=== PATIENT | female | born 1950 | race Caucasian/White ===

== ENCOUNTER → 2024-09-19 | Outpatient (CLI) | payer MEDICARE, SELFPAY ==
[2024-09-19 11:18] LABS: Basophils % (Auto) 0 % (0-2.5); Eosinophils # (Auto) 0.2 Thou/mm3 (0.0-0.5); Eosinophils % (Auto) 3 % (0-10); Hematocrit 37.4 % (36.0-46.0); Hemoglobin 12.4 g/dL (12.0-16.0); Immature Granulocytes % (Auto) 0 % (0-0); Immature Granulocytes Auto 0.03 Thou/mm3 (0.00-0.00); Lymphocytes # (Auto) 1.8 Thou/mm3 (1.0-4.8); Lymphocytes % (Auto) 19 % (10-50); Mean Corpuscular HGB Conc 33.2 g/dl (31.0-37.0); Mean Corpuscular Volume 90 fL (80-100); Monocytes # (Auto) 0.6 Thou/mm3 (0.0-0.8); Monocytes % (Auto) 6 % (0-12); Neutrophils % (Auto) 72 % (37-80); Nucleated Red Blood Cell % 0 /100 WBC (0); Platelet Count 280 Thou/mm3 (140-440); RDW Standard Deviation 46.7 fL (36.4-46.3); Red Blood Count 4.14 Miln/mm3 (4.00-5.20); White Blood Count 9.7 Thou/mm3 (3.6-11.0)
[2024-09-19 11:30] LABS: Glucose Estimated Average 223 mg/dL (80-131); Hemoglobin A1C 9.4 % Hgb (4.8-6.0)
[2024-09-19 11:43] LABS: Vitamin B12 139 pg/mL (211-911); Vitamin D 25 Hydroxy Total 21.3 ng/mL (7.3-40.2)
[2024-09-19 11:56] LABS: Creatinine MALB Rnd Ur 35 mg/dL (30-125); Microalbumin Creat Ratio 20 mg/gCrea (<30); Microalbumin, Random Urine 7 mg/L (0-300)
[2024-09-19 11:57] LABS: Alanine Aminotransferase 10 U/L (10-49); Albumin, Serum 3.8 gm/dL (3.4-4.8); Albumin/Globulin Ratio 1.4 (1.2-2.2); Alkaline Phosphatase 64 U/L (46-116); Anion Gap 7 (7-16); Aspartate Amino Transferase 13 U/L (0-34); BUN/Creatinine Ratio 12 Ratio (12-20); Bilirubin,Total 0.3 mg/dL (0.3-1.2); Blood Urea Nitrogen 11 mg/dL (9-23); Calcium 9.4 mg/dL (8.3-10.6); Calcium (Corrected) 9.6 mg/dL (8.5-10.1); Carbon Dioxide 29.4 mMol/L (20.0-31.0); Chloride 102 mMol/L (98-107); Cholesterol 161 mg/dL (132-200); Creatinine (Component) 0.9 mg/dL (0.6-1.3); Free T4 (Free Thyroxine) 1.11 ng/dL (0.89-1.76); Globulin 2.7 gm/dL (2.3-3.5); Glucose 280 mg/dL (74-106); HDL Cholesterol 40 mg/dL (40-60); LDL Cholesterol,Calculated 100 mg/dL (0-130); Osmolality,Calculated 285 (275-295); Potassium 4.6 mMol/L (3.4-5.1); Sodium 138 mMol/L (136-145); Thyroid Stimulating Hormone 3.67 uIU/mL (0.55-4.78); Total Protein 6.5 gm/dL (5.7-8.2); Triglycerides 105 mg/dL (30-150); eGFR > 60 See Note
== END | disposition home or self-care (01) ==
LOC: COPL 10:01
PROVIDERS: PCP Internal Medicine; Referring Provider Internal Medicine; Visit Provider Internal Medicine
DX: I11.0 Hypertensive heart disease with heart failure (principal); E11.9 Type 2 diabetes mellitus without complications; E55.9 Vitamin D deficiency, unspecified; E78.2 Mixed hyperlipidemia; E03.9 Hypothyroidism, unspecified
CPT/HCPCS: 36415; 80053; 80061; 82043; 82306; 82570; 82607; 83036; 84439; 84443; 85025

== ENCOUNTER 2024-12-23 05:09 | Inpatient (IN) | payer MEDICARE, SELFPAY ==
[2024-12-23] VITALS (10 sets, daily range): BP systolic 127–152; BP diastolic 66–79; PULSE 96–112; RESP 17–22; TEMP 36.4–36.8; O2SAT 92–98; BMI 39.8; BMI 36.1
--- NOTE | 2024-12-23 05:19 | EKG_ITS ---
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
--- NOTE | 2024-12-23 05:36 | XR_ITS ---
Examination: AP chest single view Technique one AP portable semiupright chest single view Date and time: December 23, 2024, 0555 hrs., Comparison April 08, 2021 Indications: Nausea vomiting dizziness beginning 16 hours ago. Findings: Minimal prominence left ventricle Mild vascular congestion. No lobar pneumonia or pulmonary edema Significant osteopenia Impression: Mild vascular congestion
--- NOTE | 2024-12-23 05:38 | EDNOTE_ITS ---
Nausea/Vomit./Diarrhea-RME/HPI General Chief complaint: Nausea/Vomiting/Diarrhea Stated complaint: WEAKNESS, N/V Time Seen by Provider: 12/23/24 05:20 Source: patient, family and EMS Arrival date/time: 12/23/24 05:09 Mode of arrival: EMS RME / HPI RME / HPI Narrative: Ms. French is a 74-year-old female with past medical history of hypertension, dementia and insulin-dependent diabetes mellitus type 2 who presented to [facility] emergency department on 12/23/2024 with a chief complaint of nausea and vomiting. Patient's family at bedside assisted in providing history, patient alert and oriented x 3, per family patient had significant nausea vomiting yesterday unable to keep any food and medications, was given Zofran yesterday and her symptoms mildly improved, did report taking her insulin dose of Lantus 40 units yesterday. At night when she was coming back from the restroom fell on the floor, unwitnessed, denies hitting head not on any anticoagulation however complains of some right sided abdominal pain. On physical exam patient has moderate tenderness right sided abdomen, patient denies any fever myalgia chills shortness of breath chest pain and headache. Related Data Previous Rx's ?Medication ?Instructions ?Recorded benzonatate 200 mg capsule 200 mg PO BID PRN cough #30 caps 04/18/19 ipratropium bromide 21 mcg (0.03 2 spray intranasal BI D #30 mL 04/18/19 %) nasal spray loratadine 10 mg tablet (Allergy 10 mg PO QDAY allergy symptoms #30 04/18/19 Relief (loratadine)) tabs azithromycin 250 mg tablet See Rx Instructions PO .COM PLEX #6 04/21/19 (Zithromax) tabs Allergies Allergy/AdvReac Type Severity Reaction Status Date / Time Penicillins Allergy Verified 12/23/24 05:26 rofecoxib Allergy Verified 12/23/24 05:26 Review of Systems Review of Systems Systems Reviewed: All systems reviewed, normal except as documented Past Medical History Past Medical History Comments PMH COMMENT: PMH: Positive for , No significant past medical history PSHx: Hysterectomy Allergies: Penicillin, rofecoxib Social history: -Smoking: Denies -Alcohol Use: Denies -Illicit Drug Use: Denies Family History: Noncontributory ED Exam Narrative Physical exam: Physical Exam General: Awake and in no acute distress. Conversational and non-toxic appearing. HEENT: Normocephalic, atraumatic, mucous membranes moist. Heart: Sinus tachycardia, no murmurs. Lungs: Clear to auscultation with no wheezing or crackles. Abdomen: Firm, tender, significant tenderness noted right sided abdomen, voluntary guarding noted right side,?no guarding or rebound tenderness. Neurologic: Alert and oriented x3, no gross neurological deficit, and patient able to move all 4 extremities. Extremities: No edema. Wrinkled skin bilateral lower extremity. Skin: No rash or ecchymoses. Varicose veins noted. Course Quality Measures Current suspected stage: severe sepsis Possible source: GI tract/intra-abdominal Blood cultures ordered: yes Antibiotic ordered: Yes Pertinent labs: 12/23/24 12/23/24 05:32 09:32 Lactic Acid 6.4 H* mMol/L 3.7 H mMol/L (0.4-2.0) (0.4-2.0) sepsis Orders Category Date Time Status Bedside Blood Glucose Q6H Care 12/23/24 15:[address] Screening NOW Care 12/23/24 05:43 Active Medical Assistant Supervisor Q4H START 00 Care 12/23/24 05:18 Active Continuous Pulse Oximetry NOW Care 12/23/24 05:18 Completed EKG (ED ONLY) *Do not use* NOW Care 12/23/24 05:19 Completed EKG (ED ONLY) *Do not use* NOW Care 12/23/24 10:53 Completed Fingerstick [Bedside Blood Glucose] NOW Care 12/23/24 05:18 Active In and Out Catheter X1 Care 12/23/24 05:45 Completed Insert IV NOW Care 12/23/24 05:26 Active Insert NG / OG tube NOW Care 12/23/24 11:57 Active NPO NOW Care 12/23/24 11:57 Active Diet NPO (NOW) Diet 12/23/24 11:[address] abdomen pelvis w con Stat Exams 12/23/24 05:[address] cervical spine wo con Stat Exams 12/23/24 05:[address] head/brain wo con Stat Exams 12/23/24 05:42 Completed CXRP [XR chest 1V portable] Stat Exams 12/23/24 05:36 Completed EKG (ED Only) Stat Exams 12/23/24 05:19 Draft EKG (ED Only) Stat Exams 12/23/24 10:53 Draft XR chest 1V post procedure Stat Exams 12/23/24 13:10 Completed XR small bowel single contrast Stat Exams 12/23/24 16:44 Completed A1C [Glycohemoglobin w (eAG)] AM DRAW Lab 12/24/24 05:00 Ordered Beta Hydroxybutyrate Stat Lab 12/23/24 06:05 Completed Blood Culture (Lab) Stat Lab 12/23/24 06:04 Received CBC Stat Lab 12/23/24 05:32 Completed CMP [Comprehensive Metabolic Panel] Stat Lab 12/23/24 06:05 Completed Creatine Kinase Stat Lab 12/23/24 06:05 Completed INR [Prothrombin Time with INR] Stat Lab 12/23/24 06:05 Completed Lactate (Lactic Acid) Stat Lab 12/23/24 05:32 Completed Lactic Acid, 3 HR Stat Lab 12/23/24 09:32 Completed Magnesium Stat Lab 12/23/24 06:05 Completed PTT [Partial Thromboplastin Time] Stat Lab 12/23/24 06:05 Completed Phosphorous Stat Lab 12/23/24 06:05 Completed Troponin I Stat Lab 12/23/24 06:05 Completed Troponin I Stat Lab 12/23/24 11:32 Completed Urinalysis, C/S if Indicated Stat Lab 12/23/24 05:53 Completed Urine Culture Stat Lab 12/23/24 05:53 Received VBG [Venous Blood Gas] Stat Lab 12/23/24 05:32 Completed Dextrose 50% Syr [D50w Syringe Abboject] Med 12/23/24 15:23 Active 25 ml IV Q15MIN PRN Dextrose 50% Syr [D50w Syringe Abboject] Med 12/23/24 15:23 Active 50 ml IV Q15MIN PRN Glucagon Inj Med 12/23/24 15:23 Active 1 mg IM Q15MIN PRN INSULIN LISPRO (AdmeLOG) [HumaLOG] Med 12/23/24 17:00 Active See Protocol SC ACHS Insulin Degludec Inj Med 12/23/24 21:00 Active 30 unit SC HS Insulin Regular Med 12/23/24 11:08 Discontinued 5 unit IV X1 ONE Magnesium Sulfate 1 gm Ivpb [Magnesium Sulfate Ivpb] Med 12/23/24 11:08 Disc ontinued 1 gm in 100 ml IV X1 Meropenem Inj [Merrem Inj] 1,000 mg Med 12/23/24 11:07 Discontinued SODIUM CHLORIDE 0.9% (Popper) [Ns 0.9% (P)] 50 ml IV X1 Morphine* Inj Med 12/23/24 12:23 Discontinued 2 mg IVP X1 ONE Ringers Lactated 1000 ml [Lactated Ringers] 1,000 ml Med 12/23/24 15:22 Active IV 100 mls/hr Sodium Chloride 0.9% 1000 ml [Ns] 1,000 ml Med 12/23/24 05:36 Discontinued IV 999 mls/hr Sodium Chloride 0.9% 1000 ml [Ns] 1,000 ml Med 12/23/24 05:37 Discontinued IV 999 mls/hr Vancomycin Pharmacy to Dose Med 12/23/24 11:07 Discontinued 1 each IV QDAY PRN Vancomycin/Ns 1 gm Ivpb 200 ml Med 12/23/24 11:15 Discontinued IV X1 cefTRIAXone [Rocephin] 2 gm Med 12/23/24 16:47 Active SODIUM CHLORIDE 0.9% (Popper) [Ns 0.9% (P)] 50 ml IV QDAY Vital Signs Vital signs: Vital Signs Temperature 97.5 F 12/23/24 05:27 Pulse Rate 100 12/23/24 05:27 Respiratory Rate 18 12/23/24 05:27 Blood Pressure 129/69 12/23/24 05:27 Pulse Oximetry (%) 95 12/23/24 05:27 Oxygen Delivery Method Room Air 12/23/24 05:27 Oxygen Flow Rate 4 12/23/24 05:27 Nausea/Vomiting/Diarrhea MDM Narrative MDM Narrative:: # Nausea vomiting dehydration #Abdominal pain 1 L NS bolus, beta hydroxybutyrate, CBC, INR PT, lactate, VBG, magnesium, troponin I, blood culture, urine culture, lactic acid, CMP, PTT, urinalysis, phosphorus, CK CT head/brain without contrast, CT cervical spine without contrast and CT abdomen pelvis with contrast, chest x-ray and EKG Patient will be signed off to ER physician Dr. Mendez for further workup. Sepsis alert initiated Case discussed with Attending Physician Dr. Flores and signed off to oncoming ER physician Dr. Mendez. Zak Ha MD Internal Medicine PGY-2 Disclaimer: This note was dictated by speech recognition. Minor errors in emergency services director may be present due to voice recognition software. Patient is a 74-year-old female to the [facility] from with concerns for abdominal pain. Vital signs and exam as listed. Concern for bowel obstruction, perforation, ACS, arrhythmia, electrolyte abnormality among others. Also concern for pancreatitis, urinary tract infection. Ordered labs, CT abdomen pelvis as well as offered medications for symptom relief. Workup ordered: Patient data External records reviewed:: [facility] previous records Clinical information provided by:: patient and family Social determinants that could affect healthcare access:: none Patient has the following chronic illnesses:: As Above How is presenting disease/condition affected by chronic disease/condition?: exacerbated by Evaluation data The following diagnostics were reviewed and interpreted by me:: other (specify) (Workup was ordered, pending results) Lab and/or radiology exams considered but not ordered:: None Interpretation Summary: Workup ordered, pending result Medications / Prescriptions Medications / Prescriptions considered but not ordered:: None Medication administrations:: Medication Administration History Acetaminophen (Acetaminophen 325 Mg Tablet) 650 mg PO Q6H PRN PRN Reason: Fever >101.5 and pain 1-3 Stop: 01/22/25 16:59 Dextrose (Dextrose 50%-Water Inj 50 Ml Syringe) 25 ml IV Q15MIN PRN PRN Reason: BG 50-70 responsive npo pt Stop: 01/22/25 15:22 Dextrose (Dextrose 50%-Water Inj 50 Ml Syringe) 50 ml IV Q15MIN PRN PRN Reason: BG <50 OR BG <70 & pt unresponsive Stop: 01/22/25 15:22 Glucagon (Glucagon Inj 1 Mg Vial) 1 mg IM Q15MIN PRN PRN Reason: BG <70, and no IV access Heparin Sodium (Porcine) (Heparin Sod Inj 5000 Unit/Ml Vial) 5,000 unit SC Q8HR SAMAN Stop: 01/06/25 21:59 Lactated Ringer's (Lactated Ringers) 1,000 mls @ 100 mls/hr IV .Q10H SAMAN Stop: 01/22/25 15:21 Last Admin: 12/23/24 16:09 Dose: 100 mls/hr Documented By: CLARA Ceftriaxone Sodium 2 gm/ (Sodium Chloride) 50 mls @ 100 mls/hr IV QDAY SAMAN Stop: 12/30/24 16:46 Last Infusion: 12/23/24 18:14 Dose: Infused Documented By: Admin: 12/23/24 17:16 Dose: 100 mls/hr Documented By: CLARA Insulin Degludec (Insulin Degludec 5 Unit/0.05 Ml (Per 5 Units)) 30 unit SC HS [facility] Stop: 01/22/25 20:59 Insulin Human Lispro (Insulin Lispro (Admelog) 1 Unit/0.01 Ml Unit) 0 unit SC [facility]; Protocol Stop: 01/22/25 16:59 Last Admin: 12/23/24 17:14 Dose: 4 unit Documented By: CLARA Co-signed By: FRED Morphine Sulfate (Morphine Sulf Inj 4 Mg/Ml Vial) 1 mg IVP Q4HR PRN PRN Reason: pain 4-6 Stop: 12/28/24 18:13 Morphine Sulfate (Morphine Sulf Inj 4 Mg/Ml Vial) 4 mg IVP Q4HR PRN PRN Reason: pain 7-10 Stop: 12/28/24 18:15 Pantoprazole Sodium (Pantoprazole Inj 40 Mg Vial) 40 mg IVP QDAY [facility] Stop: 01/23/25 08:59 Discontinued Medications Sodium Chloride (Ns) 1,000 mls @ 999 mls/hr IV .Q1H1M ONE Stop: 12/23/24 06:36 Last Infusion: 12/23/24 06:53 Dose: Infused Documented By: Admin: 12/23/24 05:48 Dose: 999 mls/hr Documented By: SYLVIA Sodium Chloride (Ns) 1,000 mls @ 999 mls/hr IV .Q1H1M ONE Stop: 12/23/24 06:37 Last Admin: 12/23/24 05:37 Dose: Not Given Documented By: SYLVIA Non-Admin Reason: Cancelled by Provider Meropenem 1,000 mg/ Sodium (Chloride) 50 mls @ 100 mls/hr IV X1 ONE Stop: 12/23/24 11:36 Last Infusion: 12/23/24 12:00 Dose: Infused Documented By: Admin: 12/23/24 11:28 Dose: 100 mls/hr Documented By: CLARA Magnesium Sulfate/Dextrose (Magnesium Sulfate Ivpb) 1 gm in 100 mls @ 100 mls/hr IV X1 ONE Stop: 12/23/24 12:07 Last Infusion: 12/23/24 12:30 Dose: Infused Documented By: Admin: 12/23/24 11:28 Dose: 100 mls/hr Documented By: CLARA Vancomycin/Sodium Chloride (Vancomycin/Ns 1 Gm Ivpb) 200 mls @ 120 mls/hr IV X1 ONE Stop: 12/23/24 12:54 Last Infusion: 12/23/24 13:20 Dose: Infused Documented By: Admin: 12/23/24 11:29 Dose: 120 mls/hr Documented By: CLARA Insulin Human Regular (Insulin Hum Regular 1 Unit/0.01 Ml (Per Unit)) 5 unit IV X1 ONE Stop: 12/23/24 11:09 Last Admin: 12/23/24 11:29 Dose: 5 unit Documented By: CLARA Co-signed By: FRED Morphine Sulfate (Morphine Sulf Inj 4 Mg/Ml Vial) 2 mg IVP X1 ONE Stop: 12/23/24 12:24 Last Admin: 12/23/24 12:45 Dose: Not Given Documented By: CLARA Non-Admin Reason: Patient Refused Morphine Sulfate (Morphine Sulf Inj 4 Mg/Ml Vial) 2 mg IVP X1 ONE Stop: 12/23/24 18:15 Last Admin: 12/23/24 18:25 Dose: 2 mg Documented By: SONJA Pharmacy Consult (Vancomycin Pharmacy To Dose 1 Each Each) 1 each IV QDAY PRN PRN Reason: PROTOCOL Stop: 01/22/25 11:06 1 L NS bolus Consultations Consultation(s) initiated? (list below): No Diagnosis Nausea Differential Diagnosis: food poisoning, gastroenteritis and dehydration Most likely diagnosis given after review of the tests above:: Pending workup Admission Indicated Admission indicated?: not indicated (Pending workup) Admission Request Was there a request for admission?: No Disposition Plan Disposition Plan: other (specify) (Patient will be signed off to oncoming ER physician Dr. Mendez) Discharge Plan Plan Patient Disposition: Admit Acute Care w/in Hospital Problem List Clinical Impression: SBO (small bowel obstruction)
--- NOTE | 2024-12-23 05:42 | XR_ITS ---
Examination: CT brain head without contrast. 2-D sagittal coronal reconstructions Date and time of exam:December 23, 2024, 0751 hrs. Indications: Ground-level fall today with into the head, head pain CTDI: vol (mGy):51.7 DLP: (mGycm):1550 Technique: Multiple CT axial sections of the brain have been obtained, 5 mm slice thickness. Contrast has not been administered. 2-D sagittal, coronal reconstructions have been obtained Low dose protocols were performed. One or more of the following dose reduction techniques were used; automated exposure control, adjustment of the mA and/or KV according to patient size, use of iterative reconstruction technique. Findings: Severe artifacts in the posterior fossa Ventricles are not enlarged No gross hemorrhage or mass effect Impression: Limited study, severe artifacts in the posterior fossa No gross hemorrhage or mass effect
--- NOTE | 2024-12-23 05:42 | XR_ITS ---
Examination: CT cervical spine without contrast 2-D sagittal reconstructions 2-D coronal reconstructions 3-D reconstructions. Exam date and time:December 23, 2024, 0751 hrs. Indications: Ground-level fall today with injury to the neck, neck pain CTDI:vol (mGy) 20 DLP: (mGycm) 450 Technique: Multiple 2 mm axial sections of the cervical spine have been obtained. The coronal and sagittal reconstructions have been obtained. 3-D reconstructions have been obtained. Low dose protocols were performed. One or more of the following dose reduction techniques were used; automated exposure control, adjustment of the mA and/or KV according to patient size, use of iterative reconstruction technique. Findings: The images are degraded by patient motion No gross fracture The odontoid appears intact Impression: All of the images are degraded by significant patient motion No gross fracture Repeat this study as clinically warranted
--- NOTE | 2024-12-23 05:42 | XR_ITS ---
Examination: CT abdomen with intravenous contrast CT pelvis with intravenous contrast 2-D coronal reconstructions 2-D sagittal reconstructions Date and time of exam:December 23, 2024, 0757 hrs. Indications: Patient fell today with injury to the abdomen, abdomen pain. CTDI: vol (mGy) 51.7 DLP: (mGycm) 932 Technique: Multiple axial sections of the abdomen and pelvis have been obtained. 64 slice high-resolution scanner used. 3 mm axial sections have been obtained, post intravenous injection 30 cc [id number] 2-D sagittal, coronal reconstructions obtained. Low dose protocols were performed. One or more of the following dose reduction techniques were used; automated exposure control, adjustment of the mA and/or KV according to patient size, use of iterative reconstruction technique. Findings: Extensive mitral valvular calcification There is trace free fluid subcapsular to the liver There is mild ascites The liver is irregular in contour No liver splenic or renal laceration Aorta is normal in size There are abnormal fluid distended small bowel loops with wall thickening Urinary bladder is intact Colonic diverticulosis Prominent osteopenia with grade 1 anterolisthesis L4 on L5, advanced degenerative disc disease L2-L3 Hips bones of the pelvis intact Impression: Cirrhosis Mild ascites No liver splenic or renal laceration. Abnormal small bowel loops, fluid distended, differential would include ileus, enteritis, early small bowel obstruction, clinical correlation advised
[2024-12-23] MEDS: SODIUM CHLORIDE 0.9% 1000 ML 1,000 ML 999 ML IV (05:48)
[2024-12-23 05:49] LABS: Base Excess, Venous 0 (-3-3); O2 Saturation, Venous 89 % (96-97); PCO2, Venous 47 mmHg (36-56); PO2, Venous 58 mmHg (15-58); pH, Venous 7.36 (7.33-7.66)
[2024-12-23 05:53] LABS: Basophils # (Auto) 0.1 Thou/mm3 (0.0-0.2); Basophils % (Auto) 0 % (0-2.5); Eosinophils # (Auto) 0.0 Thou/mm3 (0.0-0.5); Eosinophils % (Auto) 0 % (0-10); Hematocrit 45.6 % (36.0-46.0); Hemoglobin 15.1 g/dL (12.0-16.0); Immature Granulocytes Auto 0.15 Thou/mm3 (0.00-0.00); Lymphocytes # (Auto) 1.7 Thou/mm3 (1.0-4.8); Lymphocytes % (Auto) 6 % (10-50); Mean Corpuscular HGB Conc 33.1 g/dl (31.0-37.0); Mean Corpuscular Hemoglobin 30.2 pg (25.0-35.0); Mean Corpuscular Volume 91 fL (80-100); Monocytes # (Auto) 1.7 Thou/mm3 (0.0-0.8); Monocytes % (Auto) 7 % (0-12); Neutrophils # (Auto) 23.2 Thou/mm3 (1.8-7.7); Neutrophils % (Auto) 87 % (37-80); Nucleated Red Blood Cell # 0.00 Thou/mm3 (0.00-0.00); Nucleated Red Blood Cell % 0 /100 WBC (0); Platelet Count 386 Thou/mm3 (140-440); RDW Standard Deviation 45.4 fL (36.4-46.3); Red Blood Count 5.00 Miln/mm3 (4.00-5.20); White Blood Count 26.8 Thou/mm3 (3.6-11.0)
[2024-12-23 05:56] LABS: Collection Type, Urine Clean Catch; Squamous Epithelial Cell,Urine 0 /hpf (0-5)
--- NOTE | 2024-12-23 05:56 | PC.NURSE ---
PT BIBA FROM HOME FOR N/V, WEAKNESS, AND ELEVATED BLOOD SUGAR. PTS GRANDDAUGHTER AT BEDSIDES CONFIRMS THAT PT HAS NOT BEEN FEELING WELL SINCE YESTERDAY. GRANDDAUGHTER ALSO MENTIONS A NEW SCRAPE ON PTS FORHEAD AND STATES THAT WAS THERE YESTERDAY. PT DENIES FALLING ON THE FLOOR. PROVIDER WAS NOTIFIED ABOUT STATEMENT. AT THE MOMENT PT DENIES NAUSEA
[2024-12-23 06:03] LABS: Lactate (Lactic Acid) 6.4 mMol/L (0.4-2.0)
[2024-12-23 06:15] LABS: Beta Hydroxybutyrate 0.2 mmol/L (<0.6)
[2024-12-23 06:30] LABS: Bilirubin,Urine Negative (Negative); Blood,Urine 1+ (Negative); Clarity,Urine Clear (Clear/Hazy); Color,Urine Yellow (Lt Yel-Yel); Culture Indicated,Urine Not Indicated; Glucose, Urine 4+ (Negative); Hyaline Casts,Urine < 1 /hpf (0-1); Ketones,Urine 1+ (Negative); Leukocyte Esterase,Urine Negative (Negative); Nitrite,Urine Negative (Negative); PH,Urine 6.0 (5.0-7.0); Protein,Urine 2+ (Neg - Trace); RBC,Urine 3 /hpf (0-3); Specific Gravity,Urine 1.014 (1.001-1.035); Urobilinogen,Urine Negative mg/dL (0.0-1.0); WBC,Urine 3 /hpf (0-5)
[2024-12-23 06:32] LABS: INR 1.1 (0.9-1.3); Partial Thromboplastin Time 24.0 Seconds (22.0-36.0); Prothrombin Time 11.9 Seconds (9.0-12.2)
[2024-12-23 06:44] LABS: Alanine Aminotransferase 11 U/L (10-49); Albumin, Serum 4.2 gm/dL (3.4-4.8); Albumin/Globulin Ratio 1.4 (1.2-2.2); Alkaline Phosphatase 64 U/L (46-116); Anion Gap 13 (7-16); Aspartate Amino Transferase 16 U/L (0-34); BUN/Creatinine Ratio 15 Ratio (12-20); Bilirubin,Total 0.8 mg/dL (0.3-1.2); Blood Urea Nitrogen 22 mg/dL (9-23); Calcium 9.6 mg/dL (8.3-10.6); Calcium (Corrected) 9.6 mg/dL (8.5-10.1); Carbon Dioxide 28.3 mMol/L (20.0-31.0); Chloride 97 mMol/L (98-107); Creatine Kinase 61 U/L (34-171); Creatinine (Component) 1.5 mg/dL (0.6-1.3); Estimated Creatinine Clearance 36.4 mL/min (>60); Globulin 3.1 gm/dL (2.3-3.5); Magnesium 1.5 mg/dL (1.6-2.6); Osmolality,Calculated 296 (275-295); Phosphorous 5.3 mg/dL (2.4-5.1); Potassium 4.2 mMol/L (3.4-5.1); Sodium 138 mMol/L (136-145); Total Protein 7.3 gm/dL (5.7-8.2); Troponin I 0.031 ng/mL (0.0-0.045); eGFR 36 See Note
[2024-12-23 06:46] LABS: Glucose 420 mg/dL (74-106)
[2024-12-23 08:47] LABS: Reflex Lactate? Y
[2024-12-23 09:43] LABS: Lactic Acid, 3 HR 3.7 mMol/L (0.4-2.0)
--- NOTE | 2024-12-23 10:47 | EDNOTE_ITS ---
Emergency Room Addendum <Cristina Mendez MD - Last Filed: 12/23/24 18:14> Addendum Narrative: Patient is a 74-year-old female is in the emergency department with concern for nausea vomiting. Patient has a history of hypertension, dementia. Nausea vomiting for 1 day. Lives with her . Patient also had a fall yesterday. Also complaining of right lower quadrant abdominal pain. Prior provider evaluated patient. Ordered labs head CT cervical spine CT CT abdomen pelvis contrast chest x-ray and EKG. EKG performed today at 539 in the morning notable for sinus rhythm heart rate 98, normal intervals, patient has ST elevations in lead aVR, V1 patient also with ST depressions in lead I to and aVL. Troponin 0.031. Patient without any chest pain. Labs with evidence of leukocytosis, 26.8, hemoglobin 15.1. Left shift of 87%. Normal platelets. Normal PT/INR. VBG pH normal. No significant acute electrolyte abnormality. Patient creatinine is 1.5. Previously normal. Patient glucose is 420. Patient does not have an anion gap acidosis. Lactic acid is 3.7 following fluid resuscitation. Patient presented with a lactic acid of 6. Patient also with hypomagnesemia. Will replete in the emergency department. No other acute metabolic abnormalities. Urinalysis without evidence of infection. CT brain and cervical spine did not identify any abnormalities however there was motion artifact. Chest x-ray with mild vascular congestion. CT abdomen pelvis with extensive mitral valvular calcification, there is trace free fluid subcapsular to the liver there is mild ascites. The liver is irregular. There are abnormal fluid distended small bowel loops with wall thickening. Patient also with diverticulosis. Patient is having bowel movements and passing gas. Given findings on workup, will consult hospitalist service for admission. Provided patient with antibiotics. Also fluids and medication for symptom relief. 11:10h I spoke with surgeon Dr. Diallo, states he will come evaluate the patient in the ED. 11:50h Surgeon Dr. Diallo is at bedside. Advised placing an NG tube and admission for further evaluation. He agrees to consult. 11:52h I spoke with hospitalist team B regarding admission. Kindly excepted patient for admission ?I spent 45 minutes of critical care time with this patient not including reportable procedures. There was an acute impairment of an organ system with a high probability of imminent or life threatening deterioration in the patient's condition. Interventions and changes required in the course of therapy are located in the chart. Time involved was spent in direct patient care, reviewing ancillary data, old records, consulting with decision makers, EMS, other doctors, giving orders and documenting. <Angy Alvares - Last Filed: 12/23/24 11:57> Addendum Narrative: Patient is a 74-year-old female is in the emergency department with concern for nausea vomiting. Patient has a history of hypertension, dementia. Nausea vomiting for 1 day. Lives with her . Patient also had a fall yesterday. Also complaining of right lower quadrant abdominal pain. Prior provider evaluated patient. Ordered labs head CT cervical spine CT CT abdomen pelvis contrast chest x-ray and EKG. EKG performed today at 539 in the morning notable for sinus rhythm heart rate 98, normal intervals, patient has ST elevations in lead aVR, V1 patient also with ST depressions in lead I to and aVL. Troponin 0.031. Patient without any chest pain. Labs with evidence of leukocytosis, 26.8, hemoglobin 15.1. Left shift of 87%. Normal platelets. Normal PT/INR. VBG pH normal. No significant acute electrolyte abnormality. Patient creatinine is 1.5. Previously normal. Patient glucose is 420. Patient does not have an anion gap acidosis. Lactic acid is 3.7 following fluid resuscitation. Patient presented with a lactic acid of 6. Patient also with hypomagnesemia. Will replete in the emergency department. No other acute metabolic abnormalities. Urinalysis without evidence of infection. CT brain and cervical spine did not identify any abnormalities however there was motion artifact. Chest x-ray with mild vascular congestion. CT abdomen pelvis with extensive mitral valvular calcification, there is trace free fluid subcapsular to the liver there is mild ascites. The liver is irregular. There are abnormal fluid distended small bowel loops with wall thickening. Patient also with diverticulosis. Patient is having bowel movements and passing gas. Given findings on workup, will consult hospitalist service for admission. 11:10h I spoke with surgeon Dr. Diallo, states he will come evaluate the patient in the ED. 11:50h Surgeon Dr. Diallo is at bedside. Advised placing an NG tube and admis gaye for further evaluation. He agrees to consult. 11:52h I spoke with hospitalist team B regarding admission.
--- NOTE | 2024-12-23 10:53 | EKG_ITS ---
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1950 Requested By: Cristina Hyde Order Number: [id number] Reading MD: Cristina Hyde Measurements Intervals [place] Rate: 101 P: 43 SC: 156 QRS: -5 QRSD: 104 T: 134 QT: 328 QTc: 426 Interpretive Statements SINUS TACHYCARDIA LOW QRS VOLTAGE IN PRECORDIAL LEADS [QRS DEFLECTION < 1.0 mV IN CHEST LEADS] LEFT VENTRICULAR HYPERTROPHY AND ST-T CHANGE [VOLTAGE CRITERIA PLUS ST/T ABNORMALITY] POSSIBLE ANTERIOR MYOCARDIAL INFARCTION , OF INDETERMINATE AGE [30 ms Q WAVE IN V3/V4, OR R < 0.2 mV IN V4] Compared to ECG 12/23/2024 05:35:14 Low QRS voltage now present Myocardial infarct finding now present Sinus rhythm no longer present ST (T wave) deviation still present /store/S0/[id number]
[2024-12-23] MEDS: MEROPENEM INJ 1,000 MG in SODIUM CHLORIDE 0.9% (Popper) 50 ML 100 MG IV (11:28)
[2024-12-23] MEDS: INSULIN HUM REGULAR 1 UNIT/0.01 ML (PER UNIT) 5 UNIT IV (11:29)
[2024-12-23] MEDS: VANCOMYCIN/NS 1 GM IVPB 200 ML IV (11:29)
--- NOTE | 2024-12-23 12:00 | PD.SURCONS ---
HPI Consult details Consult date: 12/23/24 Reason for consultation narrative: Abdominal pain with nausea and vomiting History of present illness: 74-year-old obese female with a history of diabetes and hypertension was brought into the emergency department for recent fall with nausea and vomiting. According to the patient and her family she has had multiple episodes of nausea and vomiting yesterday after which she sustained a fall. She denies having similar symptoms in the past. She also denies weight loss, changes in bowel habits or history of blood per rectum. A CT scan revealed dilated loops of small bowel suspicious for ileus versus small bowel obstruction. Review of Systems Constitutional Constitutional: Denies chills, Denies fever(s) and Denies weight loss Cardiovascular Cardiovascular: Denies chest pain Respiratory Respiratory: Denies cough Gastrointestinal Gastrointestinal: Reports abdominal pain, Reports nausea and Reports vomiting Genitourinary Genitourinary: Denies difficulty voiding Hematologic/Lymphatic Hematologic/Lymphatic: Denies easy bleeding and Denies easy bruising Past Medical History Surgical History OTHER SURGICAL HX: Hysterectomy Social History SMOKING STATUS: Never smoker SUBSTANCE USE: does not use ALCOHOL: Never Meds Home Medications and Allergies Allergies Allergy/AdvReac Type Severity Reaction Status Date / Time Penicillins Allergy Verified 12/23/24 05:26 rofecoxib Allergy Verified 12/23/24 05:26 Exam Vital Signs Temp Pulse Resp BP Pulse Ox O2 Del Method O2 Flow Rate 97.5 F 96 17 129/69 98 Nasal Cannula 1 12/23/24 05:27 12/23/24 06:01 12/23/24 06:01 12/23/24 05:27 12/23/24 06:01 12/23/24 06:01 12/23/24 06:01 Constitutional Constitutional: mild distress and obese Routine Abdominal Exam Comments: Abdomen is soft and not distended. She has significant tenderness to palpation of her right mid abdomen, no evidence of diffuse peritonitis at this time Results Results: Laboratory Laboratory results: results reviewed Results: Imaging CT scan - abdomen: report reviewed and image reviewed CT scan - pelvis: report reviewed and image reviewed Assessment & Plan Additional Assessment Additional comments: Right-sided abdominal pain with nausea and vomiting, with CT scan findings suspicious for small bowel obstruction Plan Will keep n.p.o. with IV fluids. An NG tube will be placed. Will obtain small bowel series. I had discussion with the patient and her family and explained to them that if her symptoms improve we will continue conservative management. If her symptoms worsen and or clinical course deteriorates she will require an exploratory laparotomy. Will follow
[2024-12-23 12:22] LABS: Troponin I 0.031 ng/mL (0.0-0.045)
--- NOTE | 2024-12-23 13:10 | XR_ITS ---
Examination: AP chest single view Technique one AP portable upright chest single view Date and time: December 23, 2024 1643 hours INDICATIONS: Post orogastric tube placement FINDINGS: Orogastric tube in stomach satisfactory position Mild enlargement cardiac contour with prominent vascular congestion Prominent osteopenia IMPRESSION: Orogastric tube in the stomach satisfactory position
[2024-12-23] MEDS: RINGERS LACTATED 1000 ML 1,000 ML 100 ML IV (16:09)
--- NOTE | 2024-12-23 16:11 | PD.RESHP ---
Documentation for date of: 12/23/24 [facility] History of Present Illness Chief complaint: Presyncopal episode History of present illness: and daughter at the bedside who also gives some history as patient has some memory issues. 74-year-old female with significant past medical history of hypertension, diabetes mellitus, insulin-dependent, possible dementia [not officially diagnosed], fatty liver, bowel and bladder incontinence, chronic constipation was brought to the hospital with chief complaints of nausea, vomitings and presyncopal like episode. Patient was absolutely normal till yesterday morning, later in the day noted to have 10 episodes of vomiting, nonbilious without any associated hematemesis. This morning, per patient woke up and tried to get out of the bed but she is not able to do that for which tried to help her but could not hold her for a long time and slowly she was dropped down to the floor and she was noted to have severe sweating but without any loss of consciousness. At baseline, patient is able to walk with the help of support around the home but it is getting difficult in the recent times. Also reported that she has severe constipation and had bowel movement once and every 4 days. Had bowel and bladder incontinence since many years from now. Patient was mainly brought to the hospital in view of sweating and presyncopal episode and later found to have small bowel obstruction in the ED. General surgeon, Dr. Diallo was consulted and he recommended n.p.o., IV fluids, small bowel series and conservative management as of now. ED course: - Vitals are stable at the time of admission - Labs at the time of admission were significant for WBC 26.8, chloride 97, creatinine 1.5, glucose 420, lactic 3.7, phosphorus 5.3, magnesium 1.5. - EKG done at the time of admission showed normal sinus rhythm with no acute ST and T wave changes - Chest x-ray did show mild vascular congestion - Abdomen/pelvis CT showed extensive mitral valvular calcification, irregular liver contour, mild ascites, colonic diverticulosis, abnormal fluid distended small bowel loops with wall thickening suggestive of early small bowel obstruction. Basal areas of lungs visualized on CT chest showed bilateral patchy opacities. - Cervical spine CT and head CT did not show any acute fracture. - Patient was admitted in view of suspected small bowel obstruction and presyncopal like episode. Past medical history: Hypertension, diabetes mellitus, possible dementia, fatty liver, bowel and bladder incontinence, chronic constipation Past surgical history: Tubal ligation, denies major abdominal surgeries Social history: Lives with , able to do routine daily activities with the help of support, denies smoking, alcohol, other illicit drug abuse Allergies: Penicillins Review of Systems Review of Systems Systems Reviewed: All systems reviewed, normal except as documented Exam Vital Signs Temp Pulse Resp BP Pulse Ox O2 Del Method O2 Flow Rate 98.2 F 100 18 150/75 H 92 L Room Air 1 12/23/24 15:00 12/23/24 15:00 12/23/24 15:00 12/23/24 15:00 12/23/24 15:12/23/24 15:00 12/23/24 06:01 Narrative Exam General: Awake. HEENT: Normocephalic, atraumatic, mucous membranes moist. Heart: Regular rate and rhythm, Ejection systolic murmur at aortic area. Lungs: Clear to auscultation with no wheezing or crackles. Abdomen: Soft, mildly distended, mild tenderness in RUQ, Decreased bowel sounds. ?No guarding or rebound tenderness. Neurologic: Alert and oriented x3, no gross neurological deficit, and patient able to move all 4 extremities. Extremities: No edema. Skin: No rash or ecchymoses. Results: Labs 12/24/24 04:27 12/24/24 04:27 Labs: Short CBC 12/23/24 Range/Units 05:32 WBC 26.8 H (3.6-11.0) Thou/mm3 Hgb 15.1 (12.0-16.0) g/dL Hct 45.6 (36.0-46.0) % Plt Count 386 (140-440) Thou/mm3 BMP 12/23/24 06:05 Sodium 138 Potassium 4.2 Chloride 97 L Carbon Dioxide 28.3 BUN 22 Creatinine 1.5 H Glucose 420 H* Calcium 9.6 Cardiac Enzymes 12/23/24 12/23/24 Range/Units 06:05 11:32 Total Creatine Kinase 61 (34-171) U/L Troponin I 0.031 0.031 (0.0-0.045) ng/mL Liver Function 12/23/24 Range/Units 06:05 Total Bilirubin 0.8 (0.3-1.2) mg/dL AST 16 (0-34) U/L ALT 11 (10-49) U/L Alkaline Phosphatase 64 (46-116) U/L Albumin 4.2 (3.4-4.8) gm/dL Urine 12/23/24 Range/Units 05:53 Urine Color Yellow (Lt Yel-Yel) Urine Clarity Clear (Clear/Hazy) Urine pH 6.0 (5.0-7.0) Ur Specific [place] 1.014 (1.001-1.035) Urine Protein 2+ A (Neg - Trace) Urine Glucose (UA) 4+ A (Negative) ABG Interpretation ABG results: 12/23/24 05:32 VBG pH 7.36 VBG pCO2 47 VBG pO2 58 VBG Base Excess 0 Quality Measures Quality Measures VTE prophylaxis Advance care planning discussed with:: patient, spouse and child Medications Home Medications and Allergies Home Medications ?Medication ?Instructions ?Recorded ?Confirmed ?Type atorvastatin 20 mg tablet 20 mg PO DAILY 12/24/24 12/24/24 History blood-glucose sensor (DexPhiltro G7 12/24/24 12/24/24 History Sensor device) cholecalciferol (vitamin D3) 50 2,000 unit PO BID 12/24/24 12/24/24 History mcg (2,000 unit) tablet (Vitamin D3) insulin glargine 100 unit/mL (3 42 unit subcut DAILY 12/24/24 12/24/24 History mL) subcutaneous pen (Lantus Solostar U-100 Insulin) losartan 50 mg-hydrochlorothiazide 1 tab PO DAILY 12/24/24 12/24/24 History 12.5 mg tablet metformin 1,000 mg tablet 1,000 mg PO BID 12/24/24 12/24/24 History Allergies Allergy/AdvReac Type Severity Reaction Status Date / Time Penicillins Allergy Verified 12/23/24 05:26 rofecoxib Allergy Verified 12/23/24 05:26 Visit Medications Dextrose (Dextrose 50%-Water Inj 50 Ml Syringe) 25 ml IV Q15MIN PRN PRN Reason: BG 50-70 responsive npo pt Stop: 01/22/25 15:22 Dextrose (Dextrose 50%-Water Inj 50 Ml Syringe) 50 ml IV Q15MIN PRN PRN Reason: BG <50 OR BG <70 & pt unresponsive Stop: 01/22/25 15:22 Glucagon (Glucagon Inj 1 Mg Vial) 1 mg IM Q15MIN PRN PRN Reason: BG <70, and no IV access Lactated Ringer's (Lactated Ringers) 1,000 mls @ 100 mls/hr IV .Q10H REPLACED BY [facility] Stop: 01/22/25 15:21 Last Admin: 12/23/24 16:09 Dose: 100 mls/hr Insulin Degludec (Insulin Degludec 5 Unit/0.05 Ml (Per 5 Units)) 30 unit SC HS REPLACED BY [facility] Stop: 01/22/25 20:59 Insulin Human Lispro (Insulin Lispro (Admelog) 1 Unit/0.01 Ml Unit) 0 unit SC ACHS REPLACED BY [facility]; Protocol Stop: 01/22/25 16:59 Pharmacy Consult (Vancomycin Pharmacy To Dose 1 Each Each) 1 each IV QDAY PRN PRN Reason: PROTOCOL Stop: 01/22/25 11:06 Discontinued Medications Sodium Chloride (Ns) 1,000 mls @ 999 mls/hr IV .Q1H1M ONE Stop: 12/23/24 06:36 Last Infusion: 12/23/24 06:53 Dose: Infused Sodium Chloride (Ns) 1,000 mls @ 999 mls/hr IV .Q1H1M ONE Stop: 12/23/24 06:37 Last Admin: 12/23/24 05:37 Dose: Not Given Meropenem 1,000 mg/ Sodium (Chloride) 50 mls @ 100 mls/hr IV X1 ONE Stop: 12/23/24 11:36 Last Admin: 12/23/24 11:28 Dose: 100 mls/hr Magnesium Sulfate/Dextrose (Magnesium Sulfate Ivpb) 1 gm in 100 mls @ 100 mls/hr IV X1 ONE Stop: 12/23/24 12:07 Last Admin: 12/23/24 11:28 Dose: 100 mls/hr Vancomycin/Sodium Chloride (Vancomycin/Ns 1 Gm Ivpb) 200 mls @ 120 mls/hr IV X1 ONE Stop: 12/23/24 12:54 Last Admin: 12/23/24 11:29 Dose: 120 mls/hr Insulin Human Regular (Insulin Hum Regular 1 Unit/0.01 Ml (Per Unit)) 5 unit IV X1 ONE Stop: 12/23/24 11:09 Last Admin: 12/23/24 11:29 Dose: 5 unit Morphine Sulfate (Morphine Sulf Inj 4 Mg/Ml Vial) 2 mg IVP X1 ONE Stop: 12/23/24 12:24 Assessment & Plan Plan and daughter at the bedside who also gives some history as patient has some memory issues. 74-year-old female with significant past medical history of hypertension, diabetes mellitus, insulin-dependent, possible dementia [not officially diagnosed], fatty liver, bowel and bladder incontinence, chronic constipation was brought to the hospital with chief complaints of nausea, vomitings and presyncopal like episode. #? SBO - Patient reported that she had chronic constipation and occasionally had diarrheal episodes - Also reported that she had bowel incontinence and has accidents all the time - Reported that she has bowel movements once in 4 or 5 days which is normal for her since last couple of years. Patient does not remember the exact last bowel movement - Noted to have vomitings on the day before admission, 10 episodes - Abdomen/pelvis CT imaging showed early small bowel obstruction Plan - General Surgeon, Dr. Diallo is consulted and he recommended to continue with n.p.o., IV fluids, small bowel series, NG tube placement - NG tube was placed - Started on IV fluids, LR at 100 mL/h - Small bowel series were ordered, will follow-up with that # Presyncopal episode #? Fall - At baseline, patient is able to walk with the help of support - On the day before admission, patient noted to have multiple episodes of vomitings almost 10 associated with nausea, nonbilious and denies any hematemesis - On the day of admission, per , patient is trying to get out of the bed and asked help from the hospital and and when he is trying to help her walk from the bedroom to the living room he noted severe sweating on the patient and not able to support herself. Later the dropped her slowly down to the floor and later brought to the hospital - Denies palpitations, loss of consciousness, bowel or bladder incontinence at the time of episode, fever also denies hitting head or back - Denies any previous history of cardiac disease - EKG at the time of admission showed normal sinus rhythm with no acute ST and T wave changes and troponin is 0.031 - Imaging including head CT and C-spine CT did not show any fracture - Labs at the time of admission are significant for SHERIE Plan - Orthostatic vitals are ordered - Echocardiogram is ordered, will follow-up with the results - Will continue to monitor vitals # SHERIE, likely prerenal - Patient had multiple episodes of vomiting at the time of admission - Baseline creatinine is 0.9 as of 08/2024, creatinine at the time of admission is 1.5 Plan - Started on IV fluids - Will continue to monitor renal functions - Will renally dose medications # Diabetes mellitus, insulin-dependent - Glucose at the time of admission is 420 - Patient is using Lantus 42 units every day. Not on any sliding scale Plan - Started on insulin sliding scale - Started on degludec 30 units subcutaneous at bedtime, will adjust dose based on morning blood sugars # Lactic acidosis - Lactate at the time of admission is 3.7 - Patient received 2 L of fluid in the ED Plan - Will trend the lactate level - Started on IV fluids, LR at 100 mL/h # Hypomagnesemia - Magnesium at the time of presentation is 1.5 - Received IV magnesium in the ED Plan - Will continue to monitor magnesium and replete as needed # Leukocytosis, likely reactive In the setting of dehydration and SHERIE -WBC at the time of admission is 26.8 - Patient does not have any features suggestive of active infection as of now Plan - Patient is started on ceftriaxone 2 g IV daily in view of SBP prophylaxis as the patient is noted to have ascites - Will continue to monitor CBC # Severe mitral annulus valvular calcification, incidental finding - Patient is noted to have a severe mitral annular valvular calcification on CT abdomen/pelvis which is an incidental finding - Patient denies any cardiac history Plan - Echocardiogram is ordered, will follow-up with results # Bilateral opacities in the basal areas of the lung, incidental finding - Patient is noted to have bilateral opacities in the basal areas of the lung which was found incidentally on abdomen/pelvis CT - Patient denies any symptoms of shortness of breath, cough Plan - Will recommend to follow-up on outpatient basis for further evaluation # Cirrhosis with mild ascites - Patient reported that she had history of fatty liver - Likely due to metabolic component in the setting of obesity Hospital Maintenance: Dispo: Medsurg DVT ppx: Heparin GI ppx: Protonix Diet: NPO IV lines: Peripheral Code status: Full Patient plan of care was discussed with the attending physician, Dr. Shaji Joseph, PGY2 Attending Provider Attestation/Addendum I have discussed and was present for the essential components of the history, physical examination, diagnosis, and treatment plan with the resident. I agree with the patient's care as documented by the resident and amended herein by me. Bennie Girard DO. Although this document has been carefully reviewed, there may still be some phonetic and other typographical errors. These errors are purely grammatical due to imperfections in the software program and should not be construed in any way to compromise the substance of the patient's medical care during this visit.
--- NOTE | 2024-12-23 16:44 | XR_ITS ---
Examination: Small bowel series AP abdomen 3 views Date and time: December 23, 2024 1655 hrs. Indications: Abdominal pain and distention this week, small bowel obstruction pattern on CT abdomen pelvis 0757 hrs. This morning Technique And Findings: Patient received 120 cc Gastrografin through the orogastric tube AP abdomen portable supine films obtained, immediate, 30 minutes, 1 hour Contrast remains in the stomach Air distended small bowel loops Impression: Preliminary small bowel series Recommend follow-up abdomen films 7:00 PM, 9:00 PM, 11:00 PM
[2024-12-23] MEDS: INSULIN LISPRO (AdmeLOG) 1 UNIT/0.01 ML UNIT SC ×2 (17:14→22:21)
[2024-12-23] MEDS: cefTRIAXone 2 GM in SODIUM CHLORIDE 0.9% (Popper) 50 ML IV (17:16)
--- NOTE | 2024-12-23 17:30 | PC.NURSE ---
Per Dr. Blackwood, OK to give 4units Lispro SQ for FSBG 325. MD nelson pt is NPO
[2024-12-23 17:39] LABS: Lactate (Lactic Acid) 1.7 mMol/L (0.4-2.0)
--- NOTE | 2024-12-23 18:20 | PC.NURSE ---
@[id number] Report received from ER nurse Roland.
[2024-12-23] MEDS: MORPHINE SULF INJ 4 MG/ML VIAL 2 MG IVP (18:25)
--- NOTE | 2024-12-23 18:40 | PC.NURSE ---
Patient to room from ER via [facility]an, family at bedside. NG tube in place. Patient A&O with no distress.
--- NOTE | 2024-12-23 19:00 | XR_ITS ---
Examination: Abdomen AP single view Technique: AP portable supine abdomen, single view Exam date and time: December 23, 2024, 1903 hrs. Indications: Abdominal pain and distention this week 2 hour delayed film post small bowel series Findings: Contrast in mildly distended small bowel loops Impression: Mildly distended small bowel loops Recommend follow-up films 9:00 PM, 11:00 PM, 3:00 AM, 7:00 AM
[2024-12-23] MEDS: INSULIN DEGLUDEC 5 UNIT/0.05 ML (PER 5 UNITS) 30 UNIT SC (22:20)
[2024-12-23] MEDS: HEPARIN SOD INJ 5000 UNIT/ML VIAL SC (22:22)
--- NOTE | 2024-12-23 22:36 | XR_ITS ---
Examination: AP chest single view Technique one AP portable upright chest single view Date and time: December 23, 2024 1036., Comparison 12/23/2024 Indications: Post orogastric tube placement Findings: Orogastric tube proximal stomach Mild prominence cardiac contour The film is overpenetrated Pneumonia versus atelectasis at the left lung base Impression: Advance the orogastric tube 3 cm
--- NOTE | 2024-12-23 23:00 | XR_ITS ---
Examination: Abdomen AP single view Technique: AP portable supine abdomen, single view Exam date and time: December 23, 2024 10:37 PM Indications: Abdominal pain and distention this week, 6 delayed film post small bowel series Findings: Contrast in distended small bowel loops Possible contrast also in the colon Impression: Small bowel obstruction pattern, recommend follow-up films 3:00 AM 7:00 AM
[2024-12-24] VITALS (9 sets, daily range): BP systolic 118–179; BP diastolic 65–90; PULSE 95–117; RESP 16–88; TEMP 36.2–36.5; O2SAT 91–99; BMI 12.0
--- NOTE | 2024-12-24 00:55 | XR_ITS ---
Examination: AP chest single view Technique: AP portable upright chest single view Date and time: December 24, 2024, 0254 hrs. Indications: Adjustment orogastric tube Findings: Orogastric tube in the stomach satisfactory position Mitral valvular calcification. Mild enlargement left ventricle Atelectasis versus pneumonia left base Impression: Orogastric tube in the stomach, tip is below the level of the film
--- NOTE | 2024-12-24 03:00 | XR_ITS ---
Examination: Abdomen AP single view Technique: AP portable supine abdomen, single view Exam date and time: December 24, 2024, 0248 hrs. Indications: Abdominal pain and distention this week, 10 hour delayed film post small bowel series. Findings: Most of the contrast is in the stomach, some contrast present in mildly distended small bowel loops Impression: Most of the contrast is in the stomach, follow-up films will be obtained
[2024-12-24] MEDS: HEPARIN SOD INJ 5000 UNIT/ML VIAL SC ×3 (05:21→21:53)
[2024-12-24 05:43] LABS: Basophils # (Auto) 0.0 Thou/mm3 (0.0-0.2); Basophils % (Auto) 0 % (0-2.5); Eosinophils # (Auto) 0.0 Thou/mm3 (0.0-0.5); Eosinophils % (Auto) 0 % (0-10); Hematocrit 40.5 % (36.0-46.0); Hemoglobin 13.3 g/dL (12.0-16.0); Immature Granulocytes Auto 0.15 Thou/mm3 (0.00-0.00); Lymphocytes # (Auto) 1.3 Thou/mm3 (1.0-4.8); Lymphocytes % (Auto) 5 % (10-50); Mean Corpuscular HGB Conc 32.8 g/dl (31.0-37.0); Mean Corpuscular Hemoglobin 30.1 pg (25.0-35.0); Mean Corpuscular Volume 92 fL (80-100); Monocytes # (Auto) 2.3 Thou/mm3 (0.0-0.8); Monocytes % (Auto) 8 % (0-12); Neutrophils # (Auto) 24.4 Thou/mm3 (1.8-7.7); Neutrophils % (Auto) 87 % (37-80); Nucleated Red Blood Cell # 0.00 Thou/mm3 (0.00-0.00); Nucleated Red Blood Cell % 0 /100 WBC (0); Platelet Count 344 Thou/mm3 (140-440); RDW Standard Deviation 45.0 fL (36.4-46.3); Red Blood Count 4.42 Miln/mm3 (4.00-5.20); White Blood Count 28.2 Thou/mm3 (3.6-11.0)
[2024-12-24 06:22] LABS: Glucose Estimated Average 194 mg/dL (80-131); Hemoglobin A1C 8.4 % Hgb (4.8-6.0)
[2024-12-24 06:26] LABS: Alanine Aminotransferase 10 U/L (10-49); Albumin, Serum 4.1 gm/dL (3.4-4.8); Albumin/Globulin Ratio 1.4 (1.2-2.2); Alkaline Phosphatase 59 U/L (46-116); Anion Gap 13 (7-16); Aspartate Amino Transferase 15 U/L (0-34); BUN/Creatinine Ratio 30 Ratio (12-20); Bilirubin,Total 0.7 mg/dL (0.3-1.2); Blood Urea Nitrogen 36 mg/dL (9-23); Calcium 9.7 mg/dL (8.3-10.6); Calcium (Corrected) 9.7 mg/dL (8.5-10.1); Carbon Dioxide 29.9 mMol/L (20.0-31.0); Chloride 97 mMol/L (98-107); Creatinine (Component) 1.2 mg/dL (0.6-1.3); Estimated Creatinine Clearance 46.4 mL/min (>60); Globulin 3.0 gm/dL (2.3-3.5); Glucose 300 mg/dL (74-106); Magnesium 1.8 mg/dL (1.6-2.6); Osmolality,Calculated 298 (275-295); Phosphorous 4.2 mg/dL (2.4-5.1); Potassium 3.8 mMol/L (3.4-5.1); Sodium 140 mMol/L (136-145); Total Protein 7.1 gm/dL (5.7-8.2); eGFR 47 See Note
[2024-12-24] MEDS: INSULIN LISPRO (AdmeLOG) 1 UNIT/0.01 ML UNIT SC ×3 (06:26→17:33)
[2024-12-24] MEDS: RINGERS LACTATED 1000 ML 1,000 ML 100 ML IV ×2 (06:27→08:48)
--- NOTE | 2024-12-24 07:00 | XR_ITS ---
Examination: Abdomen AP single view Technique: AP portable supine abdomen, single view Exam date and time: December 24, 2024, 0735 hrs., Indications: Abdominal distention this week, 14 hour delayed film post small bowel series Findings: Contrast is in distended small bowel loops especially in the pelvis There appears to be minimal contrast in the colon Impression: Small bowel obstruction pattern, recommend follow-up films 10:00 AM
[2024-12-24] MEDS: Magnesium Sulfate 4 GM Ivpb 4 GM/50 ML BAG IV (08:48)
[2024-12-24] MEDS: cefTRIAXone 2 GM in SODIUM CHLORIDE 0.9% (Popper) 50 ML IV (08:49)
--- NOTE | 2024-12-24 10:00 | XR_ITS ---
Examination: Abdomen AP single view Technique: AP portable supine abdomen, single view Exam date and time: December 24, 2024, 0952 hours INDICATIONS: Abdominal pain and distention since yesterday, 17 hour delayed film post small bowel series. FINDINGS: Contrast remains in distended small bowel loops in the pelvis IMPRESSION: Small bowel obstruction pattern, recommend follow-up films 1:00 PM today
--- NOTE | 2024-12-24 10:28 | PC.SS ---
Follow up note: Pt pulled out NG Tube. If SBO does not resolve pt will require surgery.
--- NOTE | 2024-12-24 10:42 | PC.SS ---
SS met with patient and at bedside. Patient is alert/oriented. Patient was able to verify demographics. Patient states she's independent with ADL's. No DME at home. Patient was admitted for sbo. Patient has an ng tube in. Notes indicate she pulled tube. Patient will d/c back home once medically stable. PCP: Dr. Vanegas Last appt. a few weeks ago. Pharmacy: [facility]. Transportation: family provides transport to appointments. Alt medical decision maker: , Manolo Cardoza,
--- NOTE | 2024-12-24 10:42 | CHAP ---
Rapid Response call out. Could not get to family members without disturbing the conversations they were having with the medical staff. I prayed outside the doorway.
--- NOTE | 2024-12-24 11:39 | PD.SURPROG ---
Documentation for date of: 12/24/24 Subjective Subjective Narrative: Patient is seen and examined. She still have abdominal pain, however she states it is slightly better than yesterday. She states that she is passing flatus but no bowel movement Exam Vital Signs Temp Pulse Resp BP Pulse Ox O2 Del Method O2 Flow Rate 97.3 F 109 H 23 H 148/75 H 92 L Nasal Cannula 2 12/24/24 10:53 12/24/24 10:53 12/24/24 10:53 12/24/24 10:53 12/24/24 10:53 12/24/24 08:00 12/24/24 10:53 Constitutional Constitutional: no acute distress Routine Abdominal Exam Comments: Abdomen is soft and nondistended. She has tenderness to palpation over right lower quadrant with guarding, no rebound tenderness or peritonitis at this Assessment & Plan Assessment Additional comments: Abdominal pain with possible small bowel obstruction. Small bowel series shows some contrast in the colon, however still dilated loops of small bowel Plan Continue n.p.o. keep NG tube clamped, additional abdominal x-rays to be obtained
--- NOTE | 2024-12-24 11:48 | PC.SS ---
Per bedside nurse, Emily, pt is not any psych, anxiety, or depression medication. PASRR assessment has been completed.
--- NOTE | 2024-12-24 12:57 | ECHO_ITS ---
Transthoracic Echo Report Ht (in): 63 Wt (lb): 225 Exam Location: Echo Lab Status: Inpatient [employer] Operator: Mary Alice Mcgee Indications: Procedure Performed: BP: 147 / 72 HR: 95 Technical Quality: Technically difficult study MEASUREMENTS (Male / Female) Normal Values 2D ECHO LV Diastolic Diameter PLAX 4.7 cm 4.2 - 5.9 / 3.9 - 5.3 cm LV Systolic Diameter PLAX 4.0 cm IVS Diastolic Thickness 0.8 cm 0.6 - 1.0 / 0.6 - 0.9 cm LVPW Diastolic Thickness 0.6 cm 0.6 - 1.0 / 0.6 - 0.9 cm LV Relative Wall Thickness 0.3 LVOT Diameter 1.4 cm Aortic Root Diameter 2.7 cm LV Ejection Fraction MOD BP 35.5 % >= 55 % LV Cardiac Index MOD BP 1605.8 cm?/min?m? LV Ejection Fraction MOD 4C 37.1 % LV Cardiac Index MOD 4C 1501.3 cm?/min?m? LV Ejection Fraction 4C AL 39.3 % LV Cardiac Index 4C AL 1662.4 cm?/min?m? LV Ejection Fraction MOD 2C 40.8 % LV Cardiac Index MOD 2C 2058.3 cm?/min?m? LV Ejection Fraction 2C AL 43.0 % LV Cardiac Index 2C AL 2254.9 cm?/min?m? LA Volume Index 31.9 cm?/m? 16 - 28 cm?/m? DOPPLER AV Peak Velocity 257.5 cm/s AV Peak Gradient 26.5 mmHg AV Mean Gradient 14.5 mmHg AV Velocity Time Integral 42.8 cm AI Peak Velocity 164.0 cm/s AI Peak Gradient 10.8 mmHg AI Pressure Half Time 957.0 ms LVOT Peak Velocity 96.9 cm/s LVOT Peak Gradient 3.8 mmHg LVOT Velocity Time Integral 18.3 cm LVOT Cardiac Index 1225.9 cm?/min?m? AV Area Cont Eq vti 0.7 cm? AV Area Cont Eq pk 0.6 cm? MV Peak Velocity 175.7 cm/s MV Peak Gradient 12.3 mmHg MV Mean Velocity 117.7 cm/s MV Mean Gradient 6.7 mmHg MV Area PHT 2.6 cm? MR Peak Velocity 458.0 cm/s MR Peak Gradient 83.9 mmHg Mitral E Point Velocity 143.0 cm/s Mitral A Point Velocity 167.0 cm/s Mitral E to A Ratio 0.9 LV E' Lateral Velocity 3.1 cm/s Mitral E to LV E' Lateral Ratio 45.4 LV E' Septal Velocity 4.5 cm/s Mitral E to LV E' Septal Ratio 32.1 PV Peak Velocity 214.0 cm/s PV Peak Gradient 18.3 mmHg FINDINGS Left Ventricle Normal left ventricular size. Mild LVH. Global left ventricular systolic function is moderately decreased. The ejection fraction is visually estimated at 35-40 %. Right Ventricle The right ventricle is normal in size and systolic function. Left Atrium The left atrium is normal by two-dimensional, color flow and Doppler imaging with no structural abnormalities, no thrombus formation present. Right Atrium The right atrium is normal by two-dimensional imaging, color flow and Doppler imaging with no structural abnormalities, no thrombus formation present. Atrial Septum The interatrial septum appears normal with no evidence of a shunt. Aorta The aorta is normal by two-dimensional, color flow and Doppler interrogation. Mitral Valve Severe mitral valve stenosis. Mild mitral regurgitation. Aortic Valve Moderate aortic valve stenosis. Mild aortic valve regurgitation. Tricuspid Valve The tricuspid valve is normal by two-dimensional, color flow and Doppler interrogation. There is trace tricuspid valve regurgitation. Pulmonic Valve The pulmonic valve is not well visualized. There is no significant pulmonic valve regurgitation. Vessels Inferior vena cava not well visualized. Pericardium The pericardium is normal by two-dimensional imaging. There is no significant pericardial effusion. CONCLUSIONS Indication: Presyncope and Mitral valve calcification Normal LV size. Mild LVH. Global LV systolic function is moderately decreased. Estimated EF at 35-40 %. Diastolic function could not be assesed due to severe MAC. Normal RV size and systolic function. Severe MAC with severe calcification of mitral valve ( posterrior > anterior) and aortic valve. Mild to moderate mitral stenosis - Mean PG 5 to 8 mm hg. but area with PHT 2.5 sq cm. Moderate to severe with V max 3.3 m/s, mean PG 23 mm hg But RILEY is 0.5 sq cm. Trace to mild AI. Mostly low flow low gradient severe aortic stenosis given the low EF. Mild MR and mild TR. IVC not well visualized. Garrett Saenz (Electronically Signed) Final Date: 25 December 2024 04:49
--- NOTE | 2024-12-24 13:00 | XR_ITS ---
Examination: Abdomen AP single view Technique: AP portable supine abdomen, single view Exam date and time: December 24, 2024 1306 hours INDICATIONS: Abdominal distention this week, 20 are delayed film post small bowel series FINDINGS: Contrast in distended small bowel loops IMPRESSION: Small bowel obstruction pattern Recommend follow-up films 4:00 PM 8:00 PM
--- NOTE | 2024-12-24 14:15 | ESPR_ITS ---
Documentation for date of: 12/24/24 Subjective Subjective Interval history: Patient is seen and examined at the bedside. No acute overnight events. Accidentally dislodged the NG tube which was placed again. Small bowel series was started but did not show any resolution of SBO as of now. Vitals are stable. Labs done this morning are significant for uptrending WBC, 28.2. Renal functions improved and creatinine down trended to 1.2, A1c is 8.4. Rapid response was called around 11 AM, as patient felt dizzy while doing PT. Vitals done at the time are stable and blood sugar is 278. No active interventions done at that time. Will continue small bowel series. If the obstruction is not resolved, we will consult general surgeon, Dr. Diallo who already saw the patient Exam Vital Signs Temp Pulse Resp BP Pulse Ox O2 Del Method O2 Flow Rate 97.2 F 105 H 23 H 156/83 H 92 L Nasal Cannula 2 12/24/24 12:00 12/24/24 12:00 12/24/24 12:12/24/24 12:00 12/24/24 12:12/24/24 12:12/24/24 12:00 Narrative Exam General: Awake. HEENT: Normocephalic, atraumatic, mucous membranes moist. Heart: Regular rate and rhythm, Ejection systolic murmur at aortic area. Lungs: Clear to auscultation with no wheezing or crackles. Abdomen: Soft, mildly distended, mild tenderness in RUQ, Decreased bowel sounds. ?No guarding or rebound tenderness. Neurologic: Alert and oriented x3, no gross neurological deficit, and patient able to move all 4 extremities. Extremities: No edema. Skin: No rash or ecchymoses. Objective Labs 12/25/24 05:27 12/25/24 05:27 Labs: Laboratory Results - last 24 hr 12/23/24 12/24/24 17:30 04:27 WBC 28.2 H RBC 4.42 Hgb 13.3 Hct 40.5 MCV 92 MCH 30.1 MCHC 32.8 RDW Std Deviation 45.0 Plt Count 344 D Neut % (Auto) 87 H Lymph % (Auto) 5 L [place] % (Auto) 8 Eos % (Auto) 0 Baso % (Auto) 0 Neut # (Auto) 24.4 H Lymph # (Auto) 1.3 [place] # (Auto) 2.3 H Eos # (Auto) 0.0 Baso # (Auto) 0.0 Immature Gran # (Auto) 0.15 H Absolute Nucleated RBC 0.00 Immature Gran % 1 H Nucleated RBC % 0 Sodium 140 Potassium 3.8 Chloride 97 L Carbon Dioxide 29.9 Anion Gap 13 BUN 36 H Creatinine 1.2 Estim Creat Clear Calc 46.4 L eGFR 47 L BUN/Creatinine Ratio 30 H Glucose [address] Glu mg/dL 194 H Hemoglobin A1c 8.4 H Calculated Osmolality 298 H Lactic Acid 1.7 Calcium 9.7 Corrected Calcium 9.7 Phosphorus 4.2 Magnesium 1.8 Total Bilirubin 0.7 AST 15 ALT 10 Alkaline Phosphatase 59 Total Protein 7.1 Albumin 4.1 Globulin 3.0 Albumin/Globulin Ratio 1.4 ABG Interpretation ABG results: 12/23/24 05:32 VBG pH 7.36 VBG pCO2 47 VBG pO2 58 VBG Base Excess 0 Quality Measures Quality Measures sepsis Current suspected stage: ruled out Possible source: GI tract/intra- abdominal Blood cultures ordered: yes Antibiotic ordered: Yes Advance care planning discussed with:: patient Assessment & Plan Assessment Current Active Medications: Generic Name Dose Route Start Last Admin Trade Name Freq PRN Reason Stop Dose Admin Acetaminophen 650 mg 12/23/24 17:00 Acetaminophen 325 Mg Tablet PO 01/22/25 16:59 Q6H PRN Fever >101.5 and pain 1-3 Dextrose 25 ml 12/23/24 15:23 Dextrose 50%-Water Inj 50 Ml Syringe IV 01/22/25 15:22 Q15MIN PRN BG 50-70 responsive npo pt Dextrose 50 ml 12/23/24 15:23 Dextrose 50%-Water Inj 50 Ml Syringe IV 01/22/25 15:22 Q15MIN PRN BG <50 OR BG <70 & pt unresponsive Glucagon 1 mg 12/23/24 15:23 Glucagon Inj 1 Mg Vial IM Q15MIN PRN BG <70, and no IV access Heparin Sodium (Porcine) 5,000 unit 12/23/24 22:00 12/24/24 05:21 Heparin Sod Inj 5000 Unit/Ml Vial SC 01/06/25 21:59 5,000 unit Q8HR SAMAN Administration Ceftriaxone Sodium 2 gm/ 50 mls @ 100 mls/hr 12/23/24 16:47 12/24/24 08:49 Sodium Chloride IV 12/30/24 16:46 100 mls/hr QDAY SAMAN Administration Lactated Ringer's 1,000 mls @ 100 mls/hr 12/24/24 08:34 12/24/24 08:48 Lactated Ringers IV 12/24/24 18:33 100 mls/hr .Q10H ONE Administration Insulin Degludec 40 unit 12/24/24 21:00 Insulin Degludec 5 Unit/0.05 Ml (Per 5 Units) SC 01/23/25 20:59 HS SAMAN Insulin Human Lispro 0 unit 12/24/24 06:00 12/24/24 11:51 Insulin Lispro (Admelog) 1 Unit/0.01 Ml Unit SC 01/23/25 05:59 4 unit Q6HR SAMAN Administration Protocol Morphine Sulfate 1 mg 12/23/24 18:14 Morphine Sulf Inj 4 Mg/Ml Vial IVP 12/28/24 18:13 Q4HR PRN pain 4-6 Morphine Sulfate 4 mg 12/23/24 18:16 Morphine Sulf Inj 4 Mg/Ml Vial IVP 12/28/24 18:15 Q4HR PRN pain 7-10 Pantoprazole Sodium 40 mg 12/24/24 09:00 12/24/24 08:50 Pantoprazole Inj 40 Mg Vial IVP 01/23/25 08:59 40 mg QDAY SAMAN Administration Plan and daughter at the bedside who also gives some history as patient has some memory issues. 74-year-old female with significant past medical history of hypertension, diabetes mellitus, insulin-dependent, possible dementia [not officially diagnosed], fatty liver, bowel and bladder incontinence, chronic constipation was brought to the hospital with chief complaints of nausea, vomitings and presyncopal like episode. # SBO - Patient reported that she had chronic constipation and occasionally had diarrheal episodes - Also reported that she had bowel incontinence and has accidents all the time - Reported that she has bowel movements once in 4 or 5 days which is normal for her since last couple of years. Patient does not remember the exact last bowel movement - Noted to have vomitings on the day before admission, 10 episodes - Abdomen/pelvis CT imaging showed early small bowel obstruction Plan - General Surgeon, Dr. Diallo is consulted and he recommended to continue with n.p.o., IV fluids, small bowel series, NG tube placement - NG tube was placed - Started on IV fluids, LR at 100 mL/h - Small bowel series were ordered, will follow-up with that # Presyncopal episode #? Fall - At baseline, patient is able to walk with the help of support - On the day before admission, patient noted to have multiple episodes of vomitings almost 10 associated with nausea, nonbilious and denies any hematemesis - On the day of admission, per , patient is trying to get out of the bed and asked help from the hospital and and when he is trying to help her walk from the bedroom to the living room he noted severe sweating on the patient and not able to support herself. Later the dropped her slowly down to the floor and later brought to the hospital - Denies palpitations, loss of consciousness, bowel or bladder incontinence at the time of episode, fever also denies hitting head or back - Denies any previous history of cardiac disease - EKG at the time of admission showed normal sinus rhythm with no acute ST and T wave changes and troponin is 0.031 - Imaging including head CT and C-spine CT did not show any fracture - Labs at the time of admission are significant for SHERIE Plan - Orthostatic vitals are ordered - Echocardiogram is ordered, will follow-up with the results - Will continue to monitor vitals # SHERIE, likely prerenal, resolving - Patient had multiple episodes of vomiting at the time of admission - Baseline creatinine is 0.9 as of 08/2024, creatinine at the time of admission is 1.5 --> 12/24, 1.2 Plan - Started on IV fluids - Will continue to monitor renal functions - Will renally dose medications # Diabetes mellitus, insulin-dependent - Glucose at the time of admission is 420 - Patient is using Lantus 42 units every day. Not on any sliding scale Plan - Started on insulin sliding scale - Started on degludec 30 units subcutaneous at bedtime, increased to 35 units as of 12/24 # Lactic acidosis, resolved - Lactate at the time of admission is 3.7, improved to 1.7 - Patient received 2 L of fluid in the ED - Started on IV fluids, LR at 100 mL/h # Hypomagnesemia, resolved - Magnesium at the time of presentation is 1.5 -->1.8, 12/24 - Received IV magnesium in the ED Plan - Will continue to monitor magnesium and replete as needed # Leukocytosis, likely reactive In the setting of dehydration and SHERIE -WBC at the time of admission is 26.8 - Patient does not have any features suggestive of active infection as of now Plan - Patient is started on ceftriaxone 2 g IV daily in view of SBP prophylaxis as the patient is noted to have ascites - Will continue to monitor CBC # Severe mitral annulus valvular calcification, incidental finding - Patient is noted to have a severe mitral annular valvular calcification on CT abdomen/pelvis which is an incidental finding - Patient denies any cardiac history - Also noted to have ESM in aortic and pulmonary area Plan - Echocardiogram is ordered, will follow-up with results # Bilateral opacities in the basal areas of the lung, incidental finding - Patient is noted to have bilateral opacities in the basal areas of the lung which was found incidentally on abdomen/pelvis CT - Patient denies any symptoms of shortness of breath, cough Plan - Will recommend to follow-up on outpatient basis for further evaluation # Cirrhosis with mild ascites - Patient reported that she had history of fatty liver - Likely due to metabolic component in the setting of obesity Hospital Maintenance: Dispo: Medsurg DVT ppx: Heparin GI ppx: Protonix Diet: NPO IV lines: Peripheral Code status: Full Patient plan of care was discussed with the attending physician, Dr. Shaji Joseph, PGY2 Attending Provider Attestation/Addendum I have discussed and was present for the essential components of the history, physical examination, diagnosis, and treatment plan with the resident. I agree with the patient's care as documented by the resident and amended herein by me. Bennie Girard DO. Although this document has been carefully reviewed, there may still be some phonetic and other typographical errors. These errors are purely grammatical due to imperfections in the software program and should not be construed in any way to compromise the substance of the patient's medical care during this visit.
--- NOTE | 2024-12-24 15:56 | PC.SS ---
Follow up note: Patient and family prefer [facility]. Pending auth
--- NOTE | 2024-12-24 16:00 | XR_ITS ---
Examination: Abdomen AP single view Technique: AP portable supine abdomen, single view Exam date and time: December 24, 2024, 1640 hrs. Indications: Abdominal distention this week, 23 hour delayed film post small bowel series Findings: Contrast in stomach and distended small bowel loops Impression: Small bowel obstruction pattern, recommend follow-up films 10:00 PM
--- NOTE | 2024-12-24 22:00 | XR_ITS ---
Examination: Abdomen AP single view Technique: AP portable supine abdomen, single view Exam date and time: December 24 currently thousand 25, 10 0 1:00 PM Indications: 29 hours delayed film post small bowel series abdominal distention this week Findings: Contrast is present in distended small bowel loops although some contrast in the colon Impression: Findings most consistent with incomplete small bowel obstruction, recommend follow-up films 6:00 AM
[2024-12-24] MEDS: INSULIN DEGLUDEC 5 UNIT/0.05 ML (PER 5 UNITS) 35 UNIT SC (22:04)
[2024-12-25] VITALS (18 sets, daily range): BP systolic 100–151; BP diastolic 55–87; PULSE 83–99; RESP 14–25; TEMP 36.1–36.4; O2SAT 93–99; BMI 36.2; BMI 12.0
[2024-12-25] MEDS: INSULIN LISPRO (AdmeLOG) 1 UNIT/0.01 ML UNIT SC ×3 (00:41→17:41)
[2024-12-25] MEDS: HEPARIN SOD INJ 5000 UNIT/ML VIAL SC ×2 (05:36→21:25)
[2024-12-25 05:57] LABS: Basophils # (Auto) 0.1 Thou/mm3 (0.0-0.2); Basophils % (Auto) 0 % (0-2.5); Eosinophils # (Auto) 0.0 Thou/mm3 (0.0-0.5); Eosinophils % (Auto) 0 % (0-10); Hematocrit 37.7 % (36.0-46.0); Hemoglobin 12.2 g/dL (12.0-16.0); Immature Granulocytes Auto 0.29 Thou/mm3 (0.00-0.00); Lymphocytes # (Auto) 1.7 Thou/mm3 (1.0-4.8); Lymphocytes % (Auto) 5 % (10-50); Mean Corpuscular HGB Conc 32.4 g/dl (31.0-37.0); Mean Corpuscular Hemoglobin 30.4 pg (25.0-35.0); Mean Corpuscular Volume 94 fL (80-100); Monocytes # (Auto) 1.6 Thou/mm3 (0.0-0.8); Monocytes % (Auto) 5 % (0-12); Neutrophils # (Auto) 27.6 Thou/mm3 (1.8-7.7); Neutrophils % (Auto) 89 % (37-80); Nucleated Red Blood Cell # 0.00 Thou/mm3 (0.00-0.00); Nucleated Red Blood Cell % 0 /100 WBC (0); Platelet Count 307 Thou/mm3 (140-440); RDW Standard Deviation 46.5 fL (36.4-46.3); Red Blood Count 4.01 Miln/mm3 (4.00-5.20); White Blood Count 31.2 Thou/mm3 (3.6-11.0)
--- NOTE | 2024-12-25 06:00 | XR_ITS ---
Examination: Abdomen AP single view Technique: AP portable supine abdomen, single view Exam date and time: December 25, 2024, 0555 hrs. Indications: Abdominal distention this week, 37 hours delayed film post small bowel series Findings: Contrast in the stomach and dilated small bowel loops There is some contrast in the colon Impression: There remains abundant contrast in dilated small bowel loops consistent with significant obstruction
[2024-12-25 06:28] LABS: Alanine Aminotransferase 9 U/L (10-49); Albumin, Serum 3.9 gm/dL (3.4-4.8); Albumin/Globulin Ratio 1.3 (1.2-2.2); Alkaline Phosphatase 61 U/L (46-116); Anion Gap 10 (7-16); Aspartate Amino Transferase 15 U/L (0-34); BUN/Creatinine Ratio 41 Ratio (12-20); Bilirubin,Total 0.6 mg/dL (0.3-1.2); Blood Urea Nitrogen 49 mg/dL (9-23); Calcium 9.4 mg/dL (8.3-10.6); Calcium (Corrected) 9.5 mg/dL (8.5-10.1); Carbon Dioxide 32.9 mMol/L (20.0-31.0); Chloride 97 mMol/L (98-107); Creatinine (Component) 1.2 mg/dL (0.6-1.3); Estimated Creatinine Clearance 46.4 mL/min (>60); Globulin 3.0 gm/dL (2.3-3.5); Glucose 219 mg/dL (74-106); Osmolality,Calculated 299 (275-295); Potassium 3.6 mMol/L (3.4-5.1); Sodium 140 mMol/L (136-145); Total Protein 6.9 gm/dL (5.7-8.2); eGFR 47 See Note
[2024-12-25] MEDS: cefTRIAXone 2 GM in SODIUM CHLORIDE 0.9% (Popper) 50 ML IV (09:37)
[2024-12-25] MEDS: RINGERS LACTATED 1000 ML 1,000 ML 100 ML IV (09:37)
[2024-12-25] MEDS: POTASSIUM CHL 10 mEq IVPB 10 MEQ/100 ML BAG 70 MEQ IV ×2 (09:38→11:38)
[2024-12-25 10:10] LABS: Lactate (Lactic Acid) 2.0 mMol/L (0.4-2.0)
[2024-12-25] MEDS: metroNIDAZOLE/NS 500 MG IVPB 500 MG/100 ML BAG 200 MG IV ×2 (10:56→21:27)
--- NOTE | 2024-12-25 11:39 | ESPR_ITS ---
Documentation for date of: 12/25/24 Subjective Subjective Narrative: Patient is seen and examined. She continues to have abdominal pain. She has had nausea but no vomiting. She has not passed flatus or bowel movement. Small bowel series shows persistent small bowel obstruction Exam Vital Signs Temp Pulse Resp BP Pulse Ox O2 Del Method O2 Flow Rate 97.1 F 92 22 H 120/76 96 Room Air 3 12/25/24 08:00 12/25/24 08:00 12/25/24 08:00 12/25/24 08:00 12/25/24 08:00 12/25/24 08:00 12/25/24 07:03 Constitutional Constitutional: no acute distress Routine Abdominal Exam Comments: Abdomen is soft and mildly distended. She has worsening tenderness to palpation on the right side with guarding and localized peritonitis Assessment & Plan Assessment Additional comments: Persistent small bowel obstruction, failed conservative management Plan Will take patient to operating room for exploratory laparotomy, possible bowel resection, possible ostomy. Risks include but not limited to infection, bleeding, injury to surrounding vascular structures, abdominal sepsis and or ab dominal abscess, need for further procedure and or operation, pneumonia, blood clot, heart attack, stroke and discussed with the patient and her family. Benefits alternatives explained to them, all their questions answered, they agreed and consented to proceed with the operation.
--- NOTE | 2024-12-25 11:51 | ESPR_ITS ---
<Statement entered by Bobo Joseph MD - 12/26/24 07:35> Patient is seen and examined at bedside. No acute overnight events. Still complaining of abdominal pain. Vitals are stable. On physical examination, noted to have severe tenderness on the right half of the abdomen. Echocardiogram done on 12/24/2024 showed moderate to severe aortic stenosis with ejection fraction of 35 to 40% with severe calcification of mitral and aortic valve. Patient is currently getting small bowel series but still noted to have small bowel obstruction. General surgeon, Dr. Diallo is following the patient and decided to take the patient for exploratory laparotomy in view of his unresolved small bowel obstruction despite small bowel series. Patient was started on continues on 400 mg IV every 8 hourly. Will appreciate general surgeon, Dr. Crump's recommendations I have personally seen and examined the patient, agree with residents assessment and plan Patient plan of care was discussed with the attending physician, Dr. Shaji Joseph, PGY2 Documentation for date of: 12/25/24 Subjective Subjective Interval history: Overnight events: No acute events overnight. Patient was seen and examined at bedside. AM vitals and labs reviewed. Patient appears to be doing well today. No new acute complaints. NG tube in place, clamped. WBC 31.2, blood glucose 219, A1c 8.4% Blood cultures negative after 48 hours. X-ray of abdomen continues to show significant small bowel obstruction. Echocardiogram taken 12/24 shows ejection fraction of 35 to 40% with global LV systolic function moderately decreased, unable to assess diastolic function given severe MAC, severe calcification of mitral valve and aortic valve, with mild to moderate mitral stenosis and moderate to severe atrial stenosis. Surgery plans for exploratory laparotomy with possible bowel resection and/or ostomy. Cardiology consulted given echocardiogram findings suggestive of newly diagnosed HFrEF. Started metronidazole 500 mg every 8 hours in addition to the Rocephin 2 g daily. Review of systems otherwise negative except for what is mentioned above. Exam Vital Signs Temp Pulse Resp BP Pulse Ox O2 Del Method O2 Flow Rate 97.1 F 92 22 H 120/76 96 Room Air 3 12/25/24 08:00 12/25/24 08:00 12/25/24 08:00 12/25/24 08:00 12/25/24 08:00 12/25/24 08:00 12/25/24 07:03 Narrative Exam General: Awake. HEENT: Normocephalic, atraumatic, mucous membranes moist. Heart: Regular rate and rhythm, Ejection systolic murmur at aortic area. Lungs: Clear to auscultation with no wheezing or crackles. Abdomen: Soft, mildly distended, mild tenderness in RUQ, Decreased bowel sounds. ?No guarding or rebound tenderness. Neurologic: Alert and oriented x3, no gross neurological deficit, and patient able to move all 4 extremities. Extremities: No edema. Skin: No rash or ecchymoses. Objective Labs 12/26/24 05:30 12/26/24 05:30 Labs: Laboratory Results - last 24 hr 12/25/24 12/25/24 05:27 09:36 WBC 31.2 H RBC 4.01 Hgb 12.2 Hct 37.7 MCV 94 MCH 30.4 MCHC 32.4 RDW Std Deviation 46.5 H Plt Count 307 D Neut % (Auto) 89 H Lymph % (Auto) 5 L [place] % (Auto) 5 Eos % (Auto) 0 Baso % (Auto) 0 Neut # (Auto) 27.6 H Lymph # (Auto) 1.7 [place] # (Auto) 1.6 H Eos # (Auto) 0.0 Baso # (Auto) 0.1 Immature Gran # (Auto) 0.29 H Absolute Nucleated RBC 0.00 Immature Gran % 1 H Nucleated RBC % 0 Sodium 140 Potassium 3.6 Chloride 97 L Carbon Dioxide 32.9 H Anion Gap 10 BUN 49 H Creatinine 1.2 Estim Creat Clear Calc 46.4 L eGFR 47 L BUN/Creatinine Ratio 41 H Glucose 219 H D Calculated Osmolality 299 H Lactic Acid 2.0 Calcium 9.4 Corrected Calcium 9.5 Total Bilirubin 0.6 AST 15 ALT 9 L Alkaline Phosphatase 61 Total Protein 6.9 Albumin 3.9 Globulin 3.0 Albumin/Globulin Ratio 1.3 ABG Interpretation ABG results: 12/23/24 05:32 VBG pH 7.36 VBG pCO2 47 VBG pO2 58 VBG Base Excess 0 Quality Measures Quality Measures sepsis Current suspected stage: ruled out Possible source: GI tract/intra- abdominal Blood cultures ordered: yes Antibiotic ordered: Yes Advance care planning discussed with:: patient Assessment & Plan Assessment Current Active Medications: Generic Name Dose Route Start Last Admin Trade Name Freq PRN Reason Stop Dose Admin Acetaminophen 650 mg 12/23/24 17:00 Acetaminophen 325 Mg Tablet PO 01/22/25 16:59 Q6H PRN Fever >101.5 and pain 1-3 Dextrose 25 ml 12/23/24 15:23 Dextrose 50%-Water Inj 50 Ml Syringe IV 01/22/25 15:22 Q15MIN PRN BG 50-70 responsive npo pt Dextrose 50 ml 12/23/24 15:23 Dextrose 50%-Water Inj 50 Ml Syringe IV 01/22/25 15:22 Q15MIN PRN BG <50 OR BG <70 & pt unresponsive Glucagon 1 mg 12/23/24 15:23 Glucagon Inj 1 Mg Vial IM Q15MIN PRN BG <70, and no IV access Heparin Sodium (Porcine) 5,000 unit 12/23/24 22:00 12/25/24 05:36 Heparin Sod Inj 5000 Unit/Ml Vial SC 01/06/25 21:59 5,000 unit Q8HR SAMAN Administration Ceftriaxone Sodium 2 gm/ 50 mls @ 100 mls/hr 12/23/24 16:47 12/25/24 09:37 Sodium Chloride IV 12/30/24 16:46 100 mls/hr QDAY SAMAN Administration Lactated Ringer's 1,000 mls @ 100 mls/hr 12/25/24 08:35 12/25/24 09:37 Lactated Ringers IV 12/25/24 18:34 100 mls/hr .Q10H ONE Administration Potassium Chloride 10 meq in 100 mls @ 100 mls/hr 12/25/24 08:36 12/25/24 11:38 Kcl Ivpb IV 12/25/24 12:35 70 mls/hr Q1H SAMAN Administration Metronidazole 500 mg in 100 mls @ 200 mls/hr 12/25/24 10:38 12/25/24 10:56 Flagyl 500 Mg Iv IV 01/01/25 10:37 200 mls/hr Q8HR SAMAN Administration Insulin Degludec 35 unit 12/24/24 21:00 12/24/24 22:04 Insulin Degludec 5 Unit/0.05 Ml (Per 5 Units) SC 01/23/25 20:59 35 unit HS SAMAN Administration Insulin Human Lispro 0 unit 12/24/24 06:00 12/25/24 05:36 Insulin Lispro (Admelog) 1 Unit/0.01 Ml Unit SC 01/23/25 05:59 2 unit Q6HR SAMAN Administration Protocol Morphine Sulfate 1 mg 12/23/24 18:14 Morphine Sulf Inj 4 Mg/Ml Vial IVP 12/28/24 18:13 Q4HR PRN pain 4-6 Morphine Sulfate 4 mg 12/23/24 18:16 Morphine Sulf Inj 4 Mg/Ml Vial IVP 12/28/24 18:15 Q4HR PRN pain 7-10 Pantoprazole Sodium 40 mg 12/24/24 09:00 12/25/24 09:37 Pantoprazole Inj 40 Mg Vial IVP 01/23/25 08:59 40 mg QDAY SAMAN Administration Plan and daughter at the bedside who also gives some history as patient has some memory issues. 74-year-old female with significant past medical history of hypertension, diabetes mellitus, insulin-dependent, possible dementia [not officially diagnosed], fatty liver, bowel and bladder incontinence, chronic constipation was brought to the hospital with chief complaints of nausea, vomitings and presyncopal like episode. # SBO - Patient reported that she had chronic constipation and occasionally had diarrheal episodes - Also reported that she had bowel incontinence and has accidents all the time - Reported that she has bowel movements once in 4 or 5 days which is normal for her since last couple of years. Patient does not remember the exact last bowel movement - Noted to have vomitings on the day before admission, 10 episodes - Abdomen/pelvis CT imaging showed early small bowel obstruction - Small bowel series were ordered, shows continued small bowel obstruction with conservative management Plan - General Surgeon, Dr. Diallo is consulted and he plans for exploratory laparotomy with possible bowel resection and/or ostomy. - NG tube was placed - Started on IV fluids, LR at 100 mL/h - Ceftriaxone 2 gm daily (12/23--) - Metronidazole 500 mg every 8 hours (12/25--) # New onset HFrEF, EF 35-40% # Severe mitral annulus valvular calcification, incidental finding - Patient is noted to have a severe mitral annular valvular calcification on CT abdomen/pelvis which is an incidental finding - Patient denies any cardiac history - Also noted to have ESM in aortic and pulmonary area - Echocardiogram is ordered, taken 12/24, shows ejection fraction of 35 to 40% with global LV systolic function moderately decreased, unable to assess diastolic function given severe MAC, severe calcification of mitral valve and aortic valve, with mild to moderate mitral stenosis and moderate to severe atrial stenosis. Plan - Cardiology consulted, appreciate recommendations - Possible GDMT after patient is cleared from being n.p.o. # SHERIE, likely prerenal, resolving - Patient had multiple episodes of vomiting at the time of admission - Baseline creatinine is 0.9 as of 08/2024, creatinine at the time of admission is 1.5 --> 12/24, 1.2 Plan - Started on IV fluids - Will continue to monitor renal functions - Will renally dose medications # Presyncopal episode #? Fall - At baseline, patient is able to walk with the help of support - On the day before admission, patient noted to have multiple episodes of vomitings almost 10 associated with nausea, nonbilious and denies any hematemesis - On the day of admission, per , patient is trying to get out of the bed and asked help from the hospital and and when he is trying to help her walk from the bedroom to the living room he noted severe sweating on the patient and not able to support herself. Later the dropped her slowly down to the floor and later brought to the hospital - Denies palpitations, loss of consciousness, bowel or bladder incontinence at the time of episode, fever also denies hitting head or back - Denies any previous history of cardiac disease - EKG at the time of admission showed normal sinus rhythm with no acute ST and T wave changes and troponin is 0.031 - Imaging including head CT and C-spine CT did not show any fracture - Labs at the time of admission are significant for SHERIE Plan - Orthostatic vitals are ordered - Will continue to monitor vitals # Diabetes mellitus, insulin-dependent - Glucose at the time of admission is 420 - Patient is using Lantus 42 units every day. Not on any sliding scale Plan - Started on insulin sliding scale - Started on degludec 30 units subcutaneous at bedtime, increased to 35 units as of 12/24 # Lactic acidosis, resolved - Lactate at the time of admission is 3.7, improved to 1.7 - Patient received 2 L of fluid in the ED - Started on IV fluids, LR at 100 mL/h # Hypomagnesemia, resolved - Magnesium at the time of presentation is 1.5 -->1.8, 12/24 - Received IV magnesium in the ED Plan - Will continue to monitor magnesium and replete as needed # Leukocytosis, likely reactive In the setting of dehydration and SHERIE -WBC at the time of admission is 26.8 - Patient does not have any features suggestive of active infection as of now - Blood cultures no growth after 48 hours in 2/2 cultures - Urine culture negative for growth Plan - Patient is started on ceftriaxone 2 g IV daily in view of SBP prophylaxis as the patient is noted to have ascites - Will continue to monitor CBC - Started metronidazole 500 mg every 8 hours due to surgery for SBO # Bilateral opacities in the basal areas of the lung, incidental finding - Patient is noted to have bilateral opacities in the basal areas of the lung which was found incidentally on abdomen/pelvis CT - Patient denies any symptoms of shortness of breath, cough Plan - Will recommend to follow-up on outpatient basis for further evaluation # Cirrhosis with mild ascites - Patient reported that she had history of fatty liver - Likely due to metabolic component in the setting of obesity Hospital Maintenance: Dispo: Medsurg DVT ppx: Heparin GI ppx: Protonix Diet: NPO IV lines: Peripheral Code status: Full Patient plan of care was discussed with the attending physician, Dr. Girard and senior resident Dr. Joseph (PGY-2) Evan Llaons, PGY-1 Attending Provider Attestation/Addendum I have discussed and was present for the essential components of the history, physical examination, diagnosis, and treatment plan with the resident. I agree with the patient's care as documented by the resident and amended herein by me. Bennie Girard DO. Although this document has been carefully reviewed, there may still be some phonetic and other typographical errors. These errors are purely grammatical due to imperfections in the software program and should not be construed in any way to compromise the substance of the patient's medical care during this visit.
--- NOTE | 2024-12-25 14:13 | SUR.PHASEI ---
1413 patient arrived to recovery resting comfortably in bed, on oxygen 6L via oxy mask, breathing unlabored, drowsy and responding to staff, breathing unlaborede, vital signs stable, denies pain and nausea, NG tube in place 68 at right nares; intermitted suction per MD order, green fluid in tubing, urinary catheter 16F in place with leg secure draining to gravity with dark yellow in king bag, dressing intact to abdomen; baljit, gauze, medipore tape, no bleeding noted, report received from Ankita BRUSH and Dr. Munoz
--- NOTE | 2024-12-25 14:15 | ESOP_ITS ---
Date of Procedure 12/25/24 Pre Op Diagnosis Small bowel obstruction Post Op Diagnosis Ischemic and necrotic small bowel Cholecystitis Procedure Exploratory laparotomy, partial small bowel resection Cholecystectomy Findings Ischemic and necrotic changes of proximal ileum. Distended gallbladder with significant pericholecystic edema Procedure Description Patient brought into the operating room in supine position. After administration of general tracheal anesthesia, patient's abdomen prepped and draped in standard surgical manner. A laparotomy incision was made from mid epigastrium, to the right around the umbilicus and extended to just below the umbilicus. Anterior abdominal fascia was divided and abdominal cavity was entered. Upon entering the abdominal cavity, patient was noted to have necrotic and gangrenous appearing small bowel. The small bowel was eviscerated. Near proximal ileum patient was noted to have a closed-loop small bowel obstruction with an adhesive band encircling the loops of small bowel. The adhesive band was divided. Distal to the area of obstruction the small bowel was completely decompressed and proximally the small bowel was dilated. Proximal to the area of obstruction the small bowel was divided with ALIREZA stapling device, and distal to the area of obstruction the small bowel was also divided with ALIREZA stapling device. The mesentery was divided with Enseal harmonic device and the necrotic and ischemic bowel was removed, was approximately 25-30 centimeter of ischemic and necrotic proximal ileum. A [id number], functional end-to-end anastomosis was then created between the 2 ends of small bowel with ALIREZA stapling device. The enterotomy sites were closed with running 2-0 Vicryl and reinforced with 3-0 silk suture in Lembert fashion. The mesenteric defect was closed with interrupted [id number] sutures using 0 Vicryl. Abdomen and pelvis copiously and thoroughly washed and irrigated, all the fluids were suctioned and the suction fluid returned clear. There was no evidence of mass or any tumors noted in the large bowel. Anterior surface of the liver was smooth. The gallb ladder was very distended, thick-walled with significant edema. I elected to perform a cholecystectomy. The gallbladder was from the liver in antegrade fashion starting at the body of the gallbladder. Upon reaching the infundibulum cystic duct and gallbladder junction clearly identified. The cystic duct was divided with 2-0 silk tie. The cystic artery was also divided and ligated with 2-0 silk tie. The gallbladder was removed. The liver bed was cauterized and hemostasis was adequate and satisfactory. Abdomen and pelvis once again copiously and thoroughly washed and irrigated, all the fluids were suctioned and the suction for return clear. Hemostasis was adequate and satisfactory. Anterior abdominal fascia was closed with running 0 PDS as well as interrupted sutures with #1 Vicryl. Incision was washed and closed with baljit. Sterile dressings and abdominal binder applied. Patient tolerated the procedure well. She was extubated, breathing spontaneously and without difficulty and was transferred to postanesthesia care in stable condition. Instruments, needles and sponge counts were reported to be correct x 2. Anesthesia GETA Pathology / specimen Other (Partial proximal ileum, gallbladder and contents) Estimated Blood Loss 50 Condition Stable Disposition PACU Surgeon Judah Diallo MD Surgical Staff Operation Date: 12/25/24 15:45 Case Staff Anesthesiologist: Perry Munoz RN First Assistant: Dayana Holden
--- NOTE | 2024-12-25 15:21 | SUR.PHASEI ---
1517 report given to Emily BRUSH, patient meets discharge criteria from recovery, on oxygen 4L via oxy mask, awake and talking with staff, breathing unlabored, vital signs stable, denies pain and nausea, NG tube in place to right nares; secured with tape, urinary catheter 16F in place with leg secure draining to gravity, dressing intact; no bleeding noted; abdominal binder placed on patient per MD order. 1521 Patient transported via bed to room 361 without incident, Emily BRUSH promptly in patient room, patient arrived, patient resting comfortably in bed with call light in reach when this residential mortgage underwriter left patients room
[2024-12-25] MEDS: HYDROmorphone 1 MG/ML PCA SYRINGE 30ML PCA (16:11)
[2024-12-25] MEDS: KCL 20 mEq/L in 1/2NS 20 MEQ/1,000 ML BAG 75 MEQ IV (16:14)
[2024-12-25] MEDS: ACETAMINOPHEN IVPB 1,000 MG/100 ML VIAL 250 MG IV (17:41)
--- NOTE | 2024-12-25 19:59 | PD.RESCONSUL ---
HPI Data of Consult Requesting Physician: Logan Girard DO Admitting Provider: Logan Girard DO Attending Provider: Logan Girard DO Primary Care Provider: Rob Vanegas MD Consult Narrative Reason for consult: heart murmur, HF History of present illness: HPI:A 74-year-old female patient with significant past medical history of diabetes mellitus on insulin, fatty liver, hypertension, chronic constipation with bowel and bladder incontinence, heart murmur, was admitted to the hospital after patient was noticed to have multiple episodes of nausea and vomiting that started on 22 December 2024. Reportedly the patient had 2 episodes of vomiting which was nonbilious. Patient has had an episode of presyncope in which she was noticed to have lightheadedness and sweating but without loss of consciousness. At the ED patient was found to have WBC count of 26, creatinine of 1.5, glucose 420, lactic acid 3.7 which improved with IV fluids, phosphate 5.3 and magnesium 1.5. EKG showed sinus tachycardia, chest x-ray showed mild vascular congestion and abdominal CT showed extensive mitral valvular calcification mild ascites, colonic diverticulosis, abnormal fluid within distended small bowel loops which was suggestive of SBO. Patient was admitted for management of possible SBO. An echocardiogram was done for the patient as a part of the presyncopal workup and showed ejection fraction of 40 to 45%, showed moderate to severe aortic stenosis with flow velocity of 3.3 mm/s, for that reason cardiology team was consulted. During the admission her WBC continues to trend up to 32, patient became dizzy during physical therapy evaluation, small bowel series continue to show small bowel obstruction. Dr Diallo the general surgeon recommended to take the patient to OT for laparotomy. Surgery was done successfully today on 25 December 2024, cardiology team went to evaluate the patient however the patient was somehow confused after the surgery. However her at bedside reported that she has been having history of murmur for years before and she was seen by Dr. Iniguez for 1 time however she did not follow-up and he does not remember the recommendations. He reported that the patient has difficulty laying flat and she feels short of breath when she lay flat. He reported also that the patient has lower extremity swelling. He denied any history of heart attack, heart failure, palpitation or dizziness. PMH:As above PFX: No history of sudden cardiac among family members, no history of heart attacks or heart failure among family members Social hx: Alcohol: Denied Tobacco: Denied Illicit drugs: Denied Allergies: Penicillins, rofecoxib cc:: cc: Logan Girard DO Review of Systems Review of Systems Systems Reviewed: All systems reviewed, normal except as documented Exam Vital Signs Temp Pulse Resp BP Pulse Ox O2 Del Method O2 Flow Rate 97.0 F 97 18 100/65 96 Nasal Cannula 4 12/25/24 16:05 12/25/24 16:05 12/25/24 16:05 12/25/24 16:05 12/25/24 16:05 12/25/24 16:05 12/25/24 16:05 Narrative Exam GEN: AOx1, able to speak full sentences HEENT: NC/AC, oral mucosa moist, neck supple CVS: RRR, S1-S2 present, no murmurs appreciated RESP: CTAB GI: Newly dressed, soft,non distended, tender, NBS MSK: able to move all 4 limbs, no lower extremity edema SKIN: warm and dry YOUTH DEVELOPMENT SPECIALIST:limited due to patient mental status. Results Labs 01/01/25 08:02 01/01/25 08:02 Labs: Short CBC 12/25/24 Range/Units 05:27 WBC 31.2 H (3.6-11.0) Thou/mm3 Hgb 12.2 (12.0-16.0) g/dL Hct 37.7 (36.0-46.0) % Plt Count 307 D (140-440) Thou/mm3 BMP 12/25/24 05:27 Sodium 140 Potassium 3.6 Chloride 97 L Carbon Dioxide 32.9 H BUN 49 H Creatinine 1.2 Glucose 219 H D Calcium 9.4 Liver Function 12/25/24 Range/Units 05:27 Total Bilirubin 0.6 (0.3-1.2) mg/dL AST 15 (0-34) U/L ALT 9 L (10-49) U/L Alkaline Phosphatase 61 (46-116) U/L Albumin 3.9 (3.4-4.8) gm/dL ABG Interpretation ABG results: 12/23/24 05:32 VBG pH 7.36 VBG pCO2 47 VBG pO2 58 VBG Base Excess 0 Quality Measures Quality Measures sepsis Current suspected stage: sepsis Possible source: GI tract/intra-abdominal Blood cultures ordered: yes Antibiotic ordered: Yes Advance care planning discussed with:: spouse Medications Home Medications and Allergies Home Medications ?Medication ?Instructions ?Recorded ?Confirmed ?Type atorvastatin 20 mg tablet 20 mg PO DAILY 12/24/24 12/24/24 History blood-glucose sensor (Dexcom G7 12/24/24 12/24/24 History Sensor device) cholecalciferol (vitamin D3) 50 2,000 unit PO BID 12/24/24 12/24/24 History mcg (2,000 unit) tablet (Vitamin D3) insulin glargine 100 unit/mL (3 42 unit subcut DAILY 12/24/24 12/24/24 History mL) subcutaneous pen (Lantus Solostar U-100 Insulin) metformin 1,000 mg tablet 1,000 mg PO BID 12/24/24 12/24/24 History Allergies Allergy/AdvReac Type Severity Reaction Status Date / Time Penicillins Allergy Verified 12/23/24 05:26 rofecoxib Allergy Verified 12/23/24 05:26 Visit Medications Dextrose (Dextrose 50%-Water Inj 50 Ml Syringe) 25 ml IV Q15MIN PRN PRN Reason: BG 50-70 responsive npo pt Stop: 01/22/25 15:22 Dextrose (Dextrose 50%-Water Inj 50 Ml Syringe) 50 ml IV Q15MIN PRN PRN Reason: BG <50 OR BG <70 & pt unresponsive Stop: 01/22/25 15:22 Glucagon (Glucagon Inj 1 Mg Vial) 1 mg IM Q15MIN PRN PRN Reason: BG <70, and no IV access Heparin Sodium (Porcine) (Heparin Sod Inj 5000 Unit/Ml Vial) 5,000 unit SC Q8HR [facility] Stop: 01/06/25 21:59 Last Admin: 12/25/24 15:49 Dose: Not Given Hydromorphone HCl (Hydromorphone 1 Mg/Ml Tube Closing Machine Operator Syringe 30ml) 0 mg FUNERAL HOME MANAGER UD [facility]; Protocol Stop: 12/30/24 15:40 Last Admin: 12/25/24 16:11 Dose: 30 mg Ceftriaxone Sodium 2 gm/ (Sodium Chloride) 50 mls @ 100 mls/hr IV QDAY [facility] Stop: 12/30/24 16:46 Last Admin: 12/25/24 09:37 Dose: 100 mls/hr Metronidazole (Flagyl 500 Mg Iv) 500 mg in 100 mls @ 200 mls/hr IV Q8HR [facility] Stop: 01/01/25 10:37 Last Admin: 12/25/24 15:50 Dose: Not Given Acetaminophen (Ofirmev Inj) 1,000 mg in 100 mls @ 250 mls/hr IV Q6HR [facility] Stop: 12/26/24 06:23 Last Admin: 12/25/24 17:41 Dose: 250 mls/hr Potassium Chloride/Sodium Chloride (Kcl 20 Meq/L In 1/2ns) 20 meq in 1,000 mls @ 75 mls/hr IV .[id number] [facility] Stop: 01/24/25 15:40 Last Admin: 12/25/24 16:14 Dose: 75 mls/hr Insulin Degludec (Insulin Degludec 5 Unit/0.05 Ml (Per 5 Units)) 35 unit SC HS [facility] Stop: 01/23/25 20:59 Last Admin: 12/24/24 22:04 Dose: 35 unit Insulin Human Lispro (Insulin Lispro (Admelog) 1 Unit/0.01 Ml Unit) 0 unit SC Q6HR [facility]; Protocol Stop: 01/23/25 05:59 Last Admin: 12/25/24 17:41 Dose: 2 unit Ondansetron HCl (Ondansetron Inj 2 Mg/Ml Inj 2 Ml) 4 mg IVP Q6HR PRN; Protocol PRN Reason: NAUSEA OR VOMITING Stop: 01/24/25 15:40 Pantoprazole Sodium (Pantoprazole Inj 40 Mg Vial) 40 mg IVP QDAY [facility] Stop: 01/23/25 08:59 Last Admin: 12/25/24 09:37 Dose: 40 mg Discontinued Medications Acetaminophen (Acetaminophen 325 Mg Tablet) 650 mg PO Q6H PRN PRN Reason: Fever >101.5 and pain 1-3 Stop: 01/22/25 16:59 Bisacodyl (Bisacodyl 10 Mg Supp) 10 mg PA X1 ONE; Protocol Stop: 12/24/24 10:12 Last Admin: 12/24/24 11:12 Dose: 10 mg Fentanyl Citrate (Fentanyl Cit Inj 50 Mcg/Ml Amp 2ml) 25 mcg IVP Q5M PRN PRN Reason: PAIN SCALE 1-3 (mild Stop: 12/25/24 15:49 Hydromorphone HCl (Hydromorphone Inj 2 Mg/Ml Vial) 0.4 mg IVP Q5M PRN PRN Reason: PAIN SCALE 7-10 (Severe Stop: 12/25/24 15:50 Sodium Chloride (Ns) 1,000 mls @ 999 mls/hr IV .Q1H1M ONE Stop: 12/23/24 06:36 Last Infusion: 12/23/24 06:53 Dose: Infused Sodium Chloride (Ns) 1,000 mls @ 999 mls/hr IV .Q1H1M ONE Stop: 12/23/24 06:37 Last Admin: 12/23/24 05:37 Dose: Not Given Meropenem 1,000 mg/ Sodium (Chloride) 50 mls @ 100 mls/hr IV X1 ONE Stop: 12/23/24 11:36 Last Infusion: 12/23/24 12:00 Dose: Infused Magnesium Sulfate/Dextrose (Magnesium Sulfate Ivpb) 1 gm in 100 mls @ 100 mls/hr IV X1 ONE Stop: 12/23/24 12:07 Last Infusion: 12/23/24 12:30 Dose: Infused Vancomycin/Sodium Chloride (Vancomycin/Ns 1 Gm Ivpb) 200 mls @ 120 mls/hr IV X1 ONE Stop: 12/23/24 12:54 Last Infusion: 12/23/24 13:20 Dose: Infused Lactated Ringer's (Lactated Ringers) 1,000 mls @ 100 mls/hr IV .Q10H SAMAN Stop: 01/22/25 15:21 Last Admin: 12/24/24 06:27 Dose: 100 mls/hr Magnesium Sulfate (Magnesium Sulfate Ivpb) 4 gm in 50 mls @ 12.5 mls/hr IV X1 ONE Stop: 12/24/24 11:49 Last Admin: 12/24/24 08:48 Dose: 12.5 mls/hr Lactated Ringer's (Lactated Ringers) 1,000 mls @ 100 mls/hr IV .Q10H ONE Stop: 12/24/24 18:33 Last Admin: 12/24/24 08:48 Dose: 100 mls/hr Lactated Ringer's (Lactated Ringers) 1,000 mls @ 100 mls/hr IV .Q10H ONE Stop: 12/25/24 18:34 Last Admin: 12/25/24 09:37 Dose: 100 mls/hr Potassium Chloride (Kcl Ivpb) 10 meq in 100 mls @ 100 mls/hr IV Q1H SAMAN Stop: 12/25/24 12:35 Last Admin: 12/25/24 15:52 Dose: Not Given Insulin Degludec (Insulin Degludec 5 Unit/0.05 Ml (Per 5 Units)) 30 unit SC HS [facility] Stop: 01/22/25 20:59 Last Admin: 12/23/24 22:20 Dose: 30 unit Insulin Degludec (Insulin Degludec 5 Unit/0.05 Ml (Per 5 Units)) 40 unit SC HS [facility] Stop: 01/23/25 20:59 Insulin Human Lispro (Insulin Lispro (Admelog) 1 Unit/0.01 Ml Unit) 0 unit SC [facility]; Protocol Stop: 01/22/25 16:59 Last Admin: 12/23/24 22:21 Dose: 3 unit Insulin Human Regular (Insulin Hum Regular 1 Unit/0.01 Ml (Per Unit)) 5 unit IV X1 ONE Stop: 12/23/24 11:09 Last Admin: 12/23/24 11:29 Dose: 5 unit Morphine Sulfate (Morphine Sulf Inj 4 Mg/Ml Vial) 2 mg IVP X1 ONE Stop: 12/23/24 12:24 Last Admin: 12/23/24 12:45 Dose: Not Given Morphine Sulfate (Morphine Sulf Inj 4 Mg/Ml Vial) 1 mg IVP Q4HR PRN PRN Reason: pain 4-6 Stop: 12/28/24 18:13 Morphine Sulfate (Morphine Sulf Inj 4 Mg/Ml Vial) 2 mg IVP X1 ONE Stop: 12/23/24 18:15 Last Admin: 12/23/24 18:25 Dose: 2 mg Morphine Sulfate (Morphine Sulf Inj 4 Mg/Ml Vial) 4 mg IVP Q4HR PRN PRN Reason: pain 7-10 Stop: 12/28/24 18:15 Morphine Sulfate (Morphine Sulf Inj 4 Mg/Ml Vial) 3 mg IV Q5M PRN PRN Reason: PAIN SCALE 4-6 (Moderate Stop: 12/25/24 15:50 Ondansetron HCl (Ondansetron Inj 2 Mg/Ml Inj 2 Ml) 4 mg IVP X1 ONE Stop: 12/25/24 13:48 Pharmacy Consult (Vancomycin Pharmacy To Dose 1 Each Each) 1 each IV QDAY PRN PRN Reason: PROTOCOL Stop: 01/22/25 11:06 Assessment & Plan Plan Summary:A 74-year-old female patient with significant past medical history of diabetes mellitus on insulin, fatty liver, hypertension, chronic constipation with bowel and bladder incontinence, heart murmur, was admitted to the hospital after patient was noticed to have multiple episodes of nausea and vomiting that started on 22 December 2024. Reportedly the patient had 2 episodes of vomiting which was nonbilious. Patient was admitted for SBO treatment and presyncope workup found to have EF of 35-40, with severe aortic stenosis. #Presyncope most likely multifactorial secondary to dehydration plus aortic stenosis #Moderate to severe aortic stenosis #Mitral stenosis and calcification #New onset HFrEF with ejection fraction of 35-40 % Patient reportedly has a history of murmur for many years in the past, came to the ED due to persistent vomiting which resulted in presyncopal episode. She has history of orthopnea, lower limb swelling. Echocardiogram was done on 24 December 2024 showed Mild LVH. Global LV systolic function is moderately decreased. Estimated EF at 35-40 %. Diastolic function could not be assesed due to severe MAC. Normal RV size and systolic function. Severe MAC with severe calcification of mitral valve ( posterrior > anterior) and aortic valve. Mild to moderate mitral stenosis - Mean PG 5 to 8 mm hg. but area with PHT 2.5 sq cm. Moderate to severe with V max 3.3 m/s, mean PG 23 mm hg But RILEY is 0.5 sq cm. Trace to mild AI. Mostly low flow low gradient severe aortic stenosis given the low EF. Chest x-ray showed mild vascular congestion. BNP and troponin were negative Plan ? Follow-up on the orthostatic vitals ? Replete volume as needed keep the patient on strict balance as the patient is volume sensitive due to the severe aortic stenosis and the dehydration secondary to her vomiting. ? Strict ins and out ? As since the patient tolerate oral feeds we will start the patient on GDMT gradually ? Patient may need catheterization for both evaluation of CHF and also for anticipated TAVR procedure ? Keep patient in semisitting position ? Keep potassium above 4 and magnesium above 2 within normal range #SBO status post laparotomy Patient was found to have SBO, her WBC continued to uptrend to 32, patient went under laparotomy by Dr Diallo Patient currently on NG tube with intermittent suction and pain control, ceftriaxone, and Flagyl. #Diabetes mellitus Insulin sliding scale #SHERIE resolved most likely secondary to dehydration due to persistent vomiting #Leukocytosis #Hypertension Follow primary team recommendations Thank you for the consultation, please do not hesitate to reach out if you have any question or concern. - Patient's plan and care discussed with my attending, Dr. Dany Kennedy MD Internal Medicine PGY-3 Attending Provider Attestation/Addendum I have personally seen and examined the patient separately on the above date of service and discussed the plan of care with the resident. I reviewed the resident Dr. Kennedy consultation progress note and agree with the resident findings and plan in the note above and have also edited the documentation to reflect my findings and plan. aGrrett Saenz M.D. Interventional Cardiology
[2024-12-26] VITALS (13 sets, daily range): BP systolic 74–144; BP diastolic 42–90; PULSE 8–135; RESP 10–95; TEMP 36.1–36.4; O2SAT 90–98; BMI 12.0
[2024-12-26] MEDS: ACETAMINOPHEN IVPB 1,000 MG/100 ML VIAL 250 MG IV ×2 (00:21→05:37)
[2024-12-26] MEDS: INSULIN LISPRO (AdmeLOG) 1 UNIT/0.01 ML UNIT SC ×5 (00:29→23:47)
--- NOTE | 2024-12-26 02:30 | EKG_ITS ---
[facility] Test Date: 2024-12-26 Pat Name: BITA LILLY [facility] Gender[facility] Blast Furnace Blower: TOMASA : 1950 Requested By: Mary Starks Order Number: [id number] Reading MD: Mary Starks Measurements Intervals [place] Rate: 83 P: 36 LA: 128 QRS: 22 QRSD: 103 T: 187 QT: 387 QTc: 457 Interpretive Statements SINUS RHYTHM LEFT VENTRICULAR HYPERTROPHY AND ST-T CHANGE Compared to ECG 12/23/2024 11:53:17 Sinus tachycardia no longer present Myocardial infarct finding no longer present ST (T wave) deviation still present /store/S0/[id number]/ecg/[id number].pdf
[2024-12-26] MEDS: HEPARIN SOD INJ 5000 UNIT/ML VIAL SC ×3 (05:37→21:46)
[2024-12-26] MEDS: KCL 20 mEq/L in 1/2NS 20 MEQ/1,000 ML BAG 75 MEQ IV (05:37)
[2024-12-26 06:00] LABS: Basophils # (Auto) 0.0 Thou/mm3 (0.0-0.2); Basophils % (Auto) 0 % (0-2.5); Eosinophils # (Auto) 0.0 Thou/mm3 (0.0-0.5); Eosinophils % (Auto) 0 % (0-10); Hematocrit 37.5 % (36.0-46.0); Hemoglobin 12.1 g/dL (12.0-16.0); Immature Granulocytes Auto 0.10 Thou/mm3 (0.00-0.00); Lymphocytes # (Auto) 0.9 Thou/mm3 (1.0-4.8); Lymphocytes % (Auto) 4 % (10-50); Mean Corpuscular HGB Conc 32.3 g/dl (31.0-37.0); Mean Corpuscular Hemoglobin 30.4 pg (25.0-35.0); Mean Corpuscular Volume 94 fL (80-100); Monocytes # (Auto) 1.0 Thou/mm3 (0.0-0.8); Monocytes % (Auto) 5 % (0-12); Neutrophils # (Auto) 18.9 Thou/mm3 (1.8-7.7); Neutrophils % (Auto) 90 % (37-80); Nucleated Red Blood Cell # 0.00 Thou/mm3 (0.00-0.00); Nucleated Red Blood Cell % 0 /100 WBC (0); Platelet Count 213 Thou/mm3 (140-440); RDW Standard Deviation 46.2 fL (36.4-46.3); Red Blood Count 3.98 Miln/mm3 (4.00-5.20); White Blood Count 21.0 Thou/mm3 (3.6-11.0)
[2024-12-26] MEDS: metroNIDAZOLE/NS 500 MG IVPB 500 MG/100 ML BAG 200 MG IV ×3 (06:31→21:45)
[2024-12-26 06:33] LABS: Alanine Aminotransferase 27 U/L (10-49); Albumin, Serum 3.6 gm/dL (3.4-4.8); Albumin/Globulin Ratio 1.1 (1.2-2.2); Alkaline Phosphatase 60 U/L (46-116); Anion Gap 10 (7-16); Aspartate Amino Transferase 50 U/L (0-34); BUN/Creatinine Ratio 39 Ratio (12-20); Bilirubin,Total 0.3 mg/dL (0.3-1.2); Blood Urea Nitrogen 70 mg/dL (9-23); Calcium 9.1 mg/dL (8.3-10.6); Calcium (Corrected) 9.4 mg/dL (8.5-10.1); Carbon Dioxide 27.7 mMol/L (20.0-31.0); Chloride 101 mMol/L (98-107); Creatinine (Component) 1.8 mg/dL (0.6-1.3); Estimated Creatinine Clearance 30.3 mL/min (>60); Globulin 3.2 gm/dL (2.3-3.5); Glucose 195 mg/dL (74-106); Magnesium 3.1 mg/dL (1.6-2.6); Osmolality,Calculated 303 (275-295); Phosphorous 6.0 mg/dL (2.4-5.1); Potassium 5.2 mMol/L (3.4-5.1); Sodium 139 mMol/L (136-145); Total Protein 6.8 gm/dL (5.7-8.2); eGFR 29 See Note
--- NOTE | 2024-12-26 06:37 | PC.NURSE ---
Per teletypesetter monitor, patient still running PVCs and PACs. Checked on patient, remains to be asymptomatic. Patient resting quietly in bed with eyes closed. Dr. Starks made aware. MD to review patient's EKG that was completed earlier when patient had episodes of PVCs and PACs for the first time. Will continue to monitor patient.
[2024-12-26] MEDS: RINGERS LACTATED 1000 ML 1,000 ML 75 ML IV (08:29)
[2024-12-26] MEDS: cefTRIAXone 2 GM in SODIUM CHLORIDE 0.9% (Popper) 50 ML IV (08:30)
--- NOTE | 2024-12-26 09:20 | PD.RESPRO ---
Documentation for date of: 12/26/24 Subjective Subjective Interval history: Patient was seen and examined at bedside. Patient daughter reported significant improvement of her confusion. Patient denied any chest pain, shortness of breath, however her oxygen requirement went up to 4 L. Patient remain on 4 L of oxygen, she is day 1 status post laparotomy for SBO, WBC downtrending to 21, however, potassium is 5.2. Patient today developed an SHERIE and serum creatinine went up to 1.8. Exam Vital Signs Temp Pulse Resp BP Pulse Ox O2 Del Method O2 Flow Rate 97.0 F 81 10 L 115/62 97 Nasal Cannula 4 12/26/24 08:00 12/26/24 08:00 12/26/24 08:00 12/26/24 08:00 12/26/24 08:00 12/26/24 08:00 12/26/24 08:00 Narrative Exam GEN: AOx3, able to speak full sentences and talkative HEENT: NC/AC, oral mucosa moist, neck supple CVS: RRR, S1-S2 present, no murmurs appreciated RESP: CTAB GI: Abdominal binder in, soft,non distended, tender, NBS MSK: able to move all 4 limbs, no lower extremity edema SKIN: warm and dry SUGAR TRUCKER: Able to move all extremities, no facial asymmetry, no blurry vision Objective Labs 12/27/24 05:22 12/27/24 05:22 Labs: Laboratory Results - last 24 hr 12/25/24 12/26/24 09:36 05:30 WBC 21.0 H D RBC 3.98 L Hgb 12.1 Hct 37.5 MCV 94 MCH 30.4 MCHC 32.3 RDW Std Deviation 46.2 Plt Count 213 D Neut % (Auto) 90 H Lymph % (Auto) 4 L [place] % (Auto) 5 Eos % (Auto) 0 Baso % (Auto) 0 Neut # (Auto) 18.9 H Lymph # (Auto) 0.9 L [place] # (Auto) 1.0 H Eos # (Auto) 0.0 Baso # (Auto) 0.0 Immature Gran # (Auto) 0.10 H Absolute Nucleated RBC 0.00 Immature Gran % 1 H Nucleated RBC % 0 Sodium 139 Potassium 5.2 H D Chloride 101 Carbon Dioxide 27.7 Anion Gap 10 BUN 70 H Creatinine 1.8 H D Estim Creat Clear Calc 30.3 L eGFR 29 L BUN/Creatinine Ratio 39 H Glucose 195 H Calculated Osmolality 303 H Lactic Acid 2.0 Calcium 9.1 Corrected Calcium 9.4 Phosphorus 6.0 H Magnesium 3.1 H Total Bilirubin 0.3 AST 50 H ALT 27 Alkaline Phosphatase 60 Total Protein 6.8 Albumin 3.6 Globulin 3.2 Albumin/Globulin Ratio 1.1 L ABG Interpretation ABG results: 12/23/24 05:32 VBG pH 7.36 VBG pCO2 47 VBG pO2 58 VBG Base Excess 0 Quality Measures Quality Measures sepsis Current suspected stage: sepsis Possible source: GI tract/intra-abdominal Blood cultures ordered: yes Antibiotic ordered: Yes Advance care planning discussed with:: patient Assessment & Plan Assessment Current Active Medications: Generic Name Dose Route Start Last Admin Trade Name Freq PRN Reason Stop Dose Admin Dextrose 25 ml 12/23/24 15:23 Dextrose 50%-Water Inj 50 Ml Syringe IV 01/22/25 15:22 Q15MIN PRN BG 50-70 responsive npo pt Dextrose 50 ml 12/23/24 15:23 Dextrose 50%-Water Inj 50 Ml Syringe IV 01/22/25 15:22 Q15MIN PRN BG <50 OR BG <70 & pt unresponsive Glucagon 1 mg 12/23/24 15:23 Glucagon Inj 1 Mg Vial IM Q15MIN PRN BG <70, and no IV access Heparin Sodium (Porcine) 5,000 unit 12/23/24 22:00 12/26/24 05:37 Heparin Sod Inj 5000 Unit/Ml Vial SC 01/06/25 21:59 5,000 unit Q8HR SAMAN Administration Hydromorphone HCl 0 mg 12/25/24 15:41 12/25/24 16:11 Hydromorphone 1 Mg/Ml Distribution Lead Syringe 30ml COORDINATING PRODUCER 12/30/24 15:40 30 mg UD SAMAN Administration Protocol Ceftriaxone Sodium 2 gm/ 50 mls @ 100 mls/hr 12/23/24 16:47 12/26/24 08:30 Sodium Chloride IV 12/30/24 16:46 100 mls/hr QDAY SAMAN Administration Metronidazole 500 mg in 100 mls @ 200 mls/hr 12/25/24 10:38 12/26/24 06:31 Flagyl 500 Mg Iv IV 01/01/25 10:37 200 mls/hr Q8HR SAMAN Administration Lactated Ringer's 1,000 mls @ 75 mls/hr 12/26/24 08:06 12/26/24 08:29 Lactated Ringers IV 12/26/24 21:25 75 mls/hr .[id number] SAMAN Administration Insulin Degludec 35 unit 12/24/24 21:00 12/25/24 21:17 Insulin Degludec 5 Unit/0.05 Ml (Per 5 Units) SC 01/23/25 20:59 Not Given HS SAMAN Insulin Human Lispro 0 unit 12/24/24 06:00 12/26/24 05:46 Insulin Lispro (Admelog) 1 Unit/0.01 Ml Unit SC 01/23/25 05:59 1 unit Q6HR SAMAN Administration Protocol Ondansetron HCl 4 mg 12/25/24 15:41 Ondansetron Inj 2 Mg/Ml Inj 2 Ml IVP 01/24/25 15:40 Q6HR PRN NAUSEA OR VOMITING Protocol Pantoprazole Sodium 40 mg 12/24/24 09:00 12/26/24 08:31 Pantoprazole Inj 40 Mg Vial IVP 01/23/25 08:59 40 mg QDAY SAMAN Administration Plan Summary:A 74-year-old female patient with significant past medical history of diabetes mellitus on insulin, fatty liver, hypertension, chronic constipation with bowel and bladder incontinence, heart murmur, was admitted to the hospital after patient was noticed to have multiple episodes of nausea and vomiting that started on 22 December 2024. Reportedly the patient had 2 episodes of vomiting which was nonbilious. Patient was admitted for SBO treatment and presyncope workup found to have EF of 35-40, with severe aortic stenosis. #Presyncope most likely multifactorial secondary to dehydration plus aortic stenosis #Moderate to severe aortic stenosis #Mitral stenosis and calcification #New onset HFrEF with ejection fraction of 35-40 % Patient reportedly has a history of murmur for many years in the past, came to the ED due to persistent vomiting which resulted in presyncopal episode. She has history of orthopnea, lower limb swelling. Echocardiogram was done on 24 December 2024 showed Mild LVH. Global LV systolic function is moderately decreased. Estimated EF at 35-40 %. Diastolic function could not be assesed due to severe MAC. Normal RV size and systolic function. Severe MAC with severe calcification of mitral valve ( posterrior > anterior) and aortic valve. Mild to moderate mitral stenosis - Mean PG 5 to 8 mm hg. but area with PHT 2.5 sq cm. Moderate to severe with V max 3.3 m/s, mean PG 23 mm hg But RILEY is 0.5 sq cm. Trace to mild AI. Mostly low flow low gradient severe aortic stenosis given the low EF. Chest x-ray showed mild vascular congestion. BNP and troponin were negative 12/24/2024, patient had rapid response after physical therapy tried to work with the patient and she became unresponsive for 15 seconds. Patient regained consciousness immediately. Noticed to have orthostatic hypotension Plan ? Replete volume as needed keep the patient on strict balance as the patient is volume sensitive due to the severe aortic stenosis and the dehydration secondary to her vomiting. ? Strict ins and out ? As since the patient tolerate oral feeds we will start the patient on GDMT gradually ? Patient may need catheterization for both evaluation of CHF and also for anticipated TAVR procedure ? Keep patient in semisitting position ? Keep potassium above 4 and magnesium above 2 within normal range #SBO status post laparotomy Patient was found to have SBO, her WBC continued to uptrend to 32, patient went under laparotomy by Dr Diallo Patient currently on NG tube with intermittent suction and pain control, ceftriaxone, and Flagyl. #Diabetes mellitus Insulin sliding scale #SHERIE resolved most likely secondary to dehydration due to persistent vomiting #Leukocytosis #Hypertension Follow primary team recommendations Thank you for the consultation, please do not hesitate to reach out if you have any question or concern. - Patient's plan and care discussed with my attending, Dr. Dany Kennedy MD Internal Medicine PGY-3 Attending Provider Attestation/Addendum I have personally seen and examined the patient separately on the above date of service and discussed the plan of care with the resident. I reviewed the resident Dr. Kennedy consultation progress note and agree with the resident findings and plan in the note above and have also edited the documentation to reflect my findings and plan. Garrett Saenz M.D. Interventional Cardiology
--- NOTE | 2024-12-26 09:56 | PD.RESPRO ---
Documentation for date of: 12/26/24 Subjective Subjective Interval history: Overnight events: No acute events overnight. Patient was seen and examined at bedside. AM vitals and labs reviewed. Patient does not appear to be in any acute distress at this time. Does not note any pain currently after her surgery yesterday. NG tube in place, suctioning dark green material. WBC 21, potassium 5.2, creatinine 1.8, phosphorus 6.0, magnesium 3.1, AST 50, ALT 27 Patient is postop day 1 after partial bowel resection for ischemic/necrotic tissue with a proximal ileum and a cholecystectomy. Will continue with Rocephin and Flagyl to complete a course of 7 days of antibiotics, expected end date 01/01. Continue 1 L LR. Will continue to monitor SHERIE and transaminitis, which is likely secondary from the procedure as it was an extensive procedure. Will await general surgery's evaluation for advancement of diet. Keeping patient NPO for now. Review of systems otherwise negative except for what is mentioned above. Exam Vital Signs Temp Pulse Resp BP Pulse Ox O2 Del Method O2 Flow Rate 97.0 F 81 10 L 115/62 97 Nasal Cannula 4 12/26/24 08:00 12/26/24 08:00 12/26/24 08:00 12/26/24 08:00 12/26/24 08:00 12/26/24 08:00 12/26/24 08:00 Narrative Exam Physical Exam: General: Alert, no acute distress. Skin: Warm, dry, intact. Head: Normocephalic, atraumatic. Eye: Normal conjunctiva, PERRL. Cardiovascular: Regular rate and rhythm, no murmur, +S1/S2. Respiratory: Lungs are clear to auscultation, respirations unlabored, no crackles, no wheezing. Gastrointestinal: Soft, nontender, non-distended. Extremities: No edema, no cyanosis, no clubbing. Neuro: No focal deficits observed. Conversant, moving all extremities. No overt cerebellar signs/incoordination. Psychiatric: Cooperative, appropriate affect. Objective Labs 12/26/24 05:30 12/26/24 05:30 Labs: Laboratory Results - last 24 hr 12/25/24 12/26/24 09:36 05:30 WBC 21.0 H D RBC 3.98 L Hgb 12.1 Hct 37.5 MCV 94 MCH 30.4 MCHC 32.3 RDW Std Deviation 46.2 Plt Count 213 D Neut % (Auto) 90 H Lymph % (Auto) 4 L [place] % (Auto) 5 Eos % (Auto) 0 Baso % (Auto) 0 Neut # (Auto) 18.9 H Lymph # (Auto) 0.9 L [place] # (Auto) 1.0 H Eos # (Auto) 0.0 Baso # (Auto) 0.0 Immature Gran # (Auto) 0.10 H Absolute Nucleated RBC 0.00 Immature Gran % 1 H Nucleated RBC % 0 Sodium 139 Potassium 5.2 H D Chloride 101 Carbon Dioxide 27.7 Anion Gap 10 BUN 70 H Creatinine 1.8 H D Estim Creat Clear Calc 30.3 L eGFR 29 L BUN/Creatinine Ratio 39 H Glucose 195 H Calculated Osmolality 303 H Lactic Acid 2.0 Calcium 9.1 Corrected Calcium 9.4 Phosphorus 6.0 H Magnesium 3.1 H Total Bilirubin 0.3 AST 50 H ALT 27 Alkaline Phosphatase 60 Total Protein 6.8 Albumin 3.6 Globulin 3.2 Albumin/Globulin Ratio 1.1 L ABG Interpretation ABG results: 12/23/24 05:32 VBG pH 7.36 VBG pCO2 47 VBG pO2 58 VBG Base Excess 0 Quality Measures Quality Measures sepsis Current suspected stage: ruled out Possible source: GI tract/intra-abdominal Blood cultures ordered: yes Antibiotic ordered: Yes Advance care planning discussed with:: patient Assessment & Plan Assessment Current Active Medications: Generic Name Dose Route Start Last Admin Trade Name Freq PRN Reason Stop Dose Admin Dextrose 25 ml 12/23/24 15:23 Dextrose 50%-Water Inj 50 Ml Syringe IV 01/22/25 15:22 Q15MIN PRN BG 50-70 responsive npo pt Dextrose 50 ml 12/23/24 15:23 Dextrose 50%-Water Inj 50 Ml Syringe IV 01/22/25 15:22 Q15MIN PRN BG <50 OR BG <70 & pt unresponsive Glucagon 1 mg 12/23/24 15:23 Glucagon Inj 1 Mg Vial IM Q15MIN PRN BG <70, and no IV access Heparin Sodium (Porcine) 5,000 unit 12/23/24 22:00 12/26/24 05:37 Heparin Sod Inj 5000 Unit/Ml Vial SC 01/06/25 21:59 5,000 unit Q8HR SAMAN Administration Hydromorphone HCl 0 mg 12/25/24 15:41 12/25/24 16:11 Hydromorphone 1 Mg/Ml Roentgenologist Syringe 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 12/30/24 15:40 30 mg UD SAMAN Administration Protocol Ceftriaxone Sodium 2 gm/ 50 mls @ 100 mls/hr 12/23/24 16:47 12/26/24 08:30 Sodium Chloride IV 12/30/24 16:46 100 mls/hr QDAY SAMAN Administration Metronidazole 500 mg in 100 mls @ 200 mls/hr 12/25/24 10:38 12/26/24 06:31 Flagyl 500 Mg Iv IV 01/01/25 10:37 200 mls/hr Q8HR SAMAN Administration Lactated Ringer's 1,000 mls @ 75 mls/hr 12/26/24 08:06 12/26/24 08:29 Lactated Ringers IV 12/26/24 21:25 75 mls/hr .[id number] SAMAN Administration Insulin Degludec 35 unit 12/24/24 21:00 12/25/24 21:17 Insulin Degludec 5 Unit/0.05 Ml (Per 5 Units) SC 01/23/25 20:59 Not Given HS SAMAN Insulin Human Lispro 0 unit 12/24/24 06:00 12/26/24 05:46 Insulin Lispro (Admelog) 1 Unit/0.01 Ml Unit SC 01/23/25 05:59 1 unit Q6HR SAMAN Administration Protocol Ondansetron HCl 4 mg 12/25/24 15:41 Ondansetron Inj 2 Mg/Ml Inj 2 Ml IVP 01/24/25 15:40 Q6HR PRN NAUSEA OR VOMITING Protocol Pantoprazole Sodium 40 mg 12/24/24 09:00 12/26/24 08:31 Pantoprazole Inj 40 Mg Vial IVP 01/23/25 08:59 40 mg QDAY SAMAN Administration Plan and daughter at the bedside who also gives some history as patient has some memory issues. 74-year-old female with significant past medical history of hypertension, diabetes mellitus, insulin-dependent, possible dementia [not officially diagnosed], fatty liver, bowel and bladder incontinence, chronic constipation was brought to the hospital with chief complaints of nausea, vomitings and presyncopal like episode. # SBO # s/p partial small bowel resection 12/25 # Small bowel ischemia, with necrosis, proximal ileum # s/p cholecystectomy 12/25 # Cholecystitis - Patient reported that she had chronic constipation and occasionally had diarrheal episodes - Also reported that she had bowel incontinence and has accidents all the time - Reported that she has bowel movements once in 4 or 5 days which is normal for her since last couple of years. Patient does not remember the exact last bowel movement - Noted to have vomitings on the day before admission, 10 episodes - Abdomen/pelvis CT imaging showed early small bowel obstruction - Small bowel series were ordered, shows continued small bowel obstruction with conservative management Plan - General Surgeon, Dr. Diallo is consulted, performed partial small bowel resection and cholecystectomy on 12/25 - NG tube was placed - Continue IV fluids, LR at 75 cc/h - Ceftriaxone 2 gm daily (12/23-01/01) - Metronidazole 500 mg every 8 hours (12/25-01/01) # New onset HFrEF, EF 35-40% # Severe mitral annulus valvular calcification, incidental finding - Patient is noted to have a severe mitral annular valvular calcification on CT abdomen/pelvis which is an incidental finding - Patient denies any cardiac history - Also noted to have ESM in aortic and pulmonary area - Echocardiogram is ordered, taken 12/24, shows ejection fraction of 35 to 40% with global LV systolic function moderately decreased, unable to assess diastolic function given severe MAC, severe calcification of mitral valve and aortic valve, with mild to moderate mitral stenosis and moderate to severe atrial stenosis. Plan - Cardiology consulted, appreciate recommendations - Possible GDMT after patient is cleared from being n.p.o. - Per cardiology, patient may need catheterization for both evaluation of CHF and also for anticipated TAVR procedure # SHERIE, likely prerenal # Electrolyte derangement - Patient had multiple episodes of vomiting at the time of admission - Baseline creatinine is 0.9 as of 08/2024, creatinine at the time of admission is 1.5 --> 12/24, 1.2 - Patient had increase in creatinine to 1.8 on 12/26, likely secondary to extensive surgery on 12/25, which likely led to electrolyte abnormalities Plan - Started on IV fluids - Will continue to monitor renal functions - Will renally dose medications # Presyncopal episode #? Fall - At baseline, patient is able to walk with the help of support - On the day before admission, patient noted to have multiple episodes of vomitings almost 10 associated with nausea, nonbilious and denies any hematemesis - On the day of admission, per , patient is trying to get out of the bed and asked help from the hospital and and when he is trying to help her walk from the bedroom to the living room he noted severe sweating on the patient and not able to support herself. Later the dropped her slowly down to the floor and later brought to the hospital - Denies palpitations, loss of consciousness, bowel or bladder incontinence at the time of episode, fever also denies hitting head or back - Denies any previous history of cardiac disease - EKG at the time of admission showed normal sinus rhythm with no acute ST and T wave changes and troponin is 0.031 - Imaging including head CT and C-spine CT did not show any fracture - Labs at the time of admission are significant for SHERIE Plan - Orthostatic vitals are ordered - Will continue to monitor vitals # Diabetes mellitus, insulin-dependent - Glucose at the time of admission is 420 - Patient is using Lantus 42 units every day. Not on any sliding scale Plan - Started on insulin sliding scale - Started on degludec 30 units subcutaneous at bedtime, increased to 35 units as of 12/24 # Lactic acidosis, resolved - Lactate at the time of admission is 3.7, improved to 1.7 - Patient received 2 L of fluid in the ED - Started on IV fluids, LR at 100 mL/h # Hypomagnesemia, resolved - Magnesium at the time of presentation is 1.5 -->1.8, 12/24 - Received IV magnesium in the ED Plan - Will continue to monitor magnesium and replete as needed # Leukocytosis, improving In the setting of dehydration and SHERIE -WBC at the time of admission is 26.8 - Patient does not have any features suggestive of active infection as of now - Blood cultures no growth after 48 hours in 2/2 cultures - Urine culture negative for growth - Noted significant improvement after bowel resection on 12/25 Plan - Patient is started on ceftriaxone 2 g IV daily in view of SBP prophylaxis as the patient is noted to have ascites - Will continue to monitor CBC - Started metronidazole 500 mg every 8 hours due to surgery for SBO # Bilateral opacities in the basal areas of the lung, incidental finding - Patient is noted to have bilateral opacities in the basal areas of the lung which was found incidentally on abdomen/pelvis CT - Patient denies any symptoms of shortness of breath, cough Plan - Will recommend to follow-up on outpatient basis for further evaluation # Cirrhosis with mild ascites - Patient reported that she had history of fatty liver - Likely due to metabolic component in the setting of obesity Hospital Maintenance: Dispo: Medsurg DVT ppx: Heparin GI ppx: Protonix Diet: NPO IV lines: Peripheral Code status: Full Patient plan of care was discussed with the attending physician, Dr. Shaji Llanos, PGY-1 Attending Provider Attestation/Addendum I have discussed and was present for the essential components of the history, physical examination, diagnosis, and treatment plan with the resident. I agree with the patient's care as documented by the resident and amended herein by me. Bennie Girard DO. Although this document has been carefully reviewed, there may still be some phonetic and other typographical errors. These errors are purely grammatical due to imperfections in the software program and should not be construed in any way to compromise the substance of the patient's medical care during this visit.
--- NOTE | 2024-12-26 10:56 | PC.SS ---
SS follow up note; Patient is POST OP day #1 and on IV ABX. At the time auth is still pending to [facility].
--- NOTE | 2024-12-26 10:58 | CHAP ---
Patient expressed gratitude for visit and prayer.
--- NOTE | 2024-12-26 11:53 | PC.SS ---
SS follow up note; SS was contacted by Oly from [facility] and she informed SS that insurance informed Oly that they are unable to authorize at the time due to patient not being medically cleared. Oly informed SS that insurance is requesting for auth to be submitted once patient is discharge. SS updated Dr. Girard and he said patient will discharge within 3-4 days. SS updated Oly from [facility].
--- NOTE | 2024-12-26 12:38 | ESPR_ITS ---
Documentation for date of: 12/26/24 Subjective Subjective Narrative: Patient is seen and examined. She is resting comfortably, pain is well- controlled. She denies nausea or vomiting Exam Vital Signs Temp Pulse Resp BP Pulse Ox O2 Del Method O2 Flow Rate 97.6 F 81 13 109/60 95 Nasal Cannula 4 12/26/24 11:45 12/26/24 12:00 12/26/24 12:00 12/26/24 11:45 12/26/24 11:45 12/26/24 08:00 12/26/24 08:00 Constitutional Constitutional: no acute distress Routine Abdominal Exam Comments: Abdomen is soft and mildly distended. Incision with dressings clean, dry and intact Assessment & Plan Assessment Additional comments: Postop day #1 status post exploratory laparotomy with partial small bowel resection and cholecystectomy Plan Will keep n.p.o. with IV fluids. Clamp the NG tube. Physical therapy to increase ambulation PROCEDURES: Procedures Exploratory laparotomy, partial small bowel resection Cholecystectomy
--- NOTE | 2024-12-26 15:36 | EKG_ITS ---
[facility] Test Date: 2024-12-26 Pat Name: BITA LILLY [facility] Gender[facility] Material Scheduler: CORY : 1950 Requested By: Logan Atkins Order Number: [id number] Reading MD: Logan Atkins Measurements Intervals [place] Rate: 86 P: 31 ID: [id number] QRS: 33 QRSD: 108 T: 212 QT: 375 QTc: 451 Interpretive Statements SINUS RHYTHM POSSIBLE ANTERIOR MYOCARDIAL INFARCTION , PROBABLY OLD MODERATE T-WAVE ABNORMALITY, CONSIDER INFERIOR ISCHEMIA Compared to ECG 12/26/2024 02:43:35 Myocardial infarct finding now present T-wave abnormality now present Possible ischemia now present Left ventricular hypertrophy no longer present ST (T wave) deviation no longer present /store/S0/[id number].pdf
--- NOTE | 2024-12-26 15:40 | PD.EVENT ---
Documentation for date of: 12/26/24 Event Note Event Note: Rapid response was called at approximately 1524 acute encephalopathy, the patient was working with physical therapy and when she sat up she appeared to be staring off into space unresponsive for a short amount of time. When I arrived blood pressure was soft but normotensive, with a MAP of 65, patient states she felt much better. I did order a CMP, CBC, and EKG. I also administered a 500 mL LR bolus running at 250 mL/h. Will follow-up with labs and diagnostics. Of note, the patient did receive a small dose of Dilaudid prior to event. Will continue monitor closely.
[2024-12-26] MEDS: RINGERS LACTATED 1000 ML 500 ML 250 ML IV (15:52)
[2024-12-26] MEDS: HYDROmorphone 1 MG/ML PCA SYRINGE 30ML PCA (16:05)
[2024-12-26 16:29] LABS: Basophils # (Auto) 0.0 Thou/mm3 (0.0-0.2); Basophils % (Auto) 0 % (0-2.5); Eosinophils # (Auto) 0.1 Thou/mm3 (0.0-0.5); Eosinophils % (Auto) 0 % (0-10); Hematocrit 30.5 % (36.0-46.0); Hemoglobin 9.7 g/dL (12.0-16.0); Immature Granulocytes Auto 0.10 Thou/mm3 (0.00-0.00); Lymphocytes # (Auto) 1.5 Thou/mm3 (1.0-4.8); Lymphocytes % (Auto) 7 % (10-50); Mean Corpuscular HGB Conc 31.8 g/dl (31.0-37.0); Mean Corpuscular Hemoglobin 30.6 pg (25.0-35.0); Mean Corpuscular Volume 96 fL (80-100); Monocytes # (Auto) 1.1 Thou/mm3 (0.0-0.8); Monocytes % (Auto) 5 % (0-12); Neutrophils # (Auto) 17.6 Thou/mm3 (1.8-7.7); Neutrophils % (Auto) 86 % (37-80); Nucleated Red Blood Cell # 0.00 Thou/mm3 (0.00-0.00); Nucleated Red Blood Cell % 0 /100 WBC (0); Platelet Count 316 Thou/mm3 (140-440); RDW Standard Deviation 48.9 fL (36.4-46.3); Red Blood Count 3.17 Miln/mm3 (4.00-5.20); White Blood Count 20.4 Thou/mm3 (3.6-11.0)
[2024-12-26 18:10] LABS: Alanine Aminotransferase 20 U/L (10-49); Albumin, Serum 3.4 gm/dL (3.4-4.8); Albumin/Globulin Ratio 1.2 (1.2-2.2); Alkaline Phosphatase 68 U/L (46-116); Anion Gap 11 (7-16); Aspartate Amino Transferase 26 U/L (0-34); BUN/Creatinine Ratio 41 Ratio (12-20); Bilirubin,Total 0.2 mg/dL (0.3-1.2); Blood Urea Nitrogen 73 mg/dL (9-23); Calcium 8.9 mg/dL (8.3-10.6); Calcium (Corrected) 9.4 mg/dL (8.5-10.1); Carbon Dioxide 30.5 mMol/L (20.0-31.0); Chloride 102 mMol/L (98-107); Creatinine (Component) 1.8 mg/dL (0.6-1.3); Estimated Creatinine Clearance 30.3 mL/min (>60); Globulin 2.9 gm/dL (2.3-3.5); Glucose 217 mg/dL (74-106); Osmolality,Calculated 313 (275-295); Potassium 4.5 mMol/L (3.4-5.1); Sodium 143 mMol/L (136-145); Total Protein 6.3 gm/dL (5.7-8.2); eGFR 29 See Note
--- NOTE | 2024-12-26 19:14 | EKG_ITS ---
[facility] Test Date: 2024-12-26 Pat Name: BITA LILLY Department: Room: S361A Gender: Female Brancher: ER : 1950 Requested By: Logan Atkins Order Number: [id number] Reading MD: Logan Atkins Measurements Intervals [place] Rate: 138 P: TN: QRS: 31 QRSD: 110 T: 207 QT: 287 QTc: 436 Interpretive Statements ATRIAL FIBRILLATION WITH RAPID VENTRICULAR RESPONSE WITH ABERRANT CONDUCTION OR VENTRICULAR PREMATURE COMPLEXES POSSIBLE INFERIOR MYOCARDIAL INFARCTION , OF INDETERMINATE AGE ST DEVIATION AND MODERATE T-WAVE ABNORMALITY, CONSIDER LATERAL ISCHEMIA Compared to ECG 12/26/2024 16:00:57 Ventricular premature complex(es) now present Aberrant conduction of supraventricular beat(s) now present Sinus rhythm no longer present Myocardial infarct finding still present T-wave abnormality still present Possible ischemia still present /store/S0/[id number].pdf
--- NOTE | 2024-12-26 19:23 | PD.EVENT ---
Documentation for date of: 12/26/24 Event Note Event Note: Another rapid response was called at approx 1915 for tachycardia. EKG performed demonstrated atrial fibrillation with a rate at approx 130. Electrolytes ok per last set of labs drawn at 1721 hence new ones will not be drawn. Pt is afebrile and subjectively feels fine, no palpitations or chest pain. Troponin and lactate will be drawn, pt may have gotten too much fluids as she was hypotensive at the last rapid and received a bolus of LR and was on maint fluids. I will halt fluids and give a dose of lopressor 2.5mg x1. Will cont to monitor. Will reach out to cardiology
[2024-12-26] MEDS: METOPROLOL TARTRATE INJ 1 MG/ML AMP 5 ML 2.5 MG IVP (19:30)
[2024-12-26 19:54] LABS: Lactate (Lactic Acid) 1.2 mMol/L (0.4-2.0)
[2024-12-26 20:19] LABS: Troponin I 0.038 ng/mL (0.0-0.045)
[2024-12-26] MEDS: INSULIN DEGLUDEC 5 UNIT/0.05 ML (PER 5 UNITS) 20 UNIT SC (21:46)
--- NOTE | 2024-12-26 21:47 | PC.NURSE ---
SUPERVISOR RECORDS CHANGE DILAUDID PUMP WAS CLEARED.
[2024-12-27] VITALS (10 sets, daily range): BP systolic 127–155; BP diastolic 63–75; PULSE 67–83; RESP 13–19; TEMP 36.1; O2SAT 97–99
[2024-12-27] MEDS: metroNIDAZOLE/NS 500 MG IVPB 500 MG/100 ML BAG 200 MG IV ×3 (06:00→21:35)
[2024-12-27] MEDS: INSULIN LISPRO (AdmeLOG) 1 UNIT/0.01 ML UNIT SC ×3 (06:03→23:24)
[2024-12-27] MEDS: HEPARIN SOD INJ 5000 UNIT/ML VIAL SC ×3 (06:04→21:35)
[2024-12-27 06:11] LABS: Basophils # (Auto) 0.0 Thou/mm3 (0.0-0.2); Basophils % (Auto) 0 % (0-2.5); Eosinophils # (Auto) 0.4 Thou/mm3 (0.0-0.5); Eosinophils % (Auto) 2 % (0-10); Hematocrit 34.4 % (36.0-46.0); Hemoglobin 10.7 g/dL (12.0-16.0); Immature Granulocytes Auto 0.07 Thou/mm3 (0.00-0.00); Lymphocytes # (Auto) 1.5 Thou/mm3 (1.0-4.8); Lymphocytes % (Auto) 8 % (10-50); Mean Corpuscular HGB Conc 31.1 g/dl (31.0-37.0); Mean Corpuscular Hemoglobin 30.5 pg (25.0-35.0); Mean Corpuscular Volume 98 fL (80-100); Monocytes # (Auto) 1.0 Thou/mm3 (0.0-0.8); Monocytes % (Auto) 5 % (0-12); Neutrophils # (Auto) 16.0 Thou/mm3 (1.8-7.7); Neutrophils % (Auto) 85 % (37-80); Nucleated Red Blood Cell # 0.00 Thou/mm3 (0.00-0.00); Nucleated Red Blood Cell % 0 /100 WBC (0); Platelet Count 348 Thou/mm3 (140-440); RDW Standard Deviation 49.3 fL (36.4-46.3); Red Blood Count 3.51 Miln/mm3 (4.00-5.20); White Blood Count 18.9 Thou/mm3 (3.6-11.0)
[2024-12-27 06:37] LABS: Alanine Aminotransferase 19 U/L (10-49); Albumin, Serum 3.7 gm/dL (3.4-4.8); Albumin/Globulin Ratio 1.2 (1.2-2.2); Alkaline Phosphatase 81 U/L (46-116); Anion Gap 8 (7-16); Aspartate Amino Transferase 22 U/L (0-34); BUN/Creatinine Ratio 53 Ratio (12-20); Bilirubin,Total 0.2 mg/dL (0.3-1.2); Blood Urea Nitrogen 63 mg/dL (9-23); Calcium 9.3 mg/dL (8.3-10.6); Calcium (Corrected) 9.5 mg/dL (8.5-10.1); Carbon Dioxide 32.4 mMol/L (20.0-31.0); Chloride 106 mMol/L (98-107); Creatinine (Component) 1.2 mg/dL (0.6-1.3); Estimated Creatinine Clearance 45.5 mL/min (>60); Globulin 3.0 gm/dL (2.3-3.5); Glucose 180 mg/dL (74-106); Magnesium 3.5 mg/dL (1.6-2.6); Osmolality,Calculated 313 (275-295); Phosphorous 3.7 mg/dL (2.4-5.1); Potassium 4.5 mMol/L (3.4-5.1); Sodium 146 mMol/L (136-145); Total Protein 6.7 gm/dL (5.7-8.2); eGFR 47 See Note
[2024-12-27] MEDS: cefTRIAXone 2 GM in SODIUM CHLORIDE 0.9% (Popper) 50 ML IV (08:11)
--- NOTE | 2024-12-27 09:26 | ESPR_ITS ---
Documentation for date of: 12/27/24 Subjective Subjective Interval history: Overnight events: Patient had 2 rapid responses overnight. Pressure response for unresponsiveness during PT session, which quickly resolved. Second rapid response was for a run of atrial fibrillation with RVR that resolved after halting fluids and a dose of metoprolol IV. Patient was seen and examined at bedside. AM vitals and labs reviewed. Patient appears to be well today. No acute distress. NG tube continued to be clamped. Discussed positive orthostatic vitals results with the patient and advised slow rising from seated position. Patient does report not having passed any gas since the procedure. WBC 18.9, hemoglobin 10.7, sodium 146, creatinine 1.2. Continue ceftriaxone and metronidazole to complete 7-day course, end date 01/01. Increased insulin degludec 20 to 25 nightly. Continue to hold fluids. Pending evaluation and further recommendations from general surgery regarding advancing diet. Per cardiology, once patient is able to tolerate oral feeds, will start patient on GDMT gradually. Review of systems otherwise negative except for what is mentioned above. Exam Vital Signs Temp Pulse Resp BP Pulse Ox O2 Del Method O2 Flow Rate 96.9 F 79 14 134/64 H 97 Nasal Cannula 2 12/27/24 08:00 12/27/24 08:00 12/27/24 08:00 12/27/24 08:00 12/27/24 08:00 12/27/24 08:00 12/27/24 08:00 Narrative Exam Physical Exam: General: Alert, no acute distress. Skin: Warm, dry, intact. Head: Normocephalic, atraumatic. Eye: Normal conjunctiva, PERRL. Cardiovascular: Regular rate and rhythm, systolic murmur best heard in aortic/pulmonic regions, +S1/S2. Respiratory: Lungs are clear to auscultation, respirations unlabored, no crackles, no wheezing. Gastrointestinal: Soft, nontender, non-distended. Extremities: 1+ BLE edema, no cyanosis, no clubbing. Neuro: No focal deficits observed. Conversant, moving all extremities. No overt cerebellar signs/incoordination. Psychiatric: Cooperative, appropriate affect. Objective Labs 12/27/24 05:22 12/27/24 05:22 Labs: Laboratory Results - last 24 hr 12/26/24 12/26/24 12/26/24 15:41 17:21 19:39 WBC 20.4 H RBC 3.17 L Hgb 9.7 L D Hct 30.5 L MCV 96 MCH 30.6 MCHC 31.8 RDW Std Deviation 48.9 H Plt Count 316 D Neut % (Auto) 86 H Lymph % (Auto) 7 L [place] % (Auto) 5 Eos % (Auto) 0 Baso % (Auto) 0 Neut # (Auto) 17.6 H Lymph # (Auto) 1.5 [place] # (Auto) 1.1 H Eos # (Auto) 0.1 Baso # (Auto) 0.0 Immature Gran # (Auto) 0.10 H Absolute Nucleated RBC 0.00 Immature Gran % 1 H Nucleated RBC % 0 Sodium 143 Potassium 4.5 D Chloride 102 Carbon Dioxide 30.5 Anion Gap 11 BUN 73 H Creatinine 1.8 H Estim Creat Clear Calc 30.3 L eGFR 29 L BUN/Creatinine Ratio 41 H Glucose 217 H Calculated Osmolality 313 H Lactic Acid 1.2 Calcium 8.9 Corrected Calcium 9.4 Phosphorus Magnesium Total Bilirubin 0.2 L AST 26 ALT 20 Alkaline Phosphatase 68 Troponin I 0.038 Total Protein 6.3 Albumin 3.4 Globulin 2.9 Albumin/Globulin Ratio 1.2 12/27/24 05:22 WBC 18.9 H RBC 3.51 L Hgb 10.7 L Hct 34.4 L MCV 98 MCH 30.5 MCHC 31.1 RDW Std Deviation 49.3 H Plt Count 348 D Neut % (Auto) 85 H Lymph % (Auto) 8 L [place] % (Auto) 5 Eos % (Auto) 2 Baso % (Auto) 0 Neut # (Auto) 16.0 H Lymph # (Auto) 1.5 [place] # (Auto) 1.0 H Eos # (Auto) 0.4 Baso # (Auto) 0.0 Immature Gran # (Auto) 0.07 H Absolute Nucleated RBC 0.00 Immature Gran % 0 Nucleated RBC % 0 Sodium 146 H Potassium 4.5 Chloride 106 Carbon Dioxide 32.4 H Anion Gap 8 BUN 63 H Creatinine 1.2 D Estim Creat Clear Calc 45.5 L eGFR 47 L BUN/Creatinine Ratio 53 H Glucose 180 H Calculated Osmolality 313 H Lactic Acid Calcium 9.3 Corrected Calcium 9.5 Phosphorus 3.7 Magnesium 3.5 H Total Bilirubin 0.2 L AST 22 ALT 19 Alkaline Phosphatase 81 Troponin I Total Protein 6.7 Albumin 3.7 Globulin 3.0 Albumin/Globulin Ratio 1.2 ABG Interpretation ABG results: 12/23/24 05:32 VBG pH 7.36 VBG pCO2 47 VBG pO2 58 VBG Base Excess 0 Quality Measures Quality Measures sepsis Current suspected stage: ruled out Possible source: GI tract/intra- abdominal Blood cultures ordered: yes Antibiotic ordered: Yes Advance care planning discussed with:: patient and child Assessment & Plan Assessment Current Active Medications: Generic Name Dose Route Start Last Admin Trade Name Freq PRN Reason Stop Dose Admin Dextrose 25 ml 12/23/24 15:23 Dextrose 50%-Water Inj 50 Ml Syringe IV 01/22/25 15:22 Q15MIN PRN BG 50-70 responsive npo pt Dextrose 50 ml 12/23/24 15:23 Dextrose 50%-Water Inj 50 Ml Syringe IV 01/22/25 15:22 Q15MIN PRN BG <50 OR BG <70 & pt unresponsive Glucagon 1 mg 12/23/24 15:23 Glucagon Inj 1 Mg Vial IM Q15MIN PRN BG <70, and no IV access Heparin Sodium (Porcine) 5,000 unit 12/23/24 22:00 12/27/24 06:04 Heparin Sod Inj 5000 Unit/Ml Vial SC 01/06/25 21:59 5,000 unit Q8HR SAMAN Administration Hydromorphone HCl 0 mg 12/25/24 15:41 12/26/24 16:05 Hydromorphone 1 Mg/Ml Sisal Picker Syringe 30ml SOFTWARE DESIGNER 12/30/24 15:40 30 mg UD SAMAN Administration Protocol Ceftriaxone Sodium 2 gm/ 50 mls @ 100 mls/hr 12/23/24 16:47 12/27/24 08:11 Sodium Chloride IV 12/30/24 16:46 100 mls/hr QDAY SAMAN Administration Metronidazole 500 mg in 100 mls @ 200 mls/hr 12/25/24 10:38 12/27/24 06:00 Flagyl 500 Mg Iv IV 01/01/25 10:37 200 mls/hr Q8HR SAMAN Administration Lactated Ringer's 1,000 mls @ 75 mls/hr 12/26/24 08:06 12/26/24 08:29 Lactated Ringers IV 12/27/24 10:06 75 mls/hr .[id number] SAMAN Administration Insulin Degludec 25 unit 12/27/24 21:00 Insulin Degludec 5 Unit/0.05 Ml (Per 5 Units) SC 01/26/25 20:59 HS [facility] Insulin Human Lispro 0 unit 12/24/24 06:00 12/27/24 06:03 Insulin Lispro (Admelog) 1 Unit/0.01 Ml Unit SC 01/23/25 05:59 1 unit Q6HR SAMAN Administration Protocol Ondansetron HCl 4 mg 12/25/24 15:41 Ondansetron Inj 2 Mg/Ml Inj 2 Ml IVP 01/24/25 15:40 Q6HR PRN NAUSEA OR VOMITING Protocol Pantoprazole Sodium 40 mg 12/24/24 09:00 12/27/24 08:11 Pantoprazole Inj 40 Mg Vial IVP 01/23/25 08:59 40 mg QDAY SAMAN Administration Plan 74-year-old female with significant past medical history of hypertension, diabetes mellitus, insulin-dependent, possible dementia [not officially diagnosed], fatty liver, bowel and bladder incontinence, chronic constipation was brought to the hospital with chief complaints of nausea, vomitings and presyncopal like episode. # SBO # s/p partial small bowel resection 12/25 # Small bowel ischemia, with necrosis, proximal ileum # s/p cholecystectomy 12/25 # Cholecystitis - Patient reported that she had chronic constipation and occasionally had diarrheal episodes - Also reported that she had bowel incontinence and has accidents all the time - Reported that she has bowel movements once in 4 or 5 days which is normal for her since last couple of years. Patient does not remember the exact last bowel movement - Noted to have vomitings on the day before admission, 10 episodes - Abdomen/pelvis CT imaging showed early small bowel obstruction - Small bowel series were ordered, shows continued small bowel obstruction with conservative management Plan - General Surgeon, Dr. Diallo is consulted, performed partial small bowel resection and cholecystectomy on 12/25 - NG tube was placed; patient NPO - Continue IV fluids, LR at 75 cc/h - Ceftriaxone 2 gm daily (12/23-01/01) - Metronidazole 500 mg every 8 hours (12/25-01/01) - Pending further evaluation and recommendations from general surgery on advancing diet # New onset HFrEF, EF 35-40% # Severe mitral annulus valvular calcification, incidental finding # New onset atrial fibrilation with RVR, resolved - Patient is noted to have a severe mitral annular valvular calcification on CT abdomen/pelvis which is an incidental finding - Patient denies any cardiac history - Also noted to have ESM in aortic and pulmonary area - Echocardiogram is ordered, taken 12/24, shows ejection fraction of 35 to 40% with global LV systolic function moderately decreased, unable to assess diastolic function given severe MAC, severe calcification of mitral valve and aortic valve, with mild to moderate mitral stenosis and moderate to severe atrial stenosis. - Patient was noted to have an episode of atrial fibrilation w/ RVR on 12/26, resolved with stopping fluids and metoprolol 2.5 mg IV Plan - Cardiology consulted, appreciate recommendations - Plan for GDMT after patient is cleared from being n.p.o. - Per cardiology, patient may need catheterization for both evaluation of CHF and also for anticipated TAVR procedure # SHERIE, likely prerenal, improving # Electrolyte derangement - Patient had multiple episodes of vomiting at the time of admission - Baseline creatinine is 0.9 as of 08/2024, creatinine at the time of admission is 1.5 --> 12/24, 1.2 - Patient had increase in creatinine to 1.8 on 12/26, likely secondary to extensive surgery on 12/25, which likely led to electrolyte abnormalities Plan - Started on IV fluids, held given HFrEF - Will continue to monitor renal functions - Will renally dose medications # Presyncopal episode #? Fall - At baseline, patient is able to walk with the help of support - On the day before admission, patient noted to have multiple episodes of vomitings almost 10 associated with nausea, nonbilious and denies any hematemesis - On the day of admission, per , patient is trying to get out of the bed and asked help from the hospital and and when he is trying to help her walk from the bedroom to the living room he noted severe sweating on the patient and not able to support herself. Later the dropped her slowly down to the floor and later brought to the hospital - Denies palpitations, loss of consciousness, bowel or bladder incontinence at the time of episode, fever also denies hitting head or back - Denies any previous history of cardiac disease - EKG at the time of admission showed normal sinus rhythm with no acute ST and T wave changes and troponin is 0.031 - Imaging including head CT and C-spine CT did not show any fracture - Labs at the time of admission are significant for SHERIE Plan - Orthostatic vitals are ordered, positive for orthostatic hypotension - Will continue to monitor vitals # Diabetes mellitus, insulin-dependent - Glucose at the time of admission is 420 - Patient is using Lantus 42 units every day. Not on any sliding scale Plan - Started on insulin sliding scale - Started on degludec 30 units subcutaneous at bedtime, increased to 35 units as of 12/24, decreased to 20 as of 12/26, increased to 25 as of 12/25 # Lactic acidosis, resolved - Lactate at the time of admission is 3.7, improved to 1.7 - Patient received 2 L of fluid in the ED - Started on IV fluids, LR at 100 mL/h, held given HFrEF # Hypomagnesemia, resolved - Magnesium at the time of presentation is 1.5 -->1.8, 12/24 - Received IV magnesium in the ED Plan - Will continue to monitor magnesium and replete as needed # Leukocytosis, improving In the setting of dehydration and SHERIE -WBC at the time of admission is 26.8 - Patient does not have any features suggestive of active infection as of now - Blood cultures no growth after 48 hours in 2/ cultures - Urine culture negative for growth - Noted significant improvement after bowel resection on 12/25 Plan - Patient is started on ceftriaxone 2 g IV daily in view of SBP prophylaxis as the patient is noted to have ascites - Will continue to monitor CBC - Started metronidazole 500 mg every 8 hours due to surgery for SBO # Bilateral opacities in the basal areas of the lung, incidental finding - Patient is noted to have bilateral opacities in the basal areas of the lung which was found incidentally on abdomen/pelvis CT - Patient denies any symptoms of shortness of breath, cough Plan - Will recommend to follow-up on outpatient basis for further evaluation # Cirrhosis with mild ascites - Patient reported that she had history of fatty liver - Likely due to metabolic component in the setting of obesity Hospital Maintenance: Dispo: Medsurg DVT ppx: Heparin GI ppx: Protonix Diet: NPO IV lines: Peripheral Code status: Full Patient plan of care was discussed with the attending physician, Dr. Shaji Llanos, PGY-1 Attending Provider Attestation/Addendum I have discussed and was present for the essential components of the history, physical examination, diagnosis, and treatment plan with the resident. I agree with the patient's care as documented by the resident and amended herein by me. Bennie Girard DO. Although this document has been carefully reviewed, there may still be some phonetic and other typographical errors. These errors are purely grammatical due to imperfections in the software program and should not be construed in any way to compromise the substance of the patient's medical care during this visit.
[2024-12-27] MEDS: RINGERS LACTATED 1000 ML 1,000 ML 75 ML IV (09:44)
--- NOTE | 2024-12-27 10:58 | PD.RESPRO ---
Documentation for date of: 12/27/24 Subjective Subjective Interval history: Seen and examined at bedside. Daughter was at bedside also. Patient appeared more oriented today, yesterday she had 2 rapid 1 because of the patient was confused after she was given 1 dose of Dilaudid. Second 1 was because the patient developed A-fib with RVR however blood pressure was stable patient was given 1 dose of metoprolol IV 2.5 which controlled her rate to the 70s. ? We recommend starting the patient on metoprolol to tartrate 12.5 mg p.o. twice daily as soon as the patient tolerate oral feed to control her A-fib. Today patient denied any new symptoms her WBC downtrending to 18.9, her hemoglobin went down to 10.7 from 15. Her orthostatic vitals were positive for orthostatic hypotension. At this time patient's cell and NG tube has not been tolerating oral feed as soon as the patient tolerate oral feed will start the patient on GDMT treatment for heart failure and also for A-fib with RVR. Exam Vital Signs Temp Pulse Resp BP Pulse Ox O2 Del Method O2 Flow Rate 96.9 F 79 14 134/64 H 97 Nasal Cannula 2 12/27/24 08:00 12/27/24 08:00 12/27/24 08:00 12/27/24 08:00 12/27/24 08:00 12/27/24 08:00 12/27/24 08:00 Narrative Exam GEN: AOx3, able to speak full sentences and talkative HEENT: NC/AC, oral mucosa moist, neck supple CVS: RRR, S1-S2 present, no murmurs appreciated RESP: CTAB GI: Abdominal binder in, soft,non distended, tender, NBS MSK: able to move all 4 limbs, no lower extremity edema SKIN: warm and dry MANAGER BUSINESS CONTINUITY: Able to move all extremities, no facial asymmetry, no blurry vision Objective Labs 12/27/24 05:22 12/27/24 05:22 Labs: Laboratory Results - last 24 hr 12/26/24 12/26/24 12/26/24 15:41 17:21 19:39 WBC 20.4 H RBC 3.17 L Hgb 9.7 L D Hct 30.5 L MCV 96 MCH 30.6 MCHC 31.8 RDW Std Deviation 48.9 H Plt Count 316 D Neut % (Auto) 86 H Lymph % (Auto) 7 L [place] % (Auto) 5 Eos % (Auto) 0 Baso % (Auto) 0 Neut # (Auto) 17.6 H Lymph # (Auto) 1.5 [place] # (Auto) 1.1 H Eos # (Auto) 0.1 Baso # (Auto) 0.0 Immature Gran # (Auto) 0.10 H Absolute Nucleated RBC 0.00 Immature Gran % 1 H Nucleated RBC % 0 Sodium 143 Potassium 4.5 D Chloride 102 Carbon Dioxide 30.5 Anion Gap 11 BUN 73 H Creatinine 1.8 H Estim Creat Clear Calc 30.3 L eGFR 29 L BUN/Creatinine Ratio 41 H Glucose 217 H Calculated Osmolality 313 H Lactic Acid 1.2 Calcium 8.9 Corrected Calcium 9.4 Phosphorus Magnesium Total Bilirubin 0.2 L AST 26 ALT 20 Alkaline Phosphatase 68 Troponin I 0.038 Total Protein 6.3 Albumin 3.4 Globulin 2.9 Albumin/Globulin Ratio 1.2 12/27/24 05:22 WBC 18.9 H RBC 3.51 L Hgb 10.7 L Hct 34.4 L MCV 98 MCH 30.5 MCHC 31.1 RDW Std Deviation 49.3 H Plt Count 348 D Neut % (Auto) 85 H Lymph % (Auto) 8 L [place] % (Auto) 5 Eos % (Auto) 2 Baso % (Auto) 0 Neut # (Auto) 16.0 H Lymph # (Auto) 1.5 [place] # (Auto) 1.0 H Eos # (Auto) 0.4 Baso # (Auto) 0.0 Immature Gran # (Auto) 0.07 H Absolute Nucleated RBC 0.00 Immature Gran % 0 Nucleated RBC % 0 Sodium 146 H Potassium 4.5 Chloride 106 Carbon Dioxide 32.4 H Anion Gap 8 BUN 63 H Creatinine 1.2 D Estim Creat Clear Calc 45.5 L eGFR 47 L BUN/Creatinine Ratio 53 H Glucose 180 H Calculated Osmolality 313 H Lactic Acid Calcium 9.3 Corrected Calcium 9.5 Phosphorus 3.7 Magnesium 3.5 H Total Bilirubin 0.2 L AST 22 ALT 19 Alkaline Phosphatase 81 Troponin I Total Protein 6.7 Albumin 3.7 Globulin 3.0 Albumin/Globulin Ratio 1.2 ABG Interpretation ABG results: 12/23/24 05:32 VBG pH 7.36 VBG pCO2 47 VBG pO2 58 VBG Base Excess 0 Quality Measures Quality Measures sepsis Current suspected stage: sepsis Possible source: GI tract/intra-abdominal Blood cultures ordered: yes Antibiotic ordered: Yes Advance care planning discussed with:: patient Assessment & Plan Assessment Current Active Medications: Generic Name Dose Route Start Last Admin Trade Name Freq PRN Reason Stop Dose Admin Dextrose 25 ml 12/23/24 15:23 Dextrose 50%-Water Inj 50 Ml Syringe IV 01/22/25 15:22 Q15MIN PRN BG 50-70 responsive npo pt Dextrose 50 ml 12/23/24 15:23 Dextrose 50%-Water Inj 50 Ml Syringe IV 01/22/25 15:22 Q15MIN PRN BG <50 OR BG <70 & pt unresponsive Glucagon 1 mg 12/23/24 15:23 Glucagon Inj 1 Mg Vial IM Q15MIN PRN BG <70, and no IV access Heparin Sodium (Porcine) 5,000 unit 12/23/24 22:00 12/27/24 06:04 Heparin Sod Inj 5000 Unit/Ml Vial SC 01/06/25 21:59 5,000 unit Q8HR SAMAN Administration Hydromorphone HCl 0 mg 12/25/24 15:41 12/26/24 16:05 Hydromorphone 1 Mg/Ml Freezer Worker Syringe 30ml SYSTEM SUPPORT DEVELOPER 12/30/24 15:40 30 mg UD SAMAN Administration Protocol Ceftriaxone Sodium 2 gm/ 50 mls @ 100 mls/hr 12/23/24 16:47 12/27/24 08:11 Sodium Chloride IV 12/30/24 16:46 100 mls/hr QDAY SAMAN Administration Metronidazole 500 mg in 100 mls @ 200 mls/hr 12/25/24 10:38 12/27/24 06:00 Flagyl 500 Mg Iv IV 01/01/25 10:37 200 mls/hr Q8HR SAMAN Administration Lactated Ringer's 1,000 mls @ 75 mls/hr 12/26/24 08:06 12/27/24 09:44 Lactated Ringers IV 01/25/25 08:05 75 mls/hr .[id number] SAMAN Administration Insulin Degludec 25 unit 12/27/24 21:00 Insulin Degludec 5 Unit/0.05 Ml (Per 5 Units) SC 01/26/25 20:59 HS SAMAN Insulin Human Lispro 0 unit 12/24/24 06:00 12/27/24 06:03 Insulin Lispro (Admelog) 1 Unit/0.01 Ml Unit SC 01/23/25 05:59 1 unit Q6HR SAMAN Administration Protocol Ondansetron HCl 4 mg 12/25/24 15:41 Ondansetron Inj 2 Mg/Ml Inj 2 Ml IVP 01/24/25 15:40 Q6HR PRN NAUSEA OR VOMITING Protocol Pantoprazole Sodium 40 mg 12/24/24 09:00 12/27/24 08:11 Pantoprazole Inj 40 Mg Vial IVP 01/23/25 08:59 40 mg QDAY SAMAN Administration Plan Summary:A 74-year-old female patient with significant past medical history of diabetes mellitus on insulin, fatty liver, hypertension, chronic constipation with bowel and bladder incontinence, heart murmur, was admitted to the hospital after patient was noticed to have multiple episodes of nausea and vomiting that started on 22 December 2024. Reportedly the patient had 2 episodes of vomiting which was nonbilious. Patient was admitted for SBO treatment and presyncope workup found to have EF of 35-40, with severe aortic stenosis. #Presyncope most likely multifactorial secondary to dehydration plus aortic stenosis #New A-fib with RVR #Moderate to severe aortic stenosis #Mitral stenosis and calcification #New onset HFrEF with ejection fraction of 35-40 % Patient reportedly has a history of murmur for many years in the past, came to the ED due to persistent vomiting which resulted in presyncopal episode. She has history of orthopnea, lower limb swelling. Echocardiogram was done on 24 December 2024 showed Mild LVH. Global LV systolic function is moderately decreased. Estimated EF at 35-40 %. Diastolic function could not be assesed due to severe MAC. Normal RV size and systolic function. Severe MAC with severe calcification of mitral valve ( posterrior > anterior) and aortic valve. Mild to moderate mitral stenosis - Mean PG 5 to 8 mm hg. but area with PHT 2.5 sq cm. Moderate to severe with V max 3.3 m/s, mean PG 23 mm hg But RILEY is 0.5 sq cm. Trace to mild AI. Mostly low flow low gradient severe aortic stenosis given the low EF. Chest x-ray showed mild vascular congestion. BNP and troponin were negative 12/24/2024, patient had rapid response after physical therapy tried to work with the patient and she became unresponsive for 15 seconds. Patient regained consciousness immediately. 12/27/2024 patient developed A-fib with RVR. Noticed to have orthostatic hypotension Plan ? Replete volume as needed keep the patient on strict balance as the patient is volume sensitive due to the severe aortic stenosis and the dehydration secondary to her vomiting. ? We recommend starting the patient on metoprolol to tartrate 12.5 mg p.o. twice daily as soon as the patient tolerate oral feed to control her A-fib. ? Strict ins and out ? As since the patient tolerate oral feeds we will start the patient on GDMT gradually ? Patient may need catheterization for both evaluation of CHF and also for anticipated TAVR procedure ? Keep patient in semisitting position ? Keep potassium above 4 and magnesium above 2 within normal range #SBO status post laparotomy Patient was found to have SBO, her WBC continued to uptrend to 32, patient went under laparotomy by Dr Diallo Patient currently on NG tube with intermittent suction and pain control, ceftriaxone, and Flagyl. #Diabetes mellitus Insulin sliding scale #SHERIE resolved most likely secondary to dehydration due to persistent vomiting #Leukocytosis #Hypertension Follow primary team recommendations Thank you for the consultation, please do not hesitate to reach out if you have any question or concern. - Patient's plan and care discussed with my attending, Dr. Dany Kennedy MD Internal Medicine PGY-3 Attending Provider Attestation/Addendum I have personally seen and examined the patient separately on the above date of service and discussed the plan of care with the resident. I reviewed the resident Dr. Kennedy consultation progress note and agree with the resident findings and plan in the note above and have also edited the documentation to reflect my findings and plan. Garrett Saenz M.D. Interventional Cardiology
--- NOTE | 2024-12-27 13:24 | PD.SURPROG ---
Documentation for date of: 12/27/24 Subjective Subjective Narrative: Patient is seen and examined. She is resting comfortably, her pain is improved. NG tube has remained clamped, she has not had nausea or vomiting. She was transferred to telemetry unit after she was noted to have elevation of heart rate, currently she is in sinus rhythm Exam Vital Signs Temp Pulse Resp BP Pulse Ox O2 Del Method O2 Flow Rate 96.9 F 80 13 154/70 H 98 Nasal Cannula 2 12/27/24 12:00 12/27/24 12:12/27/24 12:12/27/24 12:00 12/27/24 12:12/27/24 12:12/27/24 12:29 Constitutional Constitutional: no acute distress Routine Abdominal Exam Comments: Abdomen is soft and minimally distended. Incision with dressings clean, dry and intact. She has hypoactive bowel sounds Assessment & Plan Assessment Additional comments: Postop day #2 status post exploratory laparotomy with partial small bowel resection and cholecystectomy Plan DC Camarena catheter. 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 Continue IV antibiotics, will start patient on clear liquids PROCEDURES: Procedures Exploratory laparotomy, partial small bowel resection Cholecystectomy
[2024-12-27] MEDS: ZINC SULFATE 220 MG CAPSULE PO (14:31)
[2024-12-27] MEDS: ASCORBIC ACID 250 MG TABLET 500 MG PO (20:23)
[2024-12-27] MEDS: INSULIN DEGLUDEC 5 UNIT/0.05 ML (PER 5 UNITS) 25 UNIT SC (20:24)
[2024-12-27] MEDS: METOPROLOL TARTRATE 25 MG TABLET 12.5 MG PO (22:51)
[2024-12-28] VITALS (11 sets, daily range): BP systolic 135–164; BP diastolic 65–81; PULSE 71–85; RESP 17–20; TEMP 35.9–36.2; O2SAT 92–99
[2024-12-28 05:15] LABS: Basophils # (Auto) 0.0 Thou/mm3 (0.0-0.2); Basophils % (Auto) 0 % (0-2.5); Eosinophils # (Auto) 0.7 Thou/mm3 (0.0-0.5); Eosinophils % (Auto) 4 % (0-10); Hematocrit 33.0 % (36.0-46.0); Hemoglobin 9.9 g/dL (12.0-16.0); Immature Granulocytes Auto 0.08 Thou/mm3 (0.00-0.00); Lymphocytes # (Auto) 1.9 Thou/mm3 (1.0-4.8); Lymphocytes % (Auto) 12 % (10-50); Mean Corpuscular HGB Conc 30.0 g/dl (31.0-37.0); Mean Corpuscular Hemoglobin 29.3 pg (25.0-35.0); Mean Corpuscular Volume 98 fL (80-100); Monocytes # (Auto) 1.2 Thou/mm3 (0.0-0.8); Monocytes % (Auto) 8 % (0-12); Neutrophils # (Auto) 11.8 Thou/mm3 (1.8-7.7); Neutrophils % (Auto) 75 % (37-80); Nucleated Red Blood Cell # 0.00 Thou/mm3 (0.00-0.00); Nucleated Red Blood Cell % 0 /100 WBC (0); Platelet Count 330 Thou/mm3 (140-440); RDW Standard Deviation 49.1 fL (36.4-46.3); Red Blood Count 3.38 Miln/mm3 (4.00-5.20); White Blood Count 15.6 Thou/mm3 (3.6-11.0)
[2024-12-28] MEDS: HEPARIN SOD INJ 5000 UNIT/ML VIAL SC ×3 (05:33→21:46)
[2024-12-28] MEDS: INSULIN LISPRO (AdmeLOG) 1 UNIT/0.01 ML UNIT SC ×3 (05:33→17:26)
[2024-12-28] MEDS: metroNIDAZOLE/NS 500 MG IVPB 500 MG/100 ML BAG 200 MG IV ×3 (05:34→21:46)
[2024-12-28 05:54] LABS: Alanine Aminotransferase 15 U/L (10-49); Albumin, Serum 3.3 gm/dL (3.4-4.8); Albumin/Globulin Ratio 1.2 (1.2-2.2); Alkaline Phosphatase 61 U/L (46-116); Anion Gap 7 (7-16); Aspartate Amino Transferase 15 U/L (0-34); BUN/Creatinine Ratio 62 Ratio (12-20); Bilirubin,Total 0.2 mg/dL (0.3-1.2); Blood Urea Nitrogen 56 mg/dL (9-23); Calcium 8.9 mg/dL (8.3-10.6); Calcium (Corrected) 9.5 mg/dL (8.5-10.1); Carbon Dioxide 31.8 mMol/L (20.0-31.0); Chloride 107 mMol/L (98-107); Creatinine (Component) 0.9 mg/dL (0.6-1.3); Estimated Creatinine Clearance 60.7 mL/min (>60); Globulin 2.7 gm/dL (2.3-3.5); Glucose 160 mg/dL (74-106); Magnesium 3.2 mg/dL (1.6-2.6); Osmolality,Calculated 309 (275-295); Phosphorous 2.2 mg/dL (2.4-5.1); Potassium 4.7 mMol/L (3.4-5.1); Sodium 146 mMol/L (136-145); Total Protein 6.0 gm/dL (5.7-8.2); eGFR > 60 See Note
[2024-12-28] MEDS: ASCORBIC ACID 250 MG TABLET 500 MG PO ×2 (08:53→21:47)
[2024-12-28] MEDS: ZINC SULFATE 220 MG CAPSULE PO (08:53)
[2024-12-28] MEDS: METOPROLOL TARTRATE 25 MG TABLET 12.5 MG PO ×2 (08:54→21:47)
[2024-12-28] MEDS: LOSARTAN POTASSIUM 25 MG TABLET 50 MG PO (08:54)
[2024-12-28] MEDS: NAPH,KPH MBDB 1 PACKET (1.5 GM) PO (08:55)
[2024-12-28] MEDS: cefTRIAXone/D5w 2gm 2 GM/50 ML BAG IV (08:55)
[2024-12-28] MEDS: SENNA/DOCUSATE SOD 1 TAB TABLET PO ×2 (08:56→09:05)
--- NOTE | 2024-12-28 09:59 | XR_ITS ---
Examination: Abdomen AP single view Technique: AP portable supine abdomen, single view Exam date and time: December 28, 2024, 1007 hrs., Comparison 12/25/2024. Indications: Abdominal pain and distention this week, status post abdominal surgery 3 days ago, history small bowel obstruction. Findings: Most of the contrast is in moderately distended colon Some contrast is present in mildly distended small bowel loops. Minimal contrast in the stomach. No free air Impression: Currently negative for small bowel obstruction.
--- NOTE | 2024-12-28 10:02 | PD.RESPRO ---
Documentation for date of: 12/28/24 Subjective Subjective Interval history: Patient seen and examined at bedside with sister and daughter. Telemetry reviewed showing sinus rhythm rate 70s-low 80s. 12/27 at 1400 had bigeminy rhythm for less than a minute. No episodes of afib RVR within the last 12 hours. BP 130-160/70-80. Orthostatics positive on 12/26. Patient complains of mild abdominal pain, denies chest pain, chest pressure or SOB. Does endorse orthopnea, PND, and dyspnea on exertion but was able to sleep well throughout the night last night. Family reports patient was supposed to see quality assurance practice manager within the past year however patient refused to go. Family also does not believe she had a cardiac cath before. WBC downtrending 18 to 15.6, Hgb 10.7 to 9.9, Na 146, K 4.7, bicarb decreased from 32.4 to 31.8, BUN downtrending 63 to 56, Cr 0.9, hose low 2.2, Mg 3.2. As current BP is elevated, recommend to switch metoprolol tartrate 12.5 mg BID to metoprolol XL 25 mg QD and start Entresto half tablet BID as BP tolerates. If no contraindications and per surgery recs, can start Eliquis 5 mg BID for atrial fibrillation. Exam Vital Signs Temp Pulse Resp BP Pulse Ox O2 Del Method O2 Flow Rate 96.7 F L 75 19 154/81 H 96 Nasal Cannula 1 12/28/24 08:00 12/28/24 08:54 12/28/24 08:00 12/28/24 08:54 12/28/24 08:00 12/28/24 08:00 12/28/24 08:00 Narrative Exam GENERAL: AOx3, no acute distress, forgetful of recent events such as having abdominal surgery HEENT: NC/AT, mucous membranes moist, bilateral sclera anicteric CARDIOVASCULAR: regular rate and rhythm, S1/S2 present, 4/6 harsh systolic murmur best heard L 2nd intercostal space PULMONARY: clear to auscultation bilaterally, no rales/rhonchi/wheezes ABDOMINAL: soft, non-tender, non-distended, no rebound/guarding, bowel sounds present, abdominal binder in place EXTREMITIES: trace b/l peripheral edema up to hips SKIN: warm and dry, intact, no rashes NEURO: CN II-XII grossly intact, no focal deficits, alert, following commands Objective Labs 12/28/24 04:47 12/28/24 04:47 Labs: Laboratory Results - last 24 hr 12/28/24 04:47 WBC 15.6 H RBC 3.38 L Hgb 9.9 L Hct 33.0 L MCV 98 MCH 29.3 MCHC 30.0 L RDW Std Deviation 49.1 H Plt Count 330 Neut % (Auto) 75 Lymph % (Auto) 12 [place] % (Auto) 8 Eos % (Auto) 4 Baso % (Auto) 0 Neut # (Auto) 11.8 H Lymph # (Auto) 1.9 [place] # (Auto) 1.2 H Eos # (Auto) 0.7 H Baso # (Auto) 0.0 Immature Gran # (Auto) 0.08 H Absolute Nucleated RBC 0.00 Immature Gran % 1 H Nucleated RBC % 0 Sodium 146 H Potassium 4.7 Chloride 107 Carbon Dioxide 31.8 H Anion Gap 7 BUN 56 H Creatinine 0.9 Estim Creat Clear Calc 60.7 L eGFR > 60 BUN/Creatinine Ratio 62 H Glucose 160 H Calculated Osmolality 309 H Calcium 8.9 Corrected Calcium 9.5 Phosphorus 2.2 L Magnesium 3.2 H Total Bilirubin 0.2 L AST 15 ALT 15 Alkaline Phosphatase 61 D Total Protein 6.0 Albumin 3.3 L Globulin 2.7 Albumin/Globulin Ratio 1.2 ABG Interpretation ABG results: 12/23/24 05:32 VBG pH 7.36 VBG pCO2 47 VBG pO2 58 VBG Base Excess 0 Quality Measures Quality Measures sepsis Current suspected stage: sepsis Possible source: GI tract/intra-abdominal Blood cultures ordered: yes Antibiotic ordered: Yes Advance care planning discussed with:: patient Assessment & Plan Assessment Current Active Medications: Generic Name Dose Route Start Last Admin Trade Name Freq PRN Reason Stop Dose Admin Ascorbic Acid 500 mg 12/27/24 21:00 12/28/24 08:53 Ascorbic Acid 250 Mg Tablet PO 01/26/25 20:59 500 mg BID SAMAN Administration Dextrose 25 ml 12/23/24 15:23 Dextrose 50%-Water Inj 50 Ml Syringe IV 01/22/25 15:22 Q15MIN PRN BG 50-70 responsive npo pt Dextrose 50 ml 12/23/24 15:23 Dextrose 50%-Water Inj 50 Ml Syringe IV 01/22/25 15:22 Q15MIN PRN BG <50 OR BG <70 & pt unresponsive Glucagon 1 mg 12/23/24 15:23 Glucagon Inj 1 Mg Vial IM Q15MIN PRN BG <70, and no IV access Heparin Sodium (Porcine) 5,000 unit 12/23/24 22:00 12/28/24 05:33 Heparin Sod Inj 5000 Unit/Ml Vial SC 01/06/25 21:59 5,000 unit Q8HR SAMAN Administration Lactated Ringer's 1,000 mls @ 30 mls/hr 12/27/24 13:28 12/27/24 14:26 Lactated Ringers IV 01/26/25 13:25 Not Given .Q24H SAMAN Metronidazole 500 mg in 100 mls @ 200 mls/hr 12/27/24 14:00 12/28/24 05:34 Flagyl 500 Mg Iv IV 01/03/25 13:59 200 mls/hr Q8HR SAMAN Administration Ceftriaxone Sodium/Dextrose 2 gm in 50 mls @ 100 mls/hr 12/28/24 09:00 12/28/24 08:55 Rocephin/D5w 2gm IV 01/03/25 08:59 100 mls/hr QDAY SAMAN Administration Insulin Degludec 25 unit 12/27/24 21:00 12/27/24 20:24 Insulin Degludec 5 Unit/0.05 Ml (Per 5 Units) SC 01/26/25 20:59 25 unit HS SAMAN Administration Insulin Human Lispro 0 unit 12/24/24 06:00 12/28/24 05:33 Insulin Lispro (Admelog) 1 Unit/0.01 Ml Unit SC 01/23/25 05:59 1 unit Q6HR SAMAN Administration Protocol Losartan Potassium 50 mg 12/28/24 09:00 12/28/24 08:54 Losartan Potassium 25 Mg Tablet PO 01/27/25 08:59 50 mg QDAY SAMAN Administration Metoprolol Tartrate 12.5 mg 12/27/24 22:30 12/28/24 08:54 Metoprolol Tartrate 25 Mg Tablet PO 01/26/25 22:29 12.5 mg BID SAMAN Administration Morphine Sulfate 2 mg 12/27/24 13:26 Morphine Sulf Inj 4 Mg/Ml Vial IVP Q3H PRN PAIN Ondansetron HCl 4 mg 12/25/24 15:41 Ondansetron Inj 2 Mg/Ml Inj 2 Ml IVP 01/24/25 15:40 Q6HR PRN NAUSEA OR VOMITING Protocol Pantoprazole Sodium 40 mg 12/24/24 09:00 12/27/24 08:11 Pantoprazole Inj 40 Mg Vial IVP 01/23/25 08:59 40 mg On Hold: 12/28/24 07:36 QDAY SAMAN Administration Sennosides 1 tab 12/28/24 07:25 12/28/24 09:05 Senna/Docusate Sod 1 Tab Tablet PO 01/27/25 07:24 1 tab QDAY SAMAN Administration Protocol Zinc Sulfate 220 mg 12/27/24 13:30 12/28/24 08:53 Zinc Sulfate 220 Mg Capsule PO 01/26/25 13:29 220 mg QDAY SAMAN Administration Plan Summary:A 74-year-old female patient with significant past medical history of diabetes mellitus on insulin, fatty liver, hypertension, chronic constipation with bowel and bladder incontinence, heart murmur, was admitted to the hospital after patient was noticed to have multiple episodes of nausea and vomiting that started on 22 December 2024. Reportedly the patient had 2 episodes of vomiting which was nonbilious. Patient was admitted for SBO treatment and presyncope workup found to have EF of 35-40, with severe aortic stenosis. #Presyncope most likely multifactorial secondary to small bowel ischemia, dehydration, and aortic stenosis #New A-fib with RVR likely 2/2 small bowel ischemia #Moderate to severe aortic stenosis #Mitral stenosis and calcification #New onset HFrEF with ejection fraction of 35-40 % Patient reportedly has a history of murmur for many years in the past, came to the ED due to persistent vomiting which resulted in presyncopal episode. Family does not believe she has ever had a cardiac cath and reports within the last year patient was instructed to see a quality assurance practice manager for unknown reason but patient refused. She has history of orthopnea, dyspnea on exertion, and lower limb swelling L>R. 12/24/24 Echo showed Mild LVH. Global LV systolic function is moderately decreased. Estimated EF at 35-40 %. Diastolic function could not be assesed due to severe MAC. Normal RV size and systolic function. Severe MAC with severe calcification of mitral valve (posterior > anterior) and aortic valve. Mild to moderate mitral stenosis - Mean PG 5 to 8 mm hg. but area with PHT 2.5 sq cm. Moderate to severe with V max 3.3 m/s, mean PG 23 mm hg But RILEY is 0.5 sq cm. Trace to mild AI. Mostly low flow low gradient severe aortic stenosis given the low EF. CXR showed mild vascular congestion. BNP and troponin were negative 12/26/2024, patient had rapid response after physical therapy tried to work with the patient and she became unresponsive for 15 seconds. Patient regained consciousness immediately. 12/27/2024 patient developed A-fib with RVR. Orthostatics positive. Plan ? Replete volume as needed keep the patient on strict balance as the patient is volume sensitive due to the severe aortic stenosis and the dehydration secondary to her vomiting. ? Recommend to increase metoprolol to tartrate 12.5 mg p.o. twice daily to metoprolol XL 25 mg QD control A-fib and for GDMT - Consider starting Entresto half tablet instead of Losartan 50 mg iso moderate to severe aortic stenosis to decrease afterload as BP tolerates - For anticoagulation, can start Eliquis 5 mg BID as surgery discretion ? Strict ins and out ? As since the patient tolerate oral feeds we will start the patient on GDMT gradually ? Patient may need catheterization for both evaluation of CHF and also for anticipated TAVR procedure outpatient as patient is recovering from abdominal surgery ? Keep patient in semisitting position ? Keep K>4 and Mg>2 at all times #SBO 2/2 #Small bowel ischemia with necrosis, proximal ileum s/p partial small bowel resection 12/25 #Cholecystitis s/p cholecystectmy 12/25 Patient was found to have SBO, her WBC continued to uptrend to 32, patient went under laparotomy by Dr Diallo Patient previously on NG tube with intermittent suction and pain control, ceftriaxone, and Flagyl. #Diabetes mellitus 12/24 A1c 8.4 and per pharmacy chart review, patient is on metformin and insulin at home. Insulin sliding scale #SHERIE resolved most likely secondary to dehydration due to persistent vomiting #Leukocytosis #Hypertension Follow primary team recommendations Thank you for the consultation, please do not hesitate to reach out if you have any question or concern. Patient's plan and care discussed with my attending, Dr. Dany Payan, DO Internal Medicine PGY-1 Attending Provider Attestation/Addendum I have personally seen and examined the patient separately on the above date of service and discussed the plan of care with the resident. I reviewed the resident Dr. Caridad Payan consultation progress note and agree with the resident findings and plan in the note above and have also edited the documentation to reflect my findings and plan. Garrett Saenz M.D. Interventional Cardiology
[2024-12-28] MEDS: MORPHINE SULF INJ 4 MG/ML VIAL 2 MG IVP ×2 (11:57→19:33)
--- NOTE | 2024-12-28 11:58 | ESPR_ITS ---
Documentation for date of: 12/28/24 Subjective Subjective Interval history: Overnight events: No acute events overnight. Patient was seen and examined at bedside. AM vitals and labs reviewed. Patient continues to be doing well. States that she is still has not yet passed gas. Still has not yet had a bowel movement. Patient is tolerating advancement of her diet quite well. General surgery discontinue Camarena catheter and NG tube. WBC 15.6, hemoglobin 5.9, sodium 146, creatinine 0.4, and phosphorus 2.2 Will continue to wait for recommendations from general surgery regarding diet advancement. KUB ordered given lack of bowel movements and passing gas on postop day 3, KUB was negative for SBO. Holding Protonix given that patient has resumed diet. Started sennakot daily. Gave patient one-time dose of losartan 50 mg. Per cardiology, will change metoprolol tartrate to metoprolol succinate tomorrow, will start Entresto half tablet twice daily this evening, and cardiology will defer initiation of atrial fibrillation until given clearance by general surgery. Review of systems otherwise negative except for what is mentioned above. Exam Vital Signs Temp Pulse Resp BP Pulse Ox O2 Del Method O2 Flow Rate 96.7 F L 75 19 154/81 H 96 Nasal Cannula 1 12/28/24 08:00 12/28/24 08:54 12/28/24 08:00 12/28/24 08:54 12/28/24 08:00 12/28/24 08:00 12/28/24 08:00 Narrative Exam Physical Exam: General: Alert, no acute distress. Skin: Warm, dry, intact. Head: Normocephalic, atraumatic. Eye: Normal conjunctiva, PERRL. Cardiovascular: Regular rate and rhythm, loud systolic murmur best heard in aortic/pulmonic regions, +S1/S2. Respiratory: Lungs are clear to auscultation, respirations unlabored, no crackles, no wheezing. Gastrointestinal: Soft, nontender, non-distended. Extremities: 1+ BLE edema, no cyanosis, no clubbing. Neuro: No focal deficits observed. Conversant, moving all extremities. No overt cerebellar signs/incoordination. Psychiatric: Cooperative, appropriate affect. Objective Labs 12/28/24 04:47 12/28/24 04:47 Labs: Laboratory Results - last 24 hr 12/28/24 04:47 WBC 15.6 H RBC 3.38 L Hgb 9.9 L Hct 33.0 L MCV 98 MCH 29.3 MCHC 30.0 L RDW Std Deviation 49.1 H Plt Count 330 Neut % (Auto) 75 Lymph % (Auto) 12 [place] % (Auto) 8 Eos % (Auto) 4 Baso % (Auto) 0 Neut # (Auto) 11.8 H Lymph # (Auto) 1.9 [place] # (Auto) 1.2 H Eos # (Auto) 0.7 H Baso # (Auto) 0.0 Immature Gran # (Auto) 0.08 H Absolute Nucleated RBC 0.00 Immature Gran % 1 H Nucleated RBC % 0 Sodium 146 H Potassium 4.7 Chloride 107 Carbon Dioxide 31.8 H Anion Gap 7 BUN 56 H Creatinine 0.9 Estim Creat Clear Calc 60.7 L eGFR > 60 BUN/Creatinine Ratio 62 H Glucose 160 H Calculated Osmolality 309 H Calcium 8.9 Corrected Calcium 9.5 Phosphorus 2.2 L Magnesium 3.2 H Total Bilirubin 0.2 L AST 15 ALT 15 Alkaline Phosphatase 61 D Total Protein 6.0 Albumin 3.3 L Globulin 2.7 Albumin/Globulin Ratio 1.2 ABG Interpretation ABG results: 12/23/24 05:32 VBG pH 7.36 VBG pCO2 47 VBG pO2 58 VBG Base Excess 0 Quality Measures Quality Measures sepsis Current suspected stage: ruled out Possible source: GI tract/intra- abdominal Blood cultures ordered: yes Antibiotic ordered: Yes Advance care planning discussed with:: patient and child Assessment & Plan Assessment Current Active Medications: Generic Name Dose Route Start Last Admin Trade Name Freq PRN Reason Stop Dose Admin Ascorbic Acid 500 mg 12/27/24 21:00 12/28/24 08:53 Ascorbic Acid 250 Mg Tablet PO 01/26/25 20:59 500 mg BID SAMAN Administration Dextrose 25 ml 12/23/24 15:23 Dextrose 50%-Water Inj 50 Ml Syringe IV 01/22/25 15:22 Q15MIN PRN BG 50-70 responsive npo pt Dextrose 50 ml 12/23/24 15:23 Dextrose 50%-Water Inj 50 Ml Syringe IV 01/22/25 15:22 Q15MIN PRN BG <50 OR BG <70 & pt unresponsive Glucagon 1 mg 12/23/24 15:23 Glucagon Inj 1 Mg Vial IM Q15MIN PRN BG <70, and no IV access Heparin Sodium (Porcine) 5,000 unit 12/23/24 22:00 12/28/24 05:33 Heparin Sod Inj 5000 Unit/Ml Vial SC 01/06/25 21:59 5,000 unit Q8HR SAMAN Administration Lactated Ringer's 1,000 mls @ 30 mls/hr 12/27/24 13:28 12/27/24 14:26 Lactated Ringers IV 01/26/25 13:25 Not Given .Q24H SAMAN Metronidazole 500 mg in 100 mls @ 200 mls/hr 12/27/24 14:00 12/28/24 05:34 Flagyl 500 Mg Iv IV 01/03/25 13:59 200 mls/hr Q8HR SAMAN Administration Ceftriaxone Sodium/Dextrose 2 gm in 50 mls @ 100 mls/hr 12/28/24 09:00 12/28/24 08:55 Rocephin/D5w 2gm IV 01/03/25 08:59 100 mls/hr QDAY SAMAN Administration Insulin Degludec 25 unit 12/27/24 21:00 12/27/24 20:24 Insulin Degludec 5 Unit/0.05 Ml (Per 5 Units) SC 01/26/25 20:59 25 unit HS SAMAN Administration Insulin Human Lispro 0 unit 12/24/24 06:00 12/28/24 11:37 Insulin Lispro (Admelog) 1 Unit/0.01 Ml Unit SC 01/23/25 05:59 1 unit Q6HR SAMAN Administration Protocol Losartan Potassium 50 mg 12/28/24 09:00 12/28/24 08:54 Losartan Potassium 25 Mg Tablet PO 01/27/25 08:59 50 mg QDAY SAMAN Administration Metoprolol Tartrate 12.5 mg 12/27/24 22:30 12/28/24 08:54 Metoprolol Tartrate 25 Mg Tablet PO 01/26/25 22:29 12.5 mg BID SAMAN Administration Morphine Sulfate 2 mg 12/27/24 13:26 Morphine Sulf Inj 4 Mg/Ml Vial IVP Q3H PRN PAIN Ondansetron HCl 4 mg 12/25/24 15:41 Ondansetron Inj 2 Mg/Ml Inj 2 Ml IVP 01/24/25 15:40 Q6HR PRN NAUSEA OR VOMITING Protocol Pantoprazole Sodium 40 mg 12/24/24 09:00 12/27/24 08:11 Pantoprazole Inj 40 Mg Vial IVP 01/23/25 08:59 40 mg On Hold: 12/28/24 07:36 QDAY SAMAN Administration Sennosides 1 tab 12/28/24 07:25 12/28/24 09:05 Senna/Docusate Sod 1 Tab Tablet PO 01/27/25 07:24 1 tab QDAY SAMAN Administration Protocol Zinc Sulfate 220 mg 12/27/24 13:30 12/28/24 08:53 Zinc Sulfate 220 Mg Capsule PO 01/26/25 13:29 220 mg QDAY SAMAN Administration Plan 74-year-old female with significant past medical history of hypertension, diabetes mellitus, insulin-dependent, possible dementia [not officially diagnosed], fatty liver, bowel and bladder incontinence, chronic constipation was brought to the hospital with chief complaints of nausea, vomitings and presyncopal like episode. # SBO, resolved # s/p partial small bowel resection 12/25 # Small bowel ischemia, with necrosis, proximal ileum # s/p cholecystectomy 12/25 # Cholecystitis - Patient reported that she had chronic constipation and occasionally had diarrheal episodes - Also reported that she had bowel incontinence and has accidents all the time - Reported that she has bowel movements once in 4 or 5 days which is normal for her since last couple of years. Patient does not remember the exact last bowel movement - Noted to have vomitings on the day before admission, 10 episodes - Abdomen/pelvis CT imaging showed early small bowel obstruction - Small bowel series were ordered, shows continued small bowel obstruction with conservative management - Patient continued to not pass gas or have bowel movements until post op day 3, ordered KUB which showed resolution of SBO Plan - General Surgeon, Dr. Diallo is consulted, performed partial small bowel resection and cholecystectomy on 12/25 - NG tube was placed; removed 12/27 - Continue IV fluids, LR at 75 cc/h - Ceftriaxone 2 gm daily (12/23-01/01) - Metronidazole 500 mg every 8 hours (12/25-01/01) - Full liquid diet; Pending further evaluation and recommendations from general surgery on advancing diet # New onset HFrEF, EF 35-40% # Severe mitral annulus valvular calcification, incidental finding # New onset atrial fibrilation with RVR, resolved - Patient is noted to have a severe mitral annular valvular calcification on CT abdomen/pelvis which is an incidental finding - Patient denies any cardiac history - Also noted to have ESM in aortic and pulmonary area - Echocardiogram is ordered, taken 12/24, shows ejection fraction of 35 to 40% with global LV systolic function moderately decreased, unable to assess diastolic function given severe MAC, severe calcification of mitral valve and aortic valve, with mild to moderate mitral stenosis and moderate to severe atrial stenosis. - Patient was noted to have an episode of atrial fibrilation w/ RVR on 12/26, resolved with stopping fluids and metoprolol 2.5 mg IV Plan - Cardiology consulted, appreciate recommendations - Will slowly start GDMT - Metoprolol succinate 25 mg daily - Entresto half tablet twice daily - Cardiology to defer starting anticoagulation until cleared by general surgery - Per cardiology, patient may need catheterization for both evaluation of CHF and also for anticipated TAVR procedure # SHERIE, likely prerenal, improving # Electrolyte derangement - Patient had multiple episodes of vomiting at the time of admission - Baseline creatinine is 0.9 as of 08/2024, creatinine at the time of admission is 1.5 --> 12/24, 1.2 - Patient had increase in creatinine to 1.8 on 12/26, likely secondary to extensive surgery on 12/25, which likely led to electrolyte abnormalities Plan - Started on IV fluids, held given HFrEF - Will continue to monitor renal functions - Will renally dose medications # Presyncopal episode #? Fall - At baseline, patient is able to walk with the help of support - On the day before admission, patient noted to have multiple episodes of vomitings almost 10 associated with nausea, nonbilious and denies any hematemesis - On the day of admission, per , patient is trying to get out of the bed and asked help from the hospital and and when he is trying to help her walk from the bedroom to the living room he noted severe sweating on the patient and not able to support herself. Later the dropped her slowly down to the floor and later brought to the hospital - Denies palpitations, loss of consciousness, bowel or bladder incontinence at the time of episode, fever also denies hitting head or back - Denies any previous history of cardiac disease - EKG at the time of admission showed normal sinus rhythm with no acute ST and T wave changes and troponin is 0.031 - Imaging including head CT and C-spine CT did not show any fracture - Labs at the time of admission are significant for SHERIE Plan - Orthostatic vitals are ordered, positive for orthostatic hypotension - Will continue to monitor vitals # Diabetes mellitus, insulin-dependent - Glucose at the time of admission is 420 - Patient is using Lantus 42 units every day. Not on any sliding scale Plan - Started on insulin sliding scale - Started on degludec 30 units subcutaneous at bedtime, increased to 35 units as of 12/24, decreased to 20 as of 12/26, increased to 25 as of 12/25 # Lactic acidosis, resolved - Lactate at the time of admission is 3.7, improved to 1.7 - Patient received 2 L of fluid in the ED - Started on IV fluids, LR at 100 mL/h, held given HFrEF # Hypomagnesemia, resolved - Magnesium at the time of presentation is 1.5 -->1.8, 12/24 - Received IV magnesium in the ED Plan - Will continue to monitor magnesium and replete as needed # Leukocytosis, improving In the setting of dehydration and SHERIE -WBC at the time of admission is 26.8 - Patient does not have any features suggestive of active infection as of now - Blood cultures no growth after 48 hours in 2/ cultures - Urine culture negative for growth - Noted significant improvement after bowel resection on 12/25 Plan - Patient is started on ceftriaxone 2 g IV daily in view of SBP prophylaxis as the patient is noted to have ascites - Will continue to monitor CBC - Started metronidazole 500 mg every 8 hours due to surgery for SBO # Bilateral opacities in the basal areas of the lung, incidental finding - Patient is noted to have bilateral opacities in the basal areas of the lung which was found incidentally on abdomen/pelvis CT - Patient denies any symptoms of shortness of breath, cough Plan - Will recommend to follow-up on outpatient basis for further evaluation # Cirrhosis with mild ascites - Patient reported that she had history of fatty liver - Likely due to metabolic component in the setting of obesity Hospital Maintenance: Dispo: Medsurg DVT ppx: Heparin GI ppx: N/A Diet: Full liquid IV lines: Peripheral Code status: Full Patient plan of care was discussed with the attending physician, Dr. Shaji Llanos, PGY-1 Attending Provider Attestation/Addendum I have discussed and was present for the essential components of the history, physical examination, diagnosis, and treatment plan with the resident. I agree with the patient's care as documented by the resident and amended herein by me. Bennie Girard DO. Although this document has been carefully reviewed, there may still be some phonetic and other typographical errors. These errors are purely grammatical due to imperfections in the software program and should not be construed in any way to compromise the substance of the patient's medical care during this visit.
--- NOTE | 2024-12-28 12:18 | PD.SURPROG ---
Documentation for date of: 12/28/24 Subjective Subjective Narrative: Patient is seen and examined. She is resting comfortably. She has remained hemodynamically stable. She is tolerating clear liquids Exam Vital Signs Temp Pulse Resp BP Pulse Ox O2 Del Method O2 Flow Rate 96.7 F L 75 19 154/81 H 96 Nasal Cannula 1 12/28/24 08:00 12/28/24 08:54 12/28/24 08:00 12/28/24 08:54 12/28/24 08:00 12/28/24 08:00 12/28/24 08:00 Constitutional Constitutional: no acute distress Routine Abdominal Exam Comments: Abdomen is soft and nondistended. Incision is clean, dry and intact. She has active bowel sounds Assessment & Plan Assessment Additional comments: Postop day #3 status post exploratory laparotomy with partial small bowel resection and cholecystectomy Plan Full liquid diet. Awaiting for full return of GI function PROCEDURES: Procedures Exploratory laparotomy, partial small bowel resection Cholecystectomy
[2024-12-28] MEDS: RINGERS LACTATED 1000 ML 1,000 ML 30 ML IV (13:30)
--- NOTE | 2024-12-28 16:34 | PC.SS ---
Rounding note: Progressing, advancing diet. Discharge plan: SNF
[2024-12-28] MEDS: INSULIN DEGLUDEC 5 UNIT/0.05 ML (PER 5 UNITS) 25 UNIT SC (21:45)
[2024-12-29] VITALS (8 sets, daily range): BP systolic 128–149; BP diastolic 63–77; PULSE 68–79; RESP 12–20; TEMP 35.9–36.1; O2SAT 92–99; BMI 12.0
[2024-12-29] MEDS: INSULIN LISPRO (AdmeLOG) 1 UNIT/0.01 ML UNIT SC ×3 (00:45→17:04)
[2024-12-29] MEDS: HEPARIN SOD INJ 5000 UNIT/ML VIAL SC ×2 (05:35→13:50)
[2024-12-29] MEDS: metroNIDAZOLE/NS 500 MG IVPB 500 MG/100 ML BAG 200 MG IV ×3 (05:35→21:10)
[2024-12-29 05:47] LABS: Basophils # (Auto) 0.0 Thou/mm3 (0.0-0.2); Basophils % (Auto) 0 % (0-2.5); Eosinophils # (Auto) 0.5 Thou/mm3 (0.0-0.5); Eosinophils % (Auto) 4 % (0-10); Hematocrit 32.1 % (36.0-46.0); Hemoglobin 9.9 g/dL (12.0-16.0); Immature Granulocytes Auto 0.11 Thou/mm3 (0.00-0.00); Lymphocytes # (Auto) 2.4 Thou/mm3 (1.0-4.8); Lymphocytes % (Auto) 19 % (10-50); Mean Corpuscular HGB Conc 30.8 g/dl (31.0-37.0); Mean Corpuscular Hemoglobin 30.0 pg (25.0-35.0); Mean Corpuscular Volume 97 fL (80-100); Monocytes # (Auto) 1.0 Thou/mm3 (0.0-0.8); Monocytes % (Auto) 8 % (0-12); Neutrophils # (Auto) 8.7 Thou/mm3 (1.8-7.7); Neutrophils % (Auto) 69 % (37-80); Nucleated Red Blood Cell # 0.00 Thou/mm3 (0.00-0.00); Nucleated Red Blood Cell % 0 /100 WBC (0); Platelet Count 323 Thou/mm3 (140-440); RDW Standard Deviation 47.5 fL (36.4-46.3); Red Blood Count 3.30 Miln/mm3 (4.00-5.20); White Blood Count 12.7 Thou/mm3 (3.6-11.0)
[2024-12-29 06:19] LABS: Alanine Aminotransferase 14 U/L (10-49); Albumin, Serum 3.1 gm/dL (3.4-4.8); Albumin/Globulin Ratio 1.2 (1.2-2.2); Alkaline Phosphatase 59 U/L (46-116); Anion Gap 7 (7-16); Aspartate Amino Transferase 19 U/L (0-34); BUN/Creatinine Ratio 43 Ratio (12-20); Bilirubin,Total 0.3 mg/dL (0.3-1.2); Blood Urea Nitrogen 30 mg/dL (9-23); Calcium 8.8 mg/dL (8.3-10.6); Calcium (Corrected) 9.5 mg/dL (8.5-10.1); Carbon Dioxide 30.7 mMol/L (20.0-31.0); Chloride 105 mMol/L (98-107); Creatinine (Component) 0.7 mg/dL (0.6-1.3); Estimated Creatinine Clearance 78.0 mL/min (>60); Globulin 2.5 gm/dL (2.3-3.5); Glucose 141 mg/dL (74-106); Magnesium 2.6 mg/dL (1.6-2.6); Osmolality,Calculated 293 (275-295); Phosphorous 2.5 mg/dL (2.4-5.1); Potassium 4.3 mMol/L (3.4-5.1); Sodium 143 mMol/L (136-145); Total Protein 5.6 gm/dL (5.7-8.2); eGFR > 60 See Note
--- NOTE | 2024-12-29 07:57 | PD.SURPROG ---
Documentation for date of: 12/29/24 Subjective Subjective Narrative: Patient is seen and examined. She is resting comfortably. She is tolerating liquid diet. She started passing flatus, bowel movement has been recorded Exam Vital Signs Temp Pulse Resp BP Pulse Ox O2 Del Method O2 Flow Rate 97.0 F 74 17 134/72 H 93 L Nasal Cannula 1 12/29/24 04:00 12/29/24 04:00 12/29/24 04:00 12/29/24 04:00 12/29/24 04:00 12/28/24 16:00 12/28/24 19:33 Constitutional Constitutional: no acute distress Routine Abdominal Exam Comments: Abdomen is soft and minimally distended. Incision is clean, dry and intact. She has minimal tenderness to palpation, no rebound tenderness or peritonitis Assessment & Plan Assessment Additional comments: Postop day #4 status post exploratory laparotomy with partial small bowel resection and cholecystectomy. Clinically improving, WBC trending down Plan Will advance to soft diet. Physical therapy to ambulate PROCEDURES: Procedures Exploratory laparotomy, partial small bowel resection Cholecystectomy
[2024-12-29] MEDS: ASCORBIC ACID 250 MG TABLET 500 MG PO ×2 (08:13→20:07)
[2024-12-29] MEDS: SENNA/DOCUSATE SOD 1 TAB TABLET PO (08:14)
[2024-12-29] MEDS: METOPROLOL SUCCINATE XL 25 MG TABCR PO (08:14)
[2024-12-29] MEDS: ZINC SULFATE 220 MG CAPSULE PO (08:14)
[2024-12-29] MEDS: cefTRIAXone/D5w 2gm 2 GM/50 ML BAG IV (08:18)
[2024-12-29] MEDS: MORPHINE SULF INJ 4 MG/ML VIAL 2 MG IVP (08:26)
--- NOTE | 2024-12-29 09:07 | PC.SS ---
Update: Patient on clear liquid diet. Dr. Diallo consulting. Surgery recommendations are pending.
--- NOTE | 2024-12-29 11:31 | ESPR_ITS ---
<Statement entered by Bobo Joseph MD - 12/30/24 13:20> No acute overnight events. Reported that she is feeling well and also noted to have bowel movements. Vitals are stable. On physical examination, noted mild tenderness in the abdomen and also noted to have abdominal binder. Labs done today showed downtrending WBC, 12.7 and stable hemoglobin. General surgeon, Dr. Diallo is following the patient and advance the diet today from clear liquid to soft diet. Started on GDMT as per cardiology recommendations and patient is tolerating well. Planning to discharge to SNF once patient is cleared from general surgeon, Dr. Diallo I have personally seen and examined the patient, agree with residents assessment and plan Patient plan of care was discussed with the attending physician, Dr. Shaji Joseph, PGY2 Documentation for date of: 12/29/24 Subjective Subjective Interval history: Overnight events: No acute events overnight. Patient was seen and examined at bedside. AM vitals and labs reviewed. Patient does not appear to be in acute distress at this time. Patient does seem a bit confused as to why she is here, but does have good mood and was able to joke. Patient did have a bowel movement yesterday. Diet was advanced to soft solids by general surgery. WBC 12.7, hemoglobin 9.9. Will monitor how patient does on advancement of diet by general surgery, will discuss with general surgery on when patient is expected to be discharged. Continue GDMT, cardiology is monitoring. Review of systems otherwise negative except for what is mentioned above. Exam Vital Signs Temp Pulse Resp BP Pulse Ox O2 Del Method O2 Flow Rate 97.0 F 77 20 141/69 H 94 L Room Air 1 12/29/24 08:00 12/29/24 08:14 12/29/24 08:00 12/29/24 08:14 12/29/24 08:00 12/29/24 08:00 12/28/24 19:33 Narrative Exam Physical Exam: General: Alert, no acute distress. Skin: Warm, dry, intact. Head: Normocephalic, atraumatic. Eye: Normal conjunctiva, PERRL. Cardiovascular: Regular rate and rhythm, loud systolic murmur best heard in aortic/pulmonic regions, +S1/S2. Respiratory: Lungs are clear to auscultation, respirations unlabored, no crackles, no wheezing. Gastrointestinal: Soft, nontender, non-distended. Extremities: Trace BLE edema, no cyanosis, no clubbing. Neuro: No focal deficits observed. Conversant, moving all extremities. No overt cerebellar signs/incoordination. Psychiatric: Cooperative, appropriate affect. Objective Labs 12/30/24 04:40 12/30/24 04:40 Labs: Laboratory Results - last 24 hr 12/29/24 04:47 WBC 12.7 H RBC 3.30 L Hgb 9.9 L Hct 32.1 L MCV 97 MCH 30.0 MCHC 30.8 L RDW Std Deviation 47.5 H Plt Count 323 Neut % (Auto) 69 Lymph % (Auto) 19 [place] % (Auto) 8 Eos % (Auto) 4 Baso % (Auto) 0 Neut # (Auto) 8.7 H Lymph # (Auto) 2.4 [place] # (Auto) 1.0 H Eos # (Auto) 0.5 Baso # (Auto) 0.0 Immature Gran # (Auto) 0.11 H Absolute Nucleated RBC 0.00 Immature Gran % 1 H Nucleated RBC % 0 Sodium 143 Potassium 4.3 Chloride 105 Carbon Dioxide 30.7 Anion Gap 7 BUN 30 H Creatinine 0.7 Estim Creat Clear Calc 78.0 eGFR > 60 BUN/Creatinine Ratio 43 H Glucose 141 H Calculated Osmolality 293 Calcium 8.8 Corrected Calcium 9.5 Phosphorus 2.5 Magnesium 2.6 Total Bilirubin 0.3 AST 19 ALT 14 Alkaline Phosphatase 59 Total Protein 5.6 L Albumin 3.1 L Globulin 2.5 Albumin/Globulin Ratio 1.2 ABG Interpretation ABG results: 12/23/24 05:32 VBG pH 7.36 VBG pCO2 47 VBG pO2 58 VBG Base Excess 0 Quality Measures Quality Measures sepsis Current suspected stage: ruled out Possible source: GI tract/intra- abdominal Blood cultures ordered: yes Antibiotic ordered: Yes Advance care planning discussed with:: patient Assessment & Plan Assessment Current Active Medications: Generic Name Dose Route Start Last Admin Trade Name Freq PRN Reason Stop Dose Admin Ascorbic Acid 500 mg 12/27/24 21:00 12/29/24 08:13 Ascorbic Acid 250 Mg Tablet PO 01/26/25 20:59 500 mg BID SAMAN Administration Dextrose 25 ml 12/23/24 15:23 Dextrose 50%-Water Inj 50 Ml Syringe IV 01/22/25 15:22 Q15MIN PRN BG 50-70 responsive npo pt Dextrose 50 ml 12/23/24 15:23 Dextrose 50%-Water Inj 50 Ml Syringe IV 01/22/25 15:22 Q15MIN PRN BG <50 OR BG <70 & pt unresponsive Glucagon 1 mg 12/23/24 15:23 Glucagon Inj 1 Mg Vial IM Q15MIN PRN BG <70, and no IV access Heparin Sodium (Porcine) 5,000 unit 12/23/24 22:00 12/29/24 05:35 Heparin Sod Inj 5000 Unit/Ml Vial SC 01/06/25 21:59 5,000 unit Q8HR SAMAN Administration Metronidazole 500 mg in 100 mls @ 200 mls/hr 12/27/24 14:00 12/29/24 05:35 Flagyl 500 Mg Iv IV 01/03/25 13:59 200 mls/hr Q8HR SAMAN Administration Ceftriaxone Sodium/Dextrose 2 gm in 50 mls @ 100 mls/hr 12/28/24 09:00 12/29/24 08:18 Rocephin/D5w 2gm IV 01/03/25 08:59 100 mls/hr QDAY SAMAN Administration Insulin Degludec 25 unit 12/27/24 21:00 12/28/24 21:45 Insulin Degludec 5 Unit/0.05 Ml (Per 5 Units) SC 01/26/25 20:59 25 unit HS SAMAN Administration Insulin Human Lispro 0 unit 12/24/24 06:00 12/29/24 05:35 Insulin Lispro (Admelog) 1 Unit/0.01 Ml Unit SC 01/23/25 05:59 Not Given Q6HR [facility] Protocol Metoprolol Succinate 25 mg 12/29/24 09:00 12/29/24 08:14 Metoprolol Succinate Xl 25 Mg Tabcr PO 01/28/25 08:59 25 mg QDAY SAMAN Administration Ondansetron HCl 4 mg 12/25/24 15:41 Ondansetron Inj 2 Mg/Ml Inj 2 Ml IVP 01/24/25 15:40 Q6HR PRN NAUSEA OR VOMITING Protocol Pantoprazole Sodium 40 mg 12/24/24 09:00 12/27/24 08:11 Pantoprazole Inj 40 Mg Vial IVP 01/23/25 08:59 40 mg On Hold: 12/28/24 07:36 QDAY SAMAN Administration Sacubitril/Valsartan 0.5 tab 12/28/24 21:00 12/29/24 08:13 Sacubitril 24 Mg/Valsartan 26 Mg Tablet PO 01/27/25 20:59 0.5 tab BID SAMAN Administration Sennosides 1 tab 12/28/24 07:25 12/29/24 08:14 Senna/Docusate Sod 1 Tab Tablet PO 01/27/25 07:24 1 tab QDAY SAMAN Administration Protocol Zinc Sulfate 220 mg 12/27/24 13:30 12/29/24 08:14 Zinc Sulfate 220 Mg Capsule PO 01/26/25 13:29 220 mg QDAY SAMAN Administration Plan 74-year-old female with significant past medical history of hypertension, diabetes mellitus, insulin-dependent, possible dementia [not officially diagnosed], fatty liver, bowel and bladder incontinence, chronic constipation was brought to the hospital with chief complaints of nausea, vomitings and presyncopal like episode. # SBO, resolved # s/p partial small bowel resection 12/25 # Small bowel ischemia, with necrosis, proximal ileum # s/p cholecystectomy 12/25 # Cholecystitis - Patient reported that she had chronic constipation and occasionally had diarrheal episodes - Also reported that she had bowel incontinence and has accidents all the time - Reported that she has bowel movements once in 4 or 5 days which is normal for her since last couple of years. Patient does not remember the exact last bowel movement - Noted to have vomitings on the day before admission, 10 episodes - Abdomen/pelvis CT imaging showed early small bowel obstruction - Small bowel series were ordered, shows continued small bowel obstruction with conservative management - Patient continued to not pass gas or have bowel movements until post op day 3, ordered KUB which showed resolution of SBO Plan - General Surgeon, Dr. Diallo is consulted, performed partial small bowel resection and cholecystectomy on 12/25 - NG tube was placed; removed 12/27 - Continue IV fluids, LR at 75 cc/h - Ceftriaxone 2 gm daily (12/23-01/01) - Metronidazole 500 mg every 8 hours (12/25-01/01) - Dysphagia 2 diet; Pending further evaluation and recommendations from general surgery on advancing diet # New onset HFrEF, EF 35-40% # Severe mitral annulus valvular calcification, incidental finding # New onset atrial fibrilation with RVR, resolved - Patient is noted to have a severe mitral annular valvular calcification on CT abdomen/pelvis which is an incidental finding - Patient denies any cardiac history - Also noted to have ESM in aortic and pulmonary area - Echocardiogram is ordered, taken 12/24, shows ejection fraction of 35 to 40% with global LV systolic function moderately decreased, unable to assess diastolic function given severe MAC, severe calcification of mitral valve and aortic valve, with mild to moderate mitral stenosis and moderate to severe atrial stenosis. - Patient was noted to have an episode of atrial fibrilation w/ RVR on 12/26, resolved with stopping fluids and metoprolol 2.5 mg IV Plan - Cardiology consulted, appreciate recommendations - Will slowly start GDMT - Metoprolol succinate 25 mg daily - Entresto half tablet twice daily - Cardiology to defer starting anticoagulation until cleared by general surgery - Per cardiology, patient may need catheterization for both evaluation of CHF and also for anticipated TAVR procedure # SHERIE, likely prerenal, improving # Electrolyte derangement - Patient had multiple episodes of vomiting at the time of admission - Baseline creatinine is 0.9 as of 08/2024, creatinine at the time of admission is 1.5 --> 12/24, 1.2 - Patient had increase in creatinine to 1.8 on 12/26, likely secondary to extensive surgery on 12/25, which likely led to electrolyte abnormalities Plan - Started on IV fluids, held given HFrEF - Will continue to monitor renal functions - Will renally dose medications # Presyncopal episode #? Fall - At baseline, patient is able to walk with the help of support - On the day before admission, patient noted to have multiple episodes of vomitings almost 10 associated with nausea, nonbilious and denies any hematemesis - On the day of admission, per , patient is trying to get out of the bed and asked help from the hospital and and when he is trying to help her walk from the bedroom to the living room he noted severe sweating on the patient and not able to support herself. Later the dropped her slowly down to the floor and later brought to the hospital - Denies palpitations, loss of consciousness, bowel or bladder incontinence at the time of episode, fever also denies hitting head or back - Denies any previous history of cardiac disease - EKG at the time of admission showed normal sinus rhythm with no acute ST and T wave changes and troponin is 0.031 - Imaging including head CT and C-spine CT did not show any fracture - Labs at the time of admission are significant for SHERIE Plan - Orthostatic vitals are ordered, positive for orthostatic hypotension - Will continue to monitor vitals # Diabetes mellitus, insulin-dependent - Glucose at the time of admission is 420 - Patient is using Lantus 42 units every day. Not on any sliding scale - Hemoglobin A1c 8.4% as of 12/24 Plan - Started on insulin sliding scale - Started on degludec 30 units subcutaneous at bedtime, increased to 35 units as of 12/24, decreased to 20 as of 12/26, increased to 25 as of 12/25 # Lactic acidosis, resolved - Lactate at the time of admission is 3.7, improved to 1.7 - Patient received 2 L of fluid in the ED - Started on IV fluids, LR at 100 mL/h, held given HFrEF # Hypomagnesemia, resolved - Magnesium at the time of presentation is 1.5 -->1.8, 12/24 - Received IV magnesium in the ED Plan - Will continue to monitor magnesium and replete as needed # Leukocytosis, improving In the setting of dehydration and SHERIE -WBC at the time of admission is 26.8 - Patient does not have any features suggestive of active infection as of now - Blood cultures no growth after 48 hours in 2/2 cultures - Urine culture negative for growth - Noted significant improvement after bowel resection on 12/25 Plan - Patient is started on ceftriaxone 2 g IV daily in view of SBP prophylaxis as the patient is noted to have ascites - Will continue to monitor CBC - Started metronidazole 500 mg every 8 hours due to surgery for SBO # Bilateral opacities in the basal areas of the lung, incidental finding - Patient is noted to have bilateral opacities in the basal areas of the lung which was found incidentally on abdomen/pelvis CT - Patient denies any symptoms of shortness of breath, cough Plan - Will recommend to follow-up on outpatient basis for further evaluation # Cirrhosis with mild ascites - Patient reported that she had history of fatty liver - Likely due to metabolic component in the setting of obesity Hospital Maintenance: Dispo: Medsurg DVT ppx: Heparin GI ppx: N/A Diet: Dysphagia 2 IV lines: Peripheral Code status: Full Patient plan of care was discussed with the attending physician, Dr. Girard and senior resident Dr. Joseph (PGY-2) Evan Llanos, PGY-1 Attending Provider Attestation/Addendum I have discussed and was present for the essential components of the history, physical examination, diagnosis, and treatment plan with the resident. I agree with the patient's care as documented by the resident and amended herein by me. Bennie Girard DO. Although this document has been carefully reviewed, there may still be some phonetic and other typographical errors. These errors are purely grammatical due to imperfections in the software program and should not be construed in any way to compromise the substance of the patient's medical care during this visit.
--- NOTE | 2024-12-29 14:49 | ESPR_ITS ---
<Statement entered by Amber Iniguez MD - 12/30/24 18:38> I personally examined evaluated the patient with resident physician PGY 3 Dr. Martita Rock patient is doing quite well today maintaining sinus rhythm appears to have a one-time atrial fibrillation episode. Acute illness may not be a chronic A-fib or paroxysmal A-fib for now we decided to treat as one-time and deferring anticoagulation the patient also has fairly significant moderate to severe calcific aortic stenosis will require outpatient monitoring. Patient clinically stable not in heart failure asymptomatic recovering well following surgery Documentation for date of: 12/29/24 Subjective Subjective Interval history: Patient was seen and examined at bedside. She denied any new symptoms at this time. Her WBC downtrending now at 12.7, blood pressure stable at 141/69, pulse rate of 77 regular rhythm. Her potassium is 4.3, magnesium is 2.6. On review of the patient to the monitor no episodes of A-fib is noticed yesterday patient was switched from metoprolol 12.5 mg p.o. twice daily to metoprolol to 25 p.o. XL daily. Patient's plan to be discharged to nursing home facility by the primary team. Patient tolerating oral feeds well and had a bowel movement. Exam Vital Signs Temp Pulse Resp BP Pulse Ox O2 Del Method O2 Flow Rate 96.9 F 76 18 147/66 H 95 Room Air 1 12/29/24 12:00 12/29/24 12:12/29/24 12:12/29/24 12:12/29/24 12:12/29/24 12:12/28/24 19:33 Narrative Exam GENERAL: AOx3, no acute distress, forgetful of recent events such as having abdominal surgery, which is her baseline as per family members. HEENT: NC/AT, mucous membranes moist, bilateral sclera anicteric CARDIOVASCULAR: regular rate and rhythm, S1/S2 present, 4/6 harsh systolic murmur best heard L 2nd intercostal space PULMONARY: clear to auscultation bilaterally, no rales/rhonchi/wheezes ABDOMINAL: soft, non-tender, non-distended, no rebound/guarding, bowel sounds present, abdominal binder in place EXTREMITIES: trace b/l peripheral edema up to hips SKIN: warm and dry, intact, no rashes NEURO: CN II-XII grossly intact, no focal deficits, alert, following commands Objective Labs 12/29/24 04:47 12/29/24 04:47 Labs: Laboratory Results - last 24 hr 12/29/24 04:47 WBC 12.7 H RBC 3.30 L Hgb 9.9 L Hct 32.1 L MCV 97 MCH 30.0 MCHC 30.8 L RDW Std Deviation 47.5 H Plt Count 323 Neut % (Auto) 69 Lymph % (Auto) 19 [place] % (Auto) 8 Eos % (Auto) 4 Baso % (Auto) 0 Neut # (Auto) 8.7 H Lymph # (Auto) 2.4 [place] # (Auto) 1.0 H Eos # (Auto) 0.5 Baso # (Auto) 0.0 Immature Gran # (Auto) 0.11 H Absolute Nucleated RBC 0.00 Immature Gran % 1 H Nucleated RBC % 0 Sodium 143 Potassium 4.3 Chloride 105 Carbon Dioxide 30.7 Anion Gap 7 BUN 30 H Creatinine 0.7 Estim Creat Clear Calc 78.0 eGFR > 60 BUN/Creatinine Ratio 43 H Glucose 141 H Calculated Osmolality 293 Calcium 8.8 Corrected Calcium 9.5 Phosphorus 2.5 Magnesium 2.6 Total Bilirubin 0.3 AST 19 ALT 14 Alkaline Phosphatase 59 Total Protein 5.6 L Albumin 3.1 L Globulin 2.5 Albumin/Globulin Ratio 1.2 ABG Interpretation ABG results: 12/23/24 05:32 VBG pH 7.36 VBG pCO2 47 VBG pO2 58 VBG Base Excess 0 Quality Measures Quality Measures sepsis Current suspected stage: sepsis Possible source: GI tract/intra-abdominal Blood cultures ordered: yes Antibiotic ordered: Yes Advance care planning discussed with:: patient and child Assessment & Plan Assessment Current Active Medications: Generic Name Dose Route Start Last Admin Trade Name Freq PRN Reason Stop Dose Admin Ascorbic Acid 500 mg 12/27/24 21:00 12/29/24 08:13 Ascorbic Acid 250 Mg Tablet PO 01/26/25 20:59 500 mg BID SAMAN Administration Dextrose 25 ml 12/23/24 15:23 Dextrose 50%-Water Inj 50 Ml Syringe IV 01/22/25 15:22 Q15MIN PRN BG 50-70 responsive npo pt Dextrose 50 ml 12/23/24 15:23 Dextrose 50%-Water Inj 50 Ml Syringe IV 01/22/25 15:22 Q15MIN PRN BG <50 OR BG <70 & pt unresponsive Glucagon 1 mg 12/23/24 15:23 Glucagon Inj 1 Mg Vial IM Q15MIN PRN BG <70, and no IV access Heparin Sodium (Porcine) 5,000 unit 12/23/24 22:00 12/29/24 13:50 Heparin Sod Inj 5000 Unit/Ml Vial SC 01/06/25 21:59 5,000 unit Q8HR SAMAN Administration Metronidazole 500 mg in 100 mls @ 200 mls/hr 12/27/24 14:00 12/29/24 05:35 Flagyl 500 Mg Iv IV 01/03/25 13:59 200 mls/hr Q8HR SAMAN Administration Ceftriaxone Sodium/Dextrose 2 gm in 50 mls @ 100 mls/hr 12/28/24 09:00 12/29/24 08:18 Rocephin/D5w 2gm IV 01/03/25 08:59 100 mls/hr QDAY SAMAN Administration Insulin Degludec 25 unit 12/27/24 21:00 12/28/24 21:45 Insulin Degludec 5 Unit/0.05 Ml (Per 5 Units) SC 01/26/25 20:59 25 unit HS SAMAN Administration Insulin Human Lispro 0 unit 12/24/24 06:00 12/29/24 12:03 Insulin Lispro (Admelog) 1 Unit/0.01 Ml Unit SC 01/23/25 05:59 2 unit Q6HR SAMAN Administration Protocol Metoprolol Succinate 25 mg 12/29/24 09:00 12/29/24 08:14 Metoprolol Succinate Xl 25 Mg Tabcr PO 01/28/25 08:59 25 mg QDAY SAMAN Administration Ondansetron HCl 4 mg 12/25/24 15:41 Ondansetron Inj 2 Mg/Ml Inj 2 Ml IVP 01/24/25 15:40 Q6HR PRN NAUSEA OR VOMITING Protocol Pantoprazole Sodium 40 mg 12/24/24 09:00 12/27/24 08:11 Pantoprazole Inj 40 Mg Vial IVP 01/23/25 08:59 40 mg On Hold: 12/28/24 07:36 QDAY SAMAN Administration Sacubitril/Valsartan 0.5 tab 12/28/24 21:00 12/29/24 08:13 Sacubitril 24 Mg/Valsartan 26 Mg Tablet PO 01/27/25 20:59 0.5 tab BID SAMAN Administration Sennosides 1 tab 12/28/24 07:25 12/29/24 08:14 Senna/Docusate Sod 1 Tab Tablet PO 01/27/25 07:24 1 tab QDAY SAMAN Administration Protocol Zinc Sulfate 220 mg 12/27/24 13:30 12/29/24 08:14 Zinc Sulfate 220 Mg Capsule PO 01/26/25 13:29 220 mg QDAY SAMAN Administration Plan Summary:A 74-year-old female patient with significant past medical history of diabetes mellitus on insulin, fatty liver, hypertension, chronic constipation with bowel and bladder incontinence, heart murmur, was admitted to the hospital after patient was noticed to have multiple episodes of nausea and vomiting that started on 22 December 2024. Reportedly the patient had 2 episodes of vomiting which was nonbilious. Patient was admitted for SBO treatment and presyncope workup found to have EF of 35-40, with severe aortic stenosis. #Presyncope most likely multifactorial secondary to small bowel ischemia, dehydration, and aortic stenosis #New A-fib with RVR likely 2/2 small bowel ischemia #Moderate to severe aortic stenosis #Mitral stenosis and calcification #New onset HFrEF with ejection fraction of 35-40 % Patient reportedly has a history of murmur for many years in the past, came to the ED due to persistent vomiting which resulted in presyncopal episode. Family does not believe she has ever had a cardiac cath and reports within the last year patient was instructed to see a auto fleet maintenance manager for unknown reason but patient refused. She has history of orthopnea, dyspnea on exertion, and lower limb swelling L>R. 12/24/24 Echo showed Mild LVH. Global LV systolic function is moderately decreased. Estimated EF at 35-40 %. Diastolic function could not be assesed due to severe MAC. Normal RV size and systolic function. Severe MAC with severe calcification of mitral valve (posterior > anterior) and aortic valve. Mild to moderate mitral stenosis - Mean PG 5 to 8 mm hg. but area with PHT 2.5 sq cm. Moderate to severe with V max 3.3 m/s, mean PG 23 mm hg But RILEY is 0.5 sq cm. Trace to mild AI. Mostly low flow low gradient severe aortic stenosis given the low EF. CXR showed mild vascular congestion. BNP and troponin were negative 12/26/2024, patient had rapid response after physical therapy tried to work with the patient and she became unresponsive for 15 seconds. Patient regained consciousness immediately. 12/27/2024 patient developed A-fib with RVR. Orthostatics positive. 12/29/2024 Patient Afib has resolved, now sinus rhythem. Most likely stress induced, No need for half-way Eliqus at this time . Plan ? Replete volume as needed keep the patient on strict balance as the patient is volume sensitive due to the severe aortic stenosis and the dehydration secondary to her vomiting. ? Continue metoprolol XL 25 mg QD for GDMT - Consider starting Entresto half tablet instead of Losartan 50 mg iso moderate to severe aortic stenosis to decrease afterload as BP tolerates - No Need for Eliquis as the AFIB most likely stress related, Can F/U o/p for possible holter to decide if the patient needs moth exterminator anticoagulation ? Strict ins and out ? Patient may need catheterization for both evaluation of CHF and also for anticipated TAVR procedure outpatient as patient is recovering from abdominal surgery ? Keep patient in semisitting position ? Keep K>4 and Mg>2 at all times #SBO 2/2 #Small bowel ischemia with necrosis, proximal ileum s/p partial small bowel resection 12/25 #Cholecystitis s/p cholecystectmy 12/25 Patient was found to have SBO, her WBC continued to uptrend to 32, patient went under laparotomy by Dr Diallo Patient previously on NG tube with intermittent suction and pain control, ceftriaxone, and Flagyl. #Diabetes mellitus 12/24 A1c 8.4 and per pharmacy chart review, patient is on metformin and insulin at home. Insulin sliding scale #SHERIE resolved most likely secondary to dehydration due to persistent vomiting #Leukocytosis #Hypertension Follow primary team recommendations Thank you for the consultation, please do not hesitate to reach out if you have any question or concern. - Patient's plan and care discussed with my attending, Dr. Hira Kennedy MD Internal Medicine PGY-3
--- NOTE | 2024-12-29 15:05 | PC.SS ---
Rounding Note: Plan is to d/c the patient to SNF tomorrow.
[2024-12-29] MEDS: INSULIN DEGLUDEC 5 UNIT/0.05 ML (PER 5 UNITS) 25 UNIT SC (20:07)
[2024-12-30] VITALS (10 sets, daily range): BP systolic 146–161; BP diastolic 71–80; PULSE 73–80; RESP 12–23; TEMP 35.7–36.7; O2SAT 92–97
[2024-12-30] MEDS: INSULIN LISPRO (AdmeLOG) 1 UNIT/0.01 ML UNIT SC ×4 (00:11→20:39)
--- NOTE | 2024-12-30 00:23 | PC.NURSE ---
Pt refused to be changed or repositioned in bed, Pt is on a purewick and urine canister changed.
[2024-12-30] MEDS: metroNIDAZOLE/NS 500 MG IVPB 500 MG/100 ML BAG 200 MG IV (05:08)
[2024-12-30] MEDS: HEPARIN SOD INJ 5000 UNIT/ML VIAL SC ×3 (05:09→20:42)
[2024-12-30 05:41] LABS: Basophils # (Auto) 0.0 Thou/mm3 (0.0-0.2); Basophils % (Auto) 0 % (0-2.5); Eosinophils # (Auto) 0.3 Thou/mm3 (0.0-0.5); Eosinophils % (Auto) 2 % (0-10); Hematocrit 35.2 % (36.0-46.0); Hemoglobin 11.2 g/dL (12.0-16.0); Immature Granulocytes Auto 0.18 Thou/mm3 (0.00-0.00); Lymphocytes # (Auto) 2.7 Thou/mm3 (1.0-4.8); Lymphocytes % (Auto) 19 % (10-50); Mean Corpuscular HGB Conc 31.8 g/dl (31.0-37.0); Mean Corpuscular Hemoglobin 30.4 pg (25.0-35.0); Mean Corpuscular Volume 95 fL (80-100); Monocytes # (Auto) 1.0 Thou/mm3 (0.0-0.8); Monocytes % (Auto) 7 % (0-12); Neutrophils # (Auto) 10.0 Thou/mm3 (1.8-7.7); Neutrophils % (Auto) 70 % (37-80); Nucleated Red Blood Cell # 0.00 Thou/mm3 (0.00-0.00); Nucleated Red Blood Cell % 0 /100 WBC (0); Platelet Count 343 Thou/mm3 (140-440); RDW Standard Deviation 46.2 fL (36.4-46.3); Red Blood Count 3.69 Miln/mm3 (4.00-5.20); White Blood Count 14.3 Thou/mm3 (3.6-11.0)
[2024-12-30 06:03] LABS: Alanine Aminotransferase 18 U/L (10-49); Albumin, Serum 3.1 gm/dL (3.4-4.8); Albumin/Globulin Ratio 1.2 (1.2-2.2); Alkaline Phosphatase 64 U/L (46-116); Anion Gap 9 (7-16); Aspartate Amino Transferase 29 U/L (0-34); BUN/Creatinine Ratio 24 Ratio (12-20); Bilirubin,Total 0.3 mg/dL (0.3-1.2); Blood Urea Nitrogen 17 mg/dL (9-23); Calcium 8.9 mg/dL (8.3-10.6); Calcium (Corrected) 9.6 mg/dL (8.5-10.1); Carbon Dioxide 29.5 mMol/L (20.0-31.0); Chloride 104 mMol/L (98-107); Creatinine (Component) 0.7 mg/dL (0.6-1.3); Estimated Creatinine Clearance 78.0 mL/min (>60); Globulin 2.6 gm/dL (2.3-3.5); Glucose 142 mg/dL (74-106); Magnesium 2.0 mg/dL (1.6-2.6); Osmolality,Calculated 286 (275-295); Phosphorous 2.3 mg/dL (2.4-5.1); Potassium 4.1 mMol/L (3.4-5.1); Sodium 142 mMol/L (136-145); Total Protein 5.7 gm/dL (5.7-8.2); eGFR > 60 See Note
[2024-12-30] MEDS: cefTRIAXone/D5w 2gm 2 GM/50 ML BAG IV (08:31)
[2024-12-30] MEDS: SENNA/DOCUSATE SOD 1 TAB TABLET PO (08:31)
[2024-12-30] MEDS: ZINC SULFATE 220 MG CAPSULE PO (08:31)
[2024-12-30] MEDS: ASCORBIC ACID 250 MG TABLET 500 MG PO ×2 (08:32→20:41)
[2024-12-30] MEDS: NAPH,KPH MBDB 1 PACKET (1.5 GM) PO (08:33)
[2024-12-30] MEDS: METOPROLOL SUCCINATE XL 25 MG TABCR PO (08:34)
--- NOTE | 2024-12-30 09:15 | PC.SS ---
SALES OPERATIONS ASSISTANT confirmed with patient that discharge plan is to transition to [facility].
--- NOTE | 2024-12-30 09:23 | PC.SS ---
Updated clinicals submitted on [employer] platform.
--- NOTE | 2024-12-30 09:26 | PD.SURPROG ---
Documentation for date of: 12/30/24 Subjective Subjective Narrative: Patient is seen and examined. She is resting comfortably. She is tolerating soft diet without nausea or vomiting and having bowel movements Exam Vital Signs Temp Pulse Resp BP Pulse Ox O2 Del Method O2 Flow Rate 96.8 F 75 18 147/77 H 96 Room Air 1 12/30/24 08:00 12/30/24 08:34 12/30/24 08:00 12/30/24 08:34 12/30/24 08:00 12/30/24 08:00 12/28/24 19:33 Constitutional Constitutional: no acute distress Routine Abdominal Exam Comments: Abdomen is soft and nondistended. Incision is clean, dry and intact Assessment & Plan Assessment Additional comments: Postop day #5 status post exploratory laparotomy with partial small bowel resection and cholecystectomy Plan Advance diet. Patient can be discharged to rehab from surgical standpoint. PROCEDURES: Procedures Exploratory laparotomy, partial small bowel resection Cholecystectomy
--- NOTE | 2024-12-30 10:15 | PC.SS ---
[employer]OR [employer] confirmed with attending that plan is to d/c patient today. INS[employer]OR [employer] notified SNF, authorization has been initiated.
--- NOTE | 2024-12-30 11:26 | ESPR_ITS ---
<Statement entered by Bobo Joseph MD - 12/30/24 18:48> I have personally seen and examined the patient, agree with residents assessment and plan Patient plan of care was discussed with the attending physician, Dr. Shaji Joseph, PGY2 Documentation for date of: 12/30/24 Subjective Subjective Interval history: Overnight events: No acute events overnight. Patient was seen and examined at bedside. AM vitals and labs reviewed. Patient continues to be doing well today. Patient had another bowel movement overnight. WBC 14.3, hemoglobin 11.2 Patient cleared to be discharged by general surgery. Cardiology to follow the patient outpatient for further workup, does not recommend Eliquis at this time. Will continue with GDMT. Increased Entresto to 1 tablet twice daily. Antibiotics discontinued given stability after surgery. Pending SNF authorization. Review of systems otherwise negative except for what is mentioned above. Exam Vital Signs Temp Pulse Resp BP Pulse Ox O2 Del Method O2 Flow Rate 96.8 F 75 18 147/77 H 96 Room Air 1 12/30/24 08:00 12/30/24 08:34 12/30/24 08:00 12/30/24 08:34 12/30/24 08:00 12/30/24 08:00 12/28/24 19:33 Narrative Exam Physical Exam: General: Alert, no acute distress. Skin: Warm, dry, intact. Head: Normocephalic, atraumatic. Eye: Normal conjunctiva, PERRL. Cardiovascular: Regular rate and rhythm, loud systolic murmur best heard in aortic/pulmonic regions, +S1/S2. Respiratory: Lungs are clear to auscultation, respirations unlabored, no crackles, no wheezing. Gastrointestinal: Soft, nontender, non-distended. Extremities: Trace BLE edema, no cyanosis, no clubbing. Neuro: No focal deficits observed. Conversant, moving all extremities. No overt cerebellar signs/incoordination. Psychiatric: Cooperative, appropriate affect. Objective Labs 12/31/24 07:42 12/31/24 07:42 Labs: Laboratory Results - last 24 hr 12/30/24 04:40 WBC 14.3 H RBC 3.69 L Hgb 11.2 L Hct 35.2 L MCV 95 MCH 30.4 MCHC 31.8 RDW Std Deviation 46.2 Plt Count 343 Neut % (Auto) 70 Lymph % (Auto) 19 Parker % (Auto) 7 Eos % (Auto) 2 Baso % (Auto) 0 Neut # (Auto) 10.0 H Lymph # (Auto) 2.7 Parker # (Auto) 1.0 H Eos # (Auto) 0.3 Baso # (Auto) 0.0 Immature Gran # (Auto) 0.18 H Absolute Nucleated RBC 0.00 Immature Gran % 1 H Nucleated RBC % 0 Sodium 142 Potassium 4.1 Chloride 104 Carbon Dioxide 29.5 Anion Gap 9 BUN 17 Creatinine 0.7 Estim Creat Clear Calc 78.0 eGFR > 60 BUN/Creatinine Ratio 24 H Glucose 142 H Calculated Osmolality 286 Calcium 8.9 Corrected Calcium 9.6 Phosphorus 2.3 L Magnesium 2.0 Total Bilirubin 0.3 AST 29 ALT 18 Alkaline Phosphatase 64 Total Protein 5.7 Albumin 3.1 L Globulin 2.6 Albumin/Globulin Ratio 1.2 ABG Interpretation ABG results: 12/23/24 05:32 VBG pH 7.36 VBG pCO2 47 VBG pO2 58 VBG Base Excess 0 Quality Measures Quality Measures sepsis Current suspected stage: ruled out Possible source: GI tract/intra- abdominal Blood cultures ordered: yes Antibiotic ordered: No Advance care planning discussed with:: patient Assessment & Plan Assessment Current Active Medications: Generic Name Dose Route Start Last Admin Trade Name Freq PRN Reason Stop Dose Admin Ascorbic Acid 500 mg 12/27/24 21:00 12/30/24 08:32 Ascorbic Acid 250 Mg Tablet PO 01/26/25 20:59 500 mg BID SAMAN Administration Dextrose 25 ml 12/23/24 15:23 Dextrose 50%-Water Inj 50 Ml Syringe IV 01/22/25 15:22 Q15MIN PRN BG 50-70 responsive npo pt Dextrose 50 ml 12/23/24 15:23 Dextrose 50%-Water Inj 50 Ml Syringe IV 01/22/25 15:22 Q15MIN PRN BG <50 OR BG <70 & pt unresponsive Glucagon 1 mg 12/23/24 15:23 Glucagon Inj 1 Mg Vial IM Q15MIN PRN BG <70, and no IV access Heparin Sodium (Porcine) 5,000 unit 12/30/24 07:30 12/30/24 08:33 Heparin Sod Inj 5000 Unit/Ml Vial SC 01/13/25 07:29 5,000 unit Q12HR SAMAN Administration Insulin Degludec 25 unit 12/30/24 21:00 Insulin Degludec 5 Unit/0.05 Ml (Per 5 Units) SC 01/29/25 20:59 HS SAMAN Insulin Human Lispro 0 unit 12/30/24 11:30 Insulin Lispro (Admelog) 1 Unit/0.01 Ml Unit SC 01/29/25 11:29 ACHS SAMAN Protocol Metoprolol Succinate 25 mg 12/29/24 09:00 12/30/24 08:34 Metoprolol Succinate Xl 25 Mg Tabcr PO 01/28/25 08:59 25 mg QDAY SAMAN Administration Ondansetron HCl 4 mg 12/25/24 15:41 Ondansetron Inj 2 Mg/Ml Inj 2 Ml IVP 01/24/25 15:40 Q6HR PRN NAUSEA OR VOMITING Protocol Pantoprazole Sodium 40 mg 12/24/24 09:00 12/27/24 08:11 Pantoprazole Inj 40 Mg Vial IVP 01/23/25 08:59 40 mg On Hold: 12/28/24 07:36 QDAY SAMAN Administration Sacubitril/Valsartan 1 tab 12/30/24 09:00 12/30/24 08:31 Sacubitril 24 Mg/Valsartan 26 Mg Tablet PO 01/29/25 08:59 1 tab BID SAMAN Administration Sennosides 1 tab 12/28/24 07:25 12/30/24 08:31 Senna/Docusate Sod 1 Tab Tablet PO 01/27/25 07:24 1 tab QDAY SAMAN Administration Protocol Zinc Sulfate 220 mg 12/27/24 13:30 12/30/24 08:31 Zinc Sulfate 220 Mg Capsule PO 01/26/25 13:29 220 mg QDAY SAMAN Administration Plan 74-year-old female with significant past medical history of hypertension, diabetes mellitus, insulin-dependent, possible dementia [not officially diagnosed], fatty liver, bowel and bladder incontinence, chronic constipation was brought to the hospital with chief complaints of nausea, vomitings and presyncopal like episode. # SBO, resolved # s/p partial small bowel resection 12/25 # Small bowel ischemia, with necrosis, proximal ileum # s/p cholecystectomy 12/25 # Cholecystitis - Patient reported that she had chronic constipation and occasionally had diarrheal episodes - Also reported that she had bowel incontinence and has accidents all the time - Reported that she has bowel movements once in 4 or 5 days which is normal for her since last couple of years. Patient does not remember the exact last bowel movement - Noted to have vomitings on the day before admission, 10 episodes - Abdomen/pelvis CT imaging showed early small bowel obstruction - Small bowel series were ordered, shows continued small bowel obstruction with conservative management - Patient continued to not pass gas or have bowel movements until post op day 3, ordered KUB which showed resolution of SBO Plan - General Surgeon, Dr. Diallo is consulted, performed partial small bowel resection and cholecystectomy on 12/25, cleared to be discharged from general surgery on 12/30 - NG tube was placed; removed 12/27 - Ceftriaxone 2 gm daily (12/23-12/30), completed - Metronidazole 500 mg every 8 hours (12/25-12/30), completed - Dysphagia 3 diet # New onset HFrEF, EF 35-40% # Severe mitral annulus valvular calcification, incidental finding # New onset atrial fibrilation with RVR, resolved - Patient is noted to have a severe mitral annular valvular calcification on CT abdomen/pelvis which is an incidental finding - Patient denies any cardiac history - Also noted to have ESM in aortic and pulmonary area - Echocardiogram is ordered, taken 12/24, shows ejection fraction of 35 to 40% with global LV systolic function moderately decreased, unable to assess diastolic function given severe MAC, severe calcification of mitral valve and aortic valve, with mild to moderate mitral stenosis and moderate to severe atrial stenosis. - Patient was noted to have an episode of atrial fibrilation w/ RVR on 12/26, resolved with stopping fluids and metoprolol 2.5 mg IV Plan - Cardiology consulted, appreciate recommendations - Will slowly start GDMT - Metoprolol succinate 25 mg daily - Entresto half tablet twice daily - Cardiology no need to start anticoagulation at this time as A-fib likely stress induced - Per cardiology, patient may need catheterization for both evaluation of CHF and also for anticipated TAVR procedure outpatient # SHERIE, likely prerenal, improving # Electrolyte derangement - Patient had multiple episodes of vomiting at the time of admission - Baseline creatinine is 0.9 as of 08/2024, creatinine at the time of admission is 1.5 --> 12/24, 1.2 - Patient had increase in creatinine to 1.8 on 12/26, likely secondary to extensive surgery on 12/25, which likely led to electrolyte abnormalities Plan - Started on IV fluids, held given HFrEF - Will continue to monitor renal functions - Will renally dose medications # Presyncopal episode #? Fall - At baseline, patient is able to walk with the help of support - On the day before admission, patient noted to have multiple episodes of vomitings almost 10 associated with nausea, nonbilious and denies any hematemesis - On the day of admission, per , patient is trying to get out of the bed and asked help from the hospital and and when he is trying to help her walk from the bedroom to the living room he noted severe sweating on the patient and not able to support herself. Later the dropped her slowly down to the floor and later brought to the hospital - Denies palpitations, loss of consciousness, bowel or bladder incontinence at the time of episode, fever also denies hitting head or back - Denies any previous history of cardiac disease - EKG at the time of admission showed normal sinus rhythm with no acute ST and T wave changes and troponin is 0.031 - Imaging including head CT and C-spine CT did not show any fracture - Labs at the time of admission are significant for SHERIE Plan - Orthostatic vitals are ordered, positive for orthostatic hypotension - Will continue to monitor vitals # Diabetes mellitus, insulin-dependent - Glucose at the time of admission is 420 - Patient is using Lantus 42 units every day. Not on any sliding scale - Hemoglobin A1c 8.4% as of 12/24 Plan - Started on insulin sliding scale - Started on degludec 30 units subcutaneous at bedtime, increased to 35 units as of 12/24, decreased to 20 as of 12/26, increased to 25 as of 12/25 # Lactic acidosis, resolved - Lactate at the time of admission is 3.7, improved to 1.7 - Patient received 2 L of fluid in the ED - Started on IV fluids, LR at 100 mL/h, held given HFrEF # Hypomagnesemia, resolved - Magnesium at the time of presentation is 1.5 -->1.8, 12/24 - Received IV magnesium in the ED Plan - Will continue to monitor magnesium and replete as needed # Leukocytosis, improving In the setting of dehydration and SHERIE -WBC at the time of admission is 26.8 - Patient does not have any features suggestive of active infection as of now - Blood cultures no growth after 48 hours in 2/2 cultures - Urine culture negative for growth - Noted significant improvement after bowel resection on 12/25 Plan - Patient is started on ceftriaxone 2 g IV daily in view of SBP prophylaxis as the patient is noted to have ascites - Will continue to monitor CBC - Started metronidazole 500 mg every 8 hours due to surgery for SBO # Bilateral opacities in the basal areas of the lung, incidental finding - Patient is noted to have bilateral opacities in the basal areas of the lung which was found incidentally on abdomen/pelvis CT - Patient denies any symptoms of shortness of breath, cough Plan - Will recommend to follow-up on outpatient basis for further evaluation # Cirrhosis with mild ascites - Patient reported that she had history of fatty liver - Likely due to metabolic component in the setting of obesity Hospital Maintenance: Dispo: Medsurg DVT ppx: Heparin GI ppx: N/A Diet: Dysphagia 3 IV lines: Peripheral Code status: Full Patient plan of care was discussed with the attending physician, Dr. Girard and senior resident Dr. Joseph (PGY-2) Evan Llanos, PGY-1 Attending Provider Attestation/Addendum I have discussed and was present for the essential components of the history, physical examination, diagnosis, and treatment plan with the resident. I agree with the patient's care as documented by the resident and amended herein by me. Bennie Girard DO. Although this document has been carefully reviewed, there may still be some phonetic and other typographical errors. These errors are purely grammatical due to imperfections in the software program and should not be construed in any way to compromise the substance of the patient's medical care during this visit.
--- NOTE | 2024-12-30 13:11 | ESPR_ITS ---
<Statement entered by Amber Iniguez MD - 12/30/24 18:30> I personally evaluated the patient examined the patient with PGY 3 patient is doing quite well maintaining sinus rhythm patient had 1 episode atrial fibrillation during acute illness phase and considering this as one-time atrial fibrillation episode hence no need for anticoagulation for now consider recent surgery. Most likely patient will not have atrial fibrillation again recommend continue medical management if patient has recurrent atrial fibrillation after this event might consider anticoagulation for now we will hold off on that. Patient does have moderate to severe calcific aortic stenosis clinically as well as by echo but asymptomatic will probably require follow-up as an outpatient Documentation for date of: 12/30/24 Subjective Subjective Interval history: Patient was seen and examined at bedside. Patient remain in sinus rhythm. No new symptoms tolerating diet well and had a bowel movement yesterday. Primary team started the patient on metoprolol and Entresto as part of the GDMT. Patient was cleared from general surgery standpoint to be discharged to [facility] facility. Hemoglobin stable at 11.2, potassium 4.1, magnesium 2.0. Exam Vital Signs Temp Pulse Resp BP Pulse Ox O2 Del Method O2 Flow Rate 98.0 F 75 19 153/72 H 95 Room Air 1 12/30/24 12:00 12/30/24 12:00 12/30/24 12:00 12/30/24 12:00 12/30/24 12:00 12/30/24 12:00 12/28/24 19:33 Narrative Exam GENERAL: AOx3, no acute distress, forgetful of recent events, which is her baseline as per family members. HEENT: NC/AT, mucous membranes moist, bilateral sclera anicteric CARDIOVASCULAR: regular rate and rhythm, S1/S2 present, 4/6 harsh systolic murmur best heard L 2nd intercostal space PULMONARY: clear to auscultation bilaterally, no rales/rhonchi/wheezes ABDOMINAL: soft, non-tender, non-distended, no rebound/guarding, bowel sounds present, abdominal binder in place EXTREMITIES: trace b/l peripheral edema. SKIN: warm and dry, intact, no rashes NEURO: CN II-XII grossly intact, no focal deficits, alert, following commands Objective Labs 12/30/24 04:40 12/30/24 04:40 Labs: Laboratory Results - last 24 hr 12/30/24 04:40 WBC 14.3 H RBC 3.69 L Hgb 11.2 L Hct 35.2 L MCV 95 MCH 30.4 MCHC 31.8 RDW Std Deviation 46.2 Plt Count 343 Neut % (Auto) 70 Lymph % (Auto) 19 Donley % (Auto) 7 Eos % (Auto) 2 Baso % (Auto) 0 Neut # (Auto) 10.0 H Lymph # (Auto) 2.7 Donley # (Auto) 1.0 H Eos # (Auto) 0.3 Baso # (Auto) 0.0 Immature Gran # (Auto) 0.18 H Absolute Nucleated RBC 0.00 Immature Gran % 1 H Nucleated RBC % 0 Sodium 142 Potassium 4.1 Chloride 104 Carbon Dioxide 29.5 Anion Gap 9 BUN 17 Creatinine 0.7 Estim Creat Clear Calc 78.0 eGFR > 60 BUN/Creatinine Ratio 24 H Glucose 142 H Calculated Osmolality 286 Calcium 8.9 Corrected Calcium 9.6 Phosphorus 2.3 L Magnesium 2.0 Total Bilirubin 0.3 AST 29 ALT 18 Alkaline Phosphatase 64 Total Protein 5.7 Albumin 3.1 L Globulin 2.6 Albumin/Globulin Ratio 1.2 ABG Interpretation ABG results: 12/23/24 05:32 VBG pH 7.36 VBG pCO2 47 VBG pO2 58 VBG Base Excess 0 Quality Measures Quality Measures sepsis Current suspected stage: sepsis Possible source: GI tract/intra-abdominal Blood cultures ordered: yes Antibiotic ordered: Yes Advance care planning discussed with:: patient and child Assessment & Plan Assessment Current Active Medications: Generic Name Dose Route Start Last Admin Trade Name Freq PRN Reason Stop Dose Admin Ascorbic Acid 500 mg 12/27/24 21:00 12/30/24 08:32 Ascorbic Acid 250 Mg Tablet PO 01/26/25 20:59 500 mg BID SAMAN Administration Dextrose 25 ml 12/23/24 15:23 Dextrose 50%-Water Inj 50 Ml Syringe IV 01/22/25 15:22 Q15MIN PRN BG 50-70 responsive npo pt Dextrose 50 ml 12/23/24 15:23 Dextrose 50%-Water Inj 50 Ml Syringe IV 01/22/25 15:22 Q15MIN PRN BG <50 OR BG <70 & pt unresponsive Glucagon 1 mg 12/23/24 15:23 Glucagon Inj 1 Mg Vial IM Q15MIN PRN BG <70, and no IV access Heparin Sodium (Porcine) 5,000 unit 12/30/24 07:30 12/30/24 08:33 Heparin Sod Inj 5000 Unit/Ml Vial SC 01/13/25 07:29 5,000 unit Q12HR SAMAN Administration Insulin Degludec 25 unit 12/30/24 21:00 Insulin Degludec 5 Unit/0.05 Ml (Per 5 Units) SC 01/29/25 20:59 HS SAMAN Insulin Human Lispro 0 unit 12/30/24 11:30 12/30/24 12:09 Insulin Lispro (Admelog) 1 Unit/0.01 Ml Unit SC 01/29/25 11:29 1 unit ACHS SAMAN Administration Protocol Metoprolol Succinate 25 mg 12/29/24 09:00 12/30/24 08:34 Metoprolol Succinate Xl 25 Mg Tabcr PO 01/28/25 08:59 25 mg QDAY SAMAN Administration Ondansetron HCl 4 mg 12/25/24 15:41 Ondansetron Inj 2 Mg/Ml Inj 2 Ml IVP 01/24/25 15:40 Q6HR PRN NAUSEA OR VOMITING Protocol Pantoprazole Sodium 40 mg 12/24/24 09:00 12/27/24 08:11 Pantoprazole Inj 40 Mg Vial IVP 01/23/25 08:59 40 mg On Hold: 12/28/24 07:36 QDAY SAMAN Administration Sacubitril/Valsartan 1 tab 12/30/24 09:00 12/30/24 08:31 Sacubitril 24 Mg/Valsartan 26 Mg Tablet PO 01/29/25 08:59 1 tab BID SAMAN Administration Sennosides 1 tab 12/28/24 07:25 12/30/24 08:31 Senna/Docusate Sod 1 Tab Tablet PO 01/27/25 07:24 1 tab QDAY SAMAN Administration Protocol Zinc Sulfate 220 mg 12/27/24 13:30 12/30/24 08:31 Zinc Sulfate 220 Mg Capsule PO 01/26/25 13:29 220 mg QDAY SAMAN Administration Plan Summary:A 74-year-old female patient with significant past medical history of diabetes mellitus on insulin, fatty liver, hypertension, chronic constipation with bowel and bladder incontinence, heart murmur, was admitted to the hospital after patient was noticed to have multiple episodes of nausea and vomiting that started on 22 December 2024. Reportedly the patient had 2 episodes of vomiting which was nonbilious. Patient was admitted for SBO treatment and presyncope workup found to have EF of 35-40, with severe aortic stenosis. #Presyncope most likely multifactorial secondary to small bowel ischemia, dehydration, and aortic stenosis #New A-fib with RVR likely 2/2 small bowel ischemia #Moderate to severe aortic stenosis #Mitral stenosis and calcification #New onset HFrEF with ejection fraction of 35-40 % Patient reportedly has a history of murmur for many years in the past, came to the ED due to persistent vomiting which resulted in presyncopal episode. Family does not believe she has ever had a cardiac cath and reports within the last year patient was instructed to see a test desk trouble locator for unknown reason but patient refused. She has history of orthopnea, dyspnea on exertion, and lower limb swelling L>R. 12/24/24 Echo showed Mild LVH. Global LV systolic function is moderately decreased. Estimated EF at 35-40 %. Diastolic function could not be assesed due to severe MAC. Normal RV size and systolic function. Severe MAC with severe calcification of mitral valve (posterior > anterior) and aortic valve. Mild to moderate mitral stenosis - Mean PG 5 to 8 mm hg. but area with PHT 2.5 sq cm. Moderate to severe with V max 3.3 m/s, mean PG 23 mm hg But RILEY is 0.5 sq cm. Trace to mild AI. Mostly low flow low gradient severe aortic stenosis given the low EF. CXR showed mild vascular congestion. BNP and troponin were negative 12/26/2024, patient had rapid response after physical therapy tried to work with the patient and she became unresponsive for 15 seconds. Patient regained consciousness immediately. 12/27/2024 patient developed A-fib with RVR. Orthostatics positive. 12/29/2024 Patient Afib has resolved, now sinus rhythem. Most likely stress induced, No need for assisted Eliqus at this time . Plan ? Replete volume as needed keep the patient on strict balance as the patient is volume sensitive due to the severe aortic stenosis and the dehydration secondary to her vomiting. ? Continue metoprolol XL 25 mg QD for GDMT - Continue Entresto tablet instead of Losartan 50 mg is moderate to severe aortic stenosis to decrease afterload as BP tolerates - No Need for Eliquis as the AFIB most likely stress related, Can F/U o/p for possible holter to decide if the patient needs assisted anticoagulation ? Strict ins and out ? Patient may need catheterization for both evaluation of CHF and also for anticipated TAVR procedure outpatient as patient is recovering from abdominal surgery ? Keep patient in semisitting position ? Keep K>4 and Mg>2 at all times #SBO 2/2 #Small bowel ischemia with necrosis, proximal ileum s/p partial small bowel resection 12/25 #Cholecystitis s/p cholecystectmy 12/25 Patient was found to have SBO, her WBC continued to uptrend to 32, patient went under laparotomy by Dr Diallo Patient cleared from surgical standpoint for discharge, ceftriaxone, and Flagyl. #Diabetes mellitus 12/24 A1c 8.4 and per pharmacy chart review, patient is on metformin and insulin at home. Insulin sliding scale #SHERIE resolved most likely secondary to dehydration due to persistent vomiting #Leukocytosis #Hypertension Follow primary team recommendations Thank you for the consultation, please do not hesitate to reach out if you have any question or concern. - Patient's plan and care discussed with my attending, Dr. Hira Kennedy MD Internal Medicine PGY-3
--- NOTE | 2024-12-30 16:29 | PC.NURSE ---
awaiting for insurance authorization for snf .
[2024-12-30] MEDS: INSULIN DEGLUDEC 5 UNIT/0.05 ML (PER 5 UNITS) 25 UNIT SC (20:41)
[2024-12-30] MEDS: ONDANSETRON INJ 2 MG/ML INJ 2 ML 4 MG IVP (20:42)
[2024-12-31] VITALS (11 sets, daily range): BP systolic 133–162; BP diastolic 60–77; PULSE 72–82; RESP 18–96; TEMP 36–36.4; O2SAT 94–100; BMI 12.0
--- NOTE | 2024-12-31 02:52 | PC.NURSE ---
[employer] 12/31/24 [id number]
--- NOTE | 2024-12-31 08:00 | PD.IMPROG ---
Documented by User: Garrett Saenz MD 12/31/24 23:38 Documentation for date of: 12/31/24 Exam Vital Signs Temp Pulse Resp BP Pulse Ox O2 Del Method O2 Flow Rate 97.6 F 76 22 H 139/60 H 94 L Room Air 1 12/31/24 15:55 12/31/24 16:00 12/31/24 15:55 12/31/24 15:55 12/31/24 15:55 12/31/24 15:55 12/28/24 19:33 Objective Labs 12/31/24 07:42 12/31/24 07:42 Labs: Laboratory Results - last 24 hr 12/31/24 07:42 WBC 14.1 H RBC 3.78 L Hgb 11.2 L Hct 35.6 L MCV 94 MCH 29.6 MCHC 31.5 RDW Std Deviation 45.7 Plt Count 267 D Neut % (Auto) 72 Lymph % (Auto) 18 Wilkin % (Auto) 6 Eos % (Auto) 3 Baso % (Auto) 0 Neut # (Auto) 10.1 H Lymph # (Auto) 2.5 Wilkin # (Auto) 0.8 Eos # (Auto) 0.4 Baso # (Auto) 0.0 Immature Gran # (Auto) 0.17 H Absolute Nucleated RBC 0.00 Immature Gran % 1 H Nucleated RBC % 0 Sodium 142 Potassium 4.3 Chloride 105 Carbon Dioxide 29.2 Anion Gap 8 BUN 8 L Creatinine 0.6 Estim Creat Clear Calc 91.0 eGFR > 60 BUN/Creatinine Ratio 13 Glucose 138 H Calculated Osmolality 283 Calcium 9.0 Corrected Calcium 9.7 Phosphorus 2.5 Magnesium 1.8 Total Bilirubin 0.3 AST 50 H ALT 30 Alkaline Phosphatase 68 Total Protein 5.8 Albumin 3.1 L Globulin 2.7 Albumin/Globulin Ratio 1.1 L ABG Interpretation ABG results: 12/23/24 05:32 VBG pH 7.36 VBG pCO2 47 VBG pO2 58 VBG Base Excess 0 Assessment & Plan A&P Narrative Patient is a 74-year-old female patient with significant past medical history of diabetes mellitus on insulin, fatty liver, hypertension, chronic constipation with bowel and bladder incontinence, heart murmur, was admitted to the hospital on 12/23/24 after patient was noticed to have multiple episodes of nausea and vomiting that started on 22 December 2024. Reportedly the patient had 2 episodes of vomiting which was nonbilious. Patient was admitted for SBO treatment and presyncope workup found to have EF of 35-40, with severe aortic stenosis. #Presyncope most likely multifactorial secondary to small bowel ischemia, dehydration, and aortic stenosis #New A-fib with RVR likely 2/2 small bowel ischemia #Moderate to severe aortic stenosis #Mitral stenosis and calcification #New onset HFrEF with ejection fraction of 35-40 % Patient reportedly has a history of murmur for many years in the past, came to the ED due to persistent vomiting which resulted in presyncopal episode. Family does not believe she has ever had a cardiac cath and reports within the last year patient was instructed to see a tennis professional for unknown reason but patient refused. She has history of orthopnea, dyspnea on exertion, and lower limb swelling L>R. 12/24/24 Echo showed Mild LVH. Global LV systolic function is moderately decreased. Estimated EF at 35-40 %. Diastolic function could not be assesed due to severe MAC. Normal RV size and systolic function. Severe MAC with severe calcification of mitral valve (posterior > anterior) and aortic valve. Mild to moderate mitral stenosis - Mean PG 5 to 8 mm hg. but area with PHT 2.5 sq cm. Moderate to severe with V max 3.3 m/s, mean PG 23 mm hg But RILEY is 0.5 sq cm. Trace to mild AI. Mostly low flow low gradient severe aortic stenosis given the low EF. CXR showed mild vascular congestion. BNP and troponin were negative 12/26/2024, patient had rapid response after physical therapy tried to work with the patient and she became unresponsive for 15 seconds. Patient regained consciousness immediately. 12/27/2024 patient developed A-fib with RVR. Orthostatics positive. 12/29/2024 Patient Afib has resolved, now sinus rhythem. Most likely stress induced, No need for superintendent [employer] at this time . Plan: ? Replete volume as needed keep the patient on strict balance as the patient is volume sensitive due to the severe aortic stenosis and the dehydration secondary to her vomiting. ? Continue metoprolol XL 25 mg QD for GDMT - Continue Entresto tablet instead of Losartan 50 mg is moderate to severe aortic stenosis to decrease afterload as BP tolerates - Hold Eliquis as the AFIB most likely stress related, can F/U o/p for possible holter to decide if the patient needs snf anticoagulation ? Strict ins and out ? Patient may need catheterization for both evaluation of CHF and also for anticipated TAVR procedure outpatient as patient is recovering from abdominal surgery ? Keep patient in semisitting position ? Keep K>4 and Mg>2 at all times #SBO 2/2 #Small bowel ischemia with necrosis, proximal ileum s/p partial small bowel resection 12/25 #Cholecystitis s/p cholecystectmy 12/25 Patient was found to have SBO, her WBC continued to uptrend to 32, patient went under laparotomy by Dr Diallo Patient cleared from surgical standpoint for discharge, ceftriaxone, and Flagyl. #Diabetes mellitus 12/24 A1c 8.4 and per pharmacy chart review, patient is on metformin and insulin at home. - Insulin sliding scale #SHERIE resolved most likely secondary to dehydration due to persistent vomiting #Leukocytosis #Hypertension Follow primary team recommendations Thank you for the consultation, please do not hesitate to reach out if you have any question or concern. Patient plan of care was discussed with the attending physician, Dr. Dany Payan, PGY-1 I have personally seen and examined the patient separately on the above date of service and discussed the plan of care with the resident. I reviewed the resident Dr. Rosa Payan consultation progress note and agree with the resident findings and plan in the note above and have also edited the documentation to reflect my findings and plan. Garrett Saenz M.D. Interventional Cardiology Time Spent With Patient Time: Total time spent is greater than 50% in coordination of care (as documented) at patient's floor/unit and/or counseling patient: Documented by User: Rosa Payan DO 12/31/24 21:10 Subjective Subjective Interval history: Patient was seen and assessed at bedside. Was not very conversational this morning. Had no new complaints besides orthopnea, now sleeping at semi-upright angle. Otherwise doing well. Pending discharge to SNF due to insurance issues. Plan to follow up outpatient for further cardiac management. Continues to be medically clear by surgery and primary team. Potassium 4.1, magnesium 2.0. Exam Vital Signs Temp Pulse Resp BP Pulse Ox O2 Del Method O2 Flow Rate 97.6 F 76 22 H 139/60 H 94 L Room Air 1 12/31/24 15:55 12/31/24 16:00 12/31/24 15:55 12/31/24 15:55 12/31/24 15:55 12/31/24 15:55 12/28/24 19:33 Narrative Exam GENERAL: AOx3, no acute distress, obese, sitting up in bed. Forgetful at baseline. HEENT: NC/AT, mucous membranes moist, bilateral sclera anicteric CARDIOVASCULAR: regular rate and rhythm, S1/S2 present, 4/6 harsh systolic murmur best heard L 2nd intercostal space PULMONARY: clear to auscultation bilaterally, no rales/rhonchi/wheezes ABDOMINAL: soft, non-tender, non-distended, no rebound/guarding, bowel sounds present, abdominal binder in place EXTREMITIES: 1+ pitting b/l peripheral edema. SKIN: warm and dry, intact, no rashes NEURO: CN II-XII grossly intact, no focal deficits, alert, following commands Objective Labs 12/31/24 07:42 12/31/24 07:42 Labs: Laboratory Results - last 24 hr 12/31/24 07:42 WBC 14.1 H RBC 3.78 L Hgb 11.2 L Hct 35.6 L MCV 94 MCH 29.6 MCHC 31.5 RDW Std Deviation 45.7 Plt Count 267 D Neut % (Auto) 72 Lymph % (Auto) 18 Wilkin % (Auto) 6 Eos % (Auto) 3 Baso % (Auto) 0 Neut # (Auto) 10.1 H Lymph # (Auto) 2.5 Wilkin # (Auto) 0.8 Eos # (Auto) 0.4 Baso # (Auto) 0.0 Immature Gran # (Auto) 0.17 H Absolute Nucleated RBC 0.00 Immature Gran % 1 H Nucleated RBC % 0 Sodium 142 Potassium 4.3 Chloride 105 Carbon Dioxide 29.2 Anion Gap 8 BUN 8 L Creatinine 0.6 Estim Creat Clear Calc 91.0 eGFR > 60 BUN/Creatinine Ratio 13 Glucose 138 H Calculated Osmolality 283 Calcium 9.0 Corrected Calcium 9.7 Phosphorus 2.5 Magnesium 1.8 Total Bilirubin 0.3 AST 50 H ALT 30 Alkaline Phosphatase 68 Total Protein 5.8 Albumin 3.1 L Globulin 2.7 Albumin/Globulin Ratio 1.1 L ABG Interpretation ABG results: 12/23/24 05:32 VBG pH 7.36 VBG pCO2 47 VBG pO2 58 VBG Base Excess 0 Assessment & Plan A&P Narrative Patient is a 74-year-old female patient with significant past medical history of diabetes mellitus on insulin, fatty liver, hypertension, chronic constipation with bowel and bladder incontinence, heart murmur, was admitted to the hospital on 12/23/24 after patient was noticed to have multiple episodes of nausea and vomiting that started on 22 December 2024. Reportedly the patient had 2 episodes of vomiting which was nonbilious. Patient was admitted for SBO treatment and presyncope workup found to have EF of 35-40, with severe aortic stenosis. #Presyncope most likely multifactorial secondary to small bowel ischemia, dehydration, and aortic stenosis #New A-fib with RVR likely 2/2 small bowel ischemia #Moderate to severe aortic stenosis #Mitral stenosis and calcification #New onset HFrEF with ejection fraction of 35-40 % Patient reportedly has a history of murmur for many years in the past, came to the ED due to persistent vomiting which resulted in presyncopal episode. Family does not believe she has ever had a cardiac cath and reports within the last year patient was instructed to see a tennis professional for unknown reason but patient refused. She has history of orthopnea, dyspnea on exertion, and lower limb swelling L>R. 12/24/24 Echo showed Mild LVH. Global LV systolic function is moderately decreased. Estimated EF at 35-40 %. Diastolic function could not be assesed due to severe MAC. Normal RV size and systolic function. Severe MAC with severe calcification of mitral valve (posterior > anterior) and aortic valve. Mild to moderate mitral stenosis - Mean PG 5 to 8 mm hg. but area with PHT 2.5 sq cm. Moderate to severe with V max 3.3 m/s, mean PG 23 mm hg But RILEY is 0.5 sq cm. Trace to mild AI. Mostly low flow low gradient severe aortic stenosis given the low EF. CXR showed mild vascular congestion. BNP and troponin were negative 12/26/2024, patient had rapid response after physical therapy tried to work with the patient and she became unresponsive for 15 seconds. Patient regained consciousness immediately. 12/27/2024 patient developed A-fib with RVR. Orthostatics positive. 12/29/2024 Patient Afib has resolved, now sinus rhythem. Most likely stress induced, No need for superintendent [employer] at this time . Plan: ? Replete volume as needed keep the patient on strict balance as the patient is volume sensitive due to the severe aortic stenosis and the dehydration secondary to her vomiting. ? Continue metoprolol XL 25 mg QD for GDMT - Continue Entresto tablet instead of Losartan 50 mg is moderate to severe aortic stenosis to decrease afterload as BP tolerates - Hold Eliquis as the AFIB most likely stress related, can F/U o/p for possible holter to decide if the patient needs [employer] anticoagulation ? Strict ins and out ? Patient may need catheterization for both evaluation of CHF and also for anticipated TAVR procedure outpatient as patient is recovering from abdominal surgery ? Keep patient in semisitting position ? Keep K>4 and Mg>2 at all times #SBO 2/2 #Small bowel ischemia with necrosis, proximal ileum s/p partial small bowel resection 12/25 #Cholecystitis s/p cholecystectmy 12/25 Patient was found to have SBO, her WBC continued to uptrend to 32, patient went under laparotomy by Dr Diallo Patient cleared from surgical standpoint for discharge, ceftriaxone, and Flagyl. #Diabetes mellitus 12/24 A1c 8.4 and per pharmacy chart review, patient is on metformin and insulin at home. - Insulin sliding scale #SHERIE resolved most likely secondary to dehydration due to persistent vomiting #Leukocytosis #Hypertension Follow primary team recommendations Thank you for the consultation, please do not hesitate to reach out if you have any question or concern. Patient plan of care was discussed with the attending physician, Dr. Dany Pyaan, PGY-1
[2024-12-31 08:30] LABS: Basophils # (Auto) 0.0 Thou/mm3 (0.0-0.2); Basophils % (Auto) 0 % (0-2.5); Eosinophils # (Auto) 0.4 Thou/mm3 (0.0-0.5); Eosinophils % (Auto) 3 % (0-10); Hematocrit 35.6 % (36.0-46.0); Hemoglobin 11.2 g/dL (12.0-16.0); Immature Granulocytes Auto 0.17 Thou/mm3 (0.00-0.00); Lymphocytes # (Auto) 2.5 Thou/mm3 (1.0-4.8); Lymphocytes % (Auto) 18 % (10-50); Mean Corpuscular HGB Conc 31.5 g/dl (31.0-37.0); Mean Corpuscular Hemoglobin 29.6 pg (25.0-35.0); Mean Corpuscular Volume 94 fL (80-100); Monocytes # (Auto) 0.8 Thou/mm3 (0.0-0.8); Monocytes % (Auto) 6 % (0-12); Neutrophils # (Auto) 10.1 Thou/mm3 (1.8-7.7); Neutrophils % (Auto) 72 % (37-80); Nucleated Red Blood Cell # 0.00 Thou/mm3 (0.00-0.00); Nucleated Red Blood Cell % 0 /100 WBC (0); Platelet Count 267 Thou/mm3 (140-440); RDW Standard Deviation 45.7 fL (36.4-46.3); Red Blood Count 3.78 Miln/mm3 (4.00-5.20); White Blood Count 14.1 Thou/mm3 (3.6-11.0)
[2024-12-31] MEDS: ZINC SULFATE 220 MG CAPSULE PO (08:38)
[2024-12-31] MEDS: METOPROLOL SUCCINATE XL 25 MG TABCR PO (08:38)
[2024-12-31] MEDS: ASCORBIC ACID 250 MG TABLET 500 MG PO ×2 (08:38→20:04)
[2024-12-31 08:40] LABS: Alanine Aminotransferase 30 U/L (10-49); Albumin, Serum 3.1 gm/dL (3.4-4.8); Albumin/Globulin Ratio 1.1 (1.2-2.2); Alkaline Phosphatase 68 U/L (46-116); Anion Gap 8 (7-16); Aspartate Amino Transferase 50 U/L (0-34); BUN/Creatinine Ratio 13 Ratio (12-20); Bilirubin,Total 0.3 mg/dL (0.3-1.2); Blood Urea Nitrogen 8 mg/dL (9-23); Calcium 9.0 mg/dL (8.3-10.6); Calcium (Corrected) 9.7 mg/dL (8.5-10.1); Carbon Dioxide 29.2 mMol/L (20.0-31.0); Chloride 105 mMol/L (98-107); Creatinine (Component) 0.6 mg/dL (0.6-1.3); Estimated Creatinine Clearance 91.0 mL/min (>60); Globulin 2.7 gm/dL (2.3-3.5); Glucose 138 mg/dL (74-106); Magnesium 1.8 mg/dL (1.6-2.6); Osmolality,Calculated 283 (275-295); Phosphorous 2.5 mg/dL (2.4-5.1); Potassium 4.3 mMol/L (3.4-5.1); Sodium 142 mMol/L (136-145); Total Protein 5.8 gm/dL (5.7-8.2); eGFR > 60 See Note
[2024-12-31] MEDS: HEPARIN SOD INJ 5000 UNIT/ML VIAL SC ×2 (08:40→20:03)
[2024-12-31] MEDS: INSULIN LISPRO (AdmeLOG) 1 UNIT/0.01 ML UNIT SC ×3 (11:59→20:03)
--- NOTE | 2024-12-31 13:42 | ESDS_ITS ---
<Statement entered by Elba Mora MD - 01/09/25 08:16> I reviewed above note and agree with findings and plans. I have also personally examined the patient with medicine team and went over assessment and plan with medical team including partner marketing intern and resident physician. Planned Discharge Date 12/31/24 DS: Providers Provider Date of admission: 12/23/24 17:00 Primary care physician: Rob Vanegas MD Admitting Provider: Logan Girard DO Attending Provider on Admission: Logan Girard DO Consults: 12/23/24 22:46 Referral Physical Therapy Routine Comment: Physician Instructions: [facility] Referral - Knowledge Deficit Routine Comment: Positive screening for knowledge deficit needs. 12/25/24 08:28 Consult to Cardiology Routine Comment: Aortic stenosis and HFrEF Consulting Provider: Garrett Saenz 12/25/24 21:06 Consult to General Surgery Routine Comment: Consulting Provider: Judah Diallo 12/30/24 13:37 Referral Wound Care Routine Comment: Attending Provider on DC: Flako Gregory DO Discharging Provider: Flako Gregory DO DS: Diagnosis Problem List Completed Was Problem List Reviewed/Reconciled?: Yes Hospital Course Hospital Course Hospital course: Summary: 74-year-old female with significant past medical history of hypertension, diabetes mellitus, insulin-dependent, possible dementia [not officially diagnosed], fatty liver, bowel and bladder incontinence, chronic constipation was brought to the hospital with chief complaints of nausea, vomitings and presyncopal like episode. Patient was diagnosed with small bowel obstruction. Received partial small bowel resection with cholecystectomy for cholecystitis. Patient received series of antibiotics. Became stable and was discharged. ED course: - Vitals were stable at the time of admission - Labs at the time of admission were significant for WBC 26.8, chloride 97, creatinine 1.5, glucose 420, lactic 3.7, phosphorus 5.3, magnesium 1.5. - EKG done at the time of admission showed normal sinus rhythm with no acute ST and T wave changes - Chest x-ray did show mild vascular congestion - Abdomen/pelvis CT showed extensive mitral valvular calcification, irregular liver contour, mild ascites, colonic diverticulosis, abnormal fluid distended small bowel loops with wall thickening suggestive of early small bowel obstruction. Basal areas of lungs visualized on CT chest showed bilateral patchy opacities. - Cervical spine CT and head CT did not show any acute fracture. - Patient was admitted in view of suspected small bowel obstruction and presyncopal like episode. Hospital Course: On the day of admission patient was placed on NG tube with IV fluids. Patient had a presyncopal episode so echo was ordered and found the new onset of HFrEF with ejection fraction 35 to 40%. With severe mitral annulus valvular calcification. Small bowel series showed small bowel obstruction. Patient was put on ceftriaxone 2 g and metronidazole 500 mg every 8 hours with IV fluid lactated Ringer at 75 cc/h. Patient received partial small bowel resection and cholecystectomy on 12/25/2024. Patient also had prerenal SHERIE likely due to vomiting at the time of admission but IV fluids had to be held due to HFrEF. Patient has become stabilized NG tube was removed on 12/27. And patient advanced diet. Given her stability antibiotics has also been discontinued. Patient will was slowly started to resume on her GDMT treatment with metoprolol succinate 25 mg daily and Entresto 24/26 half tablet twice daily. Per cardiology it was recommended patient receive TAVR procedure and catheterization for her CHF and valve calcification in outpatient setting. Patient has been discharged to SNF. Instructions: Please take Entresto 1 tablet twice a day for heart failure with reduced ejection fraction Please take metoprolol succinate 25 mg tablet by mouth once a day for atrial fibrillation and heart failure with reduced ejection fraction Please continue to take vitamin C, zinc for better wound healing Take docusate 100 mg capsule twice a day for constipation Please take Greenleaf 5?325 for pain 7?10 every 6 hours as needed Please follow-up with tafe lecturer Dr. Saenz for valvular heart disease and Holter monitoring for atrial fibrillation Please follow-up with your PCP within 1 week of discharge or follow-up at the [facility] [address] [place] [address] If your symptoms worsen or if you develop new chest pain, shortness of breath, severe abdominal pain or bleeding - please come back to the ED immediately. Stable to discharge to SNF # SBO, resolved # s/p partial small bowel resection 12/25 # Small bowel ischemia, with necrosis, proximal ileum # s/p cholecystectomy 12/25 # Cholecystitis # New onset HFrEF, EF 35-40% # Severe mitral annulus valvular calcification, incidental finding # New onset atrial fibrilation with RVR, resolved # SHERIE, likely prerenal, improving # Electrolyte derangement # Presyncopal episode #? Fall # Diabetes mellitus, insulin-dependent # Lactic acidosis, resolved # Hypomagnesemia, resolved # Leukocytosis, improving # Bilateral opacities in the basal areas of the lung, incidental finding # Cirrhosis with mild ascites Assessment and plan discussed with my attending physician Dr. Morgan Gregory (PGY-1)- Internal medicine resident Time Spent with Patient Time attestation: Total time spent providing and/or coordinating discharge services: Time spent: Greater than 30 minutes Exam Vital Signs Temp Pulse Resp BP Pulse Ox O2 Del Method O2 Flow Rate 97.4 F 74 26 H 133/68 H 100 Room Air 1 12/31/24 12:00 12/31/24 12:00 12/31/24 12:00 12/31/24 12:00 12/31/24 12:00 12/31/24 12:00 12/28/24 19:33 Narrative Exam General: Alert, no acute distress. Skin: Warm, dry, intact. Head: Normocephalic, atraumatic. Eye: Normal conjunctiva, PERRL. Cardiovascular: Regular rate and rhythm, loud systolic murmur best heard in aortic/pulmonic regions, +S1/S2. Respiratory: Lungs are clear to auscultation, respirations unlabored, no crackles, no wheezing. Gastrointestinal: Soft, nontender, non-distended. Extremities:no cyanosis, no clubbing. Neuro: No focal deficits observed. Conversant, moving all extremities. No overt cerebellar signs/incoordination. Psychiatric: Cooperative, appropriate affect. Discharge Plan Plan Patient Disposition: [facility]fer [facility] (SNF) Patient condition on transfer: Stable Care Plan Goals: Please take Entresto 1 tablet twice a day for heart failure with reduced ejection fraction Please take metoprolol succinate 25 mg tablet by mouth once a day for atrial fibrillation and heart failure with reduced ejection fraction Please continue to take vitamin C, zinc for better wound healing Take docusate 100 mg capsule twice a day for constipation Please take Greenleaf 5?325 for pain 7?10 every 6 hours as needed Please follow-up with tafe lecturer Dr. Saenz for valvular heart disease and Holter monitoring for atrial fibrillation Please follow-up with your PCP within 1 week of discharge or follow-up at the [facility] [address] [place] [address] If your symptoms worsen or if you develop new chest pain, shortness of breath, severe abdominal pain or bleeding - please come back to the ED immediately. Prescriptions/Referrals Prescriptions/Med Rec: New ascorbic acid (vitamin C) [Vitamin C] 250 mg Tablet 500 mg PO BID Qty: 60 0RF zinc sulfate 50 mg zinc (220 mg) Capsule 220 mg PO QDAY Qty: 30 0RF docusate sodium [Colace] 100 mg capsule 100 mg PO BID Qty: 40 0RF hydrocodone-acetaminophen 5-325 mg tablet 1 tab PO Q6H MDD 4 PRN (Reason: pain (scale score 7-10)) Qty: 20 0RF sacubitril-valsartan 24-26 mg Tablet 1 tab PO BID 30 Days Qty: 60 0RF metoprolol succinate 25 mg Tablet Extended Release 24 Hr 25 mg PO QDAY 30 Days Qty: 30 0RF Continued insulin glargine [Lantus Solostar U-100 Insulin] 100 unit/mL (3 mL) insulin pen 42 unit SUBCUT DAILY Patient Comments: INJECT 42 UNITS SUBCUTANEOUS DAILY (DME) Dexcom G7 Sensor Device Patient Comments: ADMINISTER 1 ITEM MISCELLANEOUS EVERY 10 DAYS metformin 1,000 mg tablet 1,000 mg PO BID Patient Comments: TAKE 1 TABLET BY MOUTH TWICE A DAY atorvastatin 20 mg tablet 20 mg PO DAILY Patient Comments: TAKE 1 TABLET BY MOUTH EVERY DAY cholecalciferol (vitamin D3) [Vitamin D3] 50 mcg (2,000 unit) tablet 2,000 unit PO BID Discontinued losartan-hydrochlorothiazide 50-12.5 mg tablet 1 tab PO DAILY Patient Comments: TAKE 1 TABLET BY MOUTH EVERY DAY Referrals: Garrett Saenz MD [Physician, Cardiology] Rob Vanegas MD [Primary Care Provider, Internal Medicine] Patient/Caregiver Discharge Instructions Discharge Activity: activity as tolerated Print Language: French Activity Restrictions/Additional Instructions: May shower. No lifting, pulling, pushing or straining for 8 weeks. Wear abdominal binder at all times. May take laxatives if no bowel movement in 2 days. Follow-up with Dr Diallo in 2 weeks, please call [phone] for an appointment. Stand Alone Forms: [employer] Award Info., Patient Portal Info Letter Discharge Order Discharge Orders: Discharge (Routine); Ordered 12/31/24 Ordered By: Paulino Blackwood Quality Discharge Quality Measures VTE prophylaxis
--- NOTE | 2024-12-31 15:18 | PC.SS ---
SHOW JUMPING INSTRUCTOR reached out to [facility] staff, José Antonio ; to obtain update on authorization status. SHOW JUMPING INSTRUCTOR informed that peer to peer discussion to be initiated. Awaiting assignment to [facility] outbound team. SHOW JUMPING INSTRUCTOR provided contact information for patient's attending physician. Outcome is pending.
--- NOTE | 2024-12-31 15:33 | PC.SS ---
SUPERVISORY CBP OFFICER provided update to patient and spouse on authorization status.
[2024-12-31] MEDS: ACETAMINOPHEN 325 MG TABLET 650 MG PO (17:53)
[2024-12-31] MEDS: HYDROcodone/APAP 5/325 TABLET 1 TAB PO (18:36)
[2024-12-31] MEDS: INSULIN DEGLUDEC 5 UNIT/0.05 ML (PER 5 UNITS) 25 UNIT SC (20:03)
[2025-01-01] VITALS: BP 129/96; PULSE 69; PULSE 73; RESP 18; TEMP 36.1; O2SAT 97
[2025-01-01 04:00] VITALS: BP 145/67; PULSE 77; PULSE 79; RESP 15; TEMP 36.1; O2SAT 92
[2025-01-01 06:37] VITALS: PULSE 75; RESP 22; RESP 96
[2025-01-01 08:00] VITALS: BP 132/54; PULSE 80; PULSE 82; RESP 17; TEMP 36.4; O2SAT 96
[2025-01-01 08:17] LABS: Basophils # (Auto) 0.0 Thou/mm3 (0.0-0.2); Basophils % (Auto) 0 % (0-2.5); Eosinophils # (Auto) 0.4 Thou/mm3 (0.0-0.5); Eosinophils % (Auto) 2 % (0-10); Hematocrit 34.3 % (36.0-46.0); Hemoglobin 10.8 g/dL (12.0-16.0); Immature Granulocytes Auto 0.20 Thou/mm3 (0.00-0.00); Lymphocytes # (Auto) 2.3 Thou/mm3 (1.0-4.8); Lymphocytes % (Auto) 13 % (10-50); Mean Corpuscular HGB Conc 31.5 g/dl (31.0-37.0); Mean Corpuscular Hemoglobin 29.8 pg (25.0-35.0); Mean Corpuscular Volume 95 fL (80-100); Monocytes # (Auto) 1.0 Thou/mm3 (0.0-0.8); Monocytes % (Auto) 5 % (0-12); Neutrophils # (Auto) 14.0 Thou/mm3 (1.8-7.7); Neutrophils % (Auto) 78 % (37-80); Nucleated Red Blood Cell # 0.00 Thou/mm3 (0.00-0.00); Nucleated Red Blood Cell % 0 /100 WBC (0); Platelet Count 395 Thou/mm3 (140-440); RDW Standard Deviation 46.1 fL (36.4-46.3); Red Blood Count 3.62 Miln/mm3 (4.00-5.20); White Blood Count 17.9 Thou/mm3 (3.6-11.0)
[2025-01-01 08:34] LABS: Anion Gap 5 (7-16); BUN/Creatinine Ratio 12 Ratio (12-20); Blood Urea Nitrogen 7 mg/dL (9-23); Calcium 8.6 mg/dL (8.3-10.6); Carbon Dioxide 29.6 mMol/L (20.0-31.0); Chloride 105 mMol/L (98-107); Creatinine (Component) 0.6 mg/dL (0.6-1.3); Estimated Creatinine Clearance 91.0 mL/min (>60); Glucose 141 mg/dL (74-106); Magnesium 1.5 mg/dL (1.6-2.6); Osmolality,Calculated 279 (275-295); Potassium 3.8 mMol/L (3.4-5.1); Sodium 140 mMol/L (136-145); eGFR > 60 See Note
--- NOTE | 2025-01-01 08:40 | ESPR_ITS ---
Documentation for date of: 01/01/25 Subjective Subjective Interval history: Patient was seen and assessed at bedside. Patient's daughter at bedside. No new complaints this morning. Denies chest pain, shortness of breath, or palpitations. Able to sleep well last night. Sinus rhythm with occassional bigemini on telemetry. Blood pressure this morning 145/67, systolics ranging in 130s to 140s overnight. Elevated to 171/87 at noon. Heart rate 70 to 80s. Net +600 cc for the past 24 hours. Potassium 3.8, magnesium 1.5, creatinine 0.6, recommend repleting accordingly. Pending peer to peer for insurance approval to discharge to rehab. Exam Vital Signs Temp Pulse Resp BP Pulse Ox O2 Del Method O2 Flow Rate 96.9 F 75 22 H 145/67 H 92 L Room Air 1 01/01/25 04:00 01/01/25 06:37 01/01/25 06:37 01/01/25 04:00 01/01/25 04:00 01/01/25 04:00 12/28/24 19:33 Narrative Exam GENERAL: AOx3, no acute distress, obese, sitting up in bed. Forgetful at baseline. Pleasant elderly lady. HEENT: NC/AT, mucous membranes moist, bilateral sclera anicteric CARDIOVASCULAR: regular rate and rhythm, S1/S2 present, 4/6 harsh systolic murmur best heard L 2nd intercostal space PULMONARY: clear to auscultation bilaterally, no rales/rhonchi/wheezes ABDOMINAL: soft, non-tender, non-distended, no rebound/guarding, bowel sounds present, abdominal binder in place EXTREMITIES: 1+ pitting b/l peripheral edema below ankles. SKIN: warm and dry, intact, no rashes NEURO: CN II-XII grossly intact, no focal deficits, alert, following commands Objective Labs 01/01/25 08:02 01/01/25 08:02 Labs: Laboratory Results - last 24 hr 12/31/24 01/01/25 07:42 08:02 Sodium 142 140 Potassium 4.3 3.8 D Chloride 105 105 Carbon Dioxide 29.2 29.6 Anion Gap 8 5 L BUN 8 L 7 L Creatinine 0.6 0.6 Estim Creat Clear Calc 91.0 91.0 eGFR > 60 > 60 BUN/Creatinine Ratio 13 12 Glucose 138 H 141 H Calculated Osmolality 283 279 Calcium 9.0 8.6 Corrected Calcium 9.7 Phosphorus 2.5 Magnesium 1.8 1.5 L Total Bilirubin 0.3 AST 50 H ALT 30 Alkaline Phosphatase 68 Total Protein 5.8 Albumin 3.1 L Globulin 2.7 Albumin/Globulin Ratio 1.1 L ABG Interpretation ABG results: 12/23/24 05:32 VBG pH 7.36 VBG pCO2 47 VBG pO2 58 VBG Base Excess 0 Quality Measures Quality Measures VTE prophylaxis Advance care planning discussed with:: patient Assessment & Plan Assessment Current Active Medications: Generic Name Dose Route Start Last Admin Trade Name Freq PRN Reason Stop Dose Admin Ascorbic Acid 500 mg 12/27/24 21:00 12/31/24 20:04 Ascorbic Acid 250 Mg Tablet PO 01/26/25 20:59 500 mg BID SAMAN Administration Dextrose 25 ml 12/23/24 15:23 Dextrose 50%-Water Inj 50 Ml Syringe IV 01/22/25 15:22 Q15MIN PRN BG 50-70 responsive npo pt Dextrose 50 ml 12/23/24 15:23 Dextrose 50%-Water Inj 50 Ml Syringe IV 01/22/25 15:22 Q15MIN PRN BG <50 OR BG <70 & pt unresponsive Glucagon 1 mg 12/23/24 15:23 Glucagon Inj 1 Mg Vial IM Q15MIN PRN BG <70, and no IV access Heparin Sodium (Porcine) 5,000 unit 12/30/24 07:30 12/31/24 20:03 Heparin Sod Inj 5000 Unit/Ml Vial SC 01/13/25 07:29 5,000 unit Q12HR SAMAN Administration Insulin Degludec 25 unit 12/30/24 21:00 12/31/24 20:03 Insulin Degludec 5 Unit/0.05 Ml (Per 5 Units) SC 01/29/25 20:59 25 unit HS SAMAN Administration Insulin Human Lispro 0 unit 12/30/24 11:30 01/01/25 07:43 Insulin Lispro (Admelog) 1 Unit/0.01 Ml Unit SC 01/29/25 11:29 Not Given ACHS [facility] Protocol Metoprolol Succinate 25 mg 12/29/24 09:00 12/31/24 08:38 Metoprolol Succinate Xl 25 Mg Tabcr PO 01/28/25 08:59 25 mg QDAY SAMAN Administration Ondansetron HCl 4 mg 12/25/24 15:41 12/30/24 20:42 Ondansetron Inj 2 Mg/Ml Inj 2 Ml IVP 01/24/25 15:40 4 mg Q6HR PRN Administration NAUSEA OR VOMITING Protocol Pantoprazole Sodium 40 mg 12/24/24 09:00 12/27/24 08:11 Pantoprazole Inj 40 Mg Vial IVP 01/23/25 08:59 40 mg On Hold: 12/28/24 07:36 QDAY SAMAN Administration Sacubitril/Valsartan 1 tab 12/30/24 09:00 12/31/24 20:04 Sacubitril 24 Mg/Valsartan 26 Mg Tablet PO 01/29/25 08:59 1 tab BID SAMAN Administration Sennosides 1 tab 12/28/24 07:25 12/31/24 08:39 Senna/Docusate Sod 1 Tab Tablet PO 01/27/25 07:24 Not Given QDAY SAMAN Protocol Zinc Sulfate 220 mg 12/27/24 13:30 12/31/24 08:38 Zinc Sulfate 220 Mg Capsule PO 01/26/25 13:29 220 mg QDAY SAMAN Administration Plan Patient is a 74-year-old female patient with significant past medical history of diabetes mellitus on insulin, fatty liver, hypertension, chronic constipation with bowel and bladder incontinence, heart murmur, was admitted to the hospital on 12/23/24 after patient was noticed to have multiple episodes of nausea and vomiting that started on 22 December 2024. Reportedly the patient had 2 episodes of vomiting which was nonbilious. Patient was admitted for SBO treatment and presyncope workup found to have EF of 35-40, with severe aortic stenosis. #Presyncope most likely multifactorial secondary to small bowel ischemia, dehydration, and aortic stenosis #New A-fib with RVR likely 2/2 small bowel ischemia #Moderate to severe aortic stenosis #Mitral stenosis and calcification #New onset HFrEF with ejection fraction of 35-40 % Patient reportedly has a history of murmur for many years in the past, came to the ED due to persistent vomiting which resulted in presyncopal episode. Family does not believe she has ever had a cardiac cath and reports within the last year patient was instructed to see a fish warden for unknown reason but patient refused. She has history of orthopnea, dyspnea on exertion, and lower limb swelling L>R. 12/24/24 Echo showed Mild LVH. Global LV systolic function is moderately decreased. Estimated EF at 35-40 %. Diastolic function could not be assesed due to severe MAC. Normal RV size and systolic function. Severe MAC with severe calcification of mitral valve (posterior > anterior) and aortic valve. Mild to moderate mitral stenosis - Mean PG 5 to 8 mm hg. but area with PHT 2.5 sq cm. Moderate to severe with V max 3.3 m/s, mean PG 23 mm hg But RILEY is 0.5 sq cm. Trace to mild AI. Mostly low flow low gradient severe aortic stenosis given the low EF. CXR showed mild vascular congestion. BNP and troponin were negative 12/26/2024, patient had rapid response after physical therapy tried to work with the patient and she became unresponsive for 15 seconds. Patient regained consciousness immediately. 12/27/2024 patient developed A-fib with RVR. Orthostatics positive. 12/29/2024 Patient Afib has resolved, now sinus rhythem. Most likely stress induced, No need for assisted Eliqus at this time . Plan: ? Replete volume as needed keep the patient on strict balance as the patient is volume sensitive due to the severe aortic stenosis and the dehydration secondary to her vomiting. ? In setting of elevated BP today, increase metoprolol XL 50 mg QD for GDMT and start spiranolactone 12.5 mg daily - Continue Entresto 1 tablet BID instead of Losartan 50 mg is moderate to severe aortic stenosis to decrease afterload as BP tolerates ?Consider starting other GDMT such as SGLT2 outpatient - Hold Eliquis as the AFIB most likely stress related, can F/U o/p for possible holter to decide if the patient needs adjunct faculty for medical terminology anticoagulation ? Strict ins and out ? Patient may need catheterization for both evaluation of CHF and also for anticipated TAVR procedure outpatient as patient is recovering from abdominal surgery ? Keep patient in semisitting position ? Keep K>4 and Mg>2 at all times #Hypertension On admission, presented with BP of 129/69. At home was taking carvedilol 3.125 mg BID and losartan-HCTZ 50/12.5 mg daily. - Metoprolol, Entresto, and spiranolactone as above - CTM BP #SBO 2/2 #Small bowel ischemia with necrosis, proximal ileum s/p partial small bowel resection 12/25 #Cholecystitis s/p cholecystectmy 12/25 Patient was found to have SBO, her WBC continued to uptrend to 32, patient went under laparotomy by Dr Diallo Patient cleared from surgical standpoint for discharge. Completed course of ceftriaxone and Flagyl. #Diabetes mellitus 12/24 A1c 8.4 and per pharmacy chart review, patient is on metformin and insulin at home. - Insulin sliding scale #SHERIE resolved Most likely secondary to dehydration due to persistent vomiting #Leukocytosis Follow primary team recommendations Thank you for the consultation, please do not hesitate to reach out if you have any question or concern. Patient plan of care was discussed with the attending physician, Dr. Dany Payan, PGY-1 Attending Provider Attestation/Addendum I have personally seen and examined the patient separately on the above date of service and discussed the plan of care with the resident. I reviewed the resident Dr. Rosa Payan consultation progress note and agree with the resident findings and plan in the note above and have also edited the documentation to reflect my findings and plan. Garrett Saenz M.D. Interventional Cardiology
--- NOTE | 2025-01-01 08:41 | ESPR_ITS ---
<Statement entered by Elba Mora MD - 01/09/25 08:17> I reviewed above note and agree with findings and plans. I have also personally examined the patient with medicine team and went over assessment and plan with medical team including social media intern and resident physician. Documentation for date of: 01/01/25 Subjective Subjective Interval history: PATIENT WAS DISCHAGED ON 01/01/2025 Patient was medically cleared for discharge yesterday. However, discharge was delayed due to initial insurance denial for SNF placement. Spoke with insurance today, and they indicated that authorization for SNF transfer will likely be approved. No Overnight events. Patient is sitting upright in bed, alert and oriented x3, conversing clearly, with no complaints reported. Pending discharge to SNF today. Exam Vital Signs Temp Pulse Resp BP Pulse Ox O2 Del Method O2 Flow Rate 96.9 F 75 22 H 145/67 H 92 L Room Air 1 01/01/25 04:00 01/01/25 06:37 01/01/25 06:37 01/01/25 04:00 01/01/25 04:00 01/01/25 04:00 12/28/24 19:33 Narrative Exam General: Alert, no acute distress. Skin: Warm, dry, intact. Head: Normocephalic, atraumatic. Eye: Normal conjunctiva, PERRL. Cardiovascular: Regular rate and rhythm, loud systolic murmur best heard in aortic/pulmonic regions, +S1/S2. Respiratory: Lungs are clear to auscultation, respirations unlabored, no crackles, no wheezing. Gastrointestinal: Soft, nontender, non-distended. Extremities:no cyanosis, no clubbing. Neuro: No focal deficits observed. Conversant, moving all extremities. No overt cerebellar signs/incoordination. Psychiatric: Cooperative, appropriate affect. Objective Labs 01/01/25 08:02 01/01/25 08:02 Labs: Laboratory Results - last 24 hr 01/01/25 08:02 Sodium 140 Potassium 3.8 D Chloride 105 Carbon Dioxide 29.6 Anion Gap 5 L BUN 7 L Creatinine 0.6 Estim Creat Clear Calc 91.0 eGFR > 60 BUN/Creatinine Ratio 12 Glucose 141 H Calculated Osmolality 279 Calcium 8.6 Magnesium 1.5 L ABG Interpretation ABG results: 12/23/24 05:32 VBG pH 7.36 VBG pCO2 47 VBG pO2 58 VBG Base Excess 0 Quality Measures Quality Measures VTE prophylaxis Advance care planning discussed with:: patient and other Assessment & Plan Assessment Current Active Medications: Generic Name Dose Route Start Last Admin Trade Name Freq PRN Reason Stop Dose Admin Ascorbic Acid 500 mg 12/27/24 21:00 12/31/24 20:04 Ascorbic Acid 250 Mg Tablet PO 01/26/25 20:59 500 mg BID SAMAN Administration Dextrose 25 ml 12/23/24 15:23 Dextrose 50%-Water Inj 50 Ml Syringe IV 01/22/25 15:22 Q15MIN PRN BG 50-70 responsive npo pt Dextrose 50 ml 12/23/24 15:23 Dextrose 50%-Water Inj 50 Ml Syringe IV 01/22/25 15:22 Q15MIN PRN BG <50 OR BG <70 & pt unresponsive Glucagon 1 mg 12/23/24 15:23 Glucagon Inj 1 Mg Vial IM Q15MIN PRN BG <70, and no IV access Heparin Sodium (Porcine) 5,000 unit 12/30/24 07:30 12/31/24 20:03 Heparin Sod Inj 5000 Unit/Ml Vial SC 01/13/25 07:29 5,000 unit Q12HR SAMAN Administration Insulin Degludec 25 unit 12/30/24 21:00 12/31/24 20:03 Insulin Degludec 5 Unit/0.05 Ml (Per 5 Units) SC 01/29/25 20:59 25 unit HS SAMAN Administration Insulin Human Lispro 0 unit 12/30/24 11:30 01/01/25 07:43 Insulin Lispro (Admelog) 1 Unit/0.01 Ml Unit SC 01/29/25 11:29 Not Given ACHS [facility] Protocol Metoprolol Succinate 25 mg 12/29/24 09:00 12/31/24 08:38 Metoprolol Succinate Xl 25 Mg Tabcr PO 01/28/25 08:59 25 mg QDAY SAMAN Administration Ondansetron HCl 4 mg 12/25/24 15:41 12/30/24 20:42 Ondansetron Inj 2 Mg/Ml Inj 2 Ml IVP 01/24/25 15:40 4 mg Q6HR PRN Administration NAUSEA OR VOMITING Protocol Pantoprazole Sodium 40 mg 12/24/24 09:00 12/27/24 08:11 Pantoprazole Inj 40 Mg Vial IVP 01/23/25 08:59 40 mg On Hold: 12/28/24 07:36 QDAY SAMAN Administration Sacubitril/Valsartan 1 tab 12/30/24 09:00 12/31/24 20:04 Sacubitril 24 Mg/Valsartan 26 Mg Tablet PO 01/29/25 08:59 1 tab BID SAMAN Administration Sennosides 1 tab 12/28/24 07:25 12/31/24 08:39 Senna/Docusate Sod 1 Tab Tablet PO 01/27/25 07:24 Not Given QDAY [facility] Protocol Zinc Sulfate 220 mg 12/27/24 13:30 12/31/24 08:38 Zinc Sulfate 220 Mg Capsule PO 01/26/25 13:29 220 mg QDAY SAMAN Administration Plan 74-year-old female with significant past medical history of hypertension, diabetes mellitus, insulin-dependent, possible dementia [not officially diagnosed], fatty liver, bowel and bladder incontinence, chronic constipation was brought to the hospital with chief complaints of nausea, vomitings and presyncopal like episode. Patient was medically cleared for discharge yesterday. However, discharge was delayed due to initial insurance denial for SNF placement. Spoke with insurance today, and they indicated that authorization for SNF transfer will likely be approved. No Overnight events. Patient is sitting upright in bed, alert and oriented x3, conversing clearly, with no complaints reported. Pending discharge to SNF today. # SBO, resolved # s/p partial small bowel resection 12/25 # Small bowel ischemia, with necrosis, proximal ileum # s/p cholecystectomy 12/25 # Cholecystitis # New onset HFrEF, EF 35-40% # Severe mitral annulus valvular calcification, incidental finding # New onset atrial fibrilation with RVR, resolved # SHERIE, likely prerenal, improving # Electrolyte derangement # Presyncopal episode #? Fall # Diabetes mellitus, insulin-dependent # Lactic acidosis, resolved # Hypomagnesemia, resolved # Leukocytosis, improving # Bilateral opacities in the basal areas of the lung, incidental finding # Cirrhosis with mild ascites Assessment and plan discussed with my attending physician Dr. Morgan Gregory (PGY-1) - Internal medicine resident
[2025-01-01 08:59] VITALS: BP 132/54; PULSE 82
[2025-01-01] MEDS: HEPARIN SOD INJ 5000 UNIT/ML VIAL SC (08:59)
[2025-01-01] MEDS: METOPROLOL SUCCINATE XL 25 MG TABCR PO (08:59)
[2025-01-01] MEDS: ASCORBIC ACID 250 MG TABLET 500 MG PO (08:59)
[2025-01-01] MEDS: ZINC SULFATE 220 MG CAPSULE PO (08:59)
--- NOTE | 2025-01-01 09:56 | PC.SS ---
Addendum entered by Adri Ibrahim 01/01/25 11:03: SS has met with pt, her sister, and dtrAnnie who are aware insurance has approved SNF. Pt does not have coverage for transportation. Dtr states she will pay privately. SS spoke to Ayla from [employer] to coordinate transportation to [facility] and estimated roe is $200.00. Family has agreed to pay. SS provided Ayla from [employer] with Annie's phone to recive payment. SS has received call from Ayla from [employer] payment has been received and transport time to [facility] is set for 3pm. Pt is aware. Dtr is aware. Oly from [facility] is aware. Bedside nurse, Ally is aware. Original Note: SS has called patient's health [phone] and spoke to Vonda Morales who explained peer to peer requires to be initiated and expires today at 10am. Carpet Yarn Winder Operator, Vonda Morales provided number for peer to peer [phone] option #5. provided Physician Resident, Dr. Blackwood with peer to peer #. SS communicated with Dr. Blackwood who explained peer to peer was completed and pt possibly will be approved for SNF. SS has spoken to Oly at [facility] who is aware. SS met with pt, dtr, and sister, Concetta to inform them peer to peer has been required.
[2025-01-01 12:00] VITALS: BP 171/87; PULSE 80; PULSE 84; RESP 19; TEMP 36.3; O2SAT 95
[2025-01-01] MEDS: INSULIN LISPRO (AdmeLOG) 1 UNIT/0.01 ML UNIT SC (12:36)
--- NOTE | 2025-01-01 13:13 | PC.NURSE ---
report given to SNF nurse Diana at [facility]
== END 2025-01-01 15:15 | disposition skilled nursing facility (03) | DRG 329 ==
LOC: SERX 07:50 → SERHOLD 17:47 → S3NX 12-24 06:08 → S2NX 12-26 21:13
PROVIDERS: Surgery; Admitting Provider Student in an Organized Health Care Education/Training Program; Emergency Provider Emergency Medicine; PCP Internal Medicine; Visit Provider Internal Medicine
PROC: 0FT40ZZ Resection of Gallbladder, Open Approach (ICD-10-PCS; CPT 49000; principal; 2024-12-25 15:45)
DX: K56.50 Intestinal adhesions [bands], unspecified as to partial versus complete obstruction (principal); K55.029 Acute infarction of small intestine, extent unspecified; E11.52 Type 2 diabetes mellitus with diabetic peripheral angiopathy with gangrene; E87.20 Acidosis, unspecified; N17.9 Acute kidney failure, unspecified; R18.8 Other ascites; I50.22 Chronic systolic (congestive) heart failure; G93.40 Encephalopathy, unspecified; F03.90 Unspecified dementia, unspecified severity, without behavioral disturbance, psychotic disturbance, mood disturbance, and anxiety; Z79.4 Long term (current) use of insulin; W19.XXXA Unspecified fall, initial encounter; E83.42 Hypomagnesemia; D72.829 Elevated white blood cell count, unspecified; K74.60 Unspecified cirrhosis of liver; I48.91 Unspecified atrial fibrillation; K82.8 Other specified diseases of gallbladder; I11.0 Hypertensive heart disease with heart failure; I95.1 Orthostatic hypotension; R32 Unspecified urinary incontinence; K57.30 Diverticulosis of large intestine without perforation or abscess without bleeding; I35.0 Nonrheumatic aortic (valve) stenosis; K81.9 Cholecystitis, unspecified; Z79.84 Long term (current) use of oral hypoglycemic drugs; I05.0 Rheumatic mitral stenosis; Z79.899 Other long term (current) drug therapy; Z90.710 Acquired absence of both cervix and uterus; Z88.0 Allergy status to penicillin; Z88.8 Allergy status to other drugs, medicaments and biological substances
CPT/HCPCS: 36415; 70450; 71045; 72125; 74018; 74177; 74250; 80048; 80053; 81001; 82010; 82550; 82803; 83036; 83605; 83735; 84100; 84484; 85025; 85610; 85730; 87040; 87086; 93005; 93306; 96361; 96365; 96366; 96375; 97162; 99285; A4649; J0131; J0694; J0696; J1100; J1171; J1644; J1815; J2185; J2270; J2371; J2405; J2470; J2598; J2704; J3010; J3373; J3475; J3480; J3490; J7030; J7050; J7120; Q9963; Q9967; A9270; J1836

== ENCOUNTER 2025-01-12 18:55 | Emergency (ER) | payer MEDICARE, SELFPAY ==
[2025-01-12 18:55] VITALS: BP 156/81; PULSE 80; RESP 18; TEMP 36.9; O2SAT 97; BMI 39.9
--- NOTE | 2025-01-12 19:06 | XR_ITS ---
EXAMINATION: AP chest single view TECHNIQUE: AP portable semiupright chest single view Date and time: 03/14/2025 1931 hours INDICATIONS: Chest pain today. FINDINGS: Mild heart failure. Mild prominence Lipantil: Prominent vascular congestion. Early septal pulmonary edema IMPRESSION: Early heart failure
--- NOTE | 2025-01-12 19:06 | EKG_ITS ---
[facility] Test Date: 2025-01-12 Pat Name: BITA LILLY Department: Room: - Gender: Female Photo Checker: : 1950 Requested By: Kj Turner Order Number: [id number] Reading MD: Kj Turner Measurements Intervals Dillon Rate: 78 P: 37 WY: 145 QRS: 7 QRSD: 103 T: 65 QT: 418 QTc: 478 Interpretive Statements SINUS RHYTHM Compared to ECG 12/26/2024 19:17:44 Atrial fibrillation no longer present Ventricular premature complex(es) no longer present Aberrant conduction of supraventricular beat(s) no longer present Myocardial infarct finding no longer present T-wave abnormality no longer present Possible ischemia no longer present /store/S0/[id number]
--- NOTE | 2025-01-12 19:06 | PD.EDADULT ---
ED General RME/HPI General Chief complaint: Syncope / Near Syncope Stated complaint: SYNCOPE Time Seen by Provider: 01/12/25 19:05 Arrival date/time: 01/12/25 18:55 CC: Syncope HPI onset approximately 35 minutes ago at assisted care facility with the patient was sitting on her bed with family around her when she probably became briefly unconscious and then woke right back up over several seconds. Patient has a history of syncopal events. Patient denies fall. Currently the patient is awake alert oriented EMS report mild hypertension elevated blood glucose level the patient is awake alert oriented nontoxic-appearing not in any acute distress with no specific complaints. Stating I have done this before Related Data Home Medications ?Medication ?Instructions ?Recorded ?Confirmed atorvastatin 20 mg tablet 20 mg PO DAILY 12/24/24 12/24/24 blood-glucose sensor (Purchasing Platform G7 12/24/24 12/24/24 Sensor device) cholecalciferol (vitamin D3) 50 2,000 unit PO BID 12/24/24 12/24/24 mcg (2,000 unit) tablet (Vitamin D3) insulin glargine 100 unit/mL (3 42 unit subcut DAILY 12/24/24 12/24/24 mL) subcutaneous pen (Lantus Solostar U-100 Insulin) metformin 1,000 mg tablet 1,000 mg PO BID 12/24/24 12/24/24 Previous Rx's ?Medication ?Instructions ?Recorded ascorbic acid (vitamin C) 250 mg 500 mg (2 x 250 mg) PO BID #60 tabs 12/30/24 tablet (Vitamin C) docusate sodium 100 mg capsule 100 mg PO BID #40 caps 12/30/24 (Colace) hydrocodone 5 mg-acetaminophen 325 1 tab PO Q6H PRN pain (scale score 12/30/24 mg tablet 7-10) #20 tabs zinc sulfate 50 mg zinc (220 mg) 220 mg (4.4 x 50 mg zinc (220 mg)) 12/30/24 capsule PO QDAY #30 caps metoprolol succinate 25 mg 25 mg PO QDAY 1 month #30 tabs 12/31/24 tablet,extended release 24 hr sacubitril 24 mg-valsartan 26 mg 1 tab PO BID 1 month #60 tabs 12/31/24 tablet sulfamethoxazole 400 1 tab PO BID #14 tabs 01/12/25 mg-trimethoprim 80 mg tablet (Bactrim) Allergies Allergy/AdvReac Type Severity Reaction Status Date / Time Penicillins Allergy Verified 12/23/24 05:26 rofecoxib Allergy Verified 12/23/24 05:26 Review of Systems Review of Systems Narrative Review of Systems: GEN: No fever, no chills, no weight loss EYES: No discharge, no visual changes, no pain HEENT: No ear pain, no congestion, no sore throat PULM: No shortness of breath, no cough, no congestion CV: No chest pain, no dyspnea on exertion, no palpitations GI: No nausea, no vomiting, no diarrhea, no pain, no constipation : No frequency, no urgency, no dysuria MUSC/SKEL: No joint pain, no back pain SKIN: No rash PSYCH: No hallucinations, no depression HEME/LYMPH: No easy bleeding or bruising tendencies NEURO: No weakness, no headache Past Medical History Past Medical History CARDIAC: Positive Hypertension; Negative Cardiac Disorders or Congestive Heart Failure RESPIRATORY: Negative Chronic Obstructive Pulmonary Disease (COPD) or Asthma GENITOURINARY: Negative Renal Disease ENDOCRINE: Positive Diabetes Mellitus Type 2; Negative Diabetes Mellitus Type 1 HEMATOLOGIC: Negative Sickle Cell Disease OTHER HISTORY: Negative Blood Transfusions, Blood Transfusion Reaction or Anesthesia Reactions Surgical History SURGICAL: Positive Hysterectomy and Tubal Ligation Social History SMOKING STATUS: Never smoker SUBSTANCE USE: does not use ED Exam Narrative Physical exam: [General: Obese not in any acute distress Head normocephalic HEENT: Within acceptable limits Neck is supple nontender Chest equal chest rise nontender to palpation Respiratory: Clear to auscultation no wheezes crackles or rubs CV: Rate rhythm is regular no murmurs rubs or clicks Abdomen is distended secondary to body habitus soft nontender no masses positive bowel sounds all 4 quadrants Back: No CVA tenderness no spinous process tenderness from cervical spine thoracic and lumbar spine Skin: Intact no petechiae rash induration ulceration or crepitus Extremities: Moving all extremity against resistance cap refill less than 2 seconds neurosensory intact. Neuro: Awake alert oriented x3 Glascow coma 15 no focal deficits] Course Course Course Narrative: Patient has very mild indicator of UTI in her urine, patient has no symptoms but is requesting antibiotics because of her diabetes. Quality Measures none Orders Category Date Time Status EKG (ED ONLY) *Do not use* NOW Care 01/12/25 19:06 Completed EKG (ED Only) Stat Exams 01/12/25 19:06 Draft XR chest 1V Stat Exams 01/12/25 19:06 Completed B-Type Natriuretic Peptide Stat Lab 01/12/25 19:48 Completed CBC Stat Lab 01/12/25 19:48 Completed Comprehensive Metabolic Panel Stat Lab 01/12/25 19:48 Completed Drug Screen,Urine Stat Lab 01/12/25 20:29 Completed LDH (Lactate Dehydrogenase) Stat Lab 01/12/25 19:48 Completed Magnesium Stat Lab 01/12/25 19:48 Completed Partial Thromboplastin Time Stat Lab 01/12/25 19:48 Completed Prothrombin Time with INR Stat Lab 01/12/25 19:48 Completed Troponin I Stat Lab 01/12/25 19:48 Completed Urinalysis, C/S if Indicated Stat Lab 01/12/25 20:29 Completed Urine Culture Stat Lab 01/12/25 20:29 Received Vital Signs Vital signs: Vital Signs Temperature 98.4 F 01/12/25 18:55 Pulse Rate 80 01/12/25 18:55 Respiratory Rate 18 01/12/25 18:55 Blood Pressure 156/81 H 01/12/25 18:55 Pulse Oximetry (%) 97 01/12/25 18:55 Oxygen Delivery Method Room Air 01/12/25 18:55 Discharge Plan Plan Patient Disposition: HOME (Self Care) Patient condition on transfer: Stable Prescriptions/Referrals Prescriptions/Med Rec: New sulfamethoxazole-trimethoprim [Bactrim] 400-80 mg tablet 1 tab PO BID Qty: 14 0RF No Action insulin glargine [Lantus Solostar U-100 Insulin] 100 unit/mL (3 mL) insulin pen 42 unit SUBCUT DAILY Patient Comments: INJECT 42 UNITS SUBCUTANEOUS DAILY (DME) Dexcom G7 Sensor Device Patient Comments: ADMINISTER 1 ITEM MISCELLANEOUS EVERY 10 DAYS metformin 1,000 mg tablet 1,000 mg PO BID Patient Comments: TAKE 1 TABLET BY MOUTH TWICE A DAY atorvastatin 20 mg tablet 20 mg PO DAILY Patient Comments: TAKE 1 TABLET BY MOUTH EVERY DAY cholecalciferol (vitamin D3) [Vitamin D3] 50 mcg (2,000 unit) tablet 2,000 unit PO BID ascorbic acid (vitamin C) [Vitamin C] 250 mg Tablet 500 mg PO BID Qty: 60 0RF zinc sulfate 50 mg zinc (220 mg) Capsule 220 mg PO QDAY Qty: 30 0RF docusate sodium [Colace] 100 mg capsule 100 mg PO BID Qty: 40 0RF hydrocodone-acetaminophen 5-325 mg tablet 1 tab PO Q6H MDD 4 PRN (Reason: pain (scale score 7-10)) Qty: 20 0RF sacubitril-valsartan 24-26 mg Tablet 1 tab PO BID 30 Days Qty: 60 0RF metoprolol succinate 25 mg Tablet Extended Release 24 Hr 25 mg PO QDAY 30 Days Qty: 30 0RF Referrals: No Primary/Family,Physician [Primary Care Provider] - In 1 week Fabian Palomares MD [Physician, Family Practice] - In 1 week Problem List Clinical Impression: Syncope, UTI (urinary tract infection) Patient/Caregiver Discharge Instructions Education Materials: Causes of Syncope, ED CYSTITIS Female Adult Print Language: Pakistani Stand Alone Forms: Shayy Award Info., Patient Portal Info Letter PA/GROUND SERVICES INSTRUCTOR Supervising Physician PA/GROUND SERVICES INSTRUCTOR Supervising Physician: Kj Belle ENP MDM Clinical Information Provided by: patient and EMS Medical Records reviewed [facility] and EMS Meds/Rx considered, not ordered None Labs/Rad/Tests considered, not ordered None Chronic Illness/Social Conditions Explain: Diabetes A-fib SBO Labs Labs: interpreted by ga Lab(s) Interpretation(s): CBC shows no acute leukocytosis though she has a chronic but stable anemia with a hemoglobin of 9.5 and a hematocrit of 28.8. Platelets of 488 Coags within acceptable limits CMP shows sodium 133 chloride of 97 BUN of 6 creatinine 0.5 glucose of 178 no other electrolyte imbalances other than a magnesium of 1.4 no transaminitis or T. bili elevation BNP at 380 troponin is within acceptable limits Urine is colorless 1+ blood leukocyte esterase +48 WBCs bacteria is rare Opiates positive. Imaging Imaging interpretation: interpreted by ga Imaging Interpretation(s): Chest x-ray shows early heart failure. Medication Administration(s) none Diagnosis Differential Diagnosis ED Complaint MDM: UTI syncope near syncope
[2025-01-12 19:25] VITALS: BP 142/75; PULSE 72; PULSE 75; RESP 17; TEMP 36.8; O2SAT 93; O2SAT 97
[2025-01-12 20:01] LABS: Basophils # (Auto) 0.1 Thou/mm3 (0.0-0.2); Basophils % (Auto) 1 % (0-2.5); Eosinophils # (Auto) 0.4 Thou/mm3 (0.0-0.5); Eosinophils % (Auto) 4 % (0-10); Hematocrit 28.8 % (36.0-46.0); Hemoglobin 9.5 g/dL (12.0-16.0); Immature Granulocytes Auto 0.03 Thou/mm3 (0.00-0.00); Lymphocytes # (Auto) 1.7 Thou/mm3 (1.0-4.8); Lymphocytes % (Auto) 16 % (10-50); Mean Corpuscular HGB Conc 33.0 g/dl (31.0-37.0); Mean Corpuscular Hemoglobin 29.9 pg (25.0-35.0); Mean Corpuscular Volume 91 fL (80-100); Monocytes # (Auto) 0.8 Thou/mm3 (0.0-0.8); Monocytes % (Auto) 8 % (0-12); Neutrophils # (Auto) 8.0 Thou/mm3 (1.8-7.7); Neutrophils % (Auto) 72 % (37-80); Nucleated Red Blood Cell # 0.00 Thou/mm3 (0.00-0.00); Nucleated Red Blood Cell % 0 /100 WBC (0); Platelet Count 488 Thou/mm3 (140-440); RDW Standard Deviation 45.1 fL (36.4-46.3); Red Blood Count 3.18 Miln/mm3 (4.00-5.20); White Blood Count 11.0 Thou/mm3 (3.6-11.0)
[2025-01-12 20:17] LABS: INR 1.0 (0.9-1.3); Partial Thromboplastin Time 26.3 Seconds (22.0-36.0); Prothrombin Time 10.9 Seconds (9.0-12.2)
[2025-01-12 20:19] LABS: B-Type Natriuretic Peptide 380 pg/mL (0-100)
[2025-01-12 20:35] LABS: Alanine Aminotransferase 24 U/L (10-49); Albumin, Serum 3.3 gm/dL (3.4-4.8); Albumin/Globulin Ratio 1.1 (1.2-2.2); Alkaline Phosphatase 70 U/L (46-116); Anion Gap 9 (7-16); Aspartate Amino Transferase 18 U/L (0-34); BUN/Creatinine Ratio 12 Ratio (12-20); Bilirubin,Total 0.3 mg/dL (0.3-1.2); Blood Urea Nitrogen 6 mg/dL (9-23); Calcium 8.8 mg/dL (8.3-10.6); Calcium (Corrected) 9.4 mg/dL (8.5-10.1); Carbon Dioxide 27.4 mMol/L (20.0-31.0); Chloride 97 mMol/L (98-107); Creatinine (Component) 0.5 mg/dL (0.6-1.3); Estimated Creatinine Clearance 117.5 mL/min (>60); Globulin 3.0 gm/dL (2.3-3.5); Glucose 178 mg/dL (74-106); LDH (Lactate Dehydrogenase) 192 U/L (120-246); Magnesium 1.4 mg/dL (1.6-2.6); Osmolality,Calculated 267 (275-295); Potassium 4.6 mMol/L (3.4-5.1); Sodium 133 mMol/L (136-145); Total Protein 6.3 gm/dL (5.7-8.2); Troponin I < 0.020 ng/mL (0.0-0.045); eGFR > 60 See Note
[2025-01-12 20:37] LABS: Collection Type, Urine Clean Catch
[2025-01-12 20:58] LABS: Bacteria,Urine Rare; Bilirubin,Urine Negative (Negative); Blood,Urine 1+ (Negative); Clarity,Urine Clear (Clear/Hazy); Color,Urine Colorless (Lt Yel-Yel); Glucose, Urine Negative (Negative); Ketones,Urine Negative (Negative); Leukocyte Esterase,Urine Positive (Negative); Nitrite,Urine Negative (Negative); PH,Urine 6.5 (5.0-7.0); Protein,Urine Negative (Neg - Trace); RBC,Urine 2 /hpf (0-3); Specific Gravity,Urine 1.005 (1.001-1.035); Squamous Epithelial Cell,Urine 4 /hpf (0-5); Urobilinogen,Urine Negative mg/dL (0.0-1.0); WBC,Urine 40 /hpf (0-5)
[2025-01-12 21:00] LABS: Culture Indicated,Urine Yes
[2025-01-12 21:04] LABS: Amphetamine/Methamp Scrn,U Negative (Negative); Barbiturate Screen,Urine Negative (Negative); Benzodiazepines Screen,Urine Negative (Negative); Benzoylecgonine Screen, Ur Negative (Negative); Fentanyl Screen,Urine Negative (Negative); Opiate Screen,Urine Positive (Negative); THC Screen,Urine Negative (Negative)
[2025-01-12 21:23] VITALS: BP 155/88; PULSE 79; RESP 16; TEMP 36.9; O2SAT 95
[2025-01-12 22:07] VITALS: BP 155/76; PULSE 83; RESP 16; TEMP 36.9; O2SAT 94
== END 2025-01-12 22:07 | disposition home or self-care (01) ==
PROVIDERS: Registered Nurse General Practice; Emergency Provider Emergency Medicine
DX: E11.65 Type 2 diabetes mellitus with hyperglycemia (principal); I10 Essential (primary) hypertension; I48.91 Unspecified atrial fibrillation; K56.609 Unspecified intestinal obstruction, unspecified as to partial versus complete obstruction; N30.90 Cystitis, unspecified without hematuria; Z79.84 Long term (current) use of oral hypoglycemic drugs; Z79.899 Other long term (current) drug therapy; Z90.710 Acquired absence of both cervix and uterus
CPT/HCPCS: 36415; 71045; 80053; 80307; 81001; 83615; 83735; 83880; 84484; 85025; 85610; 85730; 87086; 93005; 99283

== ENCOUNTER 2025-02-02 21:01 | Observation (INO) | payer MEDICARE, SELFPAY ==
[2025-02-02 21:08] VITALS: BP 155/69; PULSE 75; RESP 18; TEMP 36.4; O2SAT 96
--- NOTE | 2025-02-02 21:27 | PD.EDWEAK ---
ED Weakness RME/HPI General Chief complaint: General Adult/Misc Complain Stated complaint: HYPOGLYCEMIA Time Seen by Provider: 02/02/25 21:35 Arrival date/time: 02/02/25 21:01 RME / HPI RME / HPI Narrative: See [facility] for Dr. Morales's HPI Documentation. Related Data Home Medications ?Medication ?Instructions ?Recorded ?Confirmed atorvastatin 20 mg tablet 20 mg PO DAILY 12/24/24 12/24/24 blood-glucose sensor (Dexcom G7 12/24/24 12/24/24 Sensor device) cholecalciferol (vitamin D3) 50 2,000 unit PO BID 12/24/24 12/24/24 mcg (2,000 unit) tablet (Vitamin D3) insulin glargine 100 unit/mL (3 42 unit subcut DAILY 12/24/24 12/24/24 mL) subcutaneous pen (Lantus Solostar U-100 Insulin) metformin 1,000 mg tablet 1,000 mg PO BID 12/24/24 12/24/24 Previous Rx's ?Medication ?Instructions ?Recorded ascorbic acid (vitamin C) 250 mg 500 mg (2 x 250 mg) PO BID #60 tabs 12/30/24 tablet (Vitamin C) docusate sodium 100 mg capsule 100 mg PO BID #40 caps 12/30/24 (Colace) hydrocodone 5 mg-acetaminophen 325 1 tab PO Q6H PRN pain (scale score 12/30/24 mg tablet 7-10) #20 tabs zinc sulfate 50 mg zinc (220 mg) 220 mg (4.4 x 50 mg zinc (220 mg)) 12/30/24 capsule PO QDAY #30 caps sulfamethoxazole 400 1 tab PO BID #14 tabs 01/12/25 mg-trimethoprim 80 mg tablet (Bactrim) Allergies Allergy/AdvReac Type Severity Reaction Status Date / Time Penicillins Allergy Verified 12/23/24 05:26 rofecoxib Allergy Verified 12/23/24 05:26 Review of Systems Review of Systems Systems Reviewed: All systems reviewed, normal except as documented Past Medical History Past Medical History CARDIAC: Positive Cardiac Disorders and Hypertension ENDOCRINE: Positive Diabetes Mellitus Type 2 Surgical History SURGICAL: Positive Hysterectomy and Tubal Ligation ED Exam Narrative Physical exam: See MDM for Dr. Morales's Physical Exam Documentation. Course Quality Measures none Orders Category Date Time Status Admit to Inpatient Status Routine Admission 02/03/25 00:40 Active Patient Condition Routine Admission 02/03/25 00:40 Ordered Bedrest NOW Care 02/03/25 00:41 Active Bedside COVID-19 Antigen Test NOW Care 02/02/25 21:21 Active COVID-19 Screening Questionnaire NOW Care 02/03/25 00:36 Active Decision to Admit X1 Care 02/03/25 00:36 Completed EKG (ED ONLY) *Do not use* NOW Care 02/02/25 21:29 Completed Glucose [Bedside Blood Glucose] NOW Care 02/02/25 22:54 Active Glucose [Bedside Blood Glucose] Q4H Care 02/03/25 01:00 Active Miscellaneous Nursing Order X1 Care 02/03/25 00:54 Active Notify provider NEEDED Care 02/03/25 00:40 Active Saline [Insert IV] NOW Care 02/02/25 21:22 Active Straight [In and Out Catheter] X1 Care 02/02/25 21:21 Completed Strict Intake and Output Routine Care 02/03/25 00:41 Ordered Diet Carbohydrate Consistent Diet 02/03/[address] head/brain wo con Stat Exams 02/02/25 21:29 Completed EKG (ED Only) Stat Exams 02/02/25 21:29 Draft XR chest 1V portable Stat Exams 02/02/25 21:29 Completed BNP [B-Type Natriuretic Peptide] Stat Lab 02/02/25 21:30 Completed Beta Hydroxybutyrate Stat Lab 02/02/25 21:47 Completed Bilirubin,Direct Stat Lab 02/02/25 21:47 Completed Blood Culture (Lab) Stat Lab 02/02/25 21:42 Received CBC AM DRAW Lab 02/03/25 04:39 Completed CBC AM DRAW Lab 02/04/25 05:00 Ordered CBC AM DRAW Lab 02/05/25 05:00 Ordered CBC AM DRAW Lab 02/06/25 05:00 Ordered CBC AM DRAW Lab 02/07/25 05:00 Ordered CBC AM DRAW Lab 02/08/25 05:00 Ordered CBC AM DRAW Lab 02/09/25 05:00 Ordered CBC AM DRAW Lab 02/10/25 05:00 Ordered CBC AM DRAW Lab 02/11/25 05:00 Ordered CBC AM DRAW Lab 02/12/25 05:00 Ordered CBC Stat Lab 02/02/25 21:30 Completed CK [Creatine Kinase] Stat Lab 02/02/25 21:47 Completed CMP [Comprehensive Metabolic Panel] AM DRAW Lab 02/03/25 04:39 Received CMP [Comprehensive Metabolic Panel] AM DRAW Lab 02/04/25 05:00 Ordered CMP [Comprehensive Metabolic Panel] AM DRAW Lab 02/05/25 05:00 Ordered CMP [Comprehensive Metabolic Panel] AM DRAW Lab 02/06/25 05:00 Ordered CMP [Comprehensive Metabolic Panel] AM DRAW Lab 02/07/25 05:00 Ordered CMP [Comprehensive Metabolic Panel] AM DRAW Lab 02/08/25 05:00 Ordered CMP [Comprehensive Metabolic Panel] AM DRAW Lab 02/09/25 05:00 Ordered CMP [Comprehensive Metabolic Panel] AM DRAW Lab 02/10/25 05:00 Ordered CMP [Comprehensive Metabolic Panel] AM DRAW Lab 02/11/25 05:00 Ordered CMP [Comprehensive Metabolic Panel] AM DRAW Lab 02/12/25 05:00 Ordered CMP [Comprehensive Metabolic Panel] Stat Lab 02/02/25 21:47 Completed CRP [C-Reactive Protein] Stat Lab 02/02/25 21:47 Completed ESR [Sed Rate (ESR)] Stat Lab 02/02/25 21:30 Completed Electrolytes, Urine Random Stat Lab 02/03/25 00:43 Ordered Hemoglobin A1C [Glycohemoglobin w (eAG)] Stat Lab 02/02/25 21:30 Completed Influenza A & B Rapid Panel Stat Lab 02/02/25 23:58 Received Lactate (Lactic Acid) Stat Lab 02/02/25 21:30 Completed Lactic Acid [Lactate (Lactic Acid)] Q3 Lab 02/03/25 01:18 Completed Lactic Acid [Lactate (Lactic Acid)] Q3 Lab 02/03/25 04:39 Completed Lactic Acid [Lactate (Lactic Acid)] Q3 Lab 02/03/25 06:53 Ordered Lactic Acid [Lactate (Lactic Acid)] Q3 Lab 02/03/25 09:53 Ordered Lactic Acid [Lactate (Lactic Acid)] Q3 Lab 02/03/25 12:53 Ordered Lactic Acid [Lactate (Lactic Acid)] Q3 Lab 02/03/25 15:53 Ordered Lactic Acid [Lactate (Lactic Acid)] [facility] Lab 02/03/25 18:53 Ordered Lactic Acid [Lactate (Lactic Acid)] Q3H Lab 02/03/25 21:53 Ordered Lipase Stat Lab 02/02/25 21:47 Completed Mag [Magnesium] AM DRAW Lab 02/03/25 04:39 Received Mag [Magnesium] AM DRAW Lab 02/04/25 05:00 Ordered Mag [Magnesium] AM DRAW Lab 02/05/25 05:00 Ordered Mag [Magnesium] AM DRAW Lab 02/06/25 05:00 Ordered Mag [Magnesium] AM DRAW Lab 02/07/25 05:00 Ordered Magnesium Stat Lab 02/02/25 21:47 Completed Phosphorous AM DRAW Lab 02/03/25 04:39 Received Phosphorous AM DRAW Lab 02/04/25 05:00 Ordered Phosphorous AM DRAW Lab 02/05/25 05:00 Ordered Phosphorous AM DRAW Lab 02/06/25 05:00 Ordered Phosphorous AM DRAW Lab 02/07/25 05:00 Ordered Procalcitonin Stat Lab 02/02/25 21:47 Completed TSH [Thyroid Stimulating Hormone] Stat Lab 02/02/25 21:47 Completed Troponin I Stat Lab 02/02/25 21:47 Completed UA, C/S IF [Urinalysis, C/S if Indicated] Stat Lab 02/02/25 23:40 Completed Urine Culture Stat Lab 02/02/25 23:40 Received VBG [Venous Blood Gas] Stat Lab 02/02/25 21:47 Completed Acetaminophen Tab [Tylenol Tab] Med 02/03/25 00:40 Active 650 mg PO Q6H PRN Dextrose 5%-Ns [D5-Ns] 1,000 ml Med 02/03/25 00:45 Discontinued IV 50 mls/hr Dextrose 50% Syr [D50w Syringe Abboject] Med 02/02/25 21:22 Discontinued 50 ml IVP X1 ONE Dextrose 50% Syr [D50w Syringe Abboject] Med 02/02/25 23:28 Discontinued 50 ml IVP X1 ONE Enoxaparin [Lovenox] Med 02/03/25 09:00 Pending 40 mg SC QDAY Magnesium Sulfate 4 GM Ivpb [Magnesium Sulfate Ivpb] Med 02/02/25 22:54 Discontinued 4 gm in 50 ml IV X1 Magnesium Sulfate 4 GM Ivpb [Magnesium Sulfate Ivpb] Med 02/03/25 04:00 Active 4 gm in 50 ml IV X1 Ondansetron Inj [Zofran Inj] Med 02/02/25 21:28 Discontinued 4 mg IVP X1 ONE Ringers Lactated 1000 ml [Lactated Ringers] 1,000 ml Med 02/02/25 21:28 Discontinued IV 500 mls/hr cefTRIAXone/D5w 1gm IV premix [Rocephin/D5w 1gm IV Med 02/03/25 00:50 Discontinued premix] 1 gm in 50 ml IV X1 Code Status Routine Oth 02/03/25 00:40 Ordered Vital Signs Vital signs: Vital Signs Temperature 97.5 F 02/02/25 21:08 Pulse Rate 75 02/02/25 21:08 Respiratory Rate 18 02/02/25 21:08 Blood Pressure 155/69 H 02/02/25 21:08 Pulse Oximetry (%) 96 02/02/25 21:08 Oxygen Delivery Method Nasal Cannula 02/02/25 21:08 Weakness MDM Narrative MDM Narrative:: This section includes all my notes and documentations, including HPI, PE, and ED course. Cayetano Morales MD HPI: 74 y/o female here sent by family via EMS for persistent hypoglycemia. Patient reports feeling fine. No headache or dizziness. No speech or vision impairment. No chest pain or shortness of breath. No fever. No abdominal pain. No vomiting or diarrhea. No urinary symptoms. No other complaints. ROS: All negative except as documented in HPI. Physical Exam: General: Alert and oriented. No acute distress when remaining still. Eyes: Conjunctivae and lids clear. PERRL. EOMI. ENT: No nasal congestion. Neck: Supple. Heart: RRR. Lungs: No respiratory distress. Good air movement. No rhonchi, wheezing, rales. Abdomen: Soft and nontender. Normal bowel sounds. No distension. No rebound or guarding. Back: No CVA tenderness. Skin: Warm and dry. Neuro: Alert and oriented X 3. Cranial nerves II through XII grossly normal. No peripheral motor deficits I reviewed all diagnostic test results: My interpretation of the EKG is: Sinus rhythm (71 bpm) with nonspecific ST-T changes. My interpretation of the chest x-ray is: NAD. My review of the CT report is: NAD. Blood tests and urine tests remarkable for hyponatremia and hypomagnesemia and UTI. At this point, diagnoses include: Accidental overdose of insulin Hypomagnesemia Hyponatremia UTI (urinary tract infection) Treatment here included: IVF D50 X 2 Zofran 4 mg IV MgSO4 4 gram IV Some improvement noted. I discussed the case with our hospitalist. About the presentation and exam and diagnostics and treatments here. And need of further care in the hospital. Will accept the patient. Cayetano Morales MD Patient data External records reviewed:: [facility] previous records (Reviewed prior ED records from 01/12/25. Patient was seen for Syncope.) Clinical information provided by:: patient Social determinants that could affect healthcare access:: none Patient has the following chronic illnesses:: HTN, Type II DM How is presenting disease/condition affected by chronic disease/condition?: exacerbated by Evaluation data The following diagnostics were reviewed and interpreted by me:: lab results, radiology exam(s) and EKG tracing(s) (My interpretation of the EKG is: Sinus rhythm (71 bpm) with nonspecific ST-T changes. Cayetano Morales MD) Lab and/or radiology exams considered but not ordered:: None Interpretation Summary: At this point, diagnoses include: Accidental overdose of insulin Hypomagnesemia Hyponatremia UTI (urinary tract infection) Medications / Prescriptions Medications or Prescriptions considered but not ordered:: None Medication administrations:: Medication Administration History Acetaminophen (Acetaminophen 325 Mg Tablet) 650 mg PO Q6H PRN PRN Reason: PAIN 1-10 OR FEVER > 100.4 Stop: 03/05/25 00:39 Enoxaparin Sodium (Enoxaparin Sod Inj 40 Mg/0.4 Ml Syringe) 40 mg SC QDAY [facility] Stop: 02/17/25 08:59 Magnesium Sulfate (Magnesium Sulfate Ivpb) 4 gm in 50 mls @ 12.5 mls/hr IV X1 ONE Stop: 02/03/25 07:59 Last Admin: 02/03/25 04:03 Dose: 12.5 mls/hr Documented By: MLD Sodium Chloride (Ns) 500 mls @ 100 mls/hr IV .Q5H SAMAN Stop: 02/03/25 06:15 Last Admin: 02/03/25 01:23 Dose: 100 mls/hr Documented By: CCT Ceftriaxone Sodium/Dextrose (Rocephin/D5w 1gm Iv Premix) 1 gm in 50 mls @ 100 mls/hr IV QDAY SAMAN Stop: 02/10/25 01:17 Discontinued Medications Dextrose (Dextrose 50%-Water Inj 50 Ml Syringe) 50 ml IVP X1 ONE Stop: 02/02/25 21:23 Last Admin: 02/02/25 21:42 Dose: 50 ml Documented By: CCT Dextrose (Dextrose 50%-Water Inj 50 Ml Syringe) 50 ml IVP X1 ONE Stop: 02/02/25 23:29 Last Admin: 02/03/25 00:02 Dose: 50 ml Documented By: CCT Lactated Ringer's (Lactated Ringers) 1,000 mls @ 500 mls/hr IV .Q2H ONE Stop: 02/02/25 23:27 Last Infusion: 02/02/25 23:45 Dose: Infused Documented By: Admin: 02/02/25 21:42 Dose: 500 mls/hr Documented By: CCT Magnesium Sulfate (Magnesium Sulfate Ivpb) 4 gm in 50 mls @ 12.5 mls/hr IV X1 ONE Stop: 02/03/25 02:53 Last Admin: 02/02/25 23:13 Dose: 12.5 mls/hr Documented By: CCT Dextrose/Sodium Chloride (D5-Ns) 1,000 mls @ 50 mls/hr IV .Q20H SAMAN Stop: 02/03/25 20:44 Last Admin: 02/03/25 01:01 Dose: Not Given Documented By: CCT Non-Admin Reason: Discontinued Ceftriaxone Sodium/Dextrose (Rocephin/D5w 1gm Iv Premix) 1 gm in 50 mls @ 100 mls/hr IV X1 ONE Stop: 02/03/25 01:19 Last Admin: 02/03/25 01:31 Dose: Not Given Documented By: CCT Non-Admin Reason: Duplicate Medication on eMAR Sodium Chloride (Ns) 1,000 mls @ 100 mls/hr IV .Q10H [facility] Stop: 02/03/25 06:14 Last Admin: 02/03/25 01:35 Dose: Not Given Documented By: CCT Non-Admin Reason: Discontinued Ceftriaxone Sodium/Dextrose (Rocephin/D5w 1gm Iv Premix) 1 gm in 50 mls @ 100 mls/hr IV X1 ONE Stop: 02/03/25 01:59 Last Infusion: 02/03/25 02:53 Dose: Infused Documented By: Admin: 02/03/25 01:31 Dose: 100 mls/hr Documented By: CCT Ondansetron HCl (Ondansetron Inj 2 Mg/Ml Inj 2 Ml) 4 mg IVP X1 ONE; Protocol Stop: 02/02/25 21:29 Last Admin: 02/02/25 21:42 Dose: 4 mg Documented By: CCT Treatment here from me included: IVF D50 X 2 Zofran 4 mg IV MgSO4 4 gram IV Consultations Consultation(s) initiated? (list below): Yes Consultation #1 (Physician, Specialty, Details): I discussed the case with our hospitalist. About the presentation and exam and diagnostics and treatments here. And need of further care in the hospital. Will accept the patient. Time: 00:30 Diagnosis Weakness Differential Diagnosis: acute myocardial infarction, anemia, hypoglycemia, hypothyroidism, rhabdomyolysis, sepsis and dehydration Most likely diagnosis given after review of the tests above:: Accidental overdose of insulin Hypomagnesemia Hyponatremia UTI (urinary tract infection) Admission Indicated Admission indicated?: indicated Explain why admission is indicated or not indicated:: Accidental overdose of insulin Hypomagnesemia Hyponatremia UTI (urinary tract infection) Admission Request Was there a request for admission?: Yes Admission Attestation Admission request attestation: Discussed case with Hospitalist service regarding admission. Discussed patients ED course, exam findings, labs, and radiology results. Agreed to accept the patient for admission. Disposition Plan Disposition Plan: Admit Discharge Plan Plan Patient Disposition: Admit Acute Care w/in Hospital Problem List Clinical Impression: Accidental overdose of insulin, Hypomagnesemia, Hyponatremia, UTI (urinary tract infection)
--- NOTE | 2025-02-02 21:29 | EKG_ITS ---
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
--- NOTE | 2025-02-02 21:29 | XR_ITS ---
Examination: CT brain head without contrast. 2-D sagittal coronal reconstructions Date and time of exam: February 02, 2025, 12:15 p.m. INDICATIONS: Altered mental status today CTDI: vol (mGy): 46.9 DLP: (mGycm): 872 Technique: Multiple CT axial sections of the brain have been obtained, 5 mm slice thickness. Contrast has not been administered. 2-D sagittal, coronal reconstructions have been obtained Low dose protocols were performed. One or more of the following dose reduction techniques were used; automated exposure control, adjustment of the mA and/or KV according to patient size, use of iterative reconstruction technique. Findings: No significant ventricular enlargement. Intra-axial or extra-axial hemorrhage density is not seen. No mass effect or midline shift Basal cisterns are not remarkable. Fourth ventricle is midline. Cranial vault intact. Impression: Negative for acute hemorrhage, mass effect or midline shift Advise clinical correlation and follow-up accordingly
--- NOTE | 2025-02-02 21:29 | XR_ITS ---
EXAMINATION: AP chest single view TECHNIQUE: AP portable upright chest single view. February 02, 2025, 2136 hours COMPARISON: February 12, 2025 FINDINGS: Shortness of breath today. FINDINGS: Mild enlargement left ventricle. Mild vascular congestion. No pneumonia or pulmonary edema IMPRESSION: Mild vascular congestion
[2025-02-02 21:31] VITALS: PULSE 81; O2SAT 100
[2025-02-02] MEDS: ONDANSETRON INJ 2 MG/ML INJ 2 ML 4 MG IVP (21:42)
[2025-02-02] MEDS: DEXTROSE 50%-WATER INJ 50 ML SYRINGE IVP (21:42)
[2025-02-02] MEDS: RINGERS LACTATED 1000 ML 1,000 ML 500 ML IV (21:42)
[2025-02-02 22:00] LABS: Lactate (Lactic Acid) 2.4 mMol/L (0.4-2.0)
[2025-02-02 22:02] LABS: Basophils # (Auto) 0.1 Thou/mm3 (0.0-0.2); Basophils % (Auto) 0 % (0-2.5); Eosinophils # (Auto) 0.3 Thou/mm3 (0.0-0.5); Eosinophils % (Auto) 2 % (0-10); Hematocrit 32.9 % (36.0-46.0); Hemoglobin 10.8 g/dL (12.0-16.0); Immature Granulocytes Auto 0.08 Thou/mm3 (0.00-0.00); Lymphocytes # (Auto) 2.3 Thou/mm3 (1.0-4.8); Lymphocytes % (Auto) 14 % (10-50); Mean Corpuscular HGB Conc 32.8 g/dl (31.0-37.0); Mean Corpuscular Hemoglobin 29.6 pg (25.0-35.0); Mean Corpuscular Volume 90 fL (80-100); Monocytes # (Auto) 1.1 Thou/mm3 (0.0-0.8); Monocytes % (Auto) 7 % (0-12); Neutrophils # (Auto) 12.3 Thou/mm3 (1.8-7.7); Neutrophils % (Auto) 76 % (37-80); Nucleated Red Blood Cell # 0.00 Thou/mm3 (0.00-0.00); Nucleated Red Blood Cell % 0 /100 WBC (0); Platelet Count 422 Thou/mm3 (140-440); RDW Standard Deviation 48.0 fL (36.4-46.3); Red Blood Count 3.65 Miln/mm3 (4.00-5.20); White Blood Count 16.2 Thou/mm3 (3.6-11.0)
[2025-02-02 22:09] LABS: Base Excess, Venous -2 (-3-3); O2 Saturation, Venous 97 % (96-97); PCO2, Venous 43 mmHg (36-56); PO2, Venous 82 mmHg (15-58); pH, Venous 7.35 (7.33-7.66)
[2025-02-02 22:09] LABS: Sed Rate (ESR) 42 mm/hr (0-30)
[2025-02-02 22:16] LABS: Beta Hydroxybutyrate 0.1 mmol/L (<0.6)
[2025-02-02 22:31] LABS: B-Type Natriuretic Peptide 76 pg/mL (0-100)
[2025-02-02 22:36] LABS: Glucose Estimated Average 137 mg/dL (80-131); Hemoglobin A1C 6.4 % Hgb (4.8-6.0)
[2025-02-02 22:46] LABS: Alanine Aminotransferase 14 U/L (10-49); Albumin, Serum 4.1 gm/dL (3.4-4.8); Albumin/Globulin Ratio 1.7 (1.2-2.2); Alkaline Phosphatase 54 U/L (46-116); Anion Gap 10 (7-16); Aspartate Amino Transferase 22 U/L (0-34); BUN/Creatinine Ratio 12 Ratio (12-20); Bilirubin,Direct 0.1 mg/dL (0.0-0.3); Bilirubin,Total 0.2 mg/dL (0.3-1.2); Blood Urea Nitrogen 7 mg/dL (9-23); C-Reactive Protein < 0.5 mg/dL (0.0-0.9); Calcium 9.3 mg/dL (8.3-10.6); Calcium (Corrected) 9.3 mg/dL (8.5-10.1); Carbon Dioxide 19.7 mMol/L (20.0-31.0); Chloride 95 mMol/L (98-107); Creatine Kinase 27 U/L (34-171); Creatinine (Component) 0.6 mg/dL (0.6-1.3); Globulin 2.4 gm/dL (2.3-3.5); Glucose 61 mg/dL (74-106); Lipase 28 U/L (12-53); Magnesium 1.2 mg/dL (1.6-2.6); Osmolality,Calculated 247 (275-295); Potassium 4.4 mMol/L (3.4-5.1); Procalcitonin < 0.04 ng/ml (0.0-0.49); Sodium 125 mMol/L (136-145); Thyroid Stimulating Hormone 3.53 uIU/mL (0.55-4.78); Total Protein 6.5 gm/dL (5.7-8.2); Troponin I < 0.020 ng/mL (0.0-0.045); eGFR > 60 See Note
[2025-02-02] MEDS: Magnesium Sulfate 4 GM Ivpb 4 GM/50 ML BAG IV (23:13)
[2025-02-02 23:23] VITALS: BP 133/64; PULSE 90; RESP 17; TEMP 36.1; O2SAT 95
[2025-02-02 23:54] LABS: Collection Type, Urine Clean Catch
[2025-02-03] MEDS: DEXTROSE 50%-WATER INJ 50 ML SYRINGE IVP (00:02)
[2025-02-03 00:13] LABS: Bilirubin,Urine Negative (Negative); Blood,Urine 1+ (Negative); Clarity,Urine Sl Cloudy (Clear/Hazy); Color,Urine Yellow (Lt Yel-Yel); Glucose, Urine Negative (Negative); Ketones,Urine Negative (Negative); Leukocyte Esterase,Urine 3+ (Negative); Nitrite,Urine Negative (Negative); PH,Urine 6.0 (5.0-7.0); Protein,Urine 2+ (Neg - Trace); Specific Gravity,Urine 1.010 (1.001-1.035); Urobilinogen,Urine 0.2 mg/dL (0.0-1.0)
[2025-02-03 00:14] LABS: Culture Indicated,Urine Yes
[2025-02-03 00:38] LABS: RBC,Urine 5 /hpf (0-3)
[2025-02-03 00:39] LABS: Bacteria,Urine 4+; Squamous Epithelial Cell,Urine 10 /hpf (0-5); WBC,Urine 40 /hpf (0-5)
[2025-02-03 01:00] LABS: Reflex Lactate? Y
--- NOTE | 2025-02-03 01:06 | ESHP_ITS ---
<Statement entered by Nimesh Love MD - 02/03/25 05:48> I have discussed and was present for the essential components of the history, physical examination, diagnosis, and treatment plan with the resident. I agree with the patient's care as documented by the resident and amended herein by me. Nimesh Love MD FACP. Documentation for date of: 02/03/25 HPI History of Present Illness History of present illness: 74-year-old female with a significant past medical history of HFrEF (ejection fraction 35-40%), moderate to severe aortic stenosis, hypertension, and insulin- dependent type 2 diabetes mellitus. Over the past 2 weeks, the patient's reports that her morning blood glucose levels have been in the 70s. The patient endorses symptoms of lightheadedness, shakiness, and generalized weakness during this time. She also reports feeling progressively weaker over the last two weeks. Today, the patient took her usual dose of 42 units of glargine insulin at 5 PM. She was brought to the hospital for further evaluation and management of her hypoglycemic symptoms. ED course: Initial vitals include temperature 97.5, BP 155/69, HR 75, RR 18, O2 sat 96% on room air. Notable labs include WBC 16.2, hemoglobin 10.8, sodium 125, potassium 4.4, creatinine 0.6, glucose 61, magnesium 1.2, LFTs within normal range, Trope negative, Pro-Jose negative, TSH normal, lactic acid 2.4 with repeat 2.0. Chest x-ray unremarkable. Head CT unremarkable. EKG showed sinus rhythm with rate 71, QTc 429. Lowest bedside glucose was 39 patient was given D50 push x 2 with improvement to glucose. Patient was started on normal saline at 100 cc an hour (500ml bag). Past medical history: As stated above. Allergies: Penicillin, Rofecoxib Family history: Noncontributory. Social history: No alcohol use, no smoking, no illicit drug use. Patient admitted for management of her hypoglycemic symptoms. Review of Systems Review of Systems Narrative Review of Systems: All systems reviewed negative unless stated otherwise above. Exam Vital Signs Temp Pulse Resp BP Pulse Ox O2 Del Method 97 F 90 17 133/64 H 95 Room Air 02/02/25 23:23 02/02/25 23:23 02/02/25 23:23 02/02/25 23:23 02/02/25 23:23 02/02/25 23:23 Narrative Exam General: No acute distress, cooperative, Czech speaking HEENT: NCAT, No JVD noted. Mucosa dry. Pupils are equal and reactive to light bilaterally Cardiovascular: Aortic stenosis with radiation to the carotids. +S1/S2. Regular rate and rhythm. Pedal edema +1. Respiratory: Lungs are clear to auscultation bilaterally. No wheezing or crackles heard. Abdomen: Soft, nontender, not distended, normal bowel sounds. Skin: Warm to touch, dry, no rashes noted Musculoskeletal: No gross injuries. Able to move all 4 extremities. Neuro: Alert and oriented x3. Psych: Normal affect and mood. Results: Labs 02/03/25 04:39 02/03/25 04:39 Labs: Short CBC 02/02/25 Range/Units 21:30 WBC 16.2 H (3.6-11.0) Thou/mm3 Hgb 10.8 L (12.0-16.0) g/dL Hct 32.9 L (36.0-46.0) % Plt Count 422 D (140-440) Thou/mm3 BMP 02/02/25 21:47 Sodium 125 L Potassium 4.4 Chloride 95 L Carbon Dioxide 19.7 L BUN 7 L Creatinine 0.6 Glucose 61 L Calcium 9.3 Cardiac Enzymes 02/02/25 Range/Units 21:47 Total Creatine Kinase 27 L D (34-171) U/L Troponin I < 0.020 (0.0-0.045) ng/mL Liver Function 02/02/25 Range/Units 21:47 Total Bilirubin 0.2 L (0.3-1.2) mg/dL Direct Bilirubin 0.1 (0.0-0.3) mg/dL AST 22 (0-34) U/L ALT 14 (10-49) U/L Alkaline Phosphatase 54 (46-116) U/L Albumin 4.1 (3.4-4.8) gm/dL Urine 02/02/25 Range/Units 23:40 Urine Color Yellow (Lt Yel-Yel) Urine Clarity Sl Cloudy (Clear/Hazy) Urine pH 6.0 (5.0-7.0) Ur Specific [place] 1.010 (1.001-1.035) Urine Protein 2+ A (Neg - Trace) Urine Glucose (UA) Negative (Negative) ABG Interpretation ABG results: 02/02/25 21:47 VBG pH 7.35 VBG pCO2 43 VBG pO2 82 H VBG Base Excess -2 Quality Measures Quality Measures none Advance care planning discussed with:: patient Medications Home Medications and Allergies Home Medications ?Medication ?Instructions ?Recorded ?Confirmed ?Type atorvastatin 20 mg tablet 20 mg PO DAILY 12/24/2407/25 History blood-glucose sensor (Dexcom G7 12/24/24 12/24/24 His tory Sensor device) cholecalciferol (vitamin D3) 50 2,000 unit PO BID 12/0202/03/25 History mcg (2,000 unit) tablet (Vitamin D3) insulin glargine 100 unit/mL (3 42 unit subcut DAILY 0 12/24/24 02/03/25 History mL) subcutaneous pen (Lantus Solostar U-100 Insulin) metformin 1,000 mg tablet 1,000 mg PO BID 12/24/2407/25 History sacubitril 24 mg-valsartan 26 mg 1 tab PO BID 02/03/25 02/03/25 History tablet (Entresto) Allergies Allergy/AdvReac Type Severity Reaction Status Date / Time Penicillins Allergy Verified 12/23/24 05:26 rofecoxib Allergy Verified 12/23/24 05:26 Visit Medications Acetaminophen (Acetaminophen 325 Mg Tablet) 650 mg PO Q6H PRN PRN Reason: PAIN 1-10 OR FEVER > 100.4 Stop: 03/05/25 00:39 Enoxaparin Sodium (Enoxaparin Sod Inj 40 Mg/0.4 Ml Syringe) 40 mg SC QDAY SAMAN Stop: 02/17/25 08:59 Magnesium Sulfate (Magnesium Sulfate Ivpb) 4 gm in 50 mls @ 12.5 mls/hr IV X1 ONE Stop: 02/03/25 02:53 Last Admin: 02/02/25 23:13 Dose: 12.5 mls/hr Magnesium Sulfate (Magnesium Sulfate Ivpb) 4 gm in 50 mls @ 12.5 mls/hr IV X1 ONE Stop: 02/03/25 07:59 Ceftriaxone Sodium/Dextrose (Rocephin/D5w 1gm Iv Premix) 50 mls @ 100 mls/hr IV X1 ONE Stop: 02/03/25 01:19 Sodium Chloride (Ns) 1,000 mls @ 100 mls/hr IV .Q10H SAMAN Stop: 02/03/25 06:14 Discontinued Medications Dextrose (Dextrose 50%-Water Inj 50 Ml Syringe) 50 ml IVP X1 ONE Stop: 02/02/25 21:23 Last Admin: 02/02/25 21:42 Dose: 50 ml Dextrose (Dextrose 50%-Water Inj 50 Ml Syringe) 50 ml IVP X1 ONE Stop: 02/02/25 23:29 Last Admin: 02/03/25 00:02 Dose: 50 ml Lactated Ringer's (Lactated Ringers) 1,000 mls @ 500 mls/hr IV .Q2H ONE Stop: 02/02/25 23:27 Last Infusion: 02/02/25 23:45 Dose: Infused Dextrose/Sodium Chloride (D5-Ns) 1,000 mls @ 50 mls/hr IV .Q20H SAMAN Stop: 02/03/25 20:44 Last Admin: 02/03/25 01:01 Dose: Not Given Ondansetron HCl (Ondansetron Inj 2 Mg/Ml Inj 2 Ml) 4 mg IVP X1 ONE; Protocol Stop: 02/02/25 21:29 Last Admin: 02/02/25 21:42 Dose: 4 mg Assessment & Plan Plan 74-year-old female with a significant past medical history of HFrEF (ejection fraction 35-40%), moderate to severe aortic stenosis, hypertension, insulin- dependent type 2 diabetes mellitus presents with complaints of low blood sugar. Patient admitted for management of her hypoglycemic symptoms. #Hypoglycemia #Insulin-dependent type 2 diabetes mellitus Patient takes glargine 42 units daily and metformin 1 g twice daily A1c 02/02: 6.4% Over the past 2 weeks, the patient's reports that her morning blood glucose levels have been in the 70s. Patient endorses symptoms of lightheadedness, shakiness, and generalized weakness during this time. She also reports feeling progressively weaker over the last two weeks. In ED bedside blood glucose was 39, given D50 push x 2 with improvement of blood sugar to 175 Plan ? Blood glucose checks every 4 hours ? Consider going down on long acting insulin ? Continue Metformin #Hypotonic hyponatremia DDx: dehydration, dieuretics, ACEi, SIADH, hypothyrodism, CHF, kidney disease Asymptomatic Sodium 125, repeat 128 Serum osmolarity 247 Patient either hypovolemic versus euvolemic, not hypervolemic TSH normal Med recon pending Plan ? Normal saline 100 cc an hour (500ml) ? Next sodium check at 3 AM ? Urine electrolytes ordered for causes of hyponatremia and assess volume status ? Sodium Correction Goal: The target is to increase the serum sodium concentration by no more than 6-8 mEq/L over the next 24 hours to avoid the risk of osmotic demyelination syndrome. #Possible UTI Patient not complaining of any urinary tract symptoms Afebrile WBC 16.2 UA: Leuk positive, nitrite negative, WBC 40, 4+ bacteria Procal negative Plan ? Follow urine culture, blood culture ? Started on ceftriaxone 1 g daily #Hypomagnesemia Magnesium on admission 1.2 Plan ? Getting magnesium 8 g ? Recheck level in a.m. #Normocytic anemia Hgb 10.8 MCV 90 Plan ? Iron panel ordered #Hx of HFrEF #Hx of Aortic stenosis, moderate to severe #Hx of Mitral stenosis and calcification EF 35-40% BNP [address] Dr. Saenz's previous note 01/01 said patient may need catheterization for both evaluation of CHF and also for anticipated TAVR procedure outpatient Plan ? Strict OSCAR's ? Follow-up with Dr. Saenz outpatient Health Maintenance: Diet: Carb consistent diet GI prophylaxis: None DVT prophylaxis: Lovenox 40 mg daily Antibiotics: Ceftriaxone CODE STATUS: Full Disposition: Observation Case discussed with my attending Dr. Love, and senior resident, Dr. Vero Marino MD PGY-1
[2025-02-03] MEDS: SODIUM CHLORIDE 0.9% 1000 ML 500 ML 100 ML IV (01:23)
[2025-02-03 01:24] LABS: Lactate (Lactic Acid) 2.0 mMol/L (0.4-2.0)
[2025-02-03] MEDS: cefTRIAXone/D5w 1gm IV premix 1 GM/50 ML BAG IV (01:31)
[2025-02-03 01:39] LABS: Sodium 128 mMol/L (136-145)
[2025-02-03 03:00] VITALS: BP 123/52; PULSE 86; RESP 17; TEMP 36.9; O2SAT 93
--- NOTE | 2025-02-03 03:19 | PC.NURSE ---
Report given to TRUDI Murcia
[2025-02-03 04:00] VITALS: BP 117/72; PULSE 72; PULSE 91; RESP 17; TEMP 36.6; O2SAT 94
[2025-02-03] MEDS: Magnesium Sulfate 4 GM Ivpb 4 GM/50 ML BAG IV (04:03)
[2025-02-03 04:21] VITALS: BMI 35.4
[2025-02-03 05:12] LABS: Lactate (Lactic Acid) 1.8 mMol/L (0.4-2.0)
[2025-02-03 05:17] LABS: Basophils # (Auto) 0.0 Thou/mm3 (0.0-0.2); Basophils % (Auto) 0 % (0-2.5); Eosinophils # (Auto) 0.2 Thou/mm3 (0.0-0.5); Eosinophils % (Auto) 2 % (0-10); Monocytes % (Auto) 7 % (0-12); Neutrophils % (Auto) 68 % (37-80); Nucleated Red Blood Cell # 0.00 Thou/mm3 (0.00-0.00); Nucleated Red Blood Cell % 0 /100 WBC (0); White Blood Count 10.7 Thou/mm3 (3.6-11.0)
[2025-02-03 05:29] LABS: Hematocrit 35.1 % (36.0-46.0); Hemoglobin 11.6 g/dL (12.0-16.0); Immature Granulocytes Auto 0.06 Thou/mm3 (0.00-0.00); Lymphocytes # (Auto) 2.3 Thou/mm3 (1.0-4.8); Lymphocytes % (Auto) 22 % (10-50); Mean Corpuscular HGB Conc 33.0 g/dl (31.0-37.0); Mean Corpuscular Hemoglobin 29.4 pg (25.0-35.0); Mean Corpuscular Volume 89 fL (80-100); Monocytes # (Auto) 0.8 Thou/mm3 (0.0-0.8); Neutrophils # (Auto) 7.3 Thou/mm3 (1.8-7.7); Platelet Count 295 Thou/mm3 (140-440); RDW Standard Deviation 47.2 fL (36.4-46.3); Red Blood Count 3.95 Miln/mm3 (4.00-5.20)
[2025-02-03 05:44] LABS: Alanine Aminotransferase 13 U/L (10-49); Albumin, Serum 3.7 gm/dL (3.4-4.8); Albumin/Globulin Ratio 1.5 (1.2-2.2); Alkaline Phosphatase 52 U/L (46-116); Anion Gap 8 (7-16); Aspartate Amino Transferase 28 U/L (0-34); BUN/Creatinine Ratio 8 Ratio (12-20); Bilirubin,Total 0.2 mg/dL (0.3-1.2); Blood Urea Nitrogen < 5 mg/dL (9-23); Calcium 9.0 mg/dL (8.3-10.6); Calcium (Corrected) 9.2 mg/dL (8.5-10.1); Carbon Dioxide 24.2 mMol/L (20.0-31.0); Chloride 96 mMol/L (98-107); Creatinine (Component) 0.6 mg/dL (0.6-1.3); Estimated Creatinine Clearance 91.7 mL/min (>60); Globulin 2.4 gm/dL (2.3-3.5); Glucose 112 mg/dL (74-106); Magnesium 2.0 mg/dL (1.6-2.6); Osmolality,Calculated 255 (275-295); Phosphorous 3.4 mg/dL (2.4-5.1); Potassium 5.5 mMol/L (3.4-5.1); Sodium 128 mMol/L (136-145); Total Protein 6.1 gm/dL (5.7-8.2); eGFR > 60 See Note
[2025-02-03 05:50] LABS: Ferritin 58 ng/mL (7.3-270.7)
[2025-02-03 06:00] VITALS: BMI 34.7
[2025-02-03 07:06] LABS: Chloride,Urine Random 53.8 mMol/L (55.0-125.0); Potassium,Urine Random 10 mMol/L (12-62); Sodium,Urine Random 50.9 mMol/L (20.0-110.0)
[2025-02-03 08:00] VITALS: BP 138/74; PULSE 79; PULSE 89; RESP 18; TEMP 36.6; O2SAT 95
[2025-02-03] MEDS: SOD POLYSTYRENE SULFON SUSP 15 GM/60 ML BTL 30 GM PO (08:16)
[2025-02-03] MEDS: ENOXAPARIN SOD INJ 40 MG/0.4 ML SYRINGE SC (08:16)
[2025-02-03 08:26] LABS: Lactate (Lactic Acid) 2.1 mMol/L (0.4-2.0)
--- NOTE | 2025-02-03 09:05 | PC.SS ---
Update: Plan is to continue monitoring patient's sugar levels (low). Plan to d/c tomorrow.
--- NOTE | 2025-02-03 10:30 | PC.SS ---
REHANGER conducted bedside contact with the patient conduct initial assessment and to discuss discharge planning.? At bedside with patient was granddaughter, Tiana Carranza .? Information obtained from patient?s granddaughter.? 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 Patient resides at home with spouse.? Patient utilizes a walker to assist with ambulation.? Patient does not utilize home oxygen.? Patient requires assistance with the completion of ADL?s.? Patient?s spouse assists the patient and provides transportation on behalf of the patient.? Patient?s surrogate medical decision maker is spouse, Sony Jeaniard .? Patient?s PCP is Dr. Vanegas.? Patient?s aeronautical project engineer is Dr. Saenz.? Patient possesses a history of diabetes.? Patient utilizes [facility] for medication services.? Discharge plan will be for the patient to return home. ?Patient receptive to home health if offered.? No preferred home health agency identified.? Family to provide transportation on behalf of the patient at time of discharge.? No further discharge needs identified by the patient.? No further intervention required at this time, social work lecturer will be available to address any further concerns.? Next of Kin: Sony French D/C Plan: Home
--- NOTE | 2025-02-03 10:32 | PC.SS ---
Daughter, Kaylynn Lozano ; to be contacted to arrange home health services if patient qualifies for service.
[2025-02-03 11:27] LABS: Reflex Lactate? Y
[2025-02-03 12:00] VITALS: BP 131/62; PULSE 77; PULSE 80; RESP 19; TEMP 36.8; O2SAT 96
[2025-02-03 12:27] LABS: Lactic Acid, 3 HR 1.3 mMol/L (0.4-2.0)
[2025-02-03 12:28] LABS: Influenza A Ag Negative; Influenza B Ag Negative
[2025-02-03 12:52] LABS: Albumin, Serum 4.1 gm/dL (3.4-4.8); Anion Gap 7 (7-16); BUN/Creatinine Ratio 8 Ratio (12-20); Blood Urea Nitrogen < 5 mg/dL (9-23); Calcium 9.4 mg/dL (8.3-10.6); Calcium (Corrected) 9.4 mg/dL (8.5-10.1); Carbon Dioxide 24.9 mMol/L (20.0-31.0); Chloride 99 mMol/L (98-107); Creatinine (Component) 0.6 mg/dL (0.6-1.3); Estimated Creatinine Clearance 90.8 mL/min (>60); Glucose 124 mg/dL (74-106); Osmolality,Calculated 260 (275-295); Phosphorous 3.7 mg/dL (2.4-5.1); Potassium 5.2 mMol/L (3.4-5.1); Sodium 131 mMol/L (136-145); eGFR > 60 See Note
--- NOTE | 2025-02-03 14:28 | ESPR_ITS ---
<Statement entered by Laurence Ayoub MD - 02/04/25 07:53> Patient was seen and examined by me personally. I have directly supervised and reviewed documentation by the team resident and agree with its findings with any exceptions or additional findings as below. Plan of care was discussed with the attending, Dr. Zamudio. Laurence Ayoub, PGY-3 Documentation for date of: 02/03/25 Subjective Subjective Interval history: Patient is feeling well with no dizziness, weakness, or discomfort. She is alert and oriented and has no complaints of chest pain, shortness of breath, or other symptoms. Denies dysuria, frequency, or abdominal discomfort. Denies chest pain, palpitations, or difficulty breathing. Exam Vital Signs Temp Pulse Resp BP Pulse Ox O2 Del Method 98.3 F 80 19 131/62 H 96 Room Air 02/03/25 12:00 02/03/25 12:00 02/03/25 12:00 02/03/25 12:00 02/03/25 12:00 02/03/25 08:00 Narrative Exam General: No acute distress, alert, and oriented x3. HEENT: NCAT, pupils equal and reactive, dry mucosa. Cardiovascular: Regular rate and rhythm, S1/S2, pedal edema +1. Respiratory: Lungs clear to auscultation, no wheezing or crackles. Abdomen: Soft, nontender, not distended, normal bowel sounds. Skin: Warm, dry, no rashes. Musculoskeletal: No gross injuries, able to move all extremities. Neuro: Alert and oriented, no focal deficits. Psych: Normal affect and mood. Objective Labs 02/03/25 04:39 02/03/25 12:17 Labs: Laboratory Results - last 24 hr 02/02/25 02/02/25 02/02/25 21:30 21:47 23:40 WBC 16.2 H RBC 3.65 L Hgb 10.8 L Hct 32.9 L MCV 90 MCH 29.6 MCHC 32.8 RDW Std Deviation 48.0 H Plt Count 422 D Neut % (Auto) 76 Lymph % (Auto) 14 Town[place] % (Auto) 7 Eos % (Auto) 2 Baso % (Auto) 0 Neut # (Auto) 12.3 H Lymph # (Auto) 2.3 Towner # (Auto) 1.1 H Eos # (Auto) 0.3 Baso # (Auto) 0.1 Immature Gran # (Auto) 0.08 H Absolute Nucleated RBC 0.00 Immature Gran % 1 H Nucleated RBC % 0 ESR 42 H VBG pH 7.35 VBG pCO2 43 VBG pO2 82 H VBG O2 Sat (Tay) 97 VBG Base Excess -2 Sodium 125 L Potassium 4.4 Chloride 95 L Carbon Dioxide 19.7 L Anion Gap 10 BUN 7 L Creatinine 0.6 Estim Creat Clear Calc Not Performed. eGFR > 60 BUN/Creatinine Ratio [address] Glu mg/dL 137 H Hemoglobin A1c 6.4 H Calculated Osmolality 247 L Lactic Acid 2.4 H Calcium 9.3 Corrected Calcium 9.3 Phosphorus Magnesium 1.2 L Ferritin Total Bilirubin 0.2 L Direct Bilirubin 0.1 AST 22 ALT 14 Alkaline Phosphatase 54 Total Creatine Kinase 27 L D Troponin I < 0.020 C-Reactive Prot, Quant < 0.5 B-Natriuretic Peptide 76 Total Protein 6.5 Albumin 4.1 Globulin 2.4 Albumin/Globulin Ratio 1.7 Lipase 28 Beta-Hydroxybutyrate/Acetoacetate 0.1 Procalcitonin < 0.04 TSH 3.53 Ur Collection Type Clean Catch Urine Color Yellow Urine Clarity Sl Cloudy Urine pH 6.[address] 1.010 Urine Protein 2+ A Urine Glucose (UA) Negative Urine Ketones Negative Urine Blood 1+ A Urine Nitrite Negative Urine Bilirubin Negative Urine Urobilinogen (Auto) 0.2 Ur Leukocyte Esterase 3+ A Urine RBC 5 H Urine WBC 40 H Ur Squamous Epith Cells 10 H Urine Bacteria 4+ A Ur Culture Indicated? Yes Ur Random Sodium Ur Random Potassium Ur Random Chloride Influenza A (Rapid) Influenza B (Rapid) 02/03/25 02/03/25 02/03/25 01:18 04:39 06:35 WBC 10.7 D RBC 3.95 L Hgb 11.6 L Hct 35.1 L MCV 89 MCH 29.4 MCHC 33.0 RDW Std Deviation 47.2 H Plt Count 295 D Neut % (Auto) 68 Lymph % (Auto) 22 [place] % (Auto) 7 Eos % (Auto) 2 Baso % (Auto) 0 Neut # (Auto) 7.3 Lymph # (Auto) 2.3 Towner # (Auto) 0.8 Eos # (Auto) 0.2 Baso # (Auto) 0.0 Immature Gran # (Auto) 0.06 H Absolute Nucleated RBC 0.00 Immature Gran % 1 H Nucleated RBC % 0 ESR VBG pH VBG pCO2 VBG pO2 VBG O2 Sat (Tay) VBG Base Excess Sodium 128 L 128 L Potassium 5.5 H D Chloride 96 L Carbon Dioxide 24.2 Anion Gap 8 BUN < 5 L Creatinine 0.6 Estim Creat Clear Calc 91.7 eGFR > 60 BUN/Creatinine Ratio 8 L Glucose [address] Glu mg/dL Hemoglobin A1c Calculated Osmolality 255 L Lactic Acid 2.0 1.8 Calcium 9.0 Corrected Calcium 9.2 Phosphorus 3.4 Magnesium 2.0 Ferritin 58 Total Bilirubin 0.2 L Direct Bilirubin AST 28 ALT 13 Alkaline Phosphatase 52 Total Creatine Kinase Troponin I C-Reactive Prot, Quant B-Natriuretic Peptide Total Protein 6.1 Albumin 3.7 Globulin 2.4 Albumin/Globulin Ratio 1.5 Lipase Beta-Hydroxybutyrate/Acetoacetate Procalcitonin TSH Ur Collection Type Urine Color Urine Clarity Urine pH Ur Specific Avenue Urine Protein Urine Glucose (UA) Urine Ketones Urine Blood Urine Nitrite Urine Bilirubin Urine Urobilinogen (Auto) Ur Leukocyte Esterase Urine RBC Urine WBC Ur Squamous Epith Cells Urine Bacteria Ur Culture Indicated? Ur Random Sodium 50.9 Ur Random Potassium 10 L Ur Random Chloride 53.8 L Influenza A (Rapid) Influenza B (Rapid) 02/03/25 02/03/25 02/03/25 08:04 11:15 12:17 WBC RBC Hgb Hct MCV MCH MCHC RDW Std Deviation Plt Count Neut % (Auto) Lymph % (Auto) Towner % (Auto) Eos % (Auto) Baso % (Auto) Neut # (Auto) Lymph # (Auto) Towner # (Auto) Eos # (Auto) Baso # (Auto) Immature Gran # (Auto) Absolute Nucleated RBC Immature Gran % Nucleated RBC % ESR VBG pH VBG pCO2 VBG pO2 VBG O2 Sat (Tay) VBG Base Excess Sodium 131 L Potassium 5.2 H Chloride 99 Carbon Dioxide 24.9 Anion Gap 7 BUN < 5 L Creatinine 0.6 Estim Creat Clear Calc 90.8 eGFR > 60 BUN/Creatinine Ratio 8 L Glucose [address] Glu mg/dL Hemoglobin A1c Calculated Osmolality 260 L Lactic Acid 2.1 H 1.3 Calcium 9.4 Corrected Calcium 9.4 Phosphorus 3.7 Magnesium Ferritin Total Bilirubin Direct Bilirubin AST ALT Alkaline Phosphatase Total Creatine Kinase Troponin I C-Reactive Prot, Quant B-Natriuretic Peptide Total Protein Albumin 4.1 Globulin Albumin/Globulin Ratio Lipase Beta-Hydroxybutyrate/Acetoacetate Procalcitonin TSH Ur Collection Type Urine Color Urine Clarity Urine pH Ur Specific Avenue Urine Protein Urine Glucose (UA) Urine Ketones Urine Blood Urine Nitrite Urine Bilirubin Urine Urobilinogen (Auto) Ur Leukocyte Esterase Urine RBC Urine WBC Ur Squamous Epith Cells Urine Bacteria Ur Culture Indicated? Ur Random Sodium Ur Random Potassium Ur Random Chloride Influenza A (Rapid) Negative Influenza B (Rapid) Negative ABG Interpretation ABG results: 02/02/25 21:47 VBG pH 7.35 VBG pCO2 43 VBG pO2 82 H VBG Base Excess -2 Quality Measures Quality Measures VTE prophylaxis Advance care planning discussed with:: patient and child Assessment & Plan Assessment Current Active Medications: Generic Name Dose Route Start Last Admin Trade Name Freq PRN Reason Stop Dose Admin Acetaminophen 650 mg 02/03/25 00:40 Acetaminophen 325 Mg Tablet PO 03/05/25 00:39 Q6H PRN PAIN 1-10 OR FEVER > 100.4 Enoxaparin Sodium 40 mg 02/03/25 09:00 02/03/25 08:16 Enoxaparin Sod Inj 40 Mg/0.4 Ml Syringe SC 02/17/25 08:59 40 mg QDAY SAMAN Administration Plan 74-year-old female with HFrEF, aortic stenosis, and insulin-dependent diabetes mellitus, presenting with hypoglycemia and asymptomatic bacteriuria, now clinically stable with no new complaints. # Hypoglycemia, unspecified Patient with symptomatic hypoglycemia, likely iatrogenic from excessive long- acting insulin (42 units glargine). Blood glucose on admission 39 -> improved after two doses of D50. A1c 6.4% suggests overtreatment. Plan: * Discontinue glargine for now; hold all insulin today. * Monitor blood glucose q4h. * If fasting BG >200 persistently, consider restarting glargine at ? dose (20 units) nightly. * Educate family about insulin titration based on morning glucose readings. * Consult agricultural extension educator for dose adjustment prior to discharge. # Hyponatremia Sodium 131 (previously 125 -> 128), likely euvolemic hyponatremia. No clear signs of volume overload. Patient is on no salt diet because patient was previously edamatous Plan: * Repeat sodium in AM. * Informed family to place patient on low salt diet, not no salt diet * Monitor for any new symptoms or volume overload signs. * Once Na >130 and stable, transition to oral fluids. # Hyperkalemia Potassium 5.5 today, no ECG changes (sinus rhythm, QTc 429). Plan: * Gave Kayexalate 30 g PO once. * Recheck potassium in AM tomorrow * If K remains elevated, repeat Kayexalate. * Review home medications for ACEi/ARB, potassium supplements, and diet. # Asymptomatic Bacteriuria UA: leukocyte esterase positive, WBC 40, 4+ bacteria, but no urinary symptoms (no dysuria, frequency, or flank pain). Afebrile with normal vitals. Plan: * Do not treat as this is likely asymptomatic bacteriuria. * Monitor urine culture for resistant organisms. * Discontinue ceftriaxone unless symptoms develop. # Hypomagnesemia Magnesium on admission 1.2 -> replaced with 8 g IV. Plan: * Continue to monitor daily Mg. * Recheck Mg tomorrow. # Anemia, unspecified Hgb 10.8 -> 11.6 today; stable. Ferritin 58, MCV 90 -> consistent with mild chronic disease anemia. Plan: * Monitor CBC. * Continue iron-rich diet; no iron supplementation needed at this time. #Heart failure with reduced ejection fraction) # Aortic Stenosis, unspecified EF 35?40%, stable, no signs of volume overload. BNP 74, mild vascular congestion on CXR. Plan: * Strict I&O, daily weights. * Outpatient follow-up with cardiology for stress test and TAVR workup. * Continue current cardiac medications as tolerated. # Essential hypertension BP stable at 117/72. Plan: * Resume home antihypertensives if appropriate (hold if hypotensive). * Continue monitoring BP. Health Maintenance: Diet: Carb-consistent diet DVT Prophylaxis: Lovenox 40 mg daily GI Prophylaxis: None indicated Code Status: Full Disposition: Observation, discharge anticipated within 24?48 hours if stable. ----- Plan discussed with attending physician Dr. Zamudio and senior resident Dr. Anitra Roper MD PGY-1 Internal Medicine Attending Provider Attestation/Addendum I have seen and examined the patient. I was physically present for the wilkins portions of the services provided including history, physical exam, diagnosis, treatment plans and orders. I agree with assessment and plan of care as documented by residents. Patient is a 74 years old female with past medical history of HFrEF, moderate to severe aortic stenosis, hypertension and Type 2 diabetes mellitus who presented to the ED with complaint of low blood glucose. Patient was admitted overnight for management of hypoglycemia, hypotonic hyponatremia and hypomagnesemia. This morning, blood glucose has improved after discontinuation of insulin, we will continue to monitor closely, patient may need adjustment in her insulin regimen before discharge. Magnesium level has been repleted accordingly, family stated that patient has been at home on diet without any salt. Her sodium has been improving with IV hydration and low carb consistent diet. Urinalysis showed bacteria but patient does not have any symptoms, no fever or chills, we will discontinue antibiotics. Patient had potassium of 5.5 this morning, improved on follow-up labs, we will monitor closely. Even though this this note was carefully revised there may still be minor errors in basketball player due to voice recognition software. Suzi Zamudio MD
[2025-02-03 16:00] VITALS: BP 114/71; PULSE 75; PULSE 79; RESP 19; TEMP 37.1; O2SAT 94
[2025-02-03 20:00] VITALS: BP 120/83; PULSE 76; PULSE 79; RESP 22; TEMP 37.4; O2SAT 93
[2025-02-04] VITALS: BP 113/50; PULSE 78; PULSE 86; RESP 22; TEMP 37.2; O2SAT 98
[2025-02-04 04:00] VITALS: BP 115/63; PULSE 86; PULSE 87; RESP 19; TEMP 37.3; O2SAT 94
[2025-02-04 05:31] VITALS: BMI 35.2
[2025-02-04 06:25] LABS: Basophils # (Auto) 0.0 Thou/mm3 (0.0-0.2); Basophils % (Auto) 0 % (0-2.5); Eosinophils # (Auto) 0.5 Thou/mm3 (0.0-0.5); Eosinophils % (Auto) 5 % (0-10); Hematocrit 32.8 % (36.0-46.0); Hemoglobin 10.8 g/dL (12.0-16.0); Immature Granulocytes Auto 0.02 Thou/mm3 (0.00-0.00); Lymphocytes # (Auto) 2.1 Thou/mm3 (1.0-4.8); Lymphocytes % (Auto) 20 % (10-50); Mean Corpuscular HGB Conc 32.9 g/dl (31.0-37.0); Mean Corpuscular Hemoglobin 29.9 pg (25.0-35.0); Mean Corpuscular Volume 91 fL (80-100); Monocytes # (Auto) 0.8 Thou/mm3 (0.0-0.8); Monocytes % (Auto) 8 % (0-12); Neutrophils # (Auto) 7.1 Thou/mm3 (1.8-7.7); Neutrophils % (Auto) 67 % (37-80); Nucleated Red Blood Cell # 0.00 Thou/mm3 (0.00-0.00); Nucleated Red Blood Cell % 0 /100 WBC (0); Platelet Count 407 Thou/mm3 (140-440); RDW Standard Deviation 49.5 fL (36.4-46.3); Red Blood Count 3.61 Miln/mm3 (4.00-5.20); White Blood Count 10.6 Thou/mm3 (3.6-11.0)
[2025-02-04 06:50] LABS: Alanine Aminotransferase 12 U/L (10-49); Albumin, Serum 3.8 gm/dL (3.4-4.8); Albumin/Globulin Ratio 1.7 (1.2-2.2); Alkaline Phosphatase 52 U/L (46-116); Anion Gap 9 (7-16); Aspartate Amino Transferase 15 U/L (0-34); BUN/Creatinine Ratio 10 Ratio (12-20); Bilirubin,Total 0.3 mg/dL (0.3-1.2); Blood Urea Nitrogen < 5 mg/dL (9-23); Calcium 9.1 mg/dL (8.3-10.6); Calcium (Corrected) 9.3 mg/dL (8.5-10.1); Carbon Dioxide 26.3 mMol/L (20.0-31.0); Chloride 98 mMol/L (98-107); Creatinine (Component) 0.5 mg/dL (0.6-1.3); Estimated Creatinine Clearance 109.8 mL/min (>60); Globulin 2.3 gm/dL (2.3-3.5); Glucose 102 mg/dL (74-106); Magnesium 1.6 mg/dL (1.6-2.6); Osmolality,Calculated 263 (275-295); Phosphorous 3.3 mg/dL (2.4-5.1); Potassium 4.2 mMol/L (3.4-5.1); Sodium 133 mMol/L (136-145); Total Protein 6.1 gm/dL (5.7-8.2); eGFR > 60 See Note
[2025-02-04 06:51] LABS: Iron 37 mcg/dL (50-170); Percent Iron Saturation 13 % (20-55); Total Iron Binding Capacity 270 mcg/dL (250-425); Unsaturated Iron Binding 233 (225-295)
[2025-02-04 08:00] VITALS: BP 107/59; PULSE 81; PULSE 91; RESP 18; TEMP 37.2; O2SAT 97
[2025-02-04] MEDS: Magnesium Sulfate 4 GM Ivpb 4 GM/50 ML BAG IV (08:46)
[2025-02-04] MEDS: ENOXAPARIN SOD INJ 40 MG/0.4 ML SYRINGE SC (08:47)
[2025-02-04 12:00] VITALS: BP 116/55; PULSE 72; PULSE 75; RESP 20; TEMP 36.9; O2SAT 95
--- NOTE | 2025-02-04 14:28 | ESDS_ITS ---
<Statement entered by Bobo Joseph MD - 02/04/25 15:01> I have personally seen and examined the patient, agree with residents assessment and plan Patient plan of care was discussed with the attending physician, Dr. Morgan Joseph, PGY2 Planned Discharge Date 02/04/25 DS: Providers Provider Date of admission: 02/03/25 01:01 Primary care physician: Rob Vanegas MD Admitting Provider: Nimesh Love MD Attending Provider on Admission: Suzi Zamudio MD Consults: 02/03/25 06:00 Referral Wound Care Routine Comment: PERIAREA MOISTURE INCONTINENT DERMATITIS Attending Provider on DC: Elba Mora MD Discharging Provider: Hollie Roper MD DS: Diagnosis Problem List Completed Was Problem List Reviewed/Reconciled?: Yes Hospital Course Hospital Course Hospital course: 74-year-old female with a history of HFrEF (EF 35?40%), hhdxxacs-jl-xlygfx aortic stenosis, hypertension, and insulin-dependent type 2 diabetes mellitus admitted after a blood glucose of 39 mg/dL at home following her usual 42 units of glargine. She received two doses of D50 with prompt improvement to 175. Her A1c was 6.4%, indicating overtreatment. Insulin was held throughout admission, and her glucose remained stable off insulin (BG 102 on discharge). During hospitalization, she was also found to have hyponatremia (Na 125), which improved to 133 with IV fluids, and hyperkalemia (K 5.5) treated with Kayexalate 30 g, now resolved (K 4.2). Magnesium was 1.2 on admission, corrected with 8 g IV, and again 4 g IV on discharge day for a level of 1.6. UA showed leukocyte esterase positive, WBC 40, and 4+ bacteria; urine culture grew gram-negative rods, but she remained afebrile and asymptomatic, consistent with asymptomatic bacteriuria. Ceftriaxone was discontinued. The patient remained hemodynamically stable and asymptomatic throughout hospitalization. She will follow up with her PCP and cardiology (Dr. Saenz) for diabetes management and outpatient TAVR evaluation. Discharge Diagnoses: #Hypoglycemia, secondary to excessive long-acting insulin #Hyponatremia, resolved #Hypomagnesemia, resolved #Asymptomatic bacteriuria #HFrEF #Ihuzxxdc-ie-iwobwd aortic stenosis #Hypertension #Type 2 diabetes mellitus, insulin-dependent Discharge Instructions: -Follow-up with PCP within 1 week of discharge. If you do not have appointment, please follow-up with the [facility] with Dr. Joseph. Call [phone] to make an appointment. -Recommended to take Cephalexin 500mg twice daily for 5 days -Recommended to stop Insulin and follow up with PCP for Diabetes control -Recommended to stop VitaminC and Zinc -Recommended to continue rest of the home medications -Monitor blood sugars with Dexacom -Return to ED if symptoms persist or return ----- Plan discussed with attending physician Dr. Mora and senior resident Dr. Jake Roepr MD PGY-1 Internal Medicine Time Spent with Patient Time attestation: Total time spent providing and/or coordinating discharge services: Time spent: Greater than 30 minutes Exam Vital Signs Temp Pulse Resp BP Pulse Ox O2 Del Method 98.5 F 72 20 116/55 L 95 Room Air 02/04/25 12:00 02/04/25 12:00 02/04/25 12:00 02/04/25 12:00 02/04/25 12:00 02/04/25 08:00 Narrative Exam General: Alert, oriented, no acute distress. HEENT: NCAT, mucous membranes moist. Cardiac: Regular rate and rhythm, S1/S2, no murmurs, trace pedal edema. Lungs: Clear to auscultation bilaterally, no wheezing or crackles. Abdomen: Soft, nontender, nondistended, active bowel sounds. : No suprapubic tenderness; voiding spontaneously. Extremities: Warm, no cyanosis, trace edema. Neuro: No focal deficits. Skin: Warm, dry, intact. Discharge Plan Plan Patient Disposition: HOME (Self Care) Patient condition on transfer: Stable Care Plan Goals: -Follow-up with PCP within 1 week of discharge. If you do not have appointment, please follow-up with the [facility] with Dr. Joseph. Call [phone] to make an appointment. -Recommended to take Cephalexin 500mg twice daily for 5 days -Recommended to stop Insulin and follow up with PCP for Diabetes control -Recommended to stop VitaminC and Zinc -Recommended to continue rest of the home medications -Monitor blood sugars with Dexacom -Return to ED if symptoms persist or return Prescriptions/Referrals Prescriptions/Med Rec: New cephalexin 500 mg capsule 500 mg PO BID Qty: 10 0RF Continued sacubitril-valsartan [Entresto] 24-26 mg tablet 1 tab PO BID Patient Comments: TAKE 1 TABLET BY MOUTH TWICE A DAY FOR 30 DAYS (DME) Dexcom G7 Sensor Device Patient Comments: ADMINISTER 1 ITEM MISCELLANEOUS EVERY 10 DAYS metformin 1,000 mg tablet 1,000 mg PO BID Patient Comments: TAKE 1 TABLET BY MOUTH TWICE A DAY atorvastatin 20 mg tablet 20 mg PO DAILY Patient Comments: TAKE 1 TABLET BY MOUTH EVERY DAY cholecalciferol (vitamin D3) [Vitamin D3] 50 mcg (2,000 unit) tablet 2,000 unit PO BID docusate sodium [Colace] 100 mg capsule 100 mg PO BID Qty: 40 0RF hydrocodone-acetaminophen 5-325 mg tablet 1 tab PO Q6H MDD 4 PRN (Reason: pain (scale score 7-10)) Qty: 20 0RF Discontinued insulin glargine [Lantus Solostar U-100 Insulin] 100 unit/mL (3 mL) insulin pen 42 unit SUBCUT DAILY Patient Comments: INJECT 42 UNITS SUBCUTANEOUS DAILY ascorbic acid (vitamin C) [Vitamin C] 250 mg Tablet 500 mg PO BID Qty: 60 0RF zinc sulfate 50 mg zinc (220 mg) Capsule 220 mg PO QDAY Qty: 30 0RF Referrals: Rob Vanegas MD [Primary Care Provider, Internal Medicine] Patient/Caregiver Discharge Instructions Education Materials: Hypoglycemia (Low Blood Sugar), Urinary Tract Infections in Women, Understanding Urinary Tract ..., Hypoglycemia Steps, When to Use Antibiotics Print Language: Tamazight Stand Alone Forms: Shayy Award Info., Patient Portal Info Letter, Work/Release Restrictions Discharge Order Discharge Orders: Discharge (Routine); Ordered 02/04/25 Ordered By: Bobo Joseph Quality Discharge Quality Measures VTE prophylaxis
--- NOTE | 2025-02-04 14:31 | PC.NURSE ---
pt discharged with family via wheelchair, all education completed with patient and pt daughter at bedside including medications and stopping insuling and making follow up appointed withPC pt and pt daughter agreeable, all belongings gathered, all questions answered, all IVs removed with hemostasis achieved, vitals signs completed temp. 97.9, BP 106/84, RR 22, OXYGEN SAT. 97% HR 91, confirmed with md discharge completed
== END 2025-02-04 13:38 | disposition home or self-care (01) ==
LOC: SERX 02-03 01:01 → SERHOLD 02-03 01:38 → S2NX 02-03 06:11 → SERHOLD 02-03 06:28
PROVIDERS: Admitting Provider Internal Medicine; Emergency Provider Emergency Medicine; PCP Internal Medicine; Visit Provider Student in an Organized Health Care Education/Training Program
DX: E11.649 Type 2 diabetes mellitus with hypoglycemia without coma (principal); E87.1 Hypo-osmolality and hyponatremia; E83.42 Hypomagnesemia; I11.0 Hypertensive heart disease with heart failure; I50.22 Chronic systolic (congestive) heart failure; I35.0 Nonrheumatic aortic (valve) stenosis; D64.9 Anemia, unspecified; E87.5 Hyperkalemia
CPT/HCPCS: 36415; 51701; 70450; 71045; 80053; 80069; 81001; 82010; 82248; 82436; 82550; 82728; 82803; 83036; 83540; 83550; 83605; 83690; 83735; 83880; 84100; 84133; 84145; 84295; 84300; 84443; 84484; 85025; 85652; 86140; 87040; 87077; 87081; 87086; 87186; 87502; 87811; 93005; 96361; 96365; 96372; 96375; 99284; G0378; J0696; J1650; J2405; J3475; J7030; J7120; A9270

== ENCOUNTER → 2025-02-20 | Outpatient (CLI) | payer MEDICARE, SELFPAY ==
[2025-02-20 08:38] LABS: Basophils # (Auto) 0.1 Thou/mm3 (0.0-0.2); Basophils % (Auto) 1 % (0-2.5); Eosinophils # (Auto) 0.3 Thou/mm3 (0.0-0.5); Eosinophils % (Auto) 3 % (0-10); Hematocrit 36.7 % (36.0-46.0); Hemoglobin 11.8 g/dL (12.0-16.0); Immature Granulocytes Auto 0.02 Thou/mm3 (0.00-0.00); Lymphocytes # (Auto) 2.1 Thou/mm3 (1.0-4.8); Lymphocytes % (Auto) 28 % (10-50); Mean Corpuscular HGB Conc 32.2 g/dl (31.0-37.0); Mean Corpuscular Hemoglobin 29.1 pg (25.0-35.0); Mean Corpuscular Volume 91 fL (80-100); Monocytes # (Auto) 0.5 Thou/mm3 (0.0-0.8); Monocytes % (Auto) 7 % (0-12); Neutrophils # (Auto) 4.4 Thou/mm3 (1.8-7.7); Neutrophils % (Auto) 61 % (37-80); Nucleated Red Blood Cell # 0.00 Thou/mm3 (0.00-0.00); Nucleated Red Blood Cell % 0 /100 WBC (0); Platelet Count 442 Thou/mm3 (140-440); RDW Standard Deviation 46.8 fL (36.4-46.3); Red Blood Count 4.05 Miln/mm3 (4.00-5.20); White Blood Count 7.3 Thou/mm3 (3.6-11.0)
[2025-02-20 08:39] LABS: Glucose Estimated Average 137 mg/dL (80-131); Hemoglobin A1C 6.4 % Hgb (4.8-6.0)
[2025-02-20 08:47] LABS: Alanine Aminotransferase 14 U/L (10-49); Albumin, Serum 4.3 gm/dL (3.4-4.8); Albumin/Globulin Ratio 1.8 (1.2-2.2); Alkaline Phosphatase 44 U/L (46-116); Anion Gap 10 (7-16); Aspartate Amino Transferase 18 U/L (0-34); BUN/Creatinine Ratio 10 Ratio (12-20); Bilirubin,Total 0.3 mg/dL (0.3-1.2); Blood Urea Nitrogen 6 mg/dL (9-23); Calcium 9.5 mg/dL (8.3-10.6); Calcium (Corrected) 9.5 mg/dL (8.5-10.1); Carbon Dioxide 27.4 mMol/L (20.0-31.0); Cardiac Risk Estimate 3.2 RATIO (3.7-5.6); Chloride 100 mMol/L (98-107); Cholesterol 96 mg/dL (132-200); Creatinine (Component) 0.6 mg/dL (0.6-1.3); Free T4 (Free Thyroxine) 1.40 ng/dL (0.89-1.76); Globulin 2.4 gm/dL (2.3-3.5); Glucose 157 mg/dL (74-106); HDL Cholesterol 30 mg/dL (40-60); LDL Cholesterol,Calculated 42 mg/dL (0-130); Osmolality,Calculated 274 (275-295); Potassium 4.0 mMol/L (3.4-5.1); Sodium 137 mMol/L (136-145); Thyroid Stimulating Hormone 3.99 uIU/mL (0.55-4.78); Total Protein 6.7 gm/dL (5.7-8.2); Triglycerides 120 mg/dL (30-150); eGFR > 60 See Note
[2025-02-20 08:50] LABS: Vitamin D 25 Hydroxy Total 46.9 ng/mL (7.3-40.2)
== END | disposition home or self-care (01) ==
LOC: COPL 06:46
PROVIDERS: PCP Internal Medicine; Referring Provider Internal Medicine; Visit Provider Internal Medicine
DX: I11.0 Hypertensive heart disease with heart failure (principal); E11.9 Type 2 diabetes mellitus without complications; E55.9 Vitamin D deficiency, unspecified
CPT/HCPCS: 36415; 80053; 80061; 82306; 83036; 84439; 84443; 85025

== ENCOUNTER 2025-03-11 10:34 | Day surgery (SDC) | payer MEDICARE, SELFPAY ==
[2025-03-03 15:38] VITALS: BMI 32.9
[2025-03-09 16:16] VITALS: BMI 32.4
--- NOTE | 2025-03-10 07:00 | EKG_ITS ---
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
[2025-03-10 12:01] LABS: Basophils # (Auto) 0.1 Thou/mm3 (0.0-0.2); Basophils % (Auto) 1 % (0-2.5); Eosinophils # (Auto) 0.3 Thou/mm3 (0.0-0.5); Eosinophils % (Auto) 3 % (0-10); Hematocrit 34.9 % (36.0-46.0); Hemoglobin 11.4 g/dL (12.0-16.0); Immature Granulocytes Auto 0.02 Thou/mm3 (0.00-0.00); Lymphocytes # (Auto) 2.3 Thou/mm3 (1.0-4.8); Lymphocytes % (Auto) 23 % (10-50); Mean Corpuscular HGB Conc 32.7 g/dl (31.0-37.0); Mean Corpuscular Hemoglobin 29.4 pg (25.0-35.0); Mean Corpuscular Volume 90 fL (80-100); Monocytes # (Auto) 0.6 Thou/mm3 (0.0-0.8); Monocytes % (Auto) 6 % (0-12); Neutrophils # (Auto) 6.5 Thou/mm3 (1.8-7.7); Neutrophils % (Auto) 67 % (37-80); Nucleated Red Blood Cell # 0.00 Thou/mm3 (0.00-0.00); Nucleated Red Blood Cell % 0 /100 WBC (0); Platelet Count 332 Thou/mm3 (140-440); RDW Standard Deviation 46.5 fL (36.4-46.3); Red Blood Count 3.88 Miln/mm3 (4.00-5.20); White Blood Count 9.8 Thou/mm3 (3.6-11.0)
[2025-03-10 12:20] LABS: INR 1.0 (0.9-1.3); Partial Thromboplastin Time 25.6 Seconds (22.0-36.0); Prothrombin Time 10.9 Seconds (9.0-12.2)
[2025-03-10 12:26] LABS: Anion Gap 5 (7-16); BUN/Creatinine Ratio 11 Ratio (12-20); Blood Urea Nitrogen 8 mg/dL (9-23); Calcium 9.3 mg/dL (8.3-10.6); Carbon Dioxide 28.8 mMol/L (20.0-31.0); Chloride 103 mMol/L (98-107); Creatinine (Component) 0.7 mg/dL (0.6-1.3); Estimated Creatinine Clearance 75.1 mL/min (>60); Glucose 203 mg/dL (74-106); Osmolality,Calculated 278 (275-295); Potassium 4.7 mMol/L (3.4-5.1); Sodium 137 mMol/L (136-145); eGFR > 60 See Note
[2025-03-11] VITALS (16 sets, daily range): BP systolic 106–156; BP diastolic 52–92; PULSE 72–99; RESP 13–24; TEMP 36.6; O2SAT 91–93
--- NOTE | 2025-03-11 10:38 | CHAP ---
Visited with patient and gave encouragement and prayer.
[2025-03-11] MEDS: ONDANSETRON INJ 2 MG/ML INJ 2 ML 4 MG IVP (14:23)
--- NOTE | 2025-03-11 15:00 | PC.NURSE ---
1357 patient is awake, alert, breathing unlabored, s/p LHC and RHC by Dr. bray, arterial sheath and venous sheath present to right groin, no bleeding noted. Report received from Malgorzata BRUSH, ok to removed both arterial and venous sheaths now. Patient to recover for 3 hours. 1402 arterial sheath removed, manual pressure applied 1420 patient had nausea and small amount of vomiting 1422 manual pressure removed, no bleeding or hematoma noted. arterial hemostasis achieived at this time 1423 zofran given 1425 venous sheath removed, manual pressure applied 1435 manual pressure removed, venous hemostasis achieved at this time. site covered with gauze and tegaderm, no hematoma noted 1505 right groin remains free of bleeding or hematoma
--- NOTE | 2025-03-11 15:03 | ESOP_ITS ---
Cardiac Cath Procedure Procedure Name Date of procedure: 03/11/25 SCIENCE INSTRUCTOR: Garrett Saenz MD PROCEDURE PERFORMED: 1. Left heart cardiac catheterization- Left and right coronary angiograms with LVEDP measurement. CPT 59967 2. Supravalvular aortography. CPT 58376 3. Abdominal aortography. CPT 29614 4. Bilateral lower extremity runoff. CPT 60218 5. Placement of catheter and abdominal aorta. CPT code 75451 6. Ultrasound-guided access of the right radial artery 7. Conscious sedation for 30 minutes. Procedure Narrative HISTORY AND INDICATIONS: A 74-year-old female with a past medical history of paroxysmal atrial fibrillation with RVR, moderate systolic congestive heart failure with an EF of 35 to 40%, severe aortic stenosis mostly low-flow low gradient, essential hypertension, hyperlipidemia, type 2 diabetes mellitus on insulin, chronic constipation and was recommended left and right heart cardiac catheterization as part of the preoperative workup for aortic valve replacement. Patient was brought in for an elective cardiac catheterization. Patient was explained the risk benefits and alternatives of performing a left and right heart cardiac catheterization including the risk of bleeding, heart attack, stroke and in detail and the agreeable for the procedure. Consent signed, placed in the chart and H&P updated. DESCRIPTION OF PROCEDURE: The patient was brought to the cardiac catheterization lab and all asceptic precautions were followed. Patient was given 1 Mg of Versed and 50 mcg of fentanyl for moderate conscious sedation. 2 mL of lidocaine was given in the right wrist. The right radial artery was unable to be accessed and right femoral approach was chosen. 10 mL of lidocaine was then given to the right groin. We then accessed the right femoral artery with the help of ultrasound as well as micropuncture technique. A 5 [place] sheath sheath was introduced. We then used a 5 [place] JL 4, JR4 as well as pigtail catheter catheter to perform the left and right coronary angiograms as well as a left ventriculogram which showed the following findings. The right femoral vein was also accessed with ultrasound as well as micropuncture technique. A 7 [place] sheath was introduced and then a 7 [place] catheter was used to serially measured right heart pressures including the RA, RV, PA as well as left pulmonary capillary wedge pressure. Thermodilution was performed to obtain the cardiac output and cardiac index. M easurements as noted below. 1. Left ventricular ejection fraction was mildly decreased at 40 to 45% without any regional wall motion abnormalities. LVEDP was mildly elevated at 22 mmHg. There was significant transvalvular aortic gradient with a mean gradient of 48 mmHg and a peak to peak of 60 mmHg and valve area was 0.7 square centimeters. 2. Right dominant circulation 3. Left main artery is a large-caliber vessel gives rise to LAD, LCX and without any significant disease. 4. LAD is a large sized artery, gives rise to a medium size diagonal and without show any significant disease. 5. LCx is a large sized artery, gives rise to a medium OM1 and small OM2 without any significant disease. 6. RCA is a large artery, gives rise to a medium RPDA and RPL without any significant disease. Right heart cardiac catheterization showed the following findings 1. PCWP pulmonary capillary wedge pressure was 35/25 mmHg and a mean of 23 mmHg 2. PA pressure was 57/25 mmHg with a mean of 41 mmHg 3. RV pressures were 59/1 mmHg with a mean of 4 mmHg 4. RA pressures were 4/2 mmHg with a mean of 2 mmHg 5. Thermodilution was performed and showed cardiac output of 5.5 L/min and cardiac index of 2.65 L/min/m? 7. Aortic valve area calculated was 0.7 cm?. After the pigtail was pulled back from the LV into the aorta, the pigtail was placed in the aorta and performed supravalvular aortography which showed there was no evidence of any ascending aortic aneurysm except for mild dilatation of the ascending aorta. The pigtail catheter was then placed in the abdominal aorta above the renal arteries and abdominal aortography was performed with distal subtraction angiography. Pigtail catheter was then moved to the lower abdominal aorta just above the bifurcation of the iliac arteries and aortography performed with of bilateral lower extremity runoff of both arteries which showed the following findings. Findings: 1. The abdominal aorta was normal without any evidence of any stenosis and only minimal atherosclerosis with ISIDRA-3 flow off all his branches including the renal arteries. 2. Common iliac, external iliac, internal iliac as well as and common femoral arteries showed only minimal atherosclerosis and luminal irregularities with no significant stenosis 3. Bilateral superficial luminal arteries, popliteal arteries also showed only minimal atherosclerosis and luminal irregularities with no significant stenosis. 4. Infrapopliteal vessels visualized and shows trifurcation but no significant disease on the right side and left side infrapopliteal vessels were not visu alized well Manual hold was used to obtain hemostasis of both the right femoral artery as well as the right femoral vein. Patient will be monitored in the cardiac accounting manager controller for the next 2 to 3 hours and will be discharged home / telemetry later today if hemodynamically stable. Complications: None Specimens: None Blood loss: Estimated 5-10 ml Summary/findings: 1. Severe aortic stenosis: There was significant transvalvular gradient with a mean gradient of 48 mmHg and a peak gradient of 60 mmHg with a valve area of 0.7 cm?. 2. LHC showed normal coronaries with only minimal luminal irregularities and no angiographically significant obstruction. 3. LVEF was mildly reduced at 40-45% and LVEDP was mildly elevated at 22 mmHg. 4. Right heart cardiac catheterization showed mild to moderately elevated right heart pressures with a mean PCWP of 23 mmHg, mean PA pressure of 41 mmHg as well as a mean RA pressure of 2 mmHg. 5. Supravalvular adequacy showed no evidence of any thoracic aortic aneurysm and only minimally dilated thoracic aorta. 6. Aortography and bilateral lower extremity runoff was performed separately and showed only minimal atherosclerosis and patent vessels as described above including the iliac arteries, bilateral femoral arteries as well as popliteal arteries Recommendations: 1. Patient will continue further workup of aortic valve replacement as outpatient including a cardiothoracic surgery appointment for SAVR versus TAVR and a CT TAVR. 2. Recommend to continue aggressive medical treatment and aggressive risk factor modification. 2. Recommended no lifting more than 5 pounds for next 7-10 days and follow up in my office in 7 days. Garrett Saenz MD Interventional Cardiology.
--- NOTE | 2025-03-11 15:42 | PC.NURSE ---
patient at bedside assess patient and talk to family, ok to sit patient up 2 hours post arterial hemostasis time (1622) and discharge patient home 1700 if patient stable
--- NOTE | 2025-03-11 18:09 | PC.NURSE ---
1622 patient HOB slightly elevated since hemostasis time was 1422, no bleeding or hematoma noted to right groin 1630 patient voided in gurney, will clean patient 1645 patient cleaned, new linen and brief applied, patient awake, alert, following verbal commands and talking to nurse and daughter at bedside. 1654 Family member at bedside stated mom, are you ok, what's going on? , patient assessed by RN and noted to have stroke symptoms, ULTRASOUND SONOGRAPHER called. patient is alert, knows name, has trouble with speech, opens eyes when asked, has facial asymmetry drooping on right side, able to lift right arm and leg, both limb falls before 10 seconds. able to squeeze/traffic signal supervisor maintenance with both hands, right hand traffic signal supervisor maintenance weaker than left hand traffic signal supervisor maintenance. 1655 Medical response team called by ULTRASOUND SONOGRAPHER, Van Flores physician, Lyly ER nurse and other staff responded to code. ER doctor assess patient for stroke symptoms. 1700 patient transferred to ER to be evaluated for stroke symptoms. Pt accompanied by ER MD, Lyly BRUSH and family member. Family member took patient belongings including personal wheelchair. Report given to Lyly BRUSH.
== END 2025-03-11 17:00 | disposition admitted as inpatient to this hospital (09) ==
PROVIDERS: PCP Internal Medicine; Referring Provider Internal Medicine Cardiovascular Disease; Visit Provider Internal Medicine Cardiovascular Disease
PROC: (CPT 93458; principal; 2025-03-11 11:30)
DX: I35.0 Nonrheumatic aortic (valve) stenosis (principal); I05.0 Rheumatic mitral stenosis; I50.20 Unspecified systolic (congestive) heart failure; Z79.899 Other long term (current) drug therapy; I48.0 Paroxysmal atrial fibrillation; I11.0 Hypertensive heart disease with heart failure; Z01.810 Encounter for preprocedural cardiovascular examination
CPT/HCPCS: 93458; 36415; 75625; 80048; 85025; 85610; 85730; 93005; 99152; 99153; A4649; C1725; C1769; C1894; J0168; J0360; J0461; J1643; J2250; J2312; J2371; J2405; J3010; J3490; J2305

== ENCOUNTER 2025-03-11 17:04 | Inpatient (IN) | payer MEDICARE, SELFPAY ==
--- NOTE | 2025-03-11 17:14 | XR_ITS ---
Examination: CTA carotids with intravenous contrast CTA brain, head with intravenous contrast. 2-D sagittal, coronal reconstructions. 3-D reconstructions. Exam date and time: March 11, 2025, 1721 hours Stroke alert, onset focal neurologic deficit today CTDI: vol (mGy) 22.9 DLP: (mGycm) 452 Technique: Multiple CTA axial brain, head carotid images post intravenous contrast injection 75 cc, Isovue-370. 2-D sagittal, coronal reconstructions. 3-D reconstructions, 3-D post processing including vascular maximum intensity projection images. Low dose protocols were performed. One or more of the following dose reduction techniques were used; automated exposure control, adjustment of the mA and/or KV according to patient size, use of iterative reconstruction technique. Findings: No significant common carotid carotid bifurcation or internal carotid artery stenoses Dominant left vertebral artery, no critical vertebral artery stenoses in the neck Intracranial vertebral arteries basilar artery posterior cerebral branches do fill Petrous juxtasellar portions supraclinoid portions internal carotid arteries fill as well as M1 segments middle cerebral arteries middle cerebral artery trifurcation vessels and anterior cerebral arteries IMPRESSION: No significant neck arterial stenoses No cerebral large vessel arterial occlusions or thrombus
--- NOTE | 2025-03-11 17:14 | XR_ITS ---
Examination: CT brain head without contrast. 2-D sagittal coronal reconstructions Date and time of exam: March 11, 2025, 1718 hours INDICATIONS: Stroke alert, onset focal neurologic deficit including left-sided body weakness with slurred speech today CTDI: vol (mGy): 48.8 DLP: (mGycm): 922 Technique: Multiple CT axial sections of the brain have been obtained, 5 mm slice thickness. Contrast has not been administered. 2-D sagittal, coronal reconstructions have been obtained Low dose protocols were performed. One or more of the following dose reduction techniques were used; automated exposure control, adjustment of the mA and/or KV according to patient size, use of iterative reconstruction technique. Findings: No significant ventricular enlargement. Intra-axial or extra-axial hemorrhage density is not seen. No mass effect or midline shift Basal cisterns are not remarkable. Fourth ventricle is midline. Cranial vault intact. Impression: Negative for acute hemorrhage, mass effect or midline shift
--- NOTE | 2025-03-11 17:14 | EKG_ITS ---
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
--- NOTE | 2025-03-11 17:14 | XR_ITS ---
EXAMINATION: AP chest single view TECHNIQUE: AP portable upright chest single view Date and time: March 11, 2025, 190 hours, comparison February 02, 2025 INDICATIONS: Stroke alert today FINDINGS: Mild enlargement left ventricle No aspiration pneumonia Mild vascular congestion. Prominent osteopenia IMPRESSION: No aspiration pneumonia
--- NOTE | 2025-03-11 17:17 | EDNOTE_ITS ---
Neuro Symptoms Deficit-RME/HPI General Chief Complaint: Neuro Symptoms/Deficit Stated Complaint: STROKE Time Seen by Provider: 03/11/25 17:15 Arrival date/time: 03/11/25 17:04 RME / HPI RME / HPI Narrative: 74 year old female with history of HFrEF (EF 35?40% 12/2024), hypertension, and insulin-dependent type 2 diabetes presents to the ED from the labor supervisor unit within this facility for new onset right facial droop, right-sided weakness, and slurred speech today. Per labor supervisor RN, the patient underwent right heart cath by concrete mixer operator Dr. Saenz at~ 2PM today. States while in the recovery room, she was noted to have change in speech and right-sided weakness. Daughter at bedside denies any history of CVA or similar symptoms. Related Data Home Medications ?Medication ?Instructions ?Recorded ?Confirmed atorvastatin 20 mg tablet 20 mg PO DAILY 12/24/2403/02 blood-glucose sensor (Dexcom G7 12/24/24 02/03/25 Sensor device) cholecalciferol (vitamin D3) 50 2,000 unit PO BID 12/0202/03/25 mcg (2,000 unit) tablet (Vitamin D3) metformin 1,000 mg tablet 1,000 mg PO BID 12/24/2407/25 Held on 03/11/25. Instructions: Resume on 03/13/25. hold metformin for 48 hours sacubitril 24 mg-valsartan 26 mg 1 tab PO BID 02/03/25 02/03/25 tablet (Entresto) Previous Rx's ?Medication ?Instructions ?Recorded docusate sodium 100 mg capsule 100 mg PO BID #40 caps 12/30/24 (Colace) hydrocodone 5 mg-acetaminophen 325 1 tab PO Q6H PRN pa in (scale score 12/30/24 mg tablet 7-10) #20 tabs cephalexin 500 mg capsule 500 mg PO BID #10 caps 02/04 Allergies Allergy/AdvReac Type Severity Reaction Status Date / Time Penicillins Allergy Verified 03/11/25 17:45 rofecoxib Allergy Verified 03/11/25 17:45 Review of Systems Review of Systems Systems Reviewed: All systems reviewed, normal except as documented Past Medical History Past Medical History NEUROLOGIC: Positive Dementia CARDIAC: Positive Cardiac Disorders, Congestive Heart Failure and Hypertension GASTROINTESTINAL: Positive Irritable Bowel and Obesity ENDOCRINE: Positive Diabetes Mellitus Type 2 HEMATOLOGIC: Positive Anemia OTHER HISTORY: Positive Hospitalization and Chicken Pox Surgical History SURGICAL: Positive Abdominal Surgery (01/02/25 EX LAP PARTIAL SMALL BOWEL RESECTION), Hysterectomy and Tubal Ligation Social History SMOKING STATUS: Never smoker SUBSTANCE USE: does not use ED Exam Narrative Physical exam: Generally patient is alert somewhat somnolent elderly appearing female, heart regular rate and rhythm, lungs clear to auscultation equal bilaterally, abdomen soft bowel sounds present obese but nontender neurologic exam shows the patient have some dysphasia and some possible right-sided facial droop. Patient has 5/5 muscle strength in left upper and left lower extremity and 4/5 muscle strength the right lower and right upper extremity. Course Quality Measures Suspected type of Stroke: Unknown at this time Tenecteplase given: Reason(s) TPA not given: Stroke severity too mild (non-disabling) not given stroke Orders Category Date Time Status Bedside Blood Glucose NOW Care 03/11/25 17:14 Active Intervention Specialist NOW Care 03/11/25 17:14 Active Continuous Pulse Oximetry NOW Care 03/11/25 17:14 Completed EKG (ED ONLY) *Do not use* NOW Care 03/11/25 17:14 Active In and Out Catheter NEEDED Care 03/11/25 17:14 Active Insert IV NOW Care 03/11/25 17:14 Active NIH Stroke Scale now Care 03/11/25 17:14 Active NPO NOW Care 03/11/25 17:14 Active Nurse Swallow Screen x1 Care 03/11/25 17:14 Active Consult to Neurology / Tele-Neurology Routine Cons 03/11/25 17:[address] angio stroke protocol Stat Exams 03/11/25 17:[address] stroke protocol Stat Exams 03/11/25 17:14 Completed EKG (ED Only) Stat Exams 03/11/25 17:14 Ordered XR chest 1V portable Stat Exams 03/11/25 17:14 Ordered CBC Stat Lab 03/11/25 17:08 Completed Comprehensive Metabolic Panel Stat Lab 03/11/25 17:08 Received Drug Screen,Urine Stat Lab 03/11/25 17:14 Ordered HCG Titer if Positive Stat Lab 03/11/25 17:08 Received Magnesium Stat Lab 03/11/25 17:08 Received Partial Thromboplastin Time Stat Lab 03/11/25 17:08 Received Prothrombin Time with INR Stat Lab 03/11/25 17:08 Received Troponin I Stat Lab 03/11/25 17:08 Received Urinalysis, C/S if Indicated Stat Lab 03/11/25 17:14 Ordered Labetalol* IV [Trandate IV] Med 03/11/25 17:14 Active 10 mg IVP Q15M PRN Ondansetron Inj [Zofran Inj] Med 03/11/25 17:14 Active 4 mg IVP Q4HR PRN Oxygen Delivery NOW RT 03/11/25 17:14 Active Vital Signs Vital signs: Vital Signs Temperature 98.2 F 03/11/25 17:43 Pulse Rate 105 H 03/11/25 17:43 Respiratory Rate 19 03/11/25 17:43 Blood Pressure 146/83 H 03/11/25 17:43 Pulse Oximetry (%) 94 L 03/11/25 17:43 Oxygen Delivery Method Room Air 03/11/25 17:43 Neuro Symptoms / Deficit MDM Narrative MDM Narrative:: IAngy, am scribing for and in the presence of Dr. Flores. Patient had an outpatient cardiac catheterization done that was relatively unremarkable with the exception of aortic stenosis. I do not believe blood thinners or antiplatelet medications were given. Patient was approximately 3 hours postprocedure when she developed this neurologic deficit. The start time of neurologic deficit was approximately 4:45 PM. Stroke alert was called. Head CT shows no bleed and no obvious infarct. CT angiogram shows no evidence of large vessel occlusion. I spoke with teleneurologist Dr. Back who does not believe this to be stroke. He is getting no focal deficits on the patient at this time. There is no dysarthria. I am now getting the same results. Electrolytes are pending. CBC is unremarkable. The teleneurologist Dr. Back recommends admission overnight to obtain an MRI of the brain. I discussed this case with the hospitalist and the patient will be admitted to the hospital for further treatment and evaluation. Fingerstick blood sugar was 157. Patient data External records reviewed:: [facility] previous records Clinical information provided by:: patient and family Social determinants that could affect healthcare access:: none Patient has the following chronic illnesses:: HFrEF (EF 35?40% 12/2024), hypertension, and insulin-dependent type 2 diabetes How is presenting disease/condition affected by chronic disease/condition?: exacerbated by Evaluation data The following diagnostics were reviewed and interpreted by me:: lab results and radiology exam(s) Lab and/or radiology exams considered but not ordered:: None Interpretation Summary: Ordering Physician: Van Flores DO Date of Service: 03/11/25 Procedure(s): CT stroke protocol Accession Number(s): [id number] cc: Buck Campbell MD; Van Flores DO~ Examination: CT brain head without contrast. 2-D sagittal coronal reconstructions Date and time of exam: March 11, 2025, 1718 hours INDICATIONS: Stroke alert, onset focal neurologic deficit including left-sided body weakness with slurred speech today CTDI: vol (mGy): 48.8 DLP: (mGycm): 922 Technique: Multiple CT axial sections of the brain have been obtained, 5 mm slice thickness. Contrast has not been administered. 2-D sagittal, coronal reconstructions have been obtained Low dose protocols were performed. One or more of the following dose reduction techniques were used; automated exposure control, adjustment of the mA and/or KV according to patient size, use of iterative reconstruction technique. Findings: No significant ventricular enlargement. Intra-axial or extra-axial hemorrhage density is not seen. No mass effect or midline shift Basal cisterns are not remarkable. Fourth ventricle is midline. Cranial vault intact. Impression: Negative for acute hemorrhage, mass effect or midline shift Dictated By: Buck Campbell MD Signed By: <Electronically signed by Buck Campbell MD in OV> 03/11/25 1723 Medications / Prescriptions Medications or Prescriptions considered but not ordered:: None Medication administrations:: Medication Administration History Labetalol HCl (Labetalol Inj 5 Mg/Ml Vial 4 Ml) 10 mg IVP Q15M PRN PRN Reason: hypertension Ondansetron HCl (Ondansetron Inj 2 Mg/Ml Inj 2 Ml) 4 mg IVP Q4HR PRN PRN Reason: NAUSEA OR VOMITING Stop: 04/10/25 17:13 See above Consultations Consultation(s) initiated? (list below): Yes Consultation #1 (Physician, Specialty, Details): I spoke with teleneurologist Dr. Back. Time: 17:50 Diagnosis Neuro Differential Diagnosis: subarachnoid hemorrhage, cerebrovascular accident and transient cerebral ischemia Most likely diagnosis given after review of the tests above:: None Admission Indicated Admission indicated?: indicated Admission Request Was there a request for admission?: Yes Admission Attestation Admission request attestation: Discussed case with [] from Hospitalist service regarding admission. Discussed patients ED course, exam findings, labs, and radiology results. The Hospitalist [agrees,declines] to accept the patient for admission. Disposition Plan Disposition Plan: Admit Discharge Plan Plan Patient Disposition: Admit Acute Care w/in Hospital Prescriptions/Referrals Prescriptions/Med Rec: No Action sacubitril-valsartan [Entresto] 24-26 mg tablet 1 tab PO BID Patient Comments: TAKE 1 TABLET BY MOUTH TWICE A DAY FOR 30 DAYS cephalexin 500 mg capsule 500 mg PO BID Qty: 10 0RF (DME) Dexcom G7 Sensor Device Patient Comments: ADMINISTER 1 ITEM MISCELLANEOUS EVERY 10 DAYS metformin 1,000 mg tablet 1,000 mg PO BID Patient Comments: TAKE 1 TABLET BY MOUTH TWICE A DAY atorvastatin 20 mg tablet 20 mg PO DAILY Patient Comments: TAKE 1 TABLET BY MOUTH EVERY DAY cholecalciferol (vitamin D3) [Vitamin D3] 50 mcg (2,000 unit) tablet 2,000 unit PO BID docusate sodium [Colace] 100 mg capsule 100 mg PO BID Qty: 40 0RF hydrocodone-acetaminophen 5-325 mg tablet 1 tab PO Q6H MDD 4 PRN (Reason: pain (scale score 7-10)) Qty: 20 0RF Problem List Clinical Impression: Weakness, Dysphasia Patient/Caregiver Discharge Instructions Print Language: Tajik Stand Alone Forms: [facility] Award Info., Patient Portal Info Letter
[2025-03-11 17:43] VITALS: BP 146/83; PULSE 102; PULSE 105; RESP 19; RESP 94; TEMP 36.8; O2SAT 94
[2025-03-11 17:46] VITALS: BMI 34.8
[2025-03-11 17:46] LABS: Basophils # (Auto) 0.0 Thou/mm3 (0.0-0.2); Basophils % (Auto) 0 % (0-2.5); Eosinophils # (Auto) 0.0 Thou/mm3 (0.0-0.5); Eosinophils % (Auto) 0 % (0-10); Hematocrit 38.0 % (36.0-46.0); Hemoglobin 12.2 g/dL (12.0-16.0); Immature Granulocytes Auto 0.05 Thou/mm3 (0.00-0.00); Lymphocytes # (Auto) 1.6 Thou/mm3 (1.0-4.8); Lymphocytes % (Auto) 11 % (10-50); Mean Corpuscular HGB Conc 32.1 g/dl (31.0-37.0); Mean Corpuscular Hemoglobin 29.2 pg (25.0-35.0); Mean Corpuscular Volume 91 fL (80-100); Monocytes # (Auto) 0.6 Thou/mm3 (0.0-0.8); Monocytes % (Auto) 5 % (0-12); Neutrophils # (Auto) 11.8 Thou/mm3 (1.8-7.7); Neutrophils % (Auto) 84 % (37-80); Nucleated Red Blood Cell # 0.00 Thou/mm3 (0.00-0.00); Nucleated Red Blood Cell % 0 /100 WBC (0); Platelet Count 295 Thou/mm3 (140-440); RDW Standard Deviation 47.6 fL (36.4-46.3); Red Blood Count 4.18 Miln/mm3 (4.00-5.20); White Blood Count 14.1 Thou/mm3 (3.6-11.0)
--- NOTE | 2025-03-11 17:53 | ESCONSULT_ITS ---
Tele Neuro Consultation Consultation Date 03/11/25 Most Recent Vital Signs Last Vital Signs Temp 98.2 F 03/11/25 17:43 Pulse 102 H 03/11/25 17:43 Resp 19 03/11/25 17:43 BP 146/83 H 03/11/25 17:43 Pulse Ox 94 L 03/11/25 17:43 O2 Del Method Room Air 03/11/25 17:43 Consultation Narrative [facility] Consult [facility] Patient Name:???BITA LILLY Date of :???1950 Identification Number:??? Date of Service:???03/11/2025 17:04:22 Diagnosis:?G45.9 - Transient cerebral ischemic attack, unspecified ?I63.89 - Cerebrovascular accident (CVA) due to other mechanism (HCCC) Impression: ??Pt is a 74 YOF with PMH of HTN, HLD, DM II, HFrEF, AORTIC STENOSIS, DEMENTIA who underwent left heart cath and noted to have left sided weakness, slurred speech after procedure. NIHSS: 2. Deferred thrombolytics. Prelim CTAs negative for LVO. Admit for TIA/STROKE vs TOXIC/METABOLIC/INFECTIOUS process. ? ?Monitor neuro checks/VS q4h with telemetry. ?Recommend fall precautions and seizure precautions. ?Goal SBP b/w 160-180 today, 140-160 -> 100-140 afterwards. ?Start ASA + STATIN if no contraindications. ?Get MRI BRAIN W/O and ECHO. ?Get AMMONIA, BLOOD CX x2, COVID, UDS, ETOH, ESR/CRP, TROP, CK, TSH, B12, BNP, LACTIC ACID, LIPID PANEL, and A1C. ?Get WORKUP for TOXIC/METABOLIC/INFECTIOUS causes. ?PT/OT/ST eval. Our recommendations are outlined below. Recommendations: ? Stroke/Telemetry Floor ? Neuro Checks (Q4) ? Bedside Swallow Eval ? DVT Prophylaxis ? IV Fluids, Normal Saline ? Head of Bed 30 Degrees ? Euglycemia and Avoid Hyperthermia (PRN Acetaminophen) Sign Out: ? Discussed with Emergency Department Provider Advanced Imaging: CTA Head and Neck Completed. LVO:No Patient is not a candidate for KIESHA Metrics: Last Known Well: 03/11/2025 12:00:00 Arrival Time: 03/11/2025 17:22:46 Activation Time: 03/11/2025 17:04:22 Initial Response Time: 03/11/2025 17:13:34Symptoms: left sided weakness, slurred speech. Initial patient interaction: 03/11/2025 17:33:23 NIHSS Assessment Completed: 03/11/2025 17:45:10Patient is not a candidate for Thrombolytic. Thrombolytic Medical Decision: 03/11/2025 17:45:30Patient was not deemed candidate for Thrombolytic because of following reasons: LKW outside 4.[address] Head: I personally reviewed all the CT images that were available to me and it showed: no acute changes, no ICH. Rads Read: Negative for acute hemorrhage, mass effect or midline shift. CTA: No significant neck arterial stenoses. No cerebral large vessel arterial occlusions or thrombus. Primary Provider Notified of Diagnostic Impression and Management Plan on: 03/11/2025 17:53:50 Spoke with :?ED History of Present Illness: Patient was brought by EMS for symptoms of left sided weakness, slurred speech. Pt is a 74 YOF with PMH of HTN, HLD, DM II, HFrEF, AORTIC STENOSIS, DEMENTIA who underwent left heart cath and noted to have left sided weakness, slurred speech after procedure. She was last normal at 1200 before procedure. She was noted to have symptoms around 1614. No prior stroke. Family has to help her ambulate with walker. Past Medical History: ?Hypertension ?Diabetes Mellitus ?Hyperlipidemia ?Dementia/MCI unable to obtain due to:?? Patient Is Confused Medications: No Anticoagulant use? Antiplatelet use:?Unknown Reviewed EMR for current medications Allergies:? Allergies Unable To Obtain Due To:?Patient Is Confused Social History: Unable To Obtain Due To Patient Status :?Patient Is Confused Family History: Family History Cannot Be Obtained Because:Patient Is Confused ROS :?ROS Cannot Be Obtained Because:? Patient Is Confused Past Surgical History: Past Surgical History Cannot Be Obtained Because: Patient Is Confused Examination: BP(161/69),?Pulse(98),?Blood Glucose(156) 1A: Level of Consciousness - Alert; keenly responsive?+ 0 1B: Ask Month and Age - Could Not Answer Either Question Correctly?+ 2 1C: Blink Eyes & Squeeze Hands - Performs Both Tasks?+ 0 2: Test Horizontal Extraocular Movements - Normal?+ 0 3: Test Visual Adair - No Visual Loss?+ 0 4: Test Facial Palsy (Use Grimace if Obtunded) - Normal symmetry?+ 0 5A: Test Left Arm Motor Drift - No Drift for 10 Seconds?+ 0 5B: Test Right Arm Motor Drift - No Drift for 10 Seconds?+ 0 6A: Test Left Leg Motor Drift - No Drift for 5 Seconds?+ 0 6B: Test Right Leg Motor Drift - No Drift for 5 Seconds?+ 0 7: Test Limb Ataxia (FNF/Heel-Huerta) - No Ataxia?+ 0 8: Test Sensation - Normal; No sensory loss?+ 0 9: Test Language/Aphasia - Normal; No aphasia?+ 0 10: Test Dysarthria - Normal?+ 0 11: Test Extinction/Inattention - No abnormality?+ 0 NIHSS Score:?2 NIHSS Free Text :?Age/month/year: [birth year] Pre-Morbid Modified Awilda Scale: 1 Points = No significant disability despite symptoms; able to carry out all usual duties and activities This consult was conducted in real time using interactive audio and video technology. Patient was informed of the technology being used for this visit and agreed to proceed. Patient located in hospital and provider located at home/office setting. Patient is being evaluated for possible acute neurologic impairment and high p robability of imminent or life-threatening deterioration. I spent total of 35 minutes providing care to this patient, including time for face to face visit via telemedicine, review of medical records, imaging studies and discussion of findings with providers, the patient and/or family. Dr Delicia Back [facility] For Inpatient follow-up with [facility] physician please call [facility] at . As we are not an outpatient service for any post hospital discharge needs please contact the hospital for assistance. If you have any questions for the [facility] physicians or need to reconsult for clinical or diagnostic changes please contact us via [facility] at . Non-radiologist review of imaging performed to assist with emergent clinical decision-making. Remote physician workstations do not possess the same resolution, calibration, or diagnostic capabilities as hospital-based radiology reading stations, and formal radiologist read is necessary. Signature :Amita Back
[2025-03-11 17:57] LABS: HCG Titer if Positive Negative
[2025-03-11 18:02] LABS: INR 1.0 (0.9-1.3); Partial Thromboplastin Time 22.5 Seconds (22.0-36.0); Prothrombin Time 10.9 Seconds (9.0-12.2)
[2025-03-11 18:07] LABS: Alanine Aminotransferase 11 U/L (10-49); Albumin, Serum 4.1 gm/dL (3.4-4.8); Albumin/Globulin Ratio 1.4 (1.2-2.2); Alkaline Phosphatase 41 U/L (46-116); Anion Gap 10 (7-16); Aspartate Amino Transferase 16 U/L (0-34); BUN/Creatinine Ratio 9 Ratio (12-20); Bilirubin,Total 0.4 mg/dL (0.3-1.2); Blood Urea Nitrogen 6 mg/dL (9-23); Calcium 9.7 mg/dL (8.3-10.6); Calcium (Corrected) 9.7 mg/dL (8.5-10.1); Carbon Dioxide 25.9 mMol/L (20.0-31.0); Chloride 102 mMol/L (98-107); Creatinine (Component) 0.7 mg/dL (0.6-1.3); Estimated Creatinine Clearance 77.9 mL/min (>60); Globulin 3.0 gm/dL (2.3-3.5); Glucose 151 mg/dL (74-106); Magnesium 1.4 mg/dL (1.6-2.6); Osmolality,Calculated 276 (275-295); Potassium 4.0 mMol/L (3.4-5.1); Sodium 138 mMol/L (136-145); Total Protein 7.1 gm/dL (5.7-8.2); eGFR > 60 See Note
[2025-03-11 18:09] LABS: Troponin I 0.087 ng/mL (0.0-0.045)
--- NOTE | 2025-03-11 18:31 | ESHP_ITS ---
<Statement entered by Mayito Palomares MD - 03/11/25 20:14> Patient was examined and case was reviewed with team including attending physician. Note reviewed, I agree with most of its contents and agree with the patient's care as documented by Dr. Roper 74-year-old female with a history of HFrEF (EF 35?40%), hypertension, insulin- dependent type 2 diabetes mellitus, and aortic stenosis, who was brought from the shipyard laborer to the ED due to right sided facial droop and right sided weakness and slurred speech . Patient had cardiac cath around 2pm today with no complications whatsover and around 5pm during post-procedure monitoring, patient had medical response team due to weakness on the right side with slurred speech. chemical laboratory chief RN was evaluating the patient when symptoms started. ED evaluated the patient and had Stroke alert called. Head CT and Head/Neck CTA was negative for acute hemorrhage, midline shift, or mass effect, LVO. Teleneurology was consulted and recommended admission for MRI. At the time of my evaluation patient had no symptoms and had no focal deficits. Patient was at her baseline but due to stroke alert will be admitted to complete work up and to evaluate morning labs as patient has had 2 contrast studies in less than 24 hours. Case discussed with my attending Dr. Lizz Palomares MD PGY-2 Documentation for date of: 03/11/25 HPI History of Present Illness Chief complaint: stroke like symptoms History of present illness: 74-year-old female with a history of HFrEF (EF 35?40%), hypertension, insulin- dependent type 2 diabetes mellitus, and aortic stenosis, presents from the cardiac shipyard laborer with new onset right-sided facial droop, right-sided weakness, and slurred speech. These symptoms developed approximately 3 hours post- procedure following a right heart catheterization performed by Dr. Saenz at 2 PM today. Per the shipyard laborer RN, the patient was in the recovery room when these symptoms started. The daughter denies any prior history of stroke or similar symptoms. No significant issues during the procedure; however, the patient developed neurologic changes during post-procedure monitoring. On examination, patient was cleared of all symptoms, no weakness or facial droop noted. Past Medical History: * Neuro: Dementia * Cardiac: HFrEF (EF 35-40%), hypertension, aortic stenosis * Endocrine: Insulin-dependent type 2 diabetes mellitus * GI: Irritable bowel syndrome, obesity * Hematologic: Anemia * Other: Hospitalizations, chicken pox Past Surgical History: * Abdominal surgery (01/02/25, exploratory laparotomy with partial small bowel resection) * Hysterectomy * Tubal ligation Medications: Pending med rec's. Social History: * Smoking: Never smoker * Substance Use: Denies alcohol, illicit drug use Family History: * Unremarkable (unable to obtain details due to patient confusion) Exam Vital Signs Temp Pulse Resp BP Pulse Ox O2 Del Method 98.2 F 102 H 19 146/83 H 94 L Room Air 03/11/25 17:43 03/11/25 17:43 03/11/25 17:43 03/11/25 17:43 03/11/25 17:43 03/11/25 17:43 Narrative Exam General: Elderly, alert, appears stable, no acute distress HEENT: No JVD, pupils equal and reactive, oral mucosa moist, no droop noted Cardiovascular: Regular rate and rhythm, S1/S2, no murmurs, no jugular venous distention Respiratory: Clear to auscultation, no wheezing or crackles Abdomen: Soft, non-tender, non-distended, bowel sounds present Neurologic: * No symptoms noted bilateral strength preserved. * Left side intact (5/5 strength) * No dysphasia or dysarthria observed * No focal deficits on NIHSS scoring (score 2) Extremities: No cyanosis or edema, good capillary refill, 5/5 strength left side, 5/5 right side Skin: Warm, dry, no rashes or ulcers Results: Labs 03/12/25 03:41 03/12/25 03:41 Labs: Short CBC 03/11/25 Range/Units 17:08 WBC 14.1 H D (3.6-11.0) Thou/mm3 Hgb 12.2 (12.0-16.0) g/dL Hct 38.0 (36.0-46.0) % Plt Count 295 D (140-440) Thou/mm3 BMP 03/11/25 17:08 Sodium 138 Potassium 4.0 D Chloride 102 Carbon Dioxide 25.9 BUN 6 L Creatinine 0.7 Glucose 151 H D Calcium 9.7 Cardiac Enzymes 03/11/25 Range/Units 17:08 Troponin I 0.087 H* (0.0-0.045) ng/mL Liver Function 03/11/25 Range/Units 17:08 Total Bilirubin 0.4 (0.3-1.2) mg/dL AST 16 (0-34) U/L ALT 11 (10-49) U/L Alkaline Phosphatase 41 L (46-116) U/L Albumin 4.1 (3.4-4.8) gm/dL Quality Measures Quality Measures stroke Suspected type of Stroke: Unknown at this time Tenecteplase given: Reason(s) Tenecteplase not given: Stroke severity too mild (non-disabling) not given Rehab services: PT evaluation ordered and Speech Language Pathology eval ordered VTE Prophylaxis: pharmaceutical Antithrombotic by day 2:: not indicated (describe) Statin ordered: >75 y/o moderate or high intensity dose Anticoagulation ordered for A-fib or flutter (current or hx): ordered Advance care planning discussed with:: patient, spouse and child Medications Home Medications and Allergies Home Medications ?Medication ?Instructions ?Recorded ?Confirmed ?Type atorvastatin 20 mg tablet 20 mg PO DAILY 12/24/2403/02 History blood-glucose sensor (Dexcom G7 12/24/24 03/12/25 His tory Sensor device) cholecalciferol (vitamin D3) 50 2,000 unit PO BID 12/0203/12/25 History mcg (2,000 unit) tablet (Vitamin D3) metformin 1,000 mg tablet 1,000 mg PO BID 12/24/2402/24 History Held on 03/11/25. Instructions: Resume on 03/13/25. hold metformin for 48 hours sacubitril 24 mg-valsartan 26 mg 1 tab PO BID 02/03/25 03/12/25 History tablet (Entresto) donepezil 5 mg tablet (Aricept) 5 mg PO QDAY 03/12/25 03/12/25 History escitalopram oxalate 10 mg tablet 10 mg PO QDAY 03/12/25 History (Lexapro) Allergies Allergy/AdvReac Type Severity Reaction Status Date / Time Penicillins Allergy Verified 03/11/25 17:45 rofecoxib Allergy Verified 03/11/25 17:45 Visit Medications Acetaminophen (Acetaminophen 325 Mg Tablet) 650 mg PO Q6H PRN PRN Reason: Fever >100.4 Stop: 04/10/25 18:24 Acetaminophen (Acetaminophen 325 Mg Tablet) 650 mg PO Q6H PRN PRN Reason: PAIN SCALE 1-3 (mild Stop: 04/10/25 18:24 Sodium Chloride (Ns) 1,000 mls @ 75 mls/hr IV .[id number] SAMAN Stop: 04/10/25 18:29 Labetalol HCl (Labetalol Inj 5 Mg/Ml Vial 4 Ml) 10 mg IVP Q15M PRN PRN Reason: hypertension Morphine Sulfate (Morphine Sulf Inj 4 Mg/Ml Vial) 1 mg IVP Q4HR PRN PRN Reason: PAIN SCALE 7-10 (Severe Stop: 03/16/25 18:24 Ondansetron HCl (Ondansetron Inj 2 Mg/Ml Inj 2 Ml) 4 mg IVP Q4HR PRN PRN Reason: NAUSEA OR VOMITING Stop: 04/10/25 17:13 Ondansetron HCl (Ondansetron Inj 2 Mg/Ml Inj 2 Ml) 4 mg IVP Q6H PRN; Protocol PRN Reason: NAUSEA OR VOMITING Stop: 04/10/25 18:24 Oxycodone/Acetaminophen (Oxycodone/Apap 5/325 Tablet) 1 tab PO Q6H PRN PRN Reason: PAIN SCALE 4-6 (Moderate Stop: 03/16/25 18:24 Pantoprazole Sodium (Pantoprazole 40 Mg Tablet) 40 mg PO QDAY [facility] Stop: 04/11/25 08:59 Sennosides (Senna Tablet) 1 tab PO QDAY PRN; Protocol PRN Reason: constipation Stop: 04/10/25 18:24 Assessment & Plan Plan 74-year-old female with HFrEF, hypertension, and insulin-dependent type 2 diabetes, admitted for new-onset right-sided facial droop, weakness, and slurred speech post-cardiac catheterization, now with symptoms resolved and no focal deficits. # Transient Cerebral Ischemic Attack vs CVA 74-year-old female with right-sided facial droop, right-sided weakness, and slurred speech post cardiac catheterization. Symptoms have resolved and no focal deficits present. Possible TIA, but no acute changes on head CT or CTA. Possible TIA vs. stroke, toxic/metabolic/ infectious process. Plan: * Admit to telemetry for further monitoring and evaluation. * Neuro checks q4h, telemetry for continuous monitoring. * Fall precautions and seizure precautions in place. * Start ASA and statin (if no contraindications). * MRI brain without contrast to evaluate for stroke/infarct. * ECHO to assess for any embolic source. * Obtain labs: ammonia, blood cultures, UDS, ESR, CRP, TSH, B12, BNP, lactic acid, A1C. * PT/OT/ST evaluation as needed. # Aortic Stenosis Found on cardiac catheterization; significant transvalvular gradient but no coronary artery disease. Plan: * Continue monitoring in hospital. * Outpatient follow-up with cardiology for TAVR evaluation. * Continue cardiac medications as tolerated. # Hypertension BP stable post-procedure, currently at 146/83. Plan: * Continue current antihypertensive regimen. * Monitor BP closely, allow permissive hypertension. # Diabetes Mellitus Type 2 Blood glucose was 151 no longer on insulin on metformin, pending med recs Plan: * Continue insulin regimen as prescribed. * Monitor blood glucose levels while inpatient * Pending med recs # Dyslipidemia Pateint on atorvastatin home med. Plan: * Ordered lipid panel * Start atorvastatin 40. Health Maintenance: Diet: Carb-consistent diet DVT Prophylaxis: Lovenox 40 mg daily GI Prophylaxis: None indicated Code Status: Full Disposition: * Continue telemetry monitoring for 24 hours. * Discharge likely if stable after further evaluation and symptom resolution. ----- Plan discussed with attending physician Dr. Zamudio and senior resident Dr. Diego Roper MD PGY-1 Internal Medicine Attending Provider Attestation/Addendum I have seen and examined the patient. I was physically present for the wilkins portions of the services provided including history, physical exam, diagnosis, treatment plans and orders. I agree with assessment and plan of care as documented by residents. After examination of the patient and review of the clinical data I feel that this patient needs admission to the hospital for further treatment/evaluation. Even though this this note was carefully revised there may still be minor errors in fur farmer due to voice recognition software. Suzi Zamudio MD
--- NOTE | 2025-03-11 18:31 | PD.RESHP ---
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 These symptoms developed approximately 3 hours post-procedure following a right heart catheterization performed by Dr. Saenz at 2 PM today. Per the microbiology laboratory manager RN, the patient was in the recovery room when these symptoms started. The daughter denies any prior history of stroke or similar symptoms. No significant issues during the procedure; however, the patient developed neurologic changes during post-procedure monitoring. On examination, patient was cleared of all symptoms, no weakness or facial droop noted. Past Medical History: Neuro: Dementia Cardiac: HFrEF (EF 35-40%), hypertension, aortic stenosis Endocrine: Insulin-dependent type 2 diabetes mellitus GI: Irritable bowel syndrome, obesity Hematologic: Anemia Other: Hospitalizations, chicken pox Past Surgical History: Abdominal surgery (01/02/25, exploratory laparotomy with partial small bowel resection) Hysterectomy Tubal ligation Medications: Pending med rec's. Social History: Smoking: Never smoker Substance Use: Denies alcohol, illicit drug use Family History: Unremarkable (unable to obtain details due to patient confusion) Exam Vital Signs Temp Pulse Resp BP Pulse Ox O2 Del Method 98.2 F 102 H 19 146/83 H 94 L Room Air 03/11/25 17:43 03/11/25 17:43 03/11/25 17:43 03/11/25 17:43 03/11/25 17:43 03/11/25 17:43 Narrative Exam General: Elderly, alert, appears stable, no acute distress HEENT: No JVD, pupils equal and reactive, oral mucosa moist, no droop noted Cardiovascular: Regular rate and rhythm, S1/S2, no murmurs, no jugular venous distention Respiratory: Clear to auscultation, no wheezing or crackles Abdomen: Soft, non-tender, non-distended, bowel sounds present Neurologic: No symptoms noted bilateral strength preserved. Left side intact (5/5 strength) No dysphasia or dysarthria observed No focal deficits on NIHSS scoring (score 2) Extremities: No cyanosis or edema, good capillary refill, 5/5 strength left side, 5/5 right side Skin: Warm, dry, no rashes or ulcers Results: Labs 03/12/25 03:41 03/12/25 03:41 Labs: Short CBC 03/11/25 Range/Units 17:08 WBC 14.1 H D (3.6-11.0) Thou/mm3 Hgb 12.2 (12.0-16.0) g/dL Hct 38.0 (36.0-46.0) % Plt Count 295 D (140-440) Thou/mm3 BMP 03/11/25 17:08 Sodium 138 Potassium 4.0 D Chloride 102 Carbon Dioxide 25.9 BUN 6 L Creatinine 0.7 Glucose 151 H D Calcium 9.7 Cardiac Enzymes 03/11/25 Range/Units 17:08 Troponin I 0.087 H* (0.0-0.045) ng/mL Liver Function 03/11/25 Range/Units 17:08 Total Bilirubin 0.4 (0.3-1.2) mg/dL AST 16 (0-34) U/L ALT 11 (10-49) U/L Alkaline Phosphatase 41 L (46-116) U/L Albumin 4.1 (3.4-4.8) gm/dL Quality Measures Quality Measures stroke Suspected type of Stroke: Unknown at this time Tenecteplase given: Reason(s) Tenecteplase not given: Stroke severity too mild (non-disabling) not given Rehab services: PT evaluation ordered and Speech Language Pathology eval ordered VTE Prophylaxis: pharmaceutical Antithrombotic by day 2:: not indicated (describe) Statin ordered: >75 y/o moderate or high intensity dose Anticoagulation ordered for A-fib or flutter (current or hx): ordered Advance care planning discussed with:: patient, spouse and child Medications Home Medications and Allergies Home Medications ?Medication ?Instructions ?Recorded ?Confirmed ?Type atorvastatin 20 mg tablet 20 mg PO DAILY 12/24/24 03/12/25 History blood-glucose sensor (Contract Cloud G7 12/24/24 03/12/25 History Sensor device) cholecalciferol (vitamin D3) 50 2,000 unit PO BID 12/24/24 03/12/25 History mcg (2,000 unit) tablet (Vitamin D3) metformin 1,000 mg tablet 1,000 mg PO BID 12/24/24 03/12/25 History Held on 03/11/25. Instructions: Resume on 03/13/25. hold metformin for 48 hours sacubitril 24 mg-valsartan 26 mg 1 tab PO BID 02/03/25 03/12/25 History tablet (Entresto) donepezil 5 mg tablet (Aricept) 5 mg PO QDAY 03/12/25 03/12/25 History escitalopram oxalate 10 mg tablet 10 mg PO QDAY 03/12/25 03/12/25 History (Lexapro) Allergies Allergy/AdvReac Type Severity Reaction Status Date / Time Penicillins Allergy Verified 03/11/25 17:45 rofecoxib Allergy Verified 03/11/25 17:45 Visit Medications Acetaminophen (Acetaminophen 325 Mg Tablet) 650 mg PO Q6H PRN PRN Reason: Fever >100.4 Stop: 04/10/25 18:24 Acetaminophen (Acetaminophen 325 Mg Tablet) 650 mg PO Q6H PRN PRN Reason: PAIN SCALE 1-3 (mild Stop: 04/10/25 18:24 Sodium Chloride (Ns) 1,000 mls @ 75 mls/hr IV .[id number] REPLACED BY [facility] Stop: 04/10/25 18:29 Labetalol HCl (Labetalol Inj 5 Mg/Ml Vial 4 Ml) 10 mg IVP Q15M PRN PRN Reason: hypertension Morphine Sulfate (Morphine Sulf Inj 4 Mg/Ml Vial) 1 mg IVP Q4HR PRN PRN Reason: PAIN SCALE 7-10 (Severe Stop: 03/16/25 18:24 Ondansetron HCl (Ondansetron Inj 2 Mg/Ml Inj 2 Ml) 4 mg IVP Q4HR PRN PRN Reason: NAUSEA OR VOMITING Stop: 04/10/25 17:13 Ondansetron HCl (Ondansetron Inj 2 Mg/Ml Inj 2 Ml) 4 mg IVP Q6H PRN; Protocol PRN Reason: NAUSEA OR VOMITING Stop: 04/10/25 18:24 Oxycodone/Acetaminophen (Oxycodone/Apap 5/325 Tablet) 1 tab PO Q6H PRN PRN Reason: PAIN SCALE 4-6 (Moderate Stop: 03/16/25 18:24 Pantoprazole Sodium (Pantoprazole 40 Mg Tablet) 40 mg PO QDAY REPLACED BY [facility] Stop: 04/11/25 08:59 Sennosides (Senna Tablet) 1 tab PO QDAY PRN; Protocol PRN Reason: constipation Stop: 04/10/25 18:24 Assessment & Plan Plan 74-year-old female with HFrEF, hypertension, and insulin-dependent type 2 diabetes, admitted for new-onset right-sided facial droop, weakness, and slurred speech post-cardiac catheterization, now with symptoms resolved and no focal deficits. # Transient Cerebral Ischemic Attack vs CVA 74-year-old female with right-sided facial droop, right-sided weakness, and slurred speech post cardiac catheterization. Symptoms have resolved and no focal deficits present. Possible TIA, but no acute changes on head CT or CTA. Possible TIA vs. stroke, toxic/metabolic/ infectious process. Plan: Admit to telemetry for further monitoring and evaluation. Neuro checks q4h, telemetry for continuous monitoring. Fall precautions and seizure precautions in place. Start ASA and statin (if no contraindications). MRI brain without contrast to evaluate for stroke/infarct. ECHO to assess for any embolic source. Obtain labs: ammonia, blood cultures, UDS, ESR, CRP, TSH, B12, BNP, lactic acid, A1C. PT/OT/ST evaluation as needed. # Aortic Stenosis Found on cardiac catheterization; significant transvalvular gradient but no coronary artery disease. Plan: Continue monitoring in hospital. Outpatient follow-up with cardiology for TAVR evaluation. Continue cardiac medications as tolerated. # Hypertension BP stable post-procedure, currently at 146/83. Plan: Continue current antihypertensive regimen. Monitor BP closely, allow permissive hypertension. # Diabetes Mellitus Type 2 Blood glucose was 151 no longer on insulin on metformin, pending med recs Plan: Continue insulin regimen as prescribed. Monitor blood glucose levels while inpatient Pending med recs # Dyslipidemia Pateint on atorvastatin home med. Plan: Ordered lipid panel Start atorvastatin 40. Health Maintenance: Diet: Carb-consistent diet DVT Prophylaxis: Lovenox 40 mg daily GI Prophylaxis: None indicated Code Status: Full Disposition: Continue telemetry monitoring for 24 hours. Discharge likely if stable after further evaluation and symptom resolution. ----- Plan discussed with attending physician Dr. Zamudio and senior resident Dr. Diego Roper MD PGY-1 Internal Medicine Attending Provider Attestation/Addendum I have seen and examined the patient. I was physically present for the wilkins portions of the services provided including history, physical exam, diagnosis, treatment plans and orders. I agree with assessment and plan of care as documented by residents. After examination of the patient and review of the clinical data I feel that this patient needs admission to the hospital for further treatment/evaluation. Even though this this note was carefully revised there may still be minor errors in prn physical therapist due to voice recognition software. Suzi Zamudio MD
--- NOTE | 2025-03-11 18:49 | PD.RESCONSUL ---
HPI Data of Consult Patient: known to practice within the last 3 years Consult date: 03/11/25 Requesting Physician: Suzi Zamudio MD Admitting Provider: Suzi Zamudio MD Attending Provider: Garrett Saenz MD Primary Care Provider: Physician No Primary/Family Consult Narrative Reason for consult: Status post angiogram History of present illness: Ms. 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 Patient underwent left and right heart cardiac catheterization, abdominal aortogram and lower extremity runoff today. Patient tolerated the procedure well without any complications, patient did not receive any heparin/Lovenox during the procedure. No significant disease was noted during the cardiac catheterization. Postcardiac catheterization patient stable, cath findings were informed to the patient. Around 1614, patient noted to have symptoms of left-sided weakness and slurred speech per RN and bedside, medical response was initiated, patient was evaluated by ED physician per ER physician evaluation patient had right-sided facial droop, right-sided weakness and slurred speech. Stroke alert was initiated. CT head and CTA were negative, ER workup fairly unremarkable other than mild leukocytosis, hypomagnesemia, mildly elevated lactate and troponin. Teleneurology recommended MRI for which patient will be admitted. ED Course: ED Vitals: On presentation in ED blood pressure 146/83, heart rate 105, respiratory rate 19, temp 98.2, O2 sat 94 on room air ED Labs: ER labs showed WBC 14.1, hemoglobin 12.2, hematocrit 38%, MCV 91, MCH 29.2, MCHC 32.1, platelet count 295. Mild neutrophilia of 11.8 noted. ESR 32. Coags PT 10.9, INR 1.0 APTT 22.5. Sodium 138, potassium 4.0, chloride 108, bicarb 25.9, anion gap 10, BUN 6, creatinine 0.7, GFR greater than 60, glucose 151, osmolality 276, lactate 2.1, calcium 9.7, magnesium 1.4, AST 16, ALT 11, alk phos 41, ammonia less than 10, total CK 39, 2 0.087, CRP less than 0.5, total protein 7.0, albumin 4.1, globulin 3.0, vitamin B12 pending. Urinalysis shows contaminated sample. Squamous epithelial cells 16 ED Imaging: CT scan of head in ER negative for any midline shift mass or hemorrhage. Head neck CTA negative for large vessel occlusion. EKG in ED shows sinus rhythm, no acute ST-T changes. ED Treatment: Stroke alert called in ER. cc:: cc: Review of Systems Review of Systems Narrative Review of Systems: ROS: -CONSTITUTIONAL: Denies weight loss, fever and chills. -HEENT: Denies changes in vision and hearing. -RESPIRATORY: Denies SOB and cough. -CV: Denies palpitations and Chest Pain. -GI: Denies abdominal pain, nausea, vomiting,constipation and diarrhea. -: Denies dysuria and urinary frequency. -MSK: Denies myalgia and joint pain. -SKIN: Denies rash and pruritus. -NEUROLOGICAL: Denies headache and syncope. -PSYCHIATRIC: Denies recent changes in mood. Denies anxiety and depression. Past Medical History Past Medical History Comments PMH COMMENT: PMH: As above PSHx: Exploratory laparotomy with partial small bowel resection?01/02/2025, hysterectomy, tubal ligation Allergies: No known drug and food allergies Social history: -Smoking: Never smoker -Alcohol Use: Denies -Illicit Drug Use: Denies -Martial Status: Family History: No pertinent family history of cardiac disease. Home medications: Entresto 24?26 twice daily, metoprolol succinate 25 daily, atorvastatin 20 mg daily, Lexapro 10 mg daily, Aricept 5 mg daily Exam Vital Signs Temp Pulse Resp BP Pulse Ox O2 Del Method 98.2 F 102 H 19 146/83 H 94 L Room Air 03/11/25 17:43 03/11/25 17:43 03/11/25 17:43 03/11/25 17:43 03/11/25 17:43 03/11/25 17:43 Narrative Exam Physical Exam General: Awake and in no acute distress. Conversational and non-toxic appearing. HEENT: Normocephalic, atraumatic, mucous membranes moist. No facial droop noted. No slurring of speech noted. No dysmetria. Heart: Regular rate and rhythm, 4/6 aortic area murmur positive. Lungs: Clear to auscultation with no wheezing or crackles. Abdomen: Soft, nondistended, obese, nontender, positive bowel sounds. ?No guarding or rebound tenderness. Neurologic: Alert and oriented x3, no gross neurological deficit, and patient able to move all 4 extremities. Strength 5/5 upper and lower extremity. Extremities: Trace bilateral lower extremity edema Skin: No rash or ecchymoses. Femoral dressing noted. Results Labs 03/12/25 03:41 03/12/25 03:41 Labs: Short CBC 03/11/25 Range/Units 17:08 WBC 14.1 H D (3.6-11.0) Thou/mm3 Hgb 12.2 (12.0-16.0) g/dL Hct 38.0 (36.0-46.0) % Plt Count 295 D (140-440) Thou/mm3 BMP 03/11/25 17:08 Sodium 138 Potassium 4.0 D Chloride 102 Carbon Dioxide 25.9 BUN 6 L Creatinine 0.7 Glucose 151 H D Calcium 9.7 Cardiac Enzymes 03/11/25 Range/Units 17:08 Troponin I 0.087 H* (0.0-0.045) ng/mL Liver Function 03/11/25 Range/Units 17:08 Total Bilirubin 0.4 (0.3-1.2) mg/dL AST 16 (0-34) U/L ALT 11 (10-49) U/L Alkaline Phosphatase 41 L (46-116) U/L Albumin 4.1 (3.4-4.8) gm/dL Quality Measures Quality Measures stroke Suspected type of Stroke: Unknown at this time Tenecteplase given: Reason(s) Tenecteplase not given: Stroke severity too mild (non-disabling) not given Rehab services: PT evaluation ordered and Speech Language Pathology eval ordered VTE Prophylaxis: not indicated Antithrombotic by day 2:: ordered Statin ordered: >75 y/o moderate or high intensity dose Anticoagulation ordered for A-fib or flutter (current or hx): not indicated Advance care planning discussed with:: patient Medications Home Medications and Allergies Home Medications ?Medication ?Instructions ?Recorded ?Confirmed ?Type atorvastatin 20 mg tablet 20 mg PO DAILY 12/24/24 03/12/25 History blood-glucose sensor (Dexcom G7 12/24/24 03/12/25 History Sensor device) cholecalciferol (vitamin D3) 50 2,000 unit PO BID 12/24/24 03/12/25 History mcg (2,000 unit) tablet (Vitamin D3) metformin 1,000 mg tablet 1,000 mg PO BID 12/24/24 03/12/25 History Held on 03/11/25. Instructions: Resume on 03/13/25. hold metformin for 48 hours sacubitril 24 mg-valsartan 26 mg 1 tab PO BID 02/03/25 03/12/25 History tablet (Entresto) donepezil 5 mg tablet (Aricept) 5 mg PO QDAY 03/12/25 03/12/25 History escitalopram oxalate 10 mg tablet 10 mg PO QDAY 03/12/25 03/12/25 History (Lexapro) Allergies Allergy/AdvReac Type Severity Reaction Status Date / Time Penicillins Allergy Verified 03/11/25 17:45 rofecoxib Allergy Verified 03/11/25 17:45 Visit Medications Acetaminophen (Acetaminophen 325 Mg Tablet) 650 mg PO Q6H PRN PRN Reason: Fever >100.4 Stop: 04/10/25 18:24 Acetaminophen (Acetaminophen 325 Mg Tablet) 650 mg PO Q6H PRN PRN Reason: PAIN SCALE 1-3 (mild Stop: 04/10/25 18:24 Sodium Chloride (Ns) 1,000 mls @ 75 mls/hr IV .[id number] SAMAN Stop: 04/10/25 18:29 Labetalol HCl (Labetalol Inj 5 Mg/Ml Vial 4 Ml) 10 mg IVP Q15M PRN PRN Reason: hypertension Morphine Sulfate (Morphine Sulf Inj 4 Mg/Ml Vial) 1 mg IVP Q4HR PRN PRN Reason: PAIN SCALE 7-10 (Severe Stop: 03/16/25 18:24 Ondansetron HCl (Ondansetron Inj 2 Mg/Ml Inj 2 Ml) 4 mg IVP Q4HR PRN PRN Reason: NAUSEA OR VOMITING Stop: 04/10/25 17:13 Ondansetron HCl (Ondansetron Inj 2 Mg/Ml Inj 2 Ml) 4 mg IVP Q6H PRN; Protocol PRN Reason: NAUSEA OR VOMITING Stop: 04/10/25 18:24 Oxycodone/Acetaminophen (Oxycodone/Apap 5/325 Tablet) 1 tab PO Q6H PRN PRN Reason: PAIN SCALE 4-6 (Moderate Stop: 03/16/25 18:24 Pantoprazole Sodium (Pantoprazole 40 Mg Tablet) 40 mg PO QDAY SAMAN Stop: 04/11/25 08:59 Sennosides (Senna Tablet) 1 tab PO QDAY PRN; Protocol PRN Reason: constipation Stop: 04/10/25 18:24 Assessment & Plan Plan Assessment and plan: Summary: Ms. 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 Patient admitted for CVA workup after possible deficits were noted by RN postcardiac cath. Stroke alert was initiated. #CVA workup Post cardiac catheterization on 161 on RNs assessment patient noted to have some left-sided facial droop with possible slurring of speech. Medical response unit called in the Systems Project Manager, patient assessed by ED physician who noted slurring of speech right-sided facial droop and some right-sided weakness, stroke alert was initiated. CT head negative, head and neck CTA negative. Neurology recommends admission for MRI and further workup to rule out stroke. Low suspicion of stroke . Rule out partial seizures. Patient seen at bedside, alert oriented x 4, no focal neurological deficits noted, normal finger-nose test, normal heel bob test, no visual deficits noted, 5/5 strength preserved bilateral upper extremities and 5/5 strength noted bilateral lower extremities. No gross neurological deficits noted. Recommendations: - Proceed with MRI to complete stroke workup - Recommend holding off on transthoracic echocardiogram. - Continue aspirin and plavix per neurology recommendations for now. - Neurology is consulted and following. #Status post left and right coronary angiograms #Status post abdominal aortography #Status post bilateral lower extremity runoff #Status post supravalvular aortography Elective cardiac catheterization performed today as a part of preoperative workup for aortic valve replacement. Patient was performed risks and benefits prior to procedure. Summary/findings: 1. Severe aortic stenosis: There was significant transvalvular gradient with a mean gradient of 48 mmHg and a peak gradient of 60 mmHg with a valve area of 0.7 cm?. 2. LHC showed normal coronaries with only minimal luminal irregularities and no angiographically significant obstruction. 3. LVEF was mildly reduced at 40-45% and LVEDP was mildly elevated at 22 mmHg. 4. Right heart cardiac catheterization showed mild to moderately elevated right heart pressures with a mean PCWP of 23 mmHg, mean PA pressure of 41 mmHg as well as a mean RA pressure of 2 mmHg. 5. Supravalvular adequacy showed no evidence of any thoracic aortic aneurysm and only minimally dilated thoracic aorta. 6. Aortography and bilateral lower extremity runoff was performed separately and showed only minimal atherosclerosis and patent vessels as described above including the iliac arteries, bilateral femoral arteries as well as popliteal arteries Recommendations: - Patient will need further aortic valve replacement as outpatient, needs follow-up with cardiothoracic surgery and TAVR vs SAVR work up - Continue aggressive medical management with risk factor modification - Patient to avoid lifting more than 5 pounds for the next 7 to 10 days. #Chronic systolic and diastolic heart failure, HFrEF EF 40 to 45% Patient has underlying systolic and diastolic heart failure, angiogram from today shows ejection fraction 40 to 45%. LVEDP is mildly elevated 22 mmHg. Echocardiogram from 12/24/2024 shows -Normal LV size. Mild LVH. Global LV systolic function is moderately decreased. Estimated EF at 35-40 %. -Diastolic function could not be assesed due to severe MAC. Normal RV size and systolic function. -Severe MAC with severe calcification of mitral valve ( posterrior > anterior) and aortic valve. -Mild to moderate mitral stenosis - Mean PG 5 to 8 mm hg. but area with PHT 2.5 sq cm. -Moderate to severe with V max 3.3 m/s, mean PG 23 mm hg But RILEY is 0.5 sq cm. Trace to mild AI. -Mostly low flow low gradient severe aortic stenosis given the low EF. -Mild MR and mild TR. IVC not well visualized. Recommendations: -Patient's ejection fraction has improved with Entresto and metoprolol. -Recommend continuing GDMT, resume Entresto and metoprolol. #Paroxysmal atrial fibrillation Patient did have an episode of atrial fibrillation in December as evidenced by EKG in the past-12/26/2024. EKG today shows sinus rhythm, patient not on anticoagulation as this was believed to be stress related secondary to SBO/bowel ischemia in the past. Recommendations: -Will continue to hold anticoagulation for now, patient will need outpatient Holter monitoring to assess A-fib burden. - Keep potassium greater than 4 and magnesium greater than 2 at all times #Severe aortic stenosis Patient underwent cardiac catheterization today, per cardiac cath patient noted to have transvalvular mean gradient 48 mmHg, mean peak gradient 60 mmHg, valve area 0.7 cm? -Will continue with TAVR vs SAVR workup outpatient #Elevated troponin Patient's troponin elevated at 0.087 likely post angiogram, as no disease noted on angiogram. #Hypertension Resume home dose Entresto and metoprolol #Hyperlipidemia Continue atorvastatin #Leukocytosis #Insulin-dependent diabetes mellitus Management as per primary team Thank you for the consult and allowing to participate in the care of the patient. Cardiology will continue to follow. Case discussed with Attending Physician Dr. Garrett Ha MD Internal Medicine PGY-2 Disclaimer: This note was dictated by speech recognition. Minor errors in real estate leasing agent may be present due to voice recognition software. Attending Provider Attestation/Addendum I have personally seen and examined the patient separately on the above date of service and discussed the plan of care with the resident. I reviewed the resident Dr. Flako Gregory / Zak Ha consultation progress note and agree with the resident findings and plan in the note above and have also edited the documentation to reflect my findings and plan. Garrett Saenz M.D. Interventional Cardiology
[2025-03-11 18:55] LABS: Lactate (Lactic Acid) 2.1 mMol/L (0.4-2.0)
[2025-03-11 19:03] LABS: Sed Rate (ESR) 32 mm/hr (0-30)
[2025-03-11 19:05] LABS: Collection Type, Urine Catheter
[2025-03-11 19:13] VITALS: BP 172/82; PULSE 87; RESP 17; TEMP 36.6; O2SAT 94
[2025-03-11 19:14] VITALS: PULSE 90; RESP 22; RESP 93
[2025-03-11 19:19] LABS: Ammonia < 10 uMol/L (11-32)
[2025-03-11 19:19] LABS: Amphetamine/Methamp Scrn,U Negative (Negative); Barbiturate Screen,Urine Negative (Negative); Benzodiazepines Screen,Urine Positive (Negative); Benzoylecgonine Screen, Ur Negative (Negative); Fentanyl Screen,Urine Positive (Negative); Opiate Screen,Urine Negative (Negative); THC Screen,Urine Negative (Negative)
[2025-03-11 19:23] LABS: Amorphous Crystals,Urine Present (Absent); Bacteria,Urine Rare; Bilirubin,Urine Negative (Negative); Blood,Urine Negative (Negative); Budding Yeast,Urine Present; Clarity,Urine Clear (Clear/Hazy); Color,Urine Lt-Yellow (Lt Yel-Yel); Culture Indicated,Urine Contaminated; Glucose, Urine Negative (Negative); Ketones,Urine 1+ (Negative); Leukocyte Esterase,Urine Positive (Negative); Nitrite,Urine Negative (Negative); PH,Urine 6.5 (5.0-7.0); Protein,Urine Trace (Neg - Trace); RBC,Urine 13 /hpf (0-3); Specific Gravity,Urine 1.042 (1.001-1.035); Squamous Epithelial Cell,Urine 16 /hpf (0-5); Urobilinogen,Urine Negative mg/dL (0.0-1.0); WBC,Urine 69 /hpf (0-5)
[2025-03-11 19:40] LABS: C-Reactive Protein < 0.5 mg/dL (0.0-0.9); Creatine Kinase 39 U/L (34-171)
[2025-03-11 19:46] LABS: Troponin I 0.125 ng/mL (0.0-0.045)
[2025-03-11 20:06] VITALS: BP 169/69; PULSE 93; RESP 17; TEMP 36.6; O2SAT 94
[2025-03-11 20:40] LABS: Vitamin B12 969 pg/mL (211-911)
[2025-03-11 21:49] LABS: Reflex Lactate? Y
[2025-03-11] MEDS: ATORVASTATIN CALCIUM 20 MG TABLET 40 MG PO (21:59)
[2025-03-11] MEDS: Magnesium Sulfate 4 GM Ivpb 4 GM/50 ML BAG IV (22:04)
--- NOTE | 2025-03-11 22:04 | PC.NURSE ---
AZULAR to Herber[facility] BRUSH
[2025-03-11] MEDS: SODIUM CHLORIDE 0.9% 1000 ML 1,000 ML 75 ML IV (23:10)
[2025-03-11 23:17] LABS: Lactic Acid, 3 HR 2.3 mMol/L (0.4-2.0)
[2025-03-12] VITALS (8 sets, daily range): BP systolic 141–169; BP diastolic 66–76; PULSE 70–104; RESP 13–19; TEMP 36.3–36.7; O2SAT 92–97
--- NOTE | 2025-03-12 | XR_ITS ---
Examination: MRI brain without intravenous contrast. Date and time of exam: March 12, 2025, 1147 hours INDICATIONS: Onset right-sided facial droop right-sided body weakness slurred speech stroke alert yesterday Technique: Multiple axial and sagittal images of the brain obtained. Siemens high-resolution 1.5 Kyra short bore scanners utilized. Sagittal sections, T1-weighted, TR 500, TE 14, are performed. Axial sections proton-density and T2-weighted have been obtained. Inversion recovery axial images, TR 9, 260, TE 111, TI 2500. Diffusion weighted images, axial sections, TR 4800, TE 128, B value 1000 Axial sections, ADC map, TR 4800, TE 128 Findings: Enlargement of the sella turcica is not present. The optic chiasm and infundibular are not remarkable. Prepontine and interpeduncular cisterns are not enlarged. There is no localized enlargement of the medulla or lucia. Fourth ventricle and cerebellar tonsils appear normal in position. No subacute area of hemorrhage density is seen. Mass in the cerebellopontine angle region is not evident. Globes symmetrical. Orbital musculature including medial lateral rectus muscles do not exhibit abnormality. Diffusion-weighted images demonstrate 20 mm focus of restricted diffusion right cerebellar hemisphere, 7 mm focus of restricted diffusion left basal ganglia. Increased white matter signal prominent Mass effect upon the ventricular system is not identified. 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
[2025-03-12 03:56] LABS: Basophils # (Auto) 0.1 Thou/mm3 (0.0-0.2); Basophils % (Auto) 0 % (0-2.5); Eosinophils # (Auto) 0.1 Thou/mm3 (0.0-0.5); Eosinophils % (Auto) 1 % (0-10); Hematocrit 37.1 % (36.0-46.0); Hemoglobin 12.1 g/dL (12.0-16.0); Immature Granulocytes Auto 0.02 Thou/mm3 (0.00-0.00); Lymphocytes # (Auto) 2.4 Thou/mm3 (1.0-4.8); Lymphocytes % (Auto) 21 % (10-50); Mean Corpuscular HGB Conc 32.6 g/dl (31.0-37.0); Mean Corpuscular Hemoglobin 29.1 pg (25.0-35.0); Mean Corpuscular Volume 89 fL (80-100); Monocytes # (Auto) 0.9 Thou/mm3 (0.0-0.8); Monocytes % (Auto) 8 % (0-12); Neutrophils # (Auto) 7.7 Thou/mm3 (1.8-7.7); Neutrophils % (Auto) 69 % (37-80); Nucleated Red Blood Cell # 0.00 Thou/mm3 (0.00-0.00); Nucleated Red Blood Cell % 0 /100 WBC (0); Platelet Count 327 Thou/mm3 (140-440); RDW Standard Deviation 46.9 fL (36.4-46.3); Red Blood Count 4.16 Miln/mm3 (4.00-5.20); White Blood Count 11.1 Thou/mm3 (3.6-11.0)
[2025-03-12 04:09] LABS: INR 1.0 (0.9-1.3); Prothrombin Time 10.9 Seconds (9.0-12.2)
[2025-03-12 04:12] LABS: Glucose Estimated Average 143 mg/dL (80-131); Hemoglobin A1C 6.6 % Hgb (4.8-6.0)
[2025-03-12 04:38] LABS: Alanine Aminotransferase 9 U/L (10-49); Albumin, Serum 3.9 gm/dL (3.4-4.8); Albumin/Globulin Ratio 1.3 (1.2-2.2); Alkaline Phosphatase 38 U/L (46-116); Anion Gap 10 (7-16); Aspartate Amino Transferase 16 U/L (0-34); BUN/Creatinine Ratio 8 Ratio (12-20); Bilirubin,Total 0.5 mg/dL (0.3-1.2); Blood Urea Nitrogen 5 mg/dL (9-23); Calcium 9.4 mg/dL (8.3-10.6); Calcium (Corrected) 9.5 mg/dL (8.5-10.1); Carbon Dioxide 27.3 mMol/L (20.0-31.0); Cardiac Risk Estimate 2.8 RATIO (3.7-5.6); Chloride 104 mMol/L (98-107); Cholesterol 85 mg/dL (132-200); Creatinine (Component) 0.6 mg/dL (0.6-1.3); Estimated Creatinine Clearance 89.6 mL/min (>60); Globulin 2.9 gm/dL (2.3-3.5); Glucose 130 mg/dL (74-106); HDL Cholesterol 30 mg/dL (40-60); LDL Cholesterol,Calculated 39 mg/dL (0-130); Magnesium 1.8 mg/dL (1.6-2.6); Osmolality,Calculated 280 (275-295); Phosphorous 4.8 mg/dL (2.4-5.1); Potassium 4.4 mMol/L (3.4-5.1); Sodium 141 mMol/L (136-145); Thyroid Stimulating Hormone 1.44 uIU/mL (0.55-4.78); Total Protein 6.8 gm/dL (5.7-8.2); Triglycerides 81 mg/dL (30-150); eGFR > 60 See Note
[2025-03-12 04:41] LABS: Troponin I 0.284 ng/mL (0.0-0.045)
--- NOTE | 2025-03-12 08:58 | PCS.ST ---
Swallow Evaluation completed. See report for details. No dysphagia and safe for a diet at this time unless any neuro symptoms return. ST will follow up.
[2025-03-12] MEDS: Magnesium Sulfate 4 GM Ivpb 4 GM/50 ML BAG IV (09:25)
[2025-03-12] MEDS: SODIUM CHLORIDE 0.9% 1000 ML 1,000 ML 100 ML IV (09:25)
[2025-03-12] MEDS: PANTOPRAZOLE 40 MG TABLET PO (09:26)
[2025-03-12] MEDS: ASPIRIN EC 81 MG TABEC PO (09:26)
[2025-03-12] MEDS: CLOPIDOGREL BISULFATE 75 MG TABLET PO (09:26)
--- NOTE | 2025-03-12 10:25 | ESPR_ITS ---
<Statement entered by Mayito Palomares MD - 03/14/25 05:59> Patient was examined and case was reviewed with team including attending physician. Note reviewed, I agree with most of its contents and agree with the patient's care. Mayito Palomares MD PGY-2 Documentation for date of: 03/12/25 Subjective Subjective Interval history: Patient seen this morning with daughter at bedside. Daughter reports two additional transient neurologic episodes since admission: -10 PM last night: right facial droop + slurred speech lasting ~5 minutes, fully resolved. -6:45 AM today: same symptoms lasting ~5 minutes, again fully resolved. Patient is amnestic to both episodes and does not recall them when questioned. On my bedside evaluation today, no focal neurologic deficits were present. Patient denies headache, dizziness, weakness, vision changes, chest pain, palpitations, or shortness of breath. No nausea or vomiting. No urinary symptoms. Appetite okay. Later this afternoon, patient was sent down to MRI and patient did not tolerate and called emergency button and said she wants no part in this and now refusing MRI. Exam Vital Signs Temp Pulse Resp BP Pulse Ox O2 Del Method 97.5 F 77 13 160/66 H 92 L Room Air 03/12/25 08:00 03/12/25 08:00 03/12/25 08:00 03/12/25 08:00 03/12/25 08:00 03/12/25 08:00 Narrative Exam General: Alert, oriented, no acute distress. HEENT: No facial droop, PERRL, mucous membranes moist. Neuro: Strength 5/5 all extremities, no dysarthria, no aphasia, no drift, CN II?XII intact on my exam. No sensory loss. Gait not tested. Cardiac: RRR, loud 4/6 aortic systolic murmur, no gallop. Respiratory: Lungs clear. Abdomen: Soft, non-tender, nondistended, active bowel sounds. Extremities: Trace edema, radial access site clean/dry, no hematoma. Skin: Warm, dry, intact. Objective Labs 03/13/25 05:20 03/13/25 05:20 Labs: Laboratory Results - last 24 hr 03/11/25 03/11/25 03/11/25 17:08 18:36 18:43 WBC 14.1 H D RBC 4.18 Hgb 12.2 Hct 38.0 MCV 91 MCH 29.2 MCHC 32.1 RDW Std Deviation 47.6 H Plt Count 295 D Neut % (Auto) 84 H Lymph % (Auto) 11 [place] % (Auto) 5 Eos % (Auto) 0 Baso % (Auto) 0 Neut # (Auto) 11.8 H Lymph # (Auto) 1.6 [place] # (Auto) 0.6 Eos # (Auto) 0.0 Baso # (Auto) 0.0 Immature Gran # (Auto) 0.05 H Absolute Nucleated RBC 0.00 Immature Gran % 0 Nucleated RBC % 0 ESR 32 H PT 10.9 INR 1.0 APTT 22.5 Sodium 138 Potassium 4.0 D Chloride 102 Carbon Dioxide 25.9 Anion Gap 10 BUN 6 L Creatinine 0.7 Estim Creat Clear Calc 77.9 eGFR > 60 BUN/Creatinine Ratio 9 L Glucose [address] Glu mg/dL Hemoglobin A1c Calculated Osmolality 276 Lactic Acid 2.1 H Calcium 9.7 Corrected Calcium 9.7 Phosphorus Magnesium 1.4 L Total Bilirubin 0.4 AST 16 ALT 11 Alkaline Phosphatase 41 L Ammonia < 10 L Total Creatine Kinase 39 Troponin I 0.087 H* 0.125 H* C-Reactive Prot, Quant < 0.5 Total Protein 7.1 Albumin 4.1 Globulin 3.0 Albumin/Globulin Ratio 1.4 Triglycerides Cholesterol LDL Cholesterol, Calc HDL Cholesterol Cholesterol/HDL Ratio Vitamin B12 969 H TSH Ur Collection Type Catheter Urine Color Lt-Yellow Urine Clarity Clear Urine pH 6.5 Ur Specific [place] 1.042 H Urine Protein Trace Urine Glucose (UA) Negative Urine Ketones 1+ A Urine Blood Negative Urine Nitrite Negative Urine Bilirubin Negative Urine Urobilinogen (Auto) Negative Ur Leukocyte Esterase Positive Urine RBC 13 H Urine WBC 69 H Ur Squamous Epith Cells 16 H Amorphous Crystals Present A Urine Bacteria Rare Urine Yeast (Budding) Present A Ur Culture Indicated? Contaminated Urine Opiates Screen Negative Urine Fentanyl Screen Positive A Ur Barbiturates Screen Negative U Amphetamin/Meth Scrn Negative U Benzodiazepines Scrn Positive A U Cocaine Metab Screen Negative U Marijuana (THC) Screen Negative HCG (Qual) Negative 03/11/25 03/12/25 22:44 03:41 WBC 11.1 H RBC 4.16 Hgb 12.1 Hct 37.1 MCV 89 MCH 29.1 MCHC 32.6 RDW Std Deviation 46.9 H Plt Count 327 D Neut % (Auto) 69 Lymph % (Auto) 21 [place] % (Auto) 8 Eos % (Auto) 1 Baso % (Auto) 0 Neut # (Auto) 7.7 Lymph # (Auto) 2.4 [place] # (Auto) 0.9 H Eos # (Auto) 0.1 Baso # (Auto) 0.1 Immature Gran # (Auto) 0.02 H Absolute Nucleated RBC 0.00 Immature Gran % 0 Nucleated RBC % 0 ESR PT 10.9 INR 1.0 APTT Sodium 141 Potassium 4.4 Chloride 104 Carbon Dioxide 27.3 Anion Gap 10 BUN 5 L Creatinine 0.6 Estim Creat Clear Calc 89.6 eGFR > 60 BUN/Creatinine Ratio 8 L Glucose [address] Glu mg/dL 143 H Hemoglobin A1c 6.6 H Calculated Osmolality 280 Lactic Acid 2.3 H Calcium 9.4 Corrected Calcium 9.5 Phosphorus 4.8 Magnesium 1.8 Total Bilirubin 0.5 AST 16 ALT 9 L Alkaline Phosphatase 38 L Ammonia Total Creatine Kinase Troponin I 0.284 H* C-Reactive Prot, Quant Total Protein 6.8 Albumin 3.9 Globulin 2.9 Albumin/Globulin Ratio 1.3 Triglycerides 81 Cholesterol 85 L LDL Cholesterol, Calc 39 HDL Cholesterol 30 L Cholesterol/HDL Ratio 2.8 L Vitamin B12 TSH 1.44 D Ur Collection Type Urine Color Urine Clarity Urine pH Ur Specific [place] Urine Protein Urine Glucose (UA) Urine Ketones Urine Blood Urine Nitrite Urine Bilirubin Urine Urobilinogen (Auto) Ur Leukocyte Esterase Urine RBC Urine WBC Ur Squamous Epith Cells Amorphous Crystals Urine Bacteria Urine Yeast (Budding) Ur Culture Indicated? Urine Opiates Screen Urine Fentanyl Screen Ur Barbiturates Screen U Amphetamin/Meth Scrn U Benzodiazepines Scrn U Cocaine Metab Screen U Marijuana (THC) Screen HCG (Qual) Quality Measures Quality Measures stroke Suspected type of Stroke: Unknown at this time Tenecteplase given: Reason(s) Tenecteplase not given: Stroke severity too mild (non-disabling) not given Rehab services: PT evaluation ordered VTE Prophylaxis: pharmaceutical Antithrombotic by day 2:: ordered Statin ordered: >75 y/o moderate or high intensity dose Anticoagulation ordered for A-fib or flutter (current or hx): not indicated Advance care planning discussed with:: patient Assessment & Plan Assessment Current Active Medications: Generic Name Dose Route Start Last Admin Trade Name Freq PRN Reason Stop Dose Admin Acetaminophen 650 mg 03/11/25 18:25 Acetaminophen 325 Mg Tablet PO 04/10/25 18:24 Q6H PRN Fever >100.4 Acetaminophen 650 mg 03/11/25 18:25 Acetaminophen 325 Mg Tablet PO 04/10/25 18:24 Q6H PRN PAIN SCALE 1-3 (mild Aspirin 81 mg 03/12/25 09:00 03/12/25 09:26 Aspirin Ec 81 Mg Tabec PO 04/11/25 08:59 81 mg QDAY SAMAN Administration Atorvastatin Calcium 40 mg 03/11/25 21:00 03/11/25 21:59 Atorvastatin Calcium 20 Mg Tablet PO 04/10/25 20:59 40 mg HS SAMAN Administration Clopidogrel Bisulfate 75 mg 03/12/25 09:00 03/12/25 09:26 Clopidogrel Bisulfate 75 Mg Tablet PO 04/11/25 08:59 75 mg QDAY SAMAN Administration Dextrose 25 ml 03/12/25 10:08 Dextrose 50%-Water Inj 50 Ml Syringe IV 04/11/25 10:07 Q15MIN PRN BG 50-70 responsive npo pt Dextrose 50 ml 03/12/25 10:08 Dextrose 50%-Water Inj 50 Ml Syringe IV 04/11/25 10:07 Q15MIN PRN BG <50 OR BG <70 & pt unresponsive Glucagon 1 mg 03/12/25 10:08 Glucagon Inj 1 Mg Vial IM Q15MIN PRN BG <70, and no IV access Magnesium Sulfate 4 gm in 50 mls @ 12.5 mls/hr 03/12/25 08:11 03/12/25 09:25 Magnesium Sulfate Ivpb IV 03/12/25 12:10 12.5 mls/hr X1 ONE Administration Sodium Chloride 1,000 mls @ 100 mls/hr 03/12/25 08:15 03/12/25 09:25 Ns IV 03/12/25 18:14 100 mls/hr .Q10H SAMAN Administration Insulin Human Lispro 0 unit 03/12/25 11:30 Insulin Lispro (Admelog) 1 Unit/0.01 Ml Unit SC 04/11/25 11:29 AC SAMAN Protocol Labetalol HCl 10 mg 03/11/25 17:14 Labetalol Inj 5 Mg/Ml Vial 4 Ml IVP Q15M PRN hypertension Metoprolol Succinate 25 mg 03/12/25 10:30 Metoprolol Succinate Xl 25 Mg Tabcr PO 04/11/25 10:29 QDAY SAMAN Morphine Sulfate 1 mg 03/11/25 18:25 Morphine Sulf Inj 4 Mg/Ml Vial IVP 03/16/25 18:24 Q4HR PRN PAIN SCALE 7-10 (Severe Ondansetron HCl 4 mg 03/11/25 18:25 Ondansetron Inj 2 Mg/Ml Inj 2 Ml IVP 04/10/25 18:24 Q6H PRN NAUSEA OR VOMITING Protocol Oxycodone/Acetaminophen 1 tab 03/11/25 18:25 Oxycodone/Apap 5/325 Tablet PO 03/16/25 18:24 Q6H PRN PAIN SCALE 4-6 (Moderate Pantoprazole Sodium 40 mg 03/12/25 09:00 03/12/25 09:26 Pantoprazole 40 Mg Tablet PO 04/11/25 08:59 40 mg QDAY SAMAN Administration Sacubitril/Valsartan 1 tab 03/12/25 09:00 03/12/25 09:25 Sacubitril 24 Mg/Valsartan 26 Mg Tablet PO 04/11/25 08:59 1 tab BID SAMAN Administration Sennosides 1 tab 03/11/25 18:25 Senna Tablet PO 04/10/25 18:24 QDAY PRN constipation Protocol Plan 74-year-old female with HFrEF, severe aortic stenosis, DM2, and dementia, admitted for recurrent transient episodes of right facial droop and slurred speech post?cardiac cath (each resolving within minutes) with no deficits on exam, MRI pending, and troponins rising likely from recent procedure. # Recurrent transient neurologic episodes # Transient Cerebral Ischemic Attack, rule out CVA Initial episode post-cardiac cath; two additional brief episodes (10 PM and 6:45 AM today) with right facial droop + slurred speech lasting ~5 minutes each. All resolved; currently asymptomatic. Patient does not recall events, daughter provided history. CT/CTA negative. MRI pending, refused by patient. Plan: * Continue ASA + Plavix per neurology. * Neuro checks q4h. * MRI brain without contrast, pending. Will attempt to speak to patient. * Maintain BP goal 140?160 systolic (per neuro?s stepped goal). * Continue telemetry monitoring. * Maintain fall and seizure precautions. * Continue full workup per teleneurology (lactate, trop trends). * PT/ST consultations as needed. # Elevated Troponin likely post-procedural, peaked Trending upward: 0.087 -> 0.125 -> 0.284 -> 0.191. Angiogram negative for obstructive CAD; no chest pain. Currently downtrending. Plan: * Stop trending. * Repeat EKG if symptoms develop. * Continue GDMT: metoprolol, Entresto, statin. # Severe Aortic Stenosis confirmed on cath Valve area 0.7 cm; mean gradient 48 mmHg. Plan: * Continue medical management inpatient. * Continue cardiology follow-up for TAVR vs SAVR workup. * Activity restrictions: no lifting >5 lbs x 7?10 days. # Chronic HFrEF EF 40?45%; stable; no volume overload. Plan: * Resume Entresto and metoprolol, continue statin. * Maintain K >4, Mg >2. * Monitor I/Os, daily weights. # Paroxysmal Atrial Fibrillation Currently in sinus rhythm. Plan: * Continue beta-juan manuel. * Holding anticoagulation per cardiology. # Hypertension BP elevated this morning. Plan: * Resume home Entresto + metoprolol. * Monitor. # Diabetes Mellitus Type 2 BG controlled; A1c 6.6. Plan: * Continue inpatient glucose checks and home regimen. # Mild Lactic Acidosis 2.1 -> 2.3 -> 2.4; patient hemodynamically stable, no infection signs. Plan: * Continue trending lactate. * Monitor for any symptoms or hemodynamic changes. Health Maintenance Diet: Cardiac, carb-consistent DVT Prophylaxis: Lovenox 40 mg daily GI Prophylaxis: PPI Code Status: Full ----- Plan discussed with attending physician Dr. Zamudio and senior resident Dr. Diego Roper MD PGY-1 Internal Medicine Attending Provider Attestation/Addendum I have seen and examined the patient. I was physically present for the wilkins portions of the services provided including history, physical exam, diagnosis, treatment plans and orders. I agree with assessment and plan of care as documented by residents. Even though this this note was carefully revised there may still be minor errors in sweetbread trimmer due to voice recognition software. Suzi Zamudio MD
[2025-03-12] MEDS: METOPROLOL SUCCINATE XL 25 MG TABCR PO (10:34)
[2025-03-12] MEDS: INSULIN LISPRO (AdmeLOG) 1 UNIT/0.01 ML UNIT SC (11:31)
--- NOTE | 2025-03-12 12:33 | ESPR_ITS ---
Documentation for date of: 03/12/25 Subjective Subjective Interval history: Patient seen and examined at bedside, family at bedside reported that patient having similar episodes like yesterday. Patient has episodes of facial droop along with slurred speech and not making sense per family. Had 1 episode yesterday evening and another 2 this morning. Telemetry reviewed, patient has no episodes of atrial fibrillation as of this morning, rhythm is sinus. Patient does have underlying severe aortic stenosis, however neurology is following. Pending MRI. Exam Vital Signs Temp Pulse Resp BP Pulse Ox O2 Del Method 97.5 F 104 H 13 155/66 H 92 L Room Air 03/12/25 08:00 03/12/25 10:34 03/12/25 08:00 03/12/25 10:34 03/12/25 08:00 03/12/25 08:00 Narrative Exam Physical Exam General: Awake and in no acute distress. Conversational and non-toxic appearing. HEENT: Normocephalic, atraumatic, mucous membranes moist. No facial droop noted. No slurring of speech noted. No dysmetria. Heart: Regular rate and rhythm, 4/6 aortic area murmur positive. Lungs: Clear to auscultation with no wheezing or crackles. Abdomen: Soft, nondistended, obese, nontender, positive bowel sounds. ?No guarding or rebound tenderness. Neurologic: Alert and oriented x3, no gross neurological deficit, and patient able to move all 4 extremities. Strength 5/5 upper and lower extremity. Extremities: Trace bilateral lower extremity edema Skin: No rash or ecchymoses. Femoral dressing noted. Objective Labs 03/12/25 03:41 03/12/25 03:41 Labs: Laboratory Results - last 24 hr 03/11/25 03/11/25 03/11/25 17:08 18:36 18:43 WBC 14.1 H D RBC 4.18 Hgb 12.2 Hct 38.0 MCV 91 MCH 29.2 MCHC 32.1 RDW Std Deviation 47.6 H Plt Count 295 D Neut % (Auto) 84 H Lymph % (Auto) 11 [place] % (Auto) 5 Eos % (Auto) 0 Baso % (Auto) 0 Neut # (Auto) 11.8 H Lymph # (Auto) 1.6 Milam # (Auto) 0.6 Eos # (Auto) 0.0 Baso # (Auto) 0.0 Immature Gran # (Auto) 0.05 H Absolute Nucleated RBC 0.00 Immature Gran % 0 Nucleated RBC % 0 ESR 32 H PT 10.9 INR 1.0 APTT 22.5 Sodium 138 Potassium 4.0 D Chloride 102 Carbon Dioxide 25.9 Anion Gap 10 BUN 6 L Creatinine 0.7 Estim Creat Clear Calc 77.9 eGFR > 60 BUN/Creatinine Ratio 9 L Glucose [address] Glu mg/dL Hemoglobin A1c Calculated Osmolality 276 Lactic Acid 2.1 H Calcium 9.7 Corrected Calcium 9.7 Phosphorus Magnesium 1.4 L Total Bilirubin 0.4 AST 16 ALT 11 Alkaline Phosphatase 41 L Ammonia < 10 L Total Creatine Kinase 39 Troponin I 0.087 H* 0.125 H* C-Reactive Prot, Quant < 0.5 Total Protein 7.1 Albumin 4.1 Globulin 3.0 Albumin/Globulin Ratio 1.4 Triglycerides Cholesterol LDL Cholesterol, Calc HDL Cholesterol Cholesterol/HDL Ratio Vitamin B12 969 H TSH Ur Collection Type Catheter Urine Color Lt-Yellow Urine Clarity Clear Urine pH 6.5 Ur Specific [place] 1.042 H Urine Protein Trace Urine Glucose (UA) Negative Urine Ketones 1+ A Urine Blood Negative Urine Nitrite Negative Urine Bilirubin Negative Urine Urobilinogen (Auto) Negative Ur Leukocyte Esterase Positive Urine RBC 13 H Urine WBC 69 H Ur Squamous Epith Cells 16 H Amorphous Crystals Present A Urine Bacteria Rare Urine Yeast (Budding) Present A Ur Culture Indicated? Contaminated Urine Opiates Screen Negative Urine Fentanyl Screen Positive A Ur Barbiturates Screen Negative U Amphetamin/Meth Scrn Negative U Benzodiazepines Scrn Positive A U Cocaine Metab Screen Negative U Marijuana (THC) Screen Negative HCG (Qual) Negative 03/11/25 03/12/25 22:44 03:41 WBC 11.1 H RBC 4.16 Hgb 12.1 Hct 37.1 MCV 89 MCH 29.1 MCHC 32.6 RDW Std Deviation 46.9 H Plt Count 327 D Neut % (Auto) 69 Lymph % (Auto) 21 [place] % (Auto) 8 Eos % (Auto) 1 Baso % (Auto) 0 Neut # (Auto) 7.7 Lymph # (Auto) 2.4 Mil[place] # (Auto) 0.9 H Eos # (Auto) 0.1 Baso # (Auto) 0.1 Immature Gran # (Auto) 0.02 H Absolute Nucleated RBC 0.00 Immature Gran % 0 Nucleated RBC % 0 ESR PT 10.9 INR 1.0 APTT Sodium 141 Potassium 4.4 Chloride 104 Carbon Dioxide 27.3 Anion Gap 10 BUN 5 L Creatinine 0.6 Estim Creat Clear Calc 89.6 eGFR > 60 BUN/Creatinine Ratio 8 L Glucose [address] Glu mg/dL 143 H Hemoglobin A1c 6.6 H Calculated Osmolality 280 Lactic Acid 2.3 H Calcium 9.4 Corrected Calcium 9.5 Phosphorus 4.8 Magnesium 1.8 Total Bilirubin 0.5 AST 16 ALT 9 L Alkaline Phosphatase 38 L Ammonia Total Creatine Kinase Troponin I 0.284 H* C-Reactive Prot, Quant Total Protein 6.8 Albumin 3.9 Globulin 2.9 Albumin/Globulin Ratio 1.3 Triglycerides 81 Cholesterol 85 L LDL Cholesterol, Calc 39 HDL Cholesterol 30 L Cholesterol/HDL Ratio 2.8 L Vitamin B12 TSH 1.44 D Ur Collection Type Urine Color Urine Clarity Urine pH Ur Specific [place] Urine Protein Urine Glucose (UA) Urine Ketones Urine Blood Urine Nitrite Urine Bilirubin Urine Urobilinogen (Auto) Ur Leukocyte Esterase Urine RBC Urine WBC Ur Squamous Epith Cells Amorphous Crystals Urine Bacteria Urine Yeast (Budding) Ur Culture Indicated? Urine Opiates Screen Urine Fentanyl Screen Ur Barbiturates Screen U Amphetamin/Meth Scrn U Benzodiazepines Scrn U Cocaine Metab Screen U Marijuana (THC) Screen HCG (Qual) Quality Measures Quality Measures stroke Suspected type of Stroke: Unknown at this time Tenecteplase given: Reason(s) Tenecteplase not given: Stroke severity too mild (non-disabling) not given Rehab services: PT evaluation ordered and Speech Language Pathology eval ordered VTE Prophylaxis: not indicated Antithrombotic by day 2:: ordered and not indicated (describe) Statin ordered: >75 y/o moderate or high intensity dose Anticoagulation ordered for A-fib or flutter (current or hx): not indicated Advance care planning discussed with:: patient Assessment & Plan Assessment Current Active Medications: Generic Name Dose Route Start Last Admin Trade Name Freq PRN Reason Stop Dose Admin Acetaminophen 650 mg 03/11/25 18:25 Acetaminophen 325 Mg Tablet PO 04/10/25 18:24 Q6H PRN Fever >100.4 Acetaminophen 650 mg 03/11/25 18:25 Acetaminophen 325 Mg Tablet PO 04/10/25 18:24 Q6H PRN PAIN SCALE 1-3 (mild Aspirin 81 mg 03/12/25 09:00 03/12/25 09:26 Aspirin Ec 81 Mg Tabec PO 04/11/25 08:59 81 mg QDAY SAMAN Administration Atorvastatin Calcium 40 mg 03/11/25 21:00 03/11/25 21:59 Atorvastatin Calcium 20 Mg Tablet PO 04/10/25 20:59 40 mg HS SAMAN Administration Clopidogrel Bisulfate 75 mg 03/12/25 09:00 03/12/25 09:26 Clopidogrel Bisulfate 75 Mg Tablet PO 04/11/25 08:59 75 mg QDAY SAMAN Administration Dextrose 25 ml 03/12/25 10:08 Dextrose 50%-Water Inj 50 Ml Syringe IV 04/11/25 10:07 Q15MIN PRN BG 50-70 responsive npo pt Dextrose 50 ml 03/12/25 10:08 Dextrose 50%-Water Inj 50 Ml Syringe IV 04/11/25 10:07 Q15MIN PRN BG <50 OR BG <70 & pt unresponsive Glucagon 1 mg 03/12/25 10:08 Glucagon Inj 1 Mg Vial IM Q15MIN PRN BG <70, and no IV access Sodium Chloride 1,000 mls @ 100 mls/hr 03/12/25 08:15 03/12/25 09:25 Ns IV 03/12/25 18:14 100 mls/hr .Q10H SAMAN Administration Insulin Human Lispro 0 unit 03/12/25 11:30 03/12/25 11:31 Insulin Lispro (Admelog) 1 Unit/0.01 Ml Unit SC 04/11/25 11:29 3 unit AC SAMAN Administration Protocol Labetalol HCl 10 mg 03/11/25 17:14 Labetalol Inj 5 Mg/Ml Vial 4 Ml IVP Q15M PRN hypertension Metoprolol Succinate 25 mg 03/12/25 10:30 03/12/25 10:34 Metoprolol Succinate Xl 25 Mg Tabcr PO 04/11/25 10:29 25 mg QDAY SAMAN Administration Morphine Sulfate 1 mg 03/11/25 18:25 Morphine Sulf Inj 4 Mg/Ml Vial IVP 03/16/25 18:24 Q4HR PRN PAIN SCALE 7-10 (Severe Ondansetron HCl 4 mg 03/11/25 18:25 Ondansetron Inj 2 Mg/Ml Inj 2 Ml IVP 04/10/25 18:24 Q6H PRN NAUSEA OR VOMITING Protocol Oxycodone/Acetaminophen 1 tab 12/10/25 18:25 Oxycodone/Apap 5/325 Tablet PO 03/16/25 18:24 Q6H PRN PAIN SCALE 4-6 (Moderate Pantoprazole Sodium 40 mg 03/12/25 09:00 03/12/25 09:26 Pantoprazole 40 Mg Tablet PO 04/11/25 08:59 40 mg QDAY SAMAN Administration Sacubitril/Valsartan 1 tab 03/12/25 09:00 03/12/25 09:25 Sacubitril 24 Mg/Valsartan 26 Mg Tablet PO 04/11/25 08:59 1 tab BID SAMAN Administration Sennosides 1 tab 03/11/25 18:25 Senna Tablet PO 04/10/25 18:24 QDAY PRN constipation Protocol Plan Assessment and plan: Summary: Ms. 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 Patient admitted for CVA workup after possible deficits were noted by RN postcardiac cath. Stroke alert was initiated. #CVA workup Post cardiac catheterization on 1613 on RNs assessment patient noted to have some left-sided facial droop with possible slurring of speech. Medical response unit called in the Research Program Assistant, patient assessed by ED physician who noted slurring of speech right-sided facial droop and some right-sided weakness, stroke alert was initiated. CT head negative, head and neck CTA negative. Neurology recommends admission for MRI and further workup to rule out stroke. Low suspicion. Patient seen at bedside, alert oriented x 4, no focal neurological deficits noted, normal finger-nose test, normal heel bob test, no visual deficits noted, 5/5 strength preserved bilateral upper extremities and 5/5 strength noted bilateral lower extremities. No gross neurological deficits noted. Recommendations: - Proceed with MRI to complete stroke workup - Recommend holding off on transthoracic echocardiogram. - Continue aspirin and plavix per neurology recommendations for now. - Neurology is consulted and following. #Status post left and right coronary angiograms #Status post abdominal aortography #Status post bilateral lower extremity runoff #Status post supravalvular aortography Elective cardiac catheterization performed today as a part of preoperative workup for aortic valve replacement. Patient was performed risks and benefits prior to procedure. Summary/findings: 1. Severe aortic stenosis: There was significant transvalvular gradient with a mean gradient of 48 mmHg and a peak gradient of 60 mmHg with a valve area of 0.7 cm?. 2. LHC showed normal coronaries with only minimal luminal irregularities and no angiographically significant obstruction. 3. LVEF was mildly reduced at 40-45% and LVEDP was mildly elevated at 22 mmHg. 4. Right heart cardiac catheterization showed mild to moderately elevated right heart pressures with a mean PCWP of 23 mmHg, mean PA pressure of 41 mmHg as well as a mean RA pressure of 2 mmHg. 5. Supravalvular adequacy showed no evidence of any thoracic aortic aneurysm and only minimally dilated thoracic aorta. 6. Aortography and bilateral lower extremity runoff was performed separately and showed only minimal atherosclerosis and patent vessels as described above including the iliac arteries, bilateral femoral arteries as well as popliteal arteries Recommendations: - Patient will need further aortic valve replacement as outpatient, needs follow-up with cardiothoracic surgery - Continue aggressive medical management with risk factor modification - Patient to avoid lifting more than 5 pounds for the next 7 to 10 days. #Chronic systolic and diastolic heart failure, HFrEF EF 40 to 45% Patient has underlying systolic and diastolic heart failure, angiogram from today shows ejection fraction 40 to 45%. LVEDP is mildly elevated 22 mmHg. Echocardiogram from 12/24/2024 shows -Normal LV size. Mild LVH. Global LV systolic function is moderately decreased. Estimated EF at 35-40 %. -Diastolic function could not be assesed due to severe MAC. Normal RV size and systolic function. -Severe MAC with severe calcification of mitral valve ( posterrior > anterior) and aortic valve. -Mild to moderate mitral stenosis - Mean PG 5 to 8 mm hg. but area with PHT 2.5 sq cm. -Moderate to severe with V max 3.3 m/s, mean PG 23 mm hg But RILEY is 0.5 sq cm. Trace to mild AI. -Mostly low flow low gradient severe aortic stenosis given the low EF. -Mild MR and mild TR. IVC not well visualized. Recommendations: -Patient's ejection fraction has improved with Entresto and metoprolol. -Recommend continuing GDMT, resume Entresto and metoprolol. #Paroxysmal atrial fibrillation Patient did have an episode of atrial fibrillation in December as evidenced by EKG in the past-12/26/2024. EKG today shows sinus rhythm, patient not on anticoagulation as this was believed to be stress related secondary to SBO/bowel ischemia in the past. Recommendations: -Will continue to hold anticoagulation for now, patient will need outpatient Holter monitoring to assess A-fib burden. - Keep potassium greater than 4 and magnesium greater than 2 at all times #Severe aortic stenosis Patient underwent cardiac catheterization today, per cardiac cath patient noted to have transvalvular mean gradient 48 mmHg, mean peak gradient 60 mmHg, valve area 0.7 cm? -Will continue with TAVR vs SAVR workup outpatient #Elevated troponin Patient's troponin elevated at 0.087 likely post angiogram, as no disease noted on angiogram. #Hypertension Resume home dose Entresto and metoprolol #Hyperlipidemia Continue atorvastatin #Leukocytosis #Insulin-dependent diabetes mellitus Management as per primary team Thank you for the consult and allowing to participate in the care of the patient. Cardiology will continue to follow. Case discussed with Attending Physician Dr. Garrett Ha MD Internal Medicine PGY-2 Disclaimer: This note was dictated by speech recognition. Minor errors in domestic violence advocate may be present due to voice recognition software. Attending Provider Attestation/Addendum I have personally seen and examined the patient separately on the above date of service and discussed the plan of care with the resident. I reviewed the resident Dr. Zak Ha consultation progress note and agree with the resident findings and plan in the note above and have also edited the documentation to reflect my findings and plan. Garrett Saenz M.D. Interventional Cardiology
--- NOTE | 2025-03-12 12:42 | PC.SS ---
Wheel Chairs Patients diagnosis creates mobility limitations that significantly impairs ability to participate in the patients activities of daily living either in their entirety, or in a reasonable time frame in the home and the patients mobility limitations can not be sufficiently resolved with an appropriately fitted cane or walker. Also the use of a manual wheelchair will sufficiently improve patient?s ability to participate in the activities of daily living in the home and the patient is willing to use the wheelchair that is provided in the home. The patient has some one in the home that is available, willing and able to provide assistance with the wheelchair.
--- NOTE | 2025-03-12 12:53 | PC.SS ---
[employer]DER conducted bedside contact with the patient conduct initial assessment and to discuss discharge planning.? At bedside with patient was daughter, Ashley Bowman .? Patient possesses a history of dementia.? Patient resides at home with spouse, Sony Marquez .? Patient utilizes a walker to assist with ambulation.? Patient does not utilize home oxygen.? Patient requires assistance with the completion of ADL?s.? Family assists the patient with the completion of ADL?s.? Patient?s surrogate medical decision maker is daughter, Kaylynn Stapleton .? Patient?s PCP is Dr. Vanegas.? Patient?s general internal medicine doctor is Dr. Iniguez.? Patient utilizes [facility] for medication services.? Discharge plan is for the patient to return home.? Family will provide transport on behalf of the patient.? If home health recommended, no preferred agency identified.? Family requesting a wheelchair for the patient.? nutritional services cook to submit DME request.? No further discharge needs identified by the patient?s daughter .? No further intervention required at this time, rn social work will be available to address any further concerns.? Next of Kin: Kaylynn Pieter D/C Plan: Home
[2025-03-12 13:16] LABS: Lactate (Lactic Acid) 2.4 mMol/L (0.4-2.0)
[2025-03-12 14:32] LABS: Troponin I 0.191 ng/mL (0.0-0.045)
--- NOTE | 2025-03-12 14:46 | PC.SS ---
Addendum entered by Lorie Rodas 03/13/25 10:00: Mitch booked via [facility] Original Note: DME referral (wheelchair) submitted on [facility]. Awaiting responses.
--- NOTE | 2025-03-12 14:49 | PD.RESCONSUL ---
HPI Data of Consult Requesting Physician: Suzi Zamudio MD Admitting Provider: Suzi Zamudio MD Attending Provider: Suzi Zamudio MD Primary Care Provider: Physician No Primary/Family Consult Narrative Reason for consult: New onset R facial droop, R weakness, and slurred speech x 3 hours postcath History of present illness: 74-year-old female with a history of HFrEF (EF 40-45% 03/11/2025), hypertension, insulin-dependent type 2 diabetes mellitus, and aortic stenosis, presented from the cardiac medical lab tech instructor on 03/11/2025 with new onset right-sided facial droop, right-sided weakness, and slurred speech. These symptoms developed approximately 3 hours post-procedure following a right heart catheterization performed by Dr. Saenz at 2 PM that day. Per the medical lab tech instructor RN, the patient was in the recovery room when these symptoms started. The daughter denies any prior history of stroke or similar symptoms. No significant issues were noted during the procedure; however, the patient developed neurologic changes during post-procedure monitoring. A stroke alert was called and Teleneuro evaluated the patient and found NIHSS score to be 2 for orientation questions, additionally on initial examination, patient was cleared of all symptoms, no weakness or facial droop noted. CT head and CTA head/neck were normal. Patient was subsequently admitted for acute ischemic stroke workup. On examination on 03/12/2025 afternoon, patient appeared to be extremely somnolent, only briefly opening eyes and not able to answer any questions. Daughter was at bedside and stated that patient has been in and out since the procedure; earlier she was talkative. She additionally stated that since the first episode, patient appeared to have reoccuring episodes of the right-sided facial droop and slurred speech that would self-resolve in minutes. Multiple attempts were made to wake up the patient at this time but unable to speak to her due to somnolence. She did not receive any sedating medications since the procedure yesterday at which time she received 1 mg of Versed and 50 mcg of fentanyl. Neurology was consulted for further management of acute ischemic stroke rule out. cc:: cc: Suiz Zamudio MD Past Medical History Past Medical History Comments PMH COMMENT: PMH: As above PSHx: Exploratory laparotomy with partial small bowel resection?01/02/2025, hysterectomy, tubal ligation Allergies: No known drug and food allergies Social history: -Smoking: Never smoker -Alcohol Use: Denies -Illicit Drug Use: Denies -Martial Status: Family History: No pertinent family history of cardiac disease. Home medications: Entresto 24?26 twice daily, metoprolol succinate 25 daily, atorvastatin 20 mg daily, Lexapro 10 mg daily, Aricept 5 mg daily Exam Vital Signs Temp Pulse Resp BP Pulse Ox O2 Del Method 97.7 F 96 16 146/67 H 94 L Room Air 03/12/25 12:00 03/12/25 12:00 03/12/25 12:00 03/12/25 12:00 03/12/25 12:00 03/12/25 12:00 Results Labs 03/14/25 05:03 03/14/25 05:03 Labs: Short CBC 03/11/25 03/12/25 Range/Units 17:08 03:41 WBC 14.1 H D 11.1 H (3.6-11.0) Thou/mm3 Hgb 12.2 12.1 (12.0-16.0) g/dL Hct 38.0 37.1 (36.0-46.0) % Plt Count 295 D 327 D (140-440) Thou/mm3 BMP 03/11/25 03/12/25 17:08 03:41 Sodium 138 141 Potassium 4.0 D 4.4 Chloride 102 104 Carbon Dioxide 25.9 27.3 BUN 6 L 5 L Creatinine 0.7 0.6 Glucose 151 H D 130 H Calcium 9.7 9.4 Cardiac Enzymes 03/11/25 03/11/25 03/12/25 Range/Units 17:08 18:43 03:41 Total Creatine Kinase 39 (34-171) U/L Troponin I 0.087 H* 0.125 H* 0.284 H* (0.0-0.045) ng/mL 03/12/25 Range/Units 13:05 Total Creatine Kinase (34-171) U/L Troponin I 0.191 H* (0.0-0.045) ng/mL Liver Function 03/11/25 03/12/25 Range/Units 17:08 03:41 Total Bilirubin 0.4 0.5 (0.3-1.2) mg/dL AST 16 16 (0-34) U/L ALT 11 9 L (10-49) U/L Alkaline Phosphatase 41 L 38 L (46-116) U/L Albumin 4.1 3.9 (3.4-4.8) gm/dL Urine 03/11/25 Range/Units 18:36 Urine Color Lt-Yellow (Lt Yel-Yel) Urine Clarity Clear (Clear/Hazy) Urine pH 6.5 (5.0-7.0) Ur Specific [place]ar[place] 1.042 H (1.001-1.035) Urine Protein Trace (Neg - Trace) Urine Glucose (UA) Negative (Negative) Quality Measures Quality Measures stroke Suspected type of Stroke: Unknown at this time Tenecteplase given: Reason(s) Tenecteplase not given: Stroke severity too mild (non-disabling) not given Rehab services: PT evaluation ordered and Speech Language Pathology eval ordered VTE Prophylaxis: pharmaceutical Antithrombotic by day 2:: not indicated (describe) Statin ordered: >75 y/o moderate or high intensity dose Anticoagulation ordered for A-fib or flutter (current or hx): contraindicated Advance care planning discussed with:: patient and child Medications Home Medications and Allergies Home Medications ?Medication ?Instructions ?Recorded ?Confirmed ?Type atorvastatin 20 mg tablet 20 mg PO DAILY 12/24/24 03/12/25 History blood-glucose sensor (Dexcom G7 12/24/24 03/12/25 History Sensor device) cholecalciferol (vitamin D3) 50 2,000 unit PO BID 12/24/24 03/12/25 History mcg (2,000 unit) tablet (Vitamin D3) metformin 1,000 mg tablet 1,000 mg PO BID 12/24/24 03/12/25 History sacubitril 24 mg-valsartan 26 mg 1 tab PO BID 02/03/25 03/12/25 History tablet (Entresto) donepezil 5 mg tablet (Aricept) 5 mg PO QDAY 03/12/25 03/12/25 History escitalopram oxalate 10 mg tablet 10 mg PO QDAY 03/12/25 03/12/25 History (Lexapro) Allergies Allergy/AdvReac Type Severity Reaction Status Date / Time Penicillins Allergy Verified 03/11/25 17:45 rofecoxib Allergy Verified 03/11/25 17:45 Visit Medications Acetaminophen (Acetaminophen 325 Mg Tablet) 650 mg PO Q6H PRN PRN Reason: Fever >100.4 Stop: 04/10/25 18:24 Acetaminophen (Acetaminophen 325 Mg Tablet) 650 mg PO Q6H PRN PRN Reason: PAIN SCALE 1-3 (mild Stop: 04/10/25 18:24 Aspirin (Aspirin Ec 81 Mg Tabec) 81 mg PO QDAY [facility] Stop: 04/11/25 08:59 Last Admin: 03/12/25 09:26 Dose: 81 mg Atorvastatin Calcium (Atorvastatin Calcium 20 Mg Tablet) 40 mg PO HS [facility] Stop: 04/10/25 20:59 Last Admin: 03/11/25 21:59 Dose: 40 mg Clopidogrel Bisulfate (Clopidogrel Bisulfate 75 Mg Tablet) 75 mg PO QDAY [facility] Stop: 04/11/25 08:59 Last Admin: 03/12/25 09:26 Dose: 75 mg Dextrose (Dextrose 50%-Water Inj 50 Ml Syringe) 25 ml IV Q15MIN PRN PRN Reason: BG 50-70 responsive npo pt Stop: 04/11/25 10:07 Dextrose (Dextrose 50%-Water Inj 50 Ml Syringe) 50 ml IV Q15MIN PRN PRN Reason: BG <50 OR BG <70 & pt unresponsive Stop: 04/11/25 10:07 Glucagon (Glucagon Inj 1 Mg Vial) 1 mg IM Q15MIN PRN PRN Reason: BG <70, and no IV access Sodium Chloride (Ns) 1,000 mls @ 100 mls/hr IV .Q10H [facility] Stop: 03/12/25 18:14 Last Admin: 03/12/25 09:25 Dose: 100 mls/hr Insulin Human Lispro (Insulin Lispro (Admelog) 1 Unit/0.01 Ml Unit) 0 unit SC [facility]; Protocol Stop: 04/11/25 11:29 Last Admin: 03/12/25 11:31 Dose: 3 unit Labetalol HCl (Labetalol Inj 5 Mg/Ml Vial 4 Ml) 10 mg IVP Q15M PRN PRN Reason: hypertension Lorazepam (Lorazepam 2 Mg/Ml Vial) 2 mg IVP PRN PRN PRN Reason: Anxiety (30 min before MRI) Metoprolol Succinate (Metoprolol Succinate Xl 25 Mg Tabcr) 25 mg PO QDAY [facility] Stop: 04/11/25 10:29 Last Admin: 12/11/25 10:34 Dose: 25 mg Morphine Sulfate (Morphine Sulf Inj 4 Mg/Ml Vial) 1 mg IVP Q4HR PRN PRN Reason: PAIN SCALE 7-10 (Severe Stop: 03/16/25 18:24 Ondansetron HCl (Ondansetron Inj 2 Mg/Ml Inj 2 Ml) 4 mg IVP Q6H PRN; Protocol PRN Reason: NAUSEA OR VOMITING Stop: 04/10/25 18:24 Oxycodone/Acetaminophen (Oxycodone/Apap 5/325 Tablet) 1 tab PO Q6H PRN PRN Reason: PAIN SCALE 4-6 (Moderate Stop: 03/16/25 18:24 Pantoprazole Sodium (Pantoprazole 40 Mg Tablet) 40 mg PO QDAY [facility] Stop: 04/11/25 08:59 Last Admin: 03/12/25 09:26 Dose: 40 mg Sacubitril/Valsartan (Sacubitril 24 Mg/Valsartan 26 Mg Tablet) 1 tab PO BID [facility] Stop: 04/11/25 08:59 Last Admin: 03/12/25 09:25 Dose: 1 tab Sennosides (Senna Tablet) 1 tab PO QDAY PRN; Protocol PRN Reason: constipation Stop: 04/10/25 18:24 Discontinued Medications Sodium Chloride (Ns) 1,000 mls @ 75 mls/hr IV .[id number] [facility] Stop: 04/10/25 18:29 Last Admin: 03/11/25 23:10 Dose: 75 mls/hr Magnesium Sulfate (Magnesium Sulfate Ivpb) 4 gm in 50 mls @ 12.5 mls/hr IV X1 ONE Stop: 03/12/25 00:28 Last Admin: 03/11/25 22:04 Dose: 12.5 mls/hr Magnesium Sulfate (Magnesium Sulfate Ivpb) 4 gm in 50 mls @ 12.5 mls/hr IV X1 ONE Stop: 03/12/25 12:10 Last Admin: 03/12/25 09:25 Dose: 12.5 mls/hr Ondansetron HCl (Ondansetron Inj 2 Mg/Ml Inj 2 Ml) 4 mg IVP Q4HR PRN PRN Reason: NAUSEA OR VOMITING Stop: 04/10/25 17:13 Assessment & Plan Plan 74-year-old female with HFrEF, severe aortic stenosis, DM2, and dementia, was admitted on 03/11/2025 for recurrent transient episodes of right facial droop, right-sided weakness, and slurred speech 3 hours post?cardiac cath (each resolving within minutes) for stroke rule out. Neurology is consulted for further management of acute ischemic stroke workup. #Acute encephalopathy #Recurrent transient neurologic episodes #Acute ischemic stroke, rule out Patient presented with initial episode post-cardiac cath and had recurring episodes lasting minutes which self-resolved. Patient does not recall events, daughter provided history. Somnolence may be side effect of anesthetic medications having extended effect, versus stroke as contributor. CT/CTA negative. MRI was initially refused by patient, but patient assured anxiety medication and will be reattempted. Ammonia <10 UDS showed fentanyl and benzodiazepines (given in procedure) ESR/CRP <0.5 Troponin 0.125 CK 39 TSH 1.44 B12 969 Lactic acid 2.1->2.4 Lipid panel TG 81, TC 85, LDL 39, HDL 30 A1c 6.6 -Continue aspirin 81 mg 1day -Continue Plavix 75 mg qday -Continue atorvastatin 40 mg HS -MRI brain stroke protocol pending -Echo with bubble study -Maintain BP goal 100-140 systolic (per neuro?s stepped goal). -Continuous telemetry -PT consult -ST consult Rest of conditions to continue current management per primary team: #Elevated troponin likely post-procedural, peaked #Severe aortic stenosis #History of HFrEF, not in acute exacerbation #Paroxysmal atrial fibrillation, currently sinus rhythm #Hypertension #History of type 2 diabetes mellitus #Mild lactic acidosis Patient was discussed with the Neurology attending, Dr. Johnson. Thank you for allowing us to participate in the care of this patient. Laurence Ayoub, PGY-3 Attending Provider Attestation/Addendum I personally have seen and examined the patient at the bedside and I agreed with the resident's findings assessment and plan of care. Patient presenting symptoms clinically and radiologically consistent with acute embolic infarction from paroxysmal atrial fibrillation. Consider starting anticoagulation for prophylaxis. Follow-up with the [facility].
[2025-03-12 16:12] LABS: Reflex Lactate? Y
[2025-03-12] MEDS: LORazepam 2 MG/ML VIAL IVP (16:56)
[2025-03-12 17:21] LABS: Lactic Acid, 3 HR 1.1 mMol/L (0.4-2.0)
[2025-03-12] MEDS: ATORVASTATIN CALCIUM 20 MG TABLET 40 MG PO (20:00)
[2025-03-12 21:02] LABS: Lactate (Lactic Acid) 1.1 mMol/L (0.4-2.0)
[2025-03-12 22:50] LABS: Lactate (Lactic Acid) 0.8 mMol/L (0.4-2.0)
[2025-03-13] VITALS (11 sets, daily range): BP systolic 128–158; BP diastolic 62–83; PULSE 71–96; RESP 14–94; TEMP 36.1–36.6; O2SAT 93–100; BMI 13.0
[2025-03-13 05:46] LABS: Basophils # (Auto) 0.1 Thou/mm3 (0.0-0.2); Basophils % (Auto) 1 % (0-2.5); Eosinophils # (Auto) 0.4 Thou/mm3 (0.0-0.5); Eosinophils % (Auto) 4 % (0-10); Hematocrit 33.9 % (36.0-46.0); Hemoglobin 10.8 g/dL (12.0-16.0); Immature Granulocytes Auto 0.02 Thou/mm3 (0.00-0.00); Lymphocytes # (Auto) 1.9 Thou/mm3 (1.0-4.8); Lymphocytes % (Auto) 19 % (10-50); Mean Corpuscular HGB Conc 31.9 g/dl (31.0-37.0); Mean Corpuscular Hemoglobin 28.4 pg (25.0-35.0); Mean Corpuscular Volume 89 fL (80-100); Monocytes # (Auto) 0.8 Thou/mm3 (0.0-0.8); Monocytes % (Auto) 8 % (0-12); Neutrophils # (Auto) 6.8 Thou/mm3 (1.8-7.7); Neutrophils % (Auto) 68 % (37-80); Nucleated Red Blood Cell # 0.00 Thou/mm3 (0.00-0.00); Nucleated Red Blood Cell % 0 /100 WBC (0); Platelet Count 262 Thou/mm3 (140-440); RDW Standard Deviation 46.8 fL (36.4-46.3); Red Blood Count 3.80 Miln/mm3 (4.00-5.20); White Blood Count 10.0 Thou/mm3 (3.6-11.0)
[2025-03-13 06:32] LABS: Alanine Aminotransferase 7 U/L (10-49); Albumin, Serum 3.7 gm/dL (3.4-4.8); Albumin/Globulin Ratio 1.4 (1.2-2.2); Alkaline Phosphatase 38 U/L (46-116); Anion Gap 11 (7-16); Aspartate Amino Transferase 12 U/L (0-34); BUN/Creatinine Ratio 9 Ratio (12-20); Bilirubin,Total 0.6 mg/dL (0.3-1.2); Blood Urea Nitrogen 6 mg/dL (9-23); Calcium 8.9 mg/dL (8.3-10.6); Calcium (Corrected) 9.1 mg/dL (8.5-10.1); Carbon Dioxide 26.0 mMol/L (20.0-31.0); Chloride 104 mMol/L (98-107); Creatinine (Component) 0.7 mg/dL (0.6-1.3); Estimated Creatinine Clearance 78.4 mL/min (>60); Globulin 2.6 gm/dL (2.3-3.5); Glucose 144 mg/dL (74-106); Magnesium 1.8 mg/dL (1.6-2.6); Osmolality,Calculated 281 (275-295); Phosphorous 3.4 mg/dL (2.4-5.1); Potassium 3.8 mMol/L (3.4-5.1); Sodium 141 mMol/L (136-145); Total Protein 6.3 gm/dL (5.7-8.2); eGFR > 60 See Note
--- NOTE | 2025-03-13 08:17 | ECHO_ITS ---
Patient Info Name: Anjelica French Age: 74 years : 1950 Gender: Female Ht: 165 cm Wt: 96 kg BSA: 2.14 m2 BP: 146 / 65 mmHg HR: 86 bpm Exam Date: 03/13/2025 8:58 AM Admit Date: 03/11/2025 Site: [facility] Room Number: [id number] Patient Status: I Exam Type: CA echo doppler complete Bridal Consultant: Carolyn Mccracken Ordering Physician: Suzi Zamudio Study Info Indications Bubble study - Contrast/Agitated Saline Contrast/Ag. Saline: Agitated Saline Amount: --- ml Primary Location: S2NX Left Ventricular Outflow Tract Name Value Normal LVOT Doppler LVOT Peak Velocity 91 cm/s LVOT Mean Gradient 2 mmHg LVOT VTI 20 cm LVOT VTI/AV VTI Ratio 0.2 Pulmonic Valve Name Value Normal PV Doppler PV Peak Velocity 114 cm/s PV Regurgitation Doppler [place] Peak End Diastolic Velocity 132 cm/s Mitral Valve Name Value Normal MV Doppler MV Mean Gradient 10 mmHg MV Decel [place] 1,424 cm/s2 MV PHT 37 ms MV Area (PHT) 6.0 cm2 4.0-5.0 MV Regurgitation Doppler MV EROA (PISA) 0.32 cm2 MR Volume (PISA) 48 ml MV Diastolic Function MV E Peak Velocity 181 cm/s MV A Peak Velocity 188 cm/s MV E/A 1.0 MV Annular TDI MV Septal e' Velocity 4.2 cm/s MV E/e' (Septal) 42.7 MV Lateral e' Velocity 3.5 cm/s MV E/e' (Lateral) 52.0 MV e' Average 3.86 cm/s MV E/e' (Average) 47.4 Tricuspid Valve Name Value Normal TV Regurgitation Doppler TR Peak Velocity 347 cm/s Estimated PAP/RSVP RA Pressure 8 mmHg <=5 PA Systolic Pressure 56 mmHg <36 RV Systolic Pressure 56 mmHg <36 Aortic Valve Name Value Normal AV 2D/MM AV Cusp Sep (MM) 1.2 cm AV Doppler AV Peak Velocity 442 cm/s AV Mean Gradient 46 mmHg AV VTI 93 cm AV DI (Boris) 0.20 Ventricles Name Value Normal LV Dimensions 2D/MM IVS Diastolic Thickness (2D) 0.9 cm 0.6-0.9 LVID Diastole (2D) 4.1 cm 3.8-5.2 LVIW Diastolic Thickness (2D) 1.2 cm 0.6-0.9 LVID Systole (2D) 2.6 cm 2.2-3.5 LV Mass (2D Cubed) 141.55 g 67.00-162.00 LV Mass Index (2D Cubed) 66 g/m2 43-95 Relative Wall Thickness (2D) 0.59 <=0.42 IVS/LVIW Diastolic Thickness (2D) 0.75 0.00-1.50 LV Fractional Shortening/Ejection Fraction 2D/MM LV Fractional Shortening (2D) 37 % 27-45 LV EF (2D Teichholz) 67 % Atria Name Value Normal LA Dimensions LA Volume (4C A-L) 117 ml LA Volume (BP A-L) 104 ml Left Ventricle Left ventricular chamber dimension is normal. Left ventricular systolic function is normal with visually estimated ejection fraction of 55-60%. There is moderate concentric hypertrophy noted in the left ventricle. Left ventricular segmental wall motion is normal. There is grade I diastolic dysfunction in the left ventricle. Right Ventricle Right ventricular chamber dimension is normal. Right ventricular systolic function is normal. Left Atrium Left atrial chamber dimension is moderately enlarged. Right Atrium Right atrial chamber dimension is normal. Aortic Valve The aortic valve is trileaflet. There is mild aortic valve sclerosis. There is mild to moderate aortic valve stenosis. There is no aortic valve regurgitation. Pulmonic Valve The pulmonic valve is normal. There is no pulmonic valve stenosis. There is mild pulmonic regurgitation. Mitral Valve The mitral valve has a calcified annulus. There is moderate to severe mitral valve stenosis. There is moderate to severe mitral valve regurgitation. Tricuspid Valve The tricuspid valve leaflets are normal. There is no tricuspid valve stenosis. There is moderate tricuspid valve regurgitation. Pulmonary hypertension, estimated pulmonary arterial systolic pressure is 56 mmHg and systemic blood pressure of 146 mmHg in systole. Pericardium/Pleural The pericardium appears normal. There is no pericardial effusion. No pleural effusion visualized. Inferior Vena Cava Normal inferior vena cava with >50% collapse upon inspiration consistent with normal right atrial pressure, 8 mmHg. Aorta The aortic measurements are indexed to age and body surface area. The aortic root at the sinus of Valsalva is not well visualized. The prox ascending aorta is not well visualized. Summary 1. Left ventricle size is normal and systolic function is normal. Estimated ejection fraction is 55-60%. There is grade I diastolic dysfunction. There is moderate concentric hypertrophy noted. 2. Right ventricle chamber size is normal and systolic function is normal. Estimated RVSP is 56 mmHg with 8 RAP. At least moderate pulmonary HTN. 3. There is severe aortic stenosis with V max 4.4 m/s, mean PG 46 mmHg. 4. There is moderate to severe mitral valve regurgitation. Severe MAC with severe calcification of mitral valve (posterior>anterior) and aortic valve. Mild- moderate mitral stenosis. 5. The left atrium is moderately enlarged. The right atrium is normal. 6. Bubble study negative for PFO and ASD. Report Signatures Finalized by Garrett Saenz on 03/13/2025 04:55 PM
[2025-03-13] MEDS: CLOPIDOGREL BISULFATE 75 MG TABLET PO (08:19)
[2025-03-13] MEDS: METOPROLOL SUCCINATE XL 25 MG TABCR PO (08:19)
[2025-03-13] MEDS: ASPIRIN EC 81 MG TABEC PO (08:20)
[2025-03-13] MEDS: PANTOPRAZOLE 40 MG TABLET PO (08:20)
--- NOTE | 2025-03-13 10:00 | ESPR_ITS ---
Documentation for date of: 03/13/25 Subjective - Hospitalist Subjective Interval history: Patient seen and examined at bedside this morning. Appears comfortable and denies any new complaints. Noted to be slightly more sleepy compared to yesterday. MRI done yesterday showed acute infarcts of right cerebellar hemisphere 20 mm, left basal ganglia 7 mm. Underwent physical therapy, recommended to have home health PT on discharge. Discussed with neurology, with patient's history of paroxysmal A-fib., Agreed on starting patient on Eliquis 5 mg twice daily. Patient noted to have drop in hemoglobin from 12.5 yesterday to 10.8 today, with start of Eliquis, we will monitor her hemoglobin closely overnight. We will also obtain echocardiography with bubble study. Review of Systems Review of Systems Systems Reviewed: All systems reviewed, normal except as documented Exam Vital Signs Temp Pulse Resp BP Pulse Ox O2 Del Method 97.2 F 90 28 H 158/78 H 96 Room Air 03/13/25 16:00 03/13/25 16:00 03/13/25 16:00 03/13/25 16:00 03/13/25 16:00 03/13/25 16:00 Narrative GENERAL: Well built elderly female, in no acute distress, laying comfortably on bed, more sleepy compared to yesterday HEENT: Normocephalic, atraumatic, extraocular movements intact, pupils equal and reactive to light NECK: Supple, no JVD or bruits. CARDIOVASULAR: RRR, S1 and S2 heard, without murmur, rubs or gallops. LUNGS/CHEST: Clear to auscultation bilaterally. No rails, rhonchi, or wheezing. ABDOMEN: Soft, nontender, with normal bowel sounds. No rebound, rigidity, or guarding. EXTREMITIES: Trace pedal edema edema, clubbing or cyanosis. No joint deformity. Able to move all limbs. SKIN: Warm and dry without rashes. NEURO: Alert, awake and oriented x4. Cranial nerves: II through XII grossly intact. normal speech, able to answer questions and follow commands appropriately, strength and sensation normal and equal bilaterally, no focal neurological deficits PSYCHIATRIC: Normal mood and affect. Objective - Hospitalist Labs Diagram: 03/13/25 05:20 03/13/25 05:20 Labs: Laboratory Results - last 24 hr 03/12/25 03/12/25 03/13/25 20:47 22:30 05:20 WBC 10.0 RBC 3.80 L Hgb 10.8 L Hct 33.9 L MCV 89 MCH 28.4 MCHC 31.9 RDW Std Deviation 46.8 H Plt Count 262 D Neut % (Auto) 68 Lymph % (Auto) 19 [place]aver % (Auto) 8 Eos % (Auto) 4 Baso % (Auto) 1 Neut # (Auto) 6.8 Lymph # (Auto) 1.9 [place]aver # (Auto) 0.8 Eos # (Auto) 0.4 Baso # (Auto) 0.1 Immature Gran # (Auto) 0.02 H Absolute Nucleated RBC 0.00 Immature Gran % 0 Nucleated RBC % 0 Sodium 141 Potassium 3.8 D Chloride 104 Carbon Dioxide 26.0 Anion Gap 11 BUN 6 L Creatinine 0.7 Estim Creat Clear Calc 78.4 eGFR > 60 BUN/Creatinine Ratio 9 L Glucose 144 H Calculated Osmolality 281 Lactic Acid 1.1 0.8 Calcium 8.9 Corrected Calcium 9.1 Phosphorus 3.4 Magnesium 1.8 Total Bilirubin 0.6 AST 12 ALT 7 L Alkaline Phosphatase 38 L Total Protein 6.3 Albumin 3.7 Globulin 2.6 Albumin/Globulin Ratio 1.4 Assessment & Plan Patient Synopsis 74-year-old female with HFrEF, severe aortic stenosis, DM2, and dementia, admitted for recurrent transient episodes of right facial droop and slurred speech post?cardiac cath (each resolving within minutes) with no deficits on exam, MRI pending, and troponins rising likely from recent procedure. # Acute CVA Initial episode post-cardiac cath; two additional brief episodes (10 PM and 6:45 AM today) with right facial droop + slurred speech lasting ~5 minutes each. All resolved; currently asymptomatic. Patient does not recall events, daughter provided history. CT/CTA negative. Underwent MRI, found to have acute infarcts of right cerebral hemisphere continue middle and left basal ganglia 7 mm Plan: * Continue ASA + Plavix per * Started on Eliquis 5 mg twice daily, patient has history of paroxysmal A-fib * Neuro checks q4h. * MRI brain without contrast, pending. Will attempt to speak to patient. * Maintain BP goal 140?160 systolic (per neuro?s stepped goal). * Continue telemetry monitoring. * Maintain fall and seizure precautions. * Continue full workup per teleneurology (lactate, trop trends). * PT/ST following * Echocardiogram with bubble study ordered #Anemia - Patient had hemoglobin of 12.1 yesterday, dropped to 10.8 today - In setting of dual antiplatelet therapy, no obvious source of bleeding - Started on Eliquis 5 mg twice daily - We will monitor her hemoglobin closely # Elevated Troponin likely post-procedural, peaked Trending upward: 0.087 -> 0.125 -> 0.284 -> 0.191. Angiogram negative for obstructive CAD; no chest pain. Currently downtrending. Plan: * Stop trending. * Repeat EKG if symptoms develop. * Continue GDMT: metoprolol, Entresto, statin. # Severe Aortic Stenosis confirmed on cath Valve area 0.7 cm; mean gradient 48 mmHg. Plan: * Continue medical management inpatient. * Continue cardiology follow-up for TAVR vs SAVR workup. * Activity restrictions: no lifting >5 lbs x 7?10 days. # Chronic HFrEF EF 40?45%; stable; no volume overload. Plan: * Resume Entresto and metoprolol, continue statin. * Maintain K >4, Mg >2. * Monitor I/Os, daily weights. # Paroxysmal Atrial Fibrillation Currently in sinus rhythm. Plan: * Continue beta-juan manuel. * Holding anticoagulation per cardiology. # Hypertension BP elevated this morning. Plan: * Resume home Entresto + metoprolol. * Monitor. # Diabetes Mellitus Type 2 BG controlled; A1c 6.6. Plan: * Continue inpatient glucose checks and sliding scale # Mild Lactic Acidosis 2.1 -> 2.3 -> 2.4; patient hemodynamically stable, no infection signs. Plan: * Downtrended to normal levels * Monitor for any symptoms or hemodynamic changes. Health Maintenance Diet: Cardiac, carb-consistent DVT Prophylaxis: Eliquis 5 mg twice daily GI Prophylaxis: PPI Code Status: Full code Time Spent with Patient Time: Total time spent is greater than 50% in coordination of care (as documented) at patient's floor/unit and/or counseling patient: Time with patient: Greater than 35 minutes Reason for Continued Stay Reason for continued stay: further monitoring Quality Measures Quality Measures stroke Suspected type of Stroke: Unknown at this time Tenecteplase given: Reason(s) Tenecteplase not given: Stroke severity too mild (non-disabling) not given Rehab services: PT evaluation ordered and Speech Language Pathology eval ordered VTE Prophylaxis: pharmaceutical Antithrombotic by day 2:: ordered Statin ordered: >75 y/o moderate or high intensity dose Anticoagulation ordered for A- fib or flutter (current or hx): ordered Advance care planning discussed with:: patient and child
[2025-03-13] MEDS: INSULIN LISPRO (AdmeLOG) 1 UNIT/0.01 ML UNIT SC (11:59)
--- NOTE | 2025-03-13 15:05 | ESPR_ITS ---
Documentation for date of: 03/13/25 Subjective Subjective Interval history: Patient seen and examined at bedside, family at bedside reported that patient having similar episodes like yesterday. Patient has episodes of facial droop along with slurred speech and not making sense per family. Had 1 episode yesterday evening and another 2 this morning. Telemetry reviewed, patient has no episodes of atrial fibrillation as of this morning, rhythm is sinus. Patient does have underlying severe aortic stenosis, however neurology is following. Pending MRI. 03/13/25 Patient seen and examined at bedside. No new cardiac complains. Labs and vitals look stable. MRI completed 03/12/25 showed Acute infarcts right cerebellar hemisphere 20 mm, left basal ganglia, 7 mm. Neurology consulted and following the patient. Antiplatelet/anticoagulation as per neurology. Okay to discharge form cardiac perspective, follow up in the clinic in 1 week. Exam Vital Signs Temp Pulse Resp BP Pulse Ox O2 Del Method 97.0 F 77 14 144/71 H 95 Room Air 03/13/25 12:00 03/13/25 12:00 03/13/25 12:00 03/13/25 12:00 03/13/25 12:00 03/13/25 12:00 Narrative Exam General: Awake and in no acute distress. Conversational and non-toxic appearing. HEENT: Normocephalic, atraumatic, mucous membranes moist. No facial droop noted. No slurring of speech noted. No dysmetria. Heart: Regular rate and rhythm, 4/6 aortic area murmur positive. Lungs: Clear to auscultation with no wheezing or crackles. Abdomen: Soft, nondistended, obese, nontender, positive bowel sounds. ?No guarding or rebound tenderness. Neurologic: Alert and oriented x3, no gross neurological deficit, and patient able to move all 4 extremities. Strength 5/5 upper and lower extremity. Extremities: Trace bilateral lower extremity edema Skin: No rash or ecchymoses. Femoral dressing noted. Objective Labs 03/13/25 05:20 03/13/25 05:20 Labs: Laboratory Results - last 24 hr 03/12/25 03/12/25 03/12/25 17:02 20:47 22:30 WBC RBC Hgb Hct MCV MCH MCHC RDW Std Deviation Plt Count Neut % (Auto) Lymph % (Auto) [place] % (Auto) Eos % (Auto) Baso % (Auto) Neut # (Auto) Lymph # (Auto) [place] # (Auto) Eos # (Auto) Baso # (Auto) Immature Gran # (Auto) Absolute Nucleated RBC Immature Gran % Nucleated RBC % Sodium Potassium Chloride Carbon Dioxide Anion Gap BUN Creatinine Estim Creat Clear Calc eGFR BUN/Creatinine Ratio Glucose Calculated Osmolality Lactic Acid 1.1 1.1 0.8 Calcium Corrected Calcium Phosphorus Magnesium Total Bilirubin AST ALT Alkaline Phosphatase Total Protein Albumin Globulin Albumin/Globulin Ratio 03/13/25 05:20 WBC 10.0 RBC 3.80 L Hgb 10.8 L Hct 33.9 L MCV 89 MCH 28.4 MCHC 31.9 RDW Std Deviation 46.8 H Plt Count 262 D Neut % (Auto) 68 Lymph % (Auto) 19 [place] % (Auto) 8 Eos % (Auto) 4 Baso % (Auto) 1 Neut # (Auto) 6.8 Lymph # (Auto) 1.9 [place] # (Auto) 0.8 Eos # (Auto) 0.4 Baso # (Auto) 0.1 Immature Gran # (Auto) 0.02 H Absolute Nucleated RBC 0.00 Immature Gran % 0 Nucleated RBC % 0 Sodium 141 Potassium 3.8 D Chloride 104 Carbon Dioxide 26.0 Anion Gap 11 BUN 6 L Creatinine 0.7 Estim Creat Clear Calc 78.4 eGFR > 60 BUN/Creatinine Ratio 9 L Glucose 144 H Calculated Osmolality 281 Lactic Acid Calcium 8.9 Corrected Calcium 9.1 Phosphorus 3.4 Magnesium 1.8 Total Bilirubin 0.6 AST 12 ALT 7 L Alkaline Phosphatase 38 L Total Protein 6.3 Albumin 3.7 Globulin 2.6 Albumin/Globulin Ratio 1.4 Assessment & Plan A&P Narrative Ms. 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 Patient admitted for CVA workup after possible deficits were noted by RN postcardiac cath. Stroke alert was initiated. #CVA Post cardiac catheterization on 161 on RNs assessment patient noted to have some left-sided facial droop with possible slurring of speech. Medical response unit called in the Certified Endoscopy Technician, patient assessed by ED physician who noted slurring of speech right-sided facial droop and some right-sided weakness, stroke alert was initiated. CT head negative, head and neck CTA negative. Neurology recommends admission for MRI and further workup to rule out stroke. Low suspicion. Patient seen at bedside, alert oriented x 4, no focal neurological deficits noted, normal finger-nose test, normal heel bob test, no visual deficits noted, 5/5 strength preserved bilateral upper extremities and 5/5 strength noted bilateral lower extremities. No gross neurological deficits noted. 03/13/25 Patient seen and examined at bedside. No new cardiac complains. Labs and vitals look stable. MRI completed 03/12/25 showed Acute infarcts right cerebellar hemisphere 20 mm, left basal ganglia, 7 mm. Neurology consulted and following the patient. Antiplatelet/anticoagulation as per neurology. Okay to discharge form cardiac perspective, follow up in the clinic in 1 week. #Status post left and right coronary angiograms #Status post abdominal aortography #Status post bilateral lower extremity runoff #Status post supravalvular aortography Elective cardiac catheterization performed today as a part of preoperative workup for aortic valve replacement. Patient was performed risks and benefits prior to procedure. Summary/findings: 1. Severe aortic stenosis: There was significant transvalvular gradient with a mean gradient of 48 mmHg and a peak gradient of 60 mmHg with a valve area of 0.7 cm?. 2. LHC showed normal coronaries with only minimal luminal irregularities and no angiographically significant obstruction. 3. LVEF was mildly reduced at 40-45% and LVEDP was mildly elevated at 22 mmHg. 4. Right heart cardiac catheterization showed mild to moderately elevated right heart pressures with a mean PCWP of 23 mmHg, mean PA pressure of 41 mmHg as well as a mean RA pressure of 2 mmHg. 5. Supravalvular adequacy showed no evidence of any thoracic aortic aneurysm and only minimally dilated thoracic aorta. 6. Aortography and bilateral lower extremity runoff was performed separately and showed only minimal atherosclerosis and patent vessels as described above including the iliac arteries, bilateral femoral arteries as well as popliteal arteries Recommendations: - Patient will need further aortic valve replacement as outpatient, needs follow-up with cardiothoracic surgery - Continue aggressive medical management with risk factor modification - Patient to avoid lifting more than 5 pounds for the next 7 to 10 days. #Chronic systolic and diastolic heart failure, HFrEF EF 40 to 45% Patient has underlying systolic and diastolic heart failure, angiogram from today shows ejection fraction 40 to 45%. LVEDP is mildly elevated 22 mmHg. Echocardiogram from 12/24/2024 shows -Normal LV size. Mild LVH. Global LV systolic function is moderately decreased. Estimated EF at 35-40 %. -Diastolic function could not be assesed due to severe MAC. Normal RV size and systolic function. -Severe MAC with severe calcification of mitral valve ( posterrior > anterior) and aortic valve. -Mild to moderate mitral stenosis - Mean PG 5 to 8 mm hg. but area with PHT 2.5 sq cm. -Moderate to severe with V max 3.3 m/s, mean PG 23 mm hg But RILEY is 0.5 sq cm. Trace to mild AI. -Mostly low flow low gradient severe aortic stenosis given the low EF. -Mild MR and mild TR. IVC not well visualized. Recommendations: -Patient's ejection fraction has improved with Entresto and metoprolol. -Recommend continuing GDMT, resume Entresto and metoprolol. #Paroxysmal atrial fibrillation Patient did have an episode of atrial fibrillation in December as evidenced by EKG in the past-12/26/2024. EKG today shows sinus rhythm, patient not on anticoagulation as this was believed to be stress related secondary to SBO/bowel ischemia in the past. Recommendations: -Will continue to hold anticoagulation for now, patient will need outpatient Holter monitoring to assess A-fib burden. - Keep potassium greater than 4 and magnesium greater than 2 at all times #Severe aortic stenosis Patient underwent cardiac catheterization today, per cardiac cath patient noted to have transvalvular mean gradient 48 mmHg, mean peak gradient 60 mmHg, valve area 0.7 cm? -Will continue with TAVR vs SAVR workup outpatient #Elevated troponin Patient's troponin elevated at 0.087 likely post angiogram, as no disease noted on angiogram. #Hypertension Resume home dose Entresto and metoprolol #Hyperlipidemia Continue atorvastatin #Leukocytosis #Insulin-dependent diabetes mellitus Management as per primary team Management of rest of the medical conditions as per primary team and other consultants. Thank you for the consult and allowing me to participate in the care of the patient. Cardiology will continue to follow. Garrett Saenz M.D. Interventional Cardiology Time Spent With Patient Time: Total time spent is greater than 50% in coordination of care (as documented) at patient's floor/unit and/or counseling patient:
[2025-03-13 20:16] LABS: Hematocrit 31.8 % (36.0-46.0); Hemoglobin 10.4 g/dL (12.0-16.0)
[2025-03-13] MEDS: APIXABAN 2.5 MG TABLET 5 MG PO (20:46)
[2025-03-13] MEDS: ATORVASTATIN CALCIUM 20 MG TABLET 40 MG PO (20:46)
[2025-03-14] VITALS (7 sets, daily range): BP systolic 126–161; BP diastolic 64–76; PULSE 80–96; RESP 18–95; TEMP 36.3–36.8; O2SAT 93–95; BMI 35.2
[2025-03-14 06:20] LABS: Basophils # (Auto) 0.0 Thou/mm3 (0.0-0.2); Basophils % (Auto) 0 % (0-2.5); Eosinophils # (Auto) 0.3 Thou/mm3 (0.0-0.5); Eosinophils % (Auto) 5 % (0-10); Hematocrit 33.0 % (36.0-46.0); Hemoglobin 10.6 g/dL (12.0-16.0); Immature Granulocytes Auto 0.01 Thou/mm3 (0.00-0.00); Lymphocytes # (Auto) 1.6 Thou/mm3 (1.0-4.8); Lymphocytes % (Auto) 21 % (10-50); Mean Corpuscular HGB Conc 32.1 g/dl (31.0-37.0); Mean Corpuscular Hemoglobin 28.8 pg (25.0-35.0); Mean Corpuscular Volume 90 fL (80-100); Monocytes # (Auto) 0.7 Thou/mm3 (0.0-0.8); Monocytes % (Auto) 9 % (0-12); Neutrophils # (Auto) 4.9 Thou/mm3 (1.8-7.7); Neutrophils % (Auto) 65 % (37-80); Nucleated Red Blood Cell # 0.00 Thou/mm3 (0.00-0.00); Nucleated Red Blood Cell % 0 /100 WBC (0); Platelet Count 247 Thou/mm3 (140-440); RDW Standard Deviation 46.9 fL (36.4-46.3); Red Blood Count 3.68 Miln/mm3 (4.00-5.20); White Blood Count 7.6 Thou/mm3 (3.6-11.0)
[2025-03-14 06:54] LABS: Alanine Aminotransferase < 7 U/L (10-49); Albumin, Serum 3.7 gm/dL (3.4-4.8); Albumin/Globulin Ratio 1.5 (1.2-2.2); Alkaline Phosphatase 40 U/L (46-116); Anion Gap 10 (7-16); Aspartate Amino Transferase 12 U/L (0-34); BUN/Creatinine Ratio 9 Ratio (12-20); Bilirubin,Total 0.5 mg/dL (0.3-1.2); Blood Urea Nitrogen 6 mg/dL (9-23); Calcium 8.9 mg/dL (8.3-10.6); Calcium (Corrected) 9.1 mg/dL (8.5-10.1); Carbon Dioxide 27.8 mMol/L (20.0-31.0); Chloride 103 mMol/L (98-107); Creatinine (Component) 0.7 mg/dL (0.6-1.3); Estimated Creatinine Clearance 78.4 mL/min (>60); Globulin 2.5 gm/dL (2.3-3.5); Glucose 142 mg/dL (74-106); Magnesium 1.5 mg/dL (1.6-2.6); Osmolality,Calculated 280 (275-295); Phosphorous 3.1 mg/dL (2.4-5.1); Potassium 3.7 mMol/L (3.4-5.1); Sodium 141 mMol/L (136-145); Total Protein 6.2 gm/dL (5.7-8.2); eGFR > 60 See Note
[2025-03-14] MEDS: METOPROLOL SUCCINATE XL 25 MG TABCR PO (08:16)
[2025-03-14] MEDS: PANTOPRAZOLE 40 MG TABLET PO (08:17)
[2025-03-14] MEDS: CLOPIDOGREL BISULFATE 75 MG TABLET PO (08:17)
[2025-03-14] MEDS: ASPIRIN EC 81 MG TABEC PO (08:17)
[2025-03-14] MEDS: POTASSIUM CHLORIDE 10% 20 MEQ/15 ML UDC 40 MEQ PO (09:49)
[2025-03-14] MEDS: MAGNESIUM OXIDE 400 MG TABLET PO (09:50)
[2025-03-14] MEDS: APIXABAN 2.5 MG TABLET 5 MG PO (10:19)
--- NOTE | 2025-03-14 10:56 | ESPR_ITS ---
<Statement entered by Zak Ha MD - 03/14/25 22:01> Patient was seen and examined by me personally. I have reviewed the below documentation by the team resident and agree with its findings. Ms. 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 Patient admitted for CVA workup after possible deficits were noted by RN postcardiac cath. Patient underwent further workup, MRI 03/12/2025 shows acute infarcts in the right cerebellar hemisphere 20 mm and left basal ganglia 7 mm. Patient started on Eliquis 5 mg twice daily per neurology recommendations, no aspirin or Plavix indicated. Echocardiogram done in house 03/13 negative for PFO, shows grade 1 diastolic dysfunction, moderate concentric hypertrophy with EF 55 to 60%. Moderate pulmonary hypertension noted with RVSP 56, severe V-max 4.4, mean pressure gradient 46 mmHg. Severe MAC noted again. Patient to continue physical therapy, will be discharged on Eliquis. Continue GDMT. Will follow-up with patient within 1 week of discharge. Low magnesium noted today at 1.5. Recommend discharging patient on magnesium oxide 400 mg p.o. daily for 7 days. Thank you for the consult and allowing to participate in the care of the patient. Cardiology will continue to follow. Case discussed with Attending Physician Dr. Garrett Ha MD Internal Medicine PGY-2 Disclaimer: This note was dictated by speech recognition. Minor errors in recreation coordinator may be present due to voice recognition software. Documentation for date of: 03/14/25 Subjective Subjective Interval history: Ms. 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 Patient underwent left and right heart cardiac catheterization, abdominal aortogram and lower extremity runoff today. Patient tolerated the procedure well without any complications, patient did not receive any heparin/Lovenox during the procedure. No significant disease was noted during the cardiac catheterization. Postcardiac catheterization patient stable, cath findings were informed to the patient. Around 1614, patient noted to have symptoms of left-sided weakness and slurred speech per RN and bedside, medical response was initiated, patient was evaluated by ED physician per ER physician evaluation patient had right-sided facial droop, right-sided weakness and slurred speech. Stroke alert was initiated. CT head and CTA were negative, ER workup fairly unremarkable other than mild leukocytosis, hypomagnesemia, mildly elevated lactate and troponin. Teleneurology recommended MRI for which patient will be admitted. ED Course: ED Vitals: On presentation in ED blood pressure 146/83, heart rate 105, respiratory rate 19, temp 98.2, O2 sat 94 on room air ED Labs: ER labs showed WBC 14.1, hemoglobin 12.2, hematocrit 38%, MCV 91, MCH 29.2, MCHC 32.1, platelet count 295. Mild neutrophilia of 11.8 noted. ESR 32. Coags PT 10.9, INR 1.0 APTT 22.5. Sodium 138, potassium 4.0, chloride 108, bicarb 25.9, anion gap 10, BUN 6, creatinine 0.7, GFR greater than 60, glucose 151, osmolality 276, lactate 2.1, calcium 9.7, magnesium 1.4, AST 16, ALT 11, alk phos 41, ammonia less than 10, total CK 39, 2 0.087, CRP less than 0.5, total protein 7.0, albumin 4.1, globulin 3.0, vitamin B12 pending. Urinalysis shows contaminated sample. Squamous epithelial cells 16 ED Imaging: CT scan of head in ER negative for any midline shift mass or hemorrhage. Head neck CTA negative for large vessel occlusion. EKG in ED shows sinus rhythm, no acute ST-T changes. ED Treatment: Stroke alert called in ER. 03/12: Patient seen and examined at bedside, family at bedside reported that patient having similar episodes like yesterday. Patient has episodes of facial droop along with slurred speech and not making sense per family. Had 1 episode yesterday evening and another 2 this morning. Telemetry reviewed, patient has no episodes of atrial fibrillation as of this morning, rhythm is sinus. Patient does have underlying severe aortic stenosis, however neurology is following. Pending MRI. 03/13: Patient seen and examined at bedside. No new cardiac complains. Labs and vitals look stable. MRI completed 03/12/25 showed Acute infarcts right cerebellar hemisphere 20 mm, left basal ganglia, 7 mm. Neurology consulted and following the patient. Antiplatelet/anticoagulation as per neurology. Okay to discharge form cardiac perspective, follow up in the clinic in 1 week. 03/14: No Overnight events. Labs reviewed and patient examined at the bedside. Reports she is doing well. Patient will be discharged on Eliquis. Magnesium was low with 1.5 today. On discharge, will give patient with magnesium oxide 400mg po qd for 7 days and f/u outpatient cardiology in 1 week. Exam Vital Signs Temp Pulse Resp BP Pulse Ox O2 Del Method 97.5 F 96 20 150/64 H 95 Room Air 03/14/25 07:56 03/14/25 08:22 03/14/25 08:22 03/14/25 08:16 03/14/25 07:56 03/14/25 07:56 Narrative Exam General: Awake and in no acute distress. Conversational and non-toxic appearing. HEENT: Normocephalic, atraumatic, mucous membranes moist. No facial droop noted. No slurring of speech noted. No dysmetria. Heart: Regular rate and rhythm, 4/6 aortic area murmur positive. Lungs: Clear to auscultation with no wheezing or crackles. Abdomen: Soft, nondistended, obese, nontender, positive bowel sounds. ?No guarding or rebound tenderness. Neurologic: Alert and oriented x3, no gross neurological deficit, and patient able to move all 4 extremities. Strength 5/5 upper and lower extremity. Extremities: Trace bilateral lower extremity edema Skin: No rash or ecchymoses. Femoral dressing noted. Objective Labs 03/14/25 05:03 03/14/25 05:03 Labs: Laboratory Results - last 24 hr 03/13/25 03/14/25 19:42 05:03 WBC 7.6 RBC 3.68 L Hgb 10.4 L 10.6 L Hct 31.8 L 33.0 L MCV 90 MCH 28.8 MCHC 32.1 RDW Std Deviation 46.9 H Plt Count 247 Neut % (Auto) 65 Lymph % (Auto) 21 [place] % (Auto) 9 Eos % (Auto) 5 Baso % (Auto) 0 Neut # (Auto) 4.9 Lymph # (Auto) 1.6 [place] # (Auto) 0.7 Eos # (Auto) 0.3 Baso # (Auto) 0.0 Immature Gran # (Auto) 0.01 H Absolute Nucleated RBC 0.00 Immature Gran % 0 Nucleated RBC % 0 Sodium 141 Potassium 3.7 Chloride 103 Carbon Dioxide 27.8 Anion Gap 10 BUN 6 L Creatinine 0.7 Estim Creat Clear Calc 78.4 eGFR > 60 BUN/Creatinine Ratio 9 L Glucose 142 H Calculated Osmolality 280 Calcium 8.9 Corrected Calcium 9.1 Phosphorus 3.1 Magnesium 1.5 L Total Bilirubin 0.5 AST 12 ALT < 7 L Alkaline Phosphatase 40 L Total Protein 6.2 Albumin 3.7 Globulin 2.5 Albumin/Globulin Ratio 1.5 Quality Measures Quality Measures stroke Suspected type of Stroke: Unknown at this time Tenecteplase given: Reason(s) Tenecteplase not given: Stroke severity too mild (non-disabling) not given Rehab services: PT evaluation ordered VTE Prophylaxis: pharmaceutical Antithrombotic by day 2:: ordered Statin ordered: >75 y/o moderate or high intensity dose Anticoagulation ordered for A-fib or flutter (current or hx): ordered Advance care planning discussed with:: patient Assessment & Plan Assessment Current Active Medications: Generic Name Dose Route Start Last Admin Trade Name Freq PRN Reason Stop Dose Admin Acetaminophen 650 mg 03/11/25 18:25 Acetaminophen 325 Mg Tablet PO 04/10/25 18:24 Q6H PRN Fever >100.4 Acetaminophen 650 mg 03/11/25 18:25 Acetaminophen 325 Mg Tablet PO 04/10/25 18:24 Q6H PRN PAIN SCALE 1-3 (mild Apixaban 5 mg 03/14/25 10:00 03/14/25 10:19 Apixaban 2.5 Mg Tablet PO 04/13/25 09:59 5 mg BID SAMAN Administration Protocol Aspirin 81 mg 03/12/25 09:00 03/14/25 08:17 Aspirin Ec 81 Mg Tabec PO 04/11/25 08:59 81 mg QDAY SAMAN Administration Atorvastatin Calcium 40 mg 03/11/25 21:00 03/13/25 20:46 Atorvastatin Calcium 20 Mg Tablet PO 04/10/25 20:59 40 mg HS SAMAN Administration Clopidogrel Bisulfate 75 mg 03/12/25 09:00 03/14/25 08:17 Clopidogrel Bisulfate 75 Mg Tablet PO 04/11/25 08:59 75 mg QDAY SAMAN Administration Dextrose 25 ml 03/12/25 10:08 Dextrose 50%-Water Inj 50 Ml Syringe IV 04/11/25 10:07 Q15MIN PRN BG 50-70 responsive npo pt Dextrose 50 ml 03/12/25 10:08 Dextrose 50%-Water Inj 50 Ml Syringe IV 04/11/25 10:07 Q15MIN PRN BG <50 OR BG <70 & pt unresponsive Glucagon 1 mg 03/12/25 10:08 Glucagon Inj 1 Mg Vial IM Q15MIN PRN BG <70, and no IV access Magnesium Sulfate 2 gm in 50 mls @ 25 mls/hr 03/14/25 13:00 Magnesium Sulfate Ivpb IV 03/14/25 14:59 X1 ONE Insulin Human Lispro 0 unit 03/12/25 11:30 03/14/25 07:14 Insulin Lispro (Admelog) 1 Unit/0.01 Ml Unit SC 04/11/25 11:29 Not Given AC SAMAN Protocol Labetalol HCl 10 mg 03/11/25 17:14 Labetalol Inj 5 Mg/Ml Vial 4 Ml IVP Q15M PRN hypertension Metoprolol Succinate 25 mg 03/12/25 10:30 03/14/25 08:16 Metoprolol Succinate Xl 25 Mg Tabcr PO 04/11/25 10:29 25 mg QDAY SAMAN Administration Morphine Sulfate 1 mg 03/11/25 18:25 Morphine Sulf Inj 4 Mg/Ml Vial IVP 03/16/25 18:24 Q4HR PRN PAIN SCALE 7-10 (Severe Ondansetron HCl 4 mg 03/11/25 18:25 Ondansetron Inj 2 Mg/Ml Inj 2 Ml IVP 04/10/25 18:24 Q6H PRN NAUSEA OR VOMITING Protocol Oxycodone/Acetaminophen 1 tab 03/11/25 18:25 Oxycodone/Apap 5/325 Tablet PO 03/16/25 18:24 Q6H PRN PAIN SCALE 4-6 (Moderate Pantoprazole Sodium 40 mg 03/12/25 09:00 03/14/25 08:17 Pantoprazole 40 Mg Tablet PO 04/11/25 08:59 40 mg QDAY SAMAN Administration Sacubitril/Valsartan 1 tab 03/12/25 09:00 03/14/25 08:17 Sacubitril 24 Mg/Valsartan 26 Mg Tablet PO 04/11/25 08:59 1 tab BID SAMAN Administration Sennosides 1 tab 03/11/25 18:25 Senna Tablet PO 04/10/25 18:24 QDAY PRN constipation Protocol Plan Ms. 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 Patient admitted for CVA workup after possible deficits were noted by RN postcardiac cath. Stroke alert was initiated. #Acute infarct right cerebellar hemisphere 20 mm, left basal ganglia 7 mm Post cardiac catheterization on 1613 on RNs assessment patient noted to have some left-sided facial droop with possible slurring of speech. Medical response unit called in the Outside Medical Sales Representative, patient assessed by ED physician who noted slurring of speech right-sided facial droop and some right-sided weakness, stroke alert was initiated. CT head negative, head and neck CTA negative. Neurology recommends admission for MRI and further workup to rule out stroke. Low suspicion. Patient seen at bedside, alert oriented x 4, no focal neurological deficits noted, normal finger-nose test, normal heel bob test, no visual deficits noted, 5/5 strength preserved bilateral upper extremities and 5/5 strength noted bilateral lower extremities. No gross neurological deficits noted. -03/13/25: MRI completed 03/12/25 showed Acute infarcts right cerebellar hemisphere 20 mm, left basal ganglia, 7 mm. -ECHO (03/13/2025) showed: 1. Left ventricle size is normal and systolic function is normal. Estimated ejection fraction is 55-60%. There is grade I diastolic dysfunction. There is moderate concentric hypertrophy noted. 2. Right ventricle chamber size is normal and systolic function is normal. Estimated RVSP is 56 mmHg with 8 RAP. At least moderate pulmonary HTN. 3. There is severe aortic stenosis with V max 4.4 m/s, mean PG 46 mmHg. 4. There is moderate to severe mitral valve regurgitation. Severe MAC with severe calcification of mitral valve (posterior>anterior) and aortic valve. Mild- moderate mitral stenosis. 5. The left atrium is moderately enlarged. The right atrium is normal. 6. Bubble study negative for PFO and ASD. Plan: -Neurology consulted and following the patient. Antiplatelet/anticoagulation as per neurology. -Okay to discharge form cardiac perspective, follow up in the clinic in 1 week. -Patient will be discharged on Eliquis 5 twice daily #Status post left and right coronary angiogram #Status post abdominal aortography #Status post bilateral lower extremity runoff #Status post supravalvular aortography Elective cardiac catheterization performed as a part of preoperative workup for aortic valve replacement. Patient was performed risks and benefits prior to procedure. Summary/findings: 1. Severe aortic stenosis: There was significant transvalvular gradient with a mean gradient of 48 mmHg and a peak gradient of 60 mmHg with a valve area of 0.7 cm?. 2. LHC showed normal coronaries with only minimal luminal irregularities and no angiographically significant obstruction. 3. LVEF was mildly reduced at 40-45% and LVEDP was mildly elevated at 22 mmHg. 4. Right heart cardiac catheterization showed mild to moderately elevated right heart pressures with a mean PCWP of 23 mmHg, mean PA pressure of 41 mmHg as well as a mean RA pressure of 2 mmHg. 5. Supravalvular adequacy showed no evidence of any thoracic aortic aneurysm and only minimally dilated thoracic aorta. 6. Aortography and bilateral lower extremity runoff was performed separately and showed only minimal atherosclerosis and patent vessels as described above including the iliac arteries, bilateral femoral arteries as well as popliteal arteries Recommendations: - Patient will need further aortic valve replacement as outpatient, needs follow-up with cardiothoracic surgery - Continue aggressive medical management with risk factor modification - Patient to avoid lifting more than 5 pounds for the next 7 to 10 days. #Chronic systolic and diastolic heart failure, HFrEF EF 40 to 45% Patient has underlying systolic and diastolic heart failure, angiogram from today shows ejection fraction 40 to 45%. LVEDP is mildly elevated 22 mmHg. Echocardiogram from 12/24/2024 shows -Normal LV size. Mild LVH. Global LV systolic function is moderately decreased. Estimated EF at 35-40 %. -Diastolic function could not be assesed due to severe MAC. Normal RV size and systolic function. -Severe MAC with severe calcification of mitral valve ( posterrior > anterior) and aortic valve. -Mild to moderate mitral stenosis - Mean PG 5 to 8 mm hg. but area with PHT 2.5 sq cm. -Moderate to severe with V max 3.3 m/s, mean PG 23 mm hg But RILEY is 0.5 sq cm. Trace to mild AI. -Mostly low flow low gradient severe aortic stenosis given the low EF. -Mild MR and mild TR. IVC not well visualized. Recommendations: -Patient's ejection fraction has improved with Entresto and metoprolol. -Recommend continuing GDMT, resume Entresto and metoprolol. #Paroxysmal atrial fibrillation Patient did have an episode of atrial fibrillation in December as evidenced by EKG in the past-12/26/2024. EKG today shows sinus rhythm, patient not on anticoagulation as this was believed to be stress related secondary to SBO/bowel ischemia in the past. [id number] Score: 8 points Recommendations: - Continue Eliquis 5 mg p.o. twice daily - Will obtain Holter monitoring outpatient to assess A-fib burden - Keep potassium greater than 4 and magnesium greater than 2 at all times #Severe aortic stenosis Patient underwent cardiac catheterization today, per cardiac cath patient noted to have transvalvular mean gradient 48 mmHg, mean peak gradient 60 mmHg, valve area 0.7 cm? -Will continue with TAVR vs SAVR workup outpatient #Elevated troponin Patient's troponin elevated at 0.087 likely post angiogram, as no disease noted on angiogram. #Hypertension Resume home dose Entresto and metoprolol #Hyperlipidemia Continue atorvastatin #Leukocytosis #Insulin-dependent diabetes mellitus Management as per primary team Assessment and plan discussed with my attending physician Dr. Saenz and senior resident Dr. Ha PGY 2 Dr. Gregory (PGY-1) - Internal medicine resident Attending Provider Attestation/Addendum I have personally seen and examined the patient separately on the above date of service and discussed the plan of care with the resident. I reviewed the resident Dr. Flako Gregory / Zak Ha consultation progress note and agree with the resident findings and plan in the note above and have also edited the documentation to reflect my findings and plan. Garrett Saenz M.D. Interventional Cardiology
[2025-03-14] MEDS: INSULIN LISPRO (AdmeLOG) 1 UNIT/0.01 ML UNIT SC (11:28)
--- NOTE | 2025-03-14 12:32 | PD.RESDS ---
Planned Discharge Date 03/14/25 DS: Providers Provider Date of admission: 03/11/25 18:25 Primary care physician: Physician No Primary/Family Admitting Provider: Suzi Zamudio MD Attending Provider on Admission: Suzi Zamudio MD Consults: 03/11/25 17:14 Consult to Neurology / Tele-Neurology Routine Comment: Consulting Provider: [facility] 03/11/25 18:25 Consult to Neurology / Tele-Neurology Routine Comment: Consulting Provider: Vipul Johnson PT [Referral Physical Therapy] Routine Comment: Physician Instructions: Referral Speech Therapy Routine Comment: 03/11/25 18:35 Consult to Cardiology Routine Comment: Consulting Provider: Garrett Saenz Attending Provider on DC: Suzi Zamudio MD Discharging Provider: Hollie Roper MD DS: Diagnosis Problem List Completed Was Problem List Reviewed/Reconciled?: Yes Hospital Course Hospital Course Hospital course: Ms. French is a 74-year-old female with a history of paroxysmal atrial fibrillation, severe aortic stenosis, chronic systolic and diastolic heart failure, insulin-dependent type 2 diabetes mellitus, hypertension, hyperlipidemia, and dementia, who was admitted following a rapid response for acute neurologic symptoms after elective cardiac catheterization performed as part of preoperative evaluation for aortic valve replacement. Post?cardiac catheterization, the patient developed transient episodes of facial droop, slurred speech, and confusion, prompting stroke alert activation. Initial CT head and CTA head/neck were negative for hemorrhage or large vessel occlusion. She experienced recurrent brief neurologic episodes, all resolving spontaneously within minutes, and was admitted for further neurologic evaluation. MRI brain obtained on 03/12/2025 demonstrated acute ischemic infarcts involving the right cerebellar hemisphere (20 mm) and left basal ganglia (7 mm). 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 The patient was started on apixaban (Eliquis) 5 mg twice daily for secondary stroke prevention. During hospitalization, the patient remained hemodynamically stable with no persistent neurologic deficits on examination. Due to underlying dementia, symptom reporting was limited, and history was supplemented by family when available. She was evaluated by physical therapy, who recommended home health PT on discharge. A transthoracic echocardiogram with bubble study showed normal left ventricular systolic function (EF 55?60%), severe aortic stenosis, moderate to severe mitral regurgitation, moderate pulmonary hypertension, and no evidence of intracardiac shunt. Cardiology cleared the patient for discharge with plans for outpatient TAVR vs SAVR workup. The patient experienced a mild decline in hemoglobin after initiation of anticoagulation, which stabilized without evidence of active bleeding. She also required intermittent magnesium repletion, which was addressed prior to discharge. The patient was deemed medically stable for discharge with close outpatient follow-up. Diagnosis during admission: # Acute CVA # Anemia # Elevated Troponin likely post-procedural, peaked # Severe Aortic Stenosis confirmed on cath # Chronic HFrEF # Paroxysmal Atrial Fibrillation # Hypertension # Diabetes Mellitus Type 2 # Mild Lactic Acidosis Discharge instructions: Follow up with primary care physician within 1 week of discharge Please follow-up with your PCP, cardiology, neurology in 1 to 2 weeks of discharge Instructions have been explained to the patient with regards to their medications and how to take them. Patient was able to explain back to physician and nursing staff how to take their medications. Patient expressed understanding with instructions. New Medications: You have been started on Aspirin 81mg for 21 days, Plavix 75mg every day You have been started on Eliquis 5 mg twice daily You have been prescribed Magneisum oxide 400mg every day for a total of 7 days as recommended by Cardiology Continue physical therapy with home health Continue to take the rest of your medications as prescribed by your primary care physician. Patient has been explained that should any symptoms recur or worsen patient is instructed to return to the Emergency Department. ----- Plan discussed with attending physician Dr. Lizz Roper MD PGY-1 Internal Medicine Time Spent with Patient Time attestation: Total time spent providing and/or coordinating discharge services: 35 minutes Time spent: Greater than 30 minutes Quality: Stroke Pt Provided Written Stroke Discharge Instructions: No Home Health Home Health Referral Orders: 03/13/25 08:18 Home Health Referral Routine Reason For Exam: CVA Home-Bound The patient must either because of illness or injury, need the aid of supportive devices such as crutches, canes, wheelchairs, and walkers; the use of special transportation; or the assistance of another person in order to leave their place of residence; OR have a condition such that leaving his or her home is medically contraindicated. In addition, the patient also meets the following criteria: patient is normally unable to leave the home and leaving home requires considerable taxing effort. Addendum to Home Health Certification Practitioner's Certification: I certify that the patient has been under my care in the hospital and the care of attending physician (see below). We had a [id number] encounter on (see date below). My clinical findings indicate that the patient is home bound per the above criteria and the Home Health Services noted in these orders are medically necessary. The primary reason for the voag-ox-umdy encounter is related to the fact that the patient requires home health services. Date Certifying Pqay-tr-Auuz Physician Encounter: 03/11/25 Physician's Name who will Assume Oversight for HH Services: Rob Vanegas INSURANCE ATTORNEY - Community Resources: No PT to Evaluate: Yes PT to evaluate and provide a treatmnet plan to increase patient's mobility and strength. Wound Care: No IV Therapy: No RN Safety Evaluation: Yes RN to evaluate and create a plan of care that will produce positive outcomes. Palliative Treatment: No Palliative treatment and evaluate the need for hospice. Home Health Aide - Personal Care: No Home Health Aide to assist with any ADL's. Exam Vital Signs Temp Pulse Resp BP Pulse Ox O2 Del Method 97.5 F 96 20 150/64 H 95 Room Air 03/14/25 07:56 03/14/25 08:22 03/14/25 08:22 03/14/25 08:16 03/14/25 07:56 03/14/25 07:56 Narrative Exam General: Awake and in no acute distress. Conversational and non-toxic appearing. HEENT: Normocephalic, atraumatic, mucous membranes moist. No facial droop noted. No slurring of speech noted. No dysmetria. Heart: Regular rate and rhythm, 4/6 aortic area murmur positive. Lungs: Clear to auscultation with no wheezing or crackles. Abdomen: Soft, nondistended, obese, nontender, positive bowel sounds. ?No guarding or rebound tenderness. Neurologic: Alert and oriented x3, no gross neurological deficit, and patient able to move all 4 extremities. Strength 5/5 upper and lower extremity. Extremities: Trace bilateral lower extremity edema Skin: No rash or ecchymoses. Femoral dressing noted. Discharge Plan Plan Patient Disposition: Home w/HOME HEALTH Patient condition on transfer: Stable Care Plan Goals: Follow up with primary care physician within 1 week of discharge Please follow-up with your PCP, cardiology, neurology in 1 to 2 weeks of discharge Instructions have been explained to the patient with regards to their medications and how to take them. Patient was able to explain back to physician and nursing staff how to take their medications. Patient expressed understanding with instructions. New Medications: You have been started on Eliquis 5 mg twice daily You have been prescribed Magneisum oxide 400mg every day for a total of 7 days as recommended by Cardiology Continue physical therapy with home health Continue to take the rest of your medications as prescribed by your primary care physician. Patient has been explained that should any symptoms recur or worsen patient is instructed to return to the Emergency Department. Prescriptions/Referrals Prescriptions/Med Rec: New Eliquis 5 mg tablet 5 mg PO BID 30 Days Qty: 60 0RF magnesium oxide 400 mg magnesium capsule 400 mg PO QDAY Qty: 7 0RF Continued sacubitril-valsartan [Entresto] 24-26 mg tablet 1 tab PO BID Patient Comments: TAKE 1 TABLET BY MOUTH TWICE A DAY FOR 30 DAYS (DME) [employer] G7 Sensor Device Patient Comments: ADMINISTER 1 ITEM MISCELLANEOUS EVERY 10 DAYS metformin 1,000 mg tablet 1,000 mg PO BID Patient Comments: TAKE 1 TABLET BY MOUTH TWICE A DAY atorvastatin 20 mg tablet 20 mg PO DAILY Patient Comments: TAKE 1 TABLET BY MOUTH EVERY DAY cholecalciferol (vitamin D3) [Vitamin D3] 50 mcg (2,000 unit) tablet 2,000 unit PO BID docusate sodium [Colace] 100 mg capsule 100 mg PO BID Qty: 40 0RF hydrocodone-acetaminophen 5-325 mg tablet 1 tab PO Q6H MDD 4 PRN (Reason: pain (scale score 7-10)) Qty: 20 0RF donepezil [Aricept] 5 mg tablet 5 mg PO QDAY escitalopram oxalate [Lexapro] 10 mg tablet 10 mg PO QDAY Referrals: No Primary/Family,Physician [Primary Care Provider] Patient/Caregiver Discharge Instructions Other Discharge Activity Instructions:: Follow up with primary care physician within 1 week of discharge Please follow-up with your PCP, cardiology, neurology in 1 to 2 weeks of discharge Instructions have been explained to the patient with regards to their medications and how to take them. Patient was able to explain back to physician and nursing staff how to take their medications. Patient expressed understanding with instructions. New Medications: You have been started on Eliquis 5 mg twice daily You have been prescribed Magneisum oxide 400mg every day for a total of 7 days as recommended by Cardiology Continue physical therapy with home health Continue to take the rest of your medications as prescribed by your primary care physician. Patient has been explained that should any symptoms recur or worsen patient is instructed to return to the Emergency Department. Print Language: Russian Stand Alone Forms: [employer] Award Info., Patient Portal Info Letter Discharge Order Discharge Orders: Discharge (Routine); Ordered 03/14/25 Ordered By: Davida Harper Quality Discharge Quality Measures VTE prophylaxis Attestestation MD Attestation I have seen and examined the patient. I was physically present for the wilkins portions of the services provided including history, physical exam, diagnosis, treatment plans and orders. I agree with assessment and plan of care as documented by residents. Even though this this note was carefully revised there may still be minor errors in library circulation technician due to voice recognition software. Suzi Zamudio MD
--- NOTE | 2025-03-14 17:21 | PD.VPROG1 ---
Telemedicine visit statement This visit was conducted with the use of interactive audio and video telecommunications system that permits real time communication between the patient and the provider. Patient's verbal consent for virtual visit was obtained on 03/14/25 at 1721. Documentation for date of: 03/14/25 Virtual exam Vital Signs Temp Pulse Resp BP Pulse Ox O2 Del Method 97.4 F 80 18 161/73 H 94 L Room Air 03/14/25 12:00 03/14/25 12:00 03/14/25 12:00 03/14/25 12:00 03/14/25 12:00 03/14/25 12:00 Objective Labs 03/14/25 05:03 03/14/25 05:03 Labs: Laboratory Results - last 24 hr 03/13/25 03/14/25 19:42 05:03 WBC 7.6 RBC 3.68 L Hgb 10.4 L 10.6 L Hct 31.8 L 33.0 L MCV 90 MCH 28.8 MCHC 32.1 RDW Std Deviation 46.9 H Plt Count 247 Neut % (Auto) 65 Lymph % (Auto) 21 [place] % (Auto) 9 Eos % (Auto) 5 Baso % (Auto) 0 Neut # (Auto) 4.9 Lymph # (Auto) 1.6 [place] # (Auto) 0.7 Eos # (Auto) 0.3 Baso # (Auto) 0.0 Immature Gran # (Auto) 0.01 H Absolute Nucleated RBC 0.00 Immature Gran % 0 Nucleated RBC % 0 Sodium 141 Potassium 3.7 Chloride 103 Carbon Dioxide 27.8 Anion Gap 10 BUN 6 L Creatinine 0.7 Estim Creat Clear Calc 78.4 eGFR > 60 BUN/Creatinine Ratio 9 L Glucose 142 H Calculated Osmolality 280 Calcium 8.9 Corrected Calcium 9.1 Phosphorus 3.1 Magnesium 1.5 L Total Bilirubin 0.5 AST 12 ALT < 7 L Alkaline Phosphatase 40 L Total Protein 6.2 Albumin 3.7 Globulin 2.5 Albumin/Globulin Ratio 1.5
--- NOTE | 2025-03-15 11:31 | PC.CC ---
HH ref sent out, Kristin accepted and booked, soc 03/17
== END 2025-03-14 12:58 | disposition home health service (06) | DRG 65 ==
LOC: SERX 18:14 → SERHOLD 19:03 → S2NX 22:27 → S3NX 03-13 21:12
PROVIDERS: Admitting Provider Student in an Organized Health Care Education/Training Program; Emergency Provider Emergency Medicine; Visit Provider Student in an Organized Health Care Education/Training Program
DX: I63.441 Cerebral infarction due to embolism of right cerebellar artery (principal); E87.20 Acidosis, unspecified; I50.42 Chronic combined systolic (congestive) and diastolic (congestive) heart failure; R47.02 Dysphasia; R29.810 Facial weakness; I11.0 Hypertensive heart disease with heart failure; Z79.4 Long term (current) use of insulin; E11.9 Type 2 diabetes mellitus without complications; F03.90 Unspecified dementia, unspecified severity, without behavioral disturbance, psychotic disturbance, mood disturbance, and anxiety; I35.0 Nonrheumatic aortic (valve) stenosis; E78.5 Hyperlipidemia, unspecified; I48.0 Paroxysmal atrial fibrillation; D72.829 Elevated white blood cell count, unspecified; I48.91 Unspecified atrial fibrillation; D64.9 Anemia, unspecified; E83.42 Hypomagnesemia; I27.20 Pulmonary hypertension, unspecified; R29.702 NIHSS score 2; Z90.710 Acquired absence of both cervix and uterus; Z79.01 Long term (current) use of anticoagulants; Z79.02 Long term (current) use of antithrombotics/antiplatelets; Z79.82 Long term (current) use of aspirin; Z79.84 Long term (current) use of oral hypoglycemic drugs; K76.0 Fatty (change of) liver, not elsewhere classified
CPT/HCPCS: 36415; 70450; 70496; 70498; 70551; 71045; 80053; 80061; 80307; 81001; 82140; 82550; 82607; 83036; 83605; 83735; 84100; 84443; 84484; 84703; 85014; 85018; 85025; 85610; 85652; 85730; 86140; 92610; 93005; 93225; 93306; 97162; 99285; A4649; J1815; J2060; J3475; J7030; Q9967; A9270